=== PATIENT | male | born 1940 | race Caucasian/White ===

== ENCOUNTER → 2017-04-27 08:25 | Outpatient (CLI) | payer MEDICARE, BC, SELFPAY ==
[2017-04-27 10:19] LABS: Absolute Neutrophil Count 3.9 X10^3/uL (2.0-7.7); Basophil# 0.02 X10^3/uL; Basophil% 0.4 % (0-1); Eosinophil# 0.21 X10^3/uL; Eosinophils% 3.9 % (0-5); Hematocrit 40.4 % (40-54); Hemoglobin 13.5 g/dl (13.0-16.5); Lymphocyte % 16.6 % (19-41); Mean Corp Hgb Conc 33.4 g/gl (32-36); Mean Corpuscular Hgb 33.1 pg (27.0-32.0); Mean Platelet Vol. 9.1 fl (6.2-12.0); Monocyte# 0.41 X10^3/uL; Monocyte% 7.6 % (0-10); Neutrophil # 3.88 X10^3/uL (2.7-7.7); Neutrophil % 71.3 % (47-70); Platelet Count 130 K/mm3 (150-450); RBC Distribution Width CV 13.3 % (11.6-14.6); RBC Distribution Width SD 48.6 fl (35.1-43.9); Red Blood Count 4.08 M/mm3 (4.6-6.2); White Blood Count 5.4 K/mm3 (4.4-11.0)
[2017-04-27 10:26] LABS: POSITIVE COUNT NO; POSITIVE DIFFERENTIAL NO; POSITIVE MORPHOLOGY NO
== END ==
PROVIDERS: Family Provider Family Medicine; PCP Family Medicine; Visit Provider Radiology Radiation Oncology
DX: Z01.818 Encounter for other preprocedural examination (principal); C79.51 Secondary malignant neoplasm of bone; Z85.46 Personal history of malignant neoplasm of prostate
CPT/HCPCS: 36415; 85025

== ENCOUNTER → 2017-05-03 11:04 | Outpatient (CLI) | payer MEDICARE, BC, SELFPAY | PROVIDERS: Family Provider Family Medicine; PCP Family Medicine; Visit Provider Radiology Radiation Oncology | DX: C79.51 Secondary malignant neoplasm of bone (principal); C61 Malignant neoplasm of prostate | CPT/HCPCS: 79101; A9606 ==

== ENCOUNTER → 2017-05-27 09:21 | Outpatient (CLI) | payer MEDICARE, BC, SELFPAY ==
[2017-05-27 09:57] LABS: Absolute Lymphocyte Count 0.69 X10^3/ul (0.83-4.51); Absolute Neutrophil Count 2.9 X10^3/uL (2.0-7.7); Basophil# 0.01 X10^3/uL; Basophil% 0.2 % (0-1); Eosinophil# 0.11 X10^3/uL; Eosinophils% 2.7 % (0-5); Hematocrit 39.2 % (40-54); Lymphocyte # 0.69 X10^3/ul (4.0); Lymphocyte % 16.7 % (19-41); Mean Corp Hgb Conc 33.2 g/gl (32-36); Mean Corpuscular Hgb 33.2 pg (27.0-32.0); Mean Platelet Vol. 9.1 fl (6.2-12.0); Monocyte# 0.38 X10^3/uL; Monocyte% 9.2 % (0-10); Neutrophil # 2.92 X10^3/uL (2.7-7.7); Neutrophil % 70.7 % (47-70); Platelet Count 139 K/mm3 (150-450); RBC Distribution Width CV 13.7 % (11.6-14.6); RBC Distribution Width SD 49.6 fl (35.1-43.9); Red Blood Count 3.92 M/mm3 (4.6-6.2); White Blood Count 4.1 K/mm3 (4.4-11.0)
[2017-05-27 09:58] LABS: POSITIVE COUNT NO; POSITIVE DIFFERENTIAL NO; POSITIVE MORPHOLOGY NO
== END ==
PROVIDERS: Family Provider Family Medicine; PCP Family Medicine; Visit Provider Family Medicine
DX: C79.51 Secondary malignant neoplasm of bone (principal); Z85.46 Personal history of malignant neoplasm of prostate; Z01.818 Encounter for other preprocedural examination
CPT/HCPCS: 36415; 85025

== ENCOUNTER → 2017-06-08 10:59 | Outpatient (CLI) | payer MEDICARE, BC, SELFPAY | PROVIDERS: Family Provider Family Medicine; PCP Family Medicine; Visit Provider Radiology Radiation Oncology | DX: C61 Malignant neoplasm of prostate (principal); C79.51 Secondary malignant neoplasm of bone | CPT/HCPCS: 79101; A9606 ==

== ENCOUNTER → 2017-06-28 14:56 | Outpatient (CLI) | payer MEDICARE, BC, SELFPAY ==
[2017-06-28 17:39] LABS: Absolute Lymphocyte Count 0.88 X10^3/ul (0.83-4.51); Absolute Neutrophil Count 2.3 X10^3/uL (2.0-7.7); Basophil# 0.02 X10^3/uL; Basophil% 0.5 % (0-1); Eosinophil# 0.16 X10^3/uL; Eosinophils% 4.1 % (0-5); Hematocrit 34.3 % (40-54); Hemoglobin 11.5 g/dl (13.0-16.5); Lymphocyte # 0.88 X10^3/ul (4.0); Lymphocyte % 22.4 % (19-41); Mean Corp Hgb Conc 33.5 g/gl (32-36); Mean Corpuscular Hgb 33.9 pg (27.0-32.0); Mean Corpuscular Volume 101.2 fL (80-94); Mean Platelet Vol. 9.3 fl (6.2-12.0); Monocyte# 0.53 X10^3/uL; Monocyte% 13.5 % (0-10); Neutrophil # 2.33 X10^3/uL (2.7-7.7); Neutrophil % 59.2 % (47-70); Platelet Count 142 K/mm3 (150-450); RBC Distribution Width CV 13.2 % (11.6-14.6); RBC Distribution Width SD 47.2 fl (35.1-43.9); Red Blood Count 3.39 M/mm3 (4.6-6.2); White Blood Count 3.9 K/mm3 (4.4-11.0)
[2017-06-28 17:55] LABS: POSITIVE COUNT NO; POSITIVE DIFFERENTIAL NO; POSITIVE MORPHOLOGY NO
== END ==
PROVIDERS: Visit Provider Radiology Radiation Oncology
DX: C61 Malignant neoplasm of prostate (principal); C79.51 Secondary malignant neoplasm of bone; Z01.818 Encounter for other preprocedural examination
CPT/HCPCS: 36415; 85025

== ENCOUNTER → 2017-07-06 12:50 | Outpatient (CLI) | payer MEDICARE, BC, SELFPAY | PROVIDERS: Family Provider Family Medicine; PCP Family Medicine; Visit Provider Radiology Radiation Oncology | DX: C61 Malignant neoplasm of prostate (principal); C79.51 Secondary malignant neoplasm of bone | CPT/HCPCS: 79101; A9606 ==

== ENCOUNTER → 2017-07-23 11:19 | Outpatient (CLI) | payer MEDICARE, BC, SELFPAY ==
[2017-07-23 12:53] LABS: Absolute Lymphocyte Count 0.69 X10^3/ul (0.83-4.51); Absolute Neutrophil Count 2.5 X10^3/uL (2.0-7.7); Basophil# 0.03 X10^3/uL; Basophil% 0.8 % (0-1); Eosinophil# 0.35 X10^3/uL; Eosinophils% 8.9 % (0-5); Hematocrit 35.8 % (40-54); Hemoglobin 11.9 g/dl (13.0-16.5); Lymphocyte # 0.69 X10^3/ul (4.0); Lymphocyte % 17.6 % (19-41); Mean Corp Hgb Conc 33.2 g/gl (32-36); Mean Corpuscular Hgb 32.9 pg (27.0-32.0); Mean Corpuscular Volume 98.9 fL (80-94); Mean Platelet Vol. 9.2 fl (6.2-12.0); Monocyte# 0.32 X10^3/uL; Monocyte% 8.2 % (0-10); Neutrophil # 2.53 X10^3/uL (2.7-7.7); Neutrophil % 64.5 % (47-70); Platelet Count 119 K/mm3 (150-450); RBC Distribution Width CV 13.3 % (11.6-14.6); Red Blood Count 3.62 M/mm3 (4.6-6.2); White Blood Count 3.9 K/mm3 (4.4-11.0)
[2017-07-23 13:10] LABS: POSITIVE COUNT NO; POSITIVE DIFFERENTIAL NO; POSITIVE MORPHOLOGY NO
== END ==
PROVIDERS: Family Provider Family Medicine; PCP Family Medicine; Visit Provider Radiology Radiation Oncology
DX: Z01.818 Encounter for other preprocedural examination (principal); C61 Malignant neoplasm of prostate; C79.51 Secondary malignant neoplasm of bone
CPT/HCPCS: 36415; 85025

== ENCOUNTER → 2017-08-05 11:09 | Outpatient (CLI) | payer MEDICARE, BC, SELFPAY | PROVIDERS: Family Provider Family Medicine; PCP Family Medicine; Visit Provider Radiology Radiation Oncology | DX: C61 Malignant neoplasm of prostate (principal); C79.51 Secondary malignant neoplasm of bone | CPT/HCPCS: 79101; A9606 ==

== ENCOUNTER → 2017-08-23 09:24 | Outpatient (CLI) | payer MEDICARE, BC, SELFPAY ==
[2017-08-23 10:42] LABS: Absolute Lymphocyte Count 0.53 X10^3/ul (0.83-4.51); Absolute Neutrophil Count 2.7 X10^3/uL (2.0-7.7); Basophil# 0.02 X10^3/uL; Basophil% 0.5 % (0-1); Differential Indicated SCAN CRITERIA MET; Eosinophil# 0.28 X10^3/uL; Hematocrit 35.6 % (40-54); Hemoglobin 11.8 g/dl (13.0-16.5); Lymphocyte # 0.53 X10^3/ul (4.0); Lymphocyte % 13.2 % (19-41); Mean Corp Hgb Conc 33.1 g/gl (32-36); Mean Corpuscular Hgb 32.9 pg (27.0-32.0); Mean Corpuscular Volume 99.2 fL (80-94); Mean Platelet Vol. 9.1 fl (6.2-12.0); Monocyte# 0.43 X10^3/uL; Monocyte% 10.7 % (0-10); Neutrophil # 2.74 X10^3/uL (2.7-7.7); Neutrophil % 68.4 % (47-70); POSITIVE COUNT NO; POSITIVE DIFFERENTIAL YES; POSITIVE MORPHOLOGY NO; Platelet Count 114 K/mm3 (150-450); RBC Distribution Width CV 13.6 % (11.6-14.6); RBC Distribution Width SD 49.1 fl (35.1-43.9); Red Blood Count 3.59 M/mm3 (4.6-6.2)
[2017-08-24 12:00] LABS: Pathologist Review Reviewed
== END ==
PROVIDERS: Family Provider Family Medicine; PCP Family Medicine; Visit Provider Radiology Radiation Oncology
DX: Z01.818 Encounter for other preprocedural examination (principal); C79.51 Secondary malignant neoplasm of bone; C61 Malignant neoplasm of prostate
CPT/HCPCS: 36415; 85025

== ENCOUNTER → 2017-09-02 11:22 | Outpatient (CLI) | payer MEDICARE, BC, SELFPAY | PROVIDERS: Family Provider Family Medicine; PCP Family Medicine; Visit Provider Radiology Radiation Oncology | DX: C61 Malignant neoplasm of prostate (principal); C79.51 Secondary malignant neoplasm of bone | CPT/HCPCS: 79101; A9606 ==

== ENCOUNTER → 2017-10-12 11:08 | Outpatient (CLI) | payer MEDICARE, BC, SELFPAY | PROVIDERS: Family Provider Family Medicine; PCP Family Medicine; Visit Provider Radiology Radiation Oncology | DX: C61 Malignant neoplasm of prostate (principal); C79.51 Secondary malignant neoplasm of bone | CPT/HCPCS: 79101; A9606 ==

== ENCOUNTER → 2017-11-04 11:55 | Outpatient (CLI) | payer MEDICARE, BC, SELFPAY ==
--- NOTE | 2013-08-29 | IMM_PTH ---
PATIENT: LC JAIMES LOC: [facility] U#:[id number] AGE/SX: 85/M ROOM: RE11/04/[address]: Dr. Ramesh Nassar DO : 1940 BED: DIS: SPEC #: [id number] RECD: 11/04/17 12:12 STATUS: HERMELINDA TEE #: [id number] JUNAID: 08/29/13 00:[address]: Ramesh Nassar DEPT: IMMUNOHISTOCHEMISTRY RECD BY: Mali Alston Tissues: D - PROSTATE LEFT Procedures: MLH-1 (add) MSH6 (add) Anti-PMS2 (add) MSH2 (initial) PHYSICIAN & INSTITUTION [place] [id number] SPECIMEN INFORMATION: Tissue Source: D ? Prostate, left apex, core biopsy Clinical Info: Elevated PSA Specimen Number: [id number] CPT code: 73894, 04950 x3 METHODOLOGY: Deparaffinized sections of prefer/formalin-fixed tissue or PAP/DQ stained slides are incubated with monoclonal/polyclonal antibodies/oligonucleotide probes. Localization is made via biotin free immunoperoxidase method. Appropriate controls are performed and reacted as expected. Results on target cell population are indicated in the following table: RESULTS: ANTIBODY / CLONE RESULT Block D MSH2 (25D12) negative MSH6 (44) negative MLH-1 (M1) positive PMS2 (RVL7102) positive These tests were developed and their performance characteristics determined by [facility]. They may not have been cleared or approved by the U.S. Food and Drug Administration. The FDA has determined that such clearance or approval is not necessary. INTERPRETATION: D. Prostate, left apex, core biopsy: Result of Microsatellite Instability Study: Positive (loss of mismatch protein; microsatellite instability detected). Complete loss of MSH2 and MSH6. AM:juan diego 11/10/17
== END ==
PROVIDERS: Visit Provider Internal Medicine Hematology & Oncology
DX: E78.5 Hyperlipidemia, unspecified (principal); Z79.899 Other long term (current) drug therapy
CPT/HCPCS: 88341; 88342

== ENCOUNTER 2017-12-20 10:59 | Inpatient (IN) | payer MEDICARE, BC, SELFPAY ==
[2017-12-20] VITALS (9 sets, daily range): BP systolic 98–130; BP diastolic 59–72; PULSE 88–137; RESP 18–24; TEMP 36.3–39.4; O2SAT 97–98; BMI 30.4; BMI 30.7; BMI 30.8
--- NOTE | 2017-12-20 11:14 | CT_ITS ---
STUDY: CT ABDOMEN AND PELVIS WITHOUT CONTRAST REASON FOR EXAM: Male, 77 years old. Abdominal pain, weakness since immunotherapy, PROSTATE/BONE CANCER. RADIATION DOSAGE (If Supplied By Facility): CTDIvol = ( 11.78 ) mGy, DLP = ( 582.64 ) mGycm TECHNIQUE: Transaxial images were obtained from the dome of the diaphragm to the symphysis pubis without oral contrast, and without intravenous contrast. Sagittal and coronal images were reconstructed. # of Images: 463 Individualized dose optimization techniques were used for this CT. COMPARISON: May 26, 2016 FINDINGS: The visualized lung bases are unremarkable. The visualized portions of the heart are within normal limits. Normal liver. There are surgical clips in the gallbladder fossa consistent with a prior cholecystectomy. Normal spleen. Normal pancreas. Normal bilateral adrenal glands. Normal right kidney. Normal left kidney. There is a small hiatal hernia. Normal small intestine. There are multiple colonic diverticula consistent with diverticulosis. The appendix is visualized and appears normal. There is diffuse atherosclerotic calcification of the abdominal aorta, without a demonstrated aneurysm. Normal inferior vena cava. Normal retroperitoneum. Normal urinary bladder. Normal abdominal wall. There are diffuse degenerative changes of the visualized lumbar spine. Again noted are the multiple sclerotic lesions of the vertebral bodies and pelvis CT/Abdomen/Pelvis without Cont IMPRESSION: No acute intra-abdominal or intrapelvic abnormality. Osseous lesions, consistent with metastatic disease. Electronically Signed: Felisa Connor MD at 12:46 EDT Tel , Service support ,
[2017-12-20] MEDS: Ondansetron 4 MG/2 ML Vial IV (11:38)
[2017-12-20] MEDS: 0.9% Normal Saline 1,000 ML 1000 ML IV (11:38)
[2017-12-20 11:42] LABS: Absolute Lymphocyte Count 0.25 X10^3/ul (0.83-4.51); Absolute Neutrophil Count 4.7 X10^3/uL (2.0-7.7); Basophil# 0.01 X10^3/uL; Basophil% 0.2 % (0-1); Differential Indicated SCAN CRITERIA MET; Eosinophil# 0.01 X10^3/uL; Eosinophils% 0.2 % (0-5); Hematocrit 33.7 % (40-54); Hemoglobin 12.1 g/dl (13.0-16.5); Lymphocyte # 0.25 X10^3/ul (4.0); Lymphocyte % 4.6 % (19-41); Mean Corp Hgb Conc 35.9 g/gl (32-36); Mean Corpuscular Hgb 35.1 pg (27.0-32.0); Mean Corpuscular Volume 97.7 fL (80-94); Mean Platelet Vol. 8.8 fl (6.2-12.0); Monocyte# 0.47 X10^3/uL; Monocyte% 8.6 % (0-10); Neutrophil # 4.71 X10^3/uL (2.7-7.7); Neutrophil % 86.2 % (47-70); POSITIVE COUNT NO; POSITIVE DIFFERENTIAL YES; POSITIVE MORPHOLOGY NO; Platelet Count 91 K/mm3 (150-450); RBC Distribution Width CV 13.3 % (11.6-14.6); RBC Distribution Width SD 45.6 fl (35.1-43.9); Red Blood Count 3.45 M/mm3 (4.6-6.2); White Blood Count 5.5 K/mm3 (4.4-11.0)
[2017-12-20 11:55] LABS: ALB/GLOB Ratio 0.8 RATIO (0.9-2.4); AST(SGOT) 20 U/L (15-37); Alanine Aminotransfer ALT/SGPT 50 U/L (16-61); Alkaline Phosphatase 68 U/L (45-117); Anion Gap 8 (5-15); BUN 14 mg/dL (7-18); BUN/Creat Ratio 13.7 RATIO (10-20); Calcium,Total 8.2 mg/dL (8.5-10.1); Chloride 94 mmol/L (98-107); Creatinine, Serum 1.02 mg/dL (0.70-1.30); EST Glomerular Filtration Rate 75 mL/min (>60); Est Glom Filt Rate - Afr Amer 90 mL/min (>60); Estimated Creatinine Clearance 56.81 ml/min; Globulin 3.7 g/dL (2.2-4.2); Glucose 120 mg/dL (74-106); Potassium 3.5 mmol/L (3.5-5.1); Protein, Total 6.7 g/dL (6.4-8.2); Sodium Level 128 mmol/L (136-145)
[2017-12-20 12:05] LABS: Lactic Acid 2.1 mmol/L (0.4-2.0)
[2017-12-20 12:47] LABS: Squamous Epithelial Cells - UA 0 SEEN /hpf (0-5)
[2017-12-20 12:48] LABS: Color, Urine Yellow (Yellow); Glucose, Dipstick 250 mg/dl (Normal); Ketone-Dipstick 50 mg/dl (Negative); Leukocyte Esterase-Dipstick 25 /ul (Negative); Nitrite-Dipstick Negative (Negative); Occult Blood-Urine 10 /ul (Negative); Protein-Dipstick 30 mg/dl (Negative); Urine Clarity Sl. Cloudy (Clear); Urine Urobilinogen 4 mg/dl (Normal)
[2017-12-20 12:50] LABS: Urine Bilirubin Dipstick 1 mg/dL (Negative)
[2017-12-20 12:54] LABS: Bacteria 1+ /hpf (None Seen); Mucous, Urine 1+ /hpf (<or=2+); Red Blood Cells-Urine 0-5 SEEN /hpf (0-5); White Blood Cells 0-5 SEEN /hpf (0-5)
--- NOTE | 2017-12-20 13:13 | HP.PCM_ITS ---
Problem List (1) Weakness Status: Acute (2) Vomiting Status: Acute History of Present Illness Date of Admission: 12/20/17 Chief Complaint: weakness and vomiting The patient is a 77 year old M with an extensive past medical history as listed below and including metastatic prostate cancer and CAD s/p CABG. He was admitted to the ED on 12/03/2018 with complaint of generalized weakness and vomiting for the past 3 days. Patient started having Keytruda immunotherapy for metastatic prostate cancer and had a second dose of Wednesday. Subsequently he became very weak and started having nausea and vomiting. Symptoms persisted and weakness actually worsened and also noted that he had become jaundiced. They therefore decided to bring him in today. He had assisted chills but denied any fever, any cough or chest pain, any shortness of breath, any abdominal pain or diarrhea. Vitals were significant for blood pressure of 98/64 and chemistries were significant for sodium of 128 and lactic acid of 2.1. Total bilirubin was 2.2 but AST ALT and ALP were within normal limits. CBC showed a myoglobin of 12.1 and platelets of 91. CT of abdomen and pelvis showed no acute intra-abdominal or intrapelvic abnormality and shows lesions consistent with metastatic disease. He has been admitted to be managed for immunotherapy induced nausea, vomiting and generalized weakness. [] Past Medical History Past Medical History (Chronic Problems): Chronic Problems (Last Updated 03/19/17 @ 14:26 by Tori Walker) Prostate cancer metastatic to bone (Chronic) Stenosis of right carotid artery (Chronic) Choledocholithiasis with acute cholecystitis with obstruction (Chronic) Atherosclerosis of coronary artery bypass graft without angina pectoris (Chronic) CAB12/2002 WHITAKER graft LAD, saphenous vein graft to diagonal branch of anterior descending, lateral CFX and RCA. Dyspnea on exertion (Chronic) Malaise and fatigue (Chronic) Dyspnea and respiratory abnormalities (Chronic) Carotid stenosis (Chronic) History of PTCA (Chronic) PTCA: 03/23/2003 PTCA/Stent to proximal-mid LAD; 10/2004 PTCA of the LAD, with placement of a taxus stent. Hx of CABG (Chronic) CAB12/2002 WHITAKER graft LAD, saphenous vein graft to diagonal branch of anterior descending, lateral CFX and RCA. Nonspecific abnormal unspecified cardiovascular function study (Chronic) Palpitations (Chronic) CAD (coronary artery disease) (Chronic) PTCA: 03/23/2003 PTCA/Stent to proximal-mid LAD; 10/2004 PTCA of the LAD, with placement of a taxus stent. CAB12/2002 WHITAKER graft LAD, saphenous vein graft to diagonal branch of anterior descending, lateral CFX and RCA. [facility]: 12/2002; 12/16/2005 Angina pectoris (Chronic) HLD (hyperlipidemia) (Chronic) Hypertension (Chronic) Hypothyroid (Chronic) Hyperlipidemia (Chronic) Acute cholecystitis (Chronic) Choledocholithiasis with acute cholecystitis with obstruction (Chronic) Choledocholithiasis with obstruction (Chronic) Medical History: Medical History (Last Updated 03/19/17 @ 14:26 by Tori Walker) Stenosis of right carotid artery (Chronic) I65.21 Choledocholithiasis with acute cholecystitis with obstruction (Chronic) K80.41 Atherosclerosis of coronary artery bypass graft without angina pectoris (Chronic) I25.810 CAB12/2002 WHITAKER graft LAD, saphenous vein graft to diagonal branch of anterior descending, lateral CFX and RCA. Dyspnea on exertion (Chronic) R06.09 Malaise and fatigue (Chronic) R53.81, R53.83 Dyspnea and respiratory abnormalities (Chronic) R06.00, R06.89 Carotid stenosis (Chronic) I65.29 Nonspecific abnormal unspecified cardiovascular function study (Chronic) R94.30 Palpitations (Chronic) R00.2 CAD (coronary artery disease) (Chronic) I25.10 PTCA: 03/23/2003 PTCA/Stent to proximal-mid LAD; 10/2004 PTCA of the LAD, with placement of a taxus stent. CAB12/2002 WHITAKER graft LAD, saphenous vein graft to diagonal branch of anterior descending, lateral CFX and RCA. C: 12/2002; 12/16/2005 Angina pectoris (Chronic) I20.9 HLD (hyperlipidemia) (Chronic) E78.5 Hypertension (Chronic) I10 Allergies No Known Allergies Allergy (Verified 12/20/17 11:02) Home Medications: Ambulatory Orders Medication Instructions Recorded Levothyroxine Sodium [Levoxyl] 112 mcg PO DAILY 11/10/13 Metoprolol Tartrate [Lopressor 25 mg PO BID 11/10/13 (beta khang)] Pravastatin [Pravachol] 20 mg PO QHS 11/10/13 Tamsulosin HCl [Flomax] 0.4 mg PO DAILY 11/10/13 Morphine Sulfate [Morphine Sulfate 15 mg PO Q8H 05/09/16 ER] aspirin 81 mg tablet,delayed 81 mg PO QDAY 06/22/17 release nitroglycerin 0.4 mg sublingual 0.4 mg SUBLINGUAL Q5M PRN #25 tab 11/08/17 tablet Abiraterone Acetate [Zytiga] 750 mg PO DAILY 12/20/17 Hydrocodone Bitart/Apap 5-325 1 - 2 tablet PO Q6H PRN 12/20/17 [Lawn 5MG-325MG] Multivitamin [Daily Multiple 1 each PO DAILY 12/20/17 Vitamin] Prednisone 5 mg PO BID 12/20/17 Ramipril 10 mg PO DAILY 12/20/17 morphine SR tablet [MS Contin] 15 mg PO BREAKFAST 12/20/17 morphine SR tablet [MS Contin] 30 mg PO QHS 12/20/17 Surgical History: Surgical History (Last Updated 11/11/17 @ 13:11 by Cinthia Parr) History of PTCA (Chronic) Z98.61 PTCA: 03/23/2003 PTCA/Stent to proximal-mid LAD; 10/2004 PTCA of the LAD, with placement of a taxus stent. Hx of CABG (Chronic) Z95.1 CAB12/2002 WHITAKER graft LAD, saphenous vein graft to diagonal branch of anterior descending, lateral CFX and RCA. History of cholecystectomy Z90.49 History of left heart catheterization (LHC) Z98.890 LHC: 12/2002; 12/16/2005 History of left-sided carotid endarterectomy Onset Date: ~2004 Z98.890 Surgical History: cholecystectomy, coronary bypass surgery - In 2002 and subsequently he had heart stents placed in the same year. Psychiatric History: No pertinent psych hx Smoking Status: Former smoker - *Family History Paternal Family History: Family History (Last Reviewed 06/28/17 @ 13:57 by Ailyn Butler) Father FH: brain aneurysm Mother Myocardial infarction CAD (coronary artery disease) Brother Myocardial infarction Brother CAD (coronary artery disease) Brother Hypertension Sister Diabetes Sister Myocardial infarction Colon cancer Sister Cancer History Items: No pertinent history Review of Systems Constitutional: Reports: Anorexia, Chills, Malaise, Weakness, Fatigue. Denies: Fever Eyes: Denies: Blurred vision HEENT: Denies: Head Aches, Sinus Congestion, Sinus Drainage Cardiovascular: Denies: Chest Pain, Palpitations Respiratory: Denies: Cough, Shortness of Breath, Shortness of breath at rest, Shortness of breath upon exertion, Sputum production Gastrointestinal: Reports: Diarrhea, Nausea, Vomiting. Denies: Abdominal Pain Genitourinary: Denies: Dysuria Musculoskeletal: Denies: Joint Pain, Joint Tenderness Skin: Reports: Jaundice. Denies: Pruritis, Rash, Wounds Neurological: Denies: Numbness, Tingling, Focal weakness Psychiatric: Denies: Anxiety, Depression, Homicidal Ideations, Suicidal Ideations Hematologic/ Lymphatic: Denies: Easy Bruising, Easy Bleeding VTE Information - Inpt Only VTE Present on Admission: No VTE Mechan Device Prophylaxis: SCD's Patient Problems: Active and Suspected Problems (Last Updated 03/19/17 @ 14:26 by Tori Walker) Weakness (Acute) Vomiting (Acute) Malaise and fatigue (Acute) - Physical Exam General: Alert, Oriented x3, Cooperative, No apparent distress, Lethargic, - HEENT: Atraumatic, PERRLA, EOMI, Normocephalic, - - jaundiced sclera Oral: Dry Mucosa Neck: Supple, No JVD, Negative Carotid Bruits Lungs: Clear to auscultation, Normal air movement, No rhonchi, No wheeze, No rales Cardiovascular: Regular rate, Regular Rhythm, Normal S1, Normal S2, No murmurs Abdomen: Bowel Sounds Present, Soft, Non Tender, Non-Distended, No Hepato- splenomegaly Extremities: No clubbing, No cyanosis, No edema, Capillary Refill Less than 3 Seconds Skin: No rashes, No breakdown, - - jaundiced skin Musculoskeletal: No Tenderness to Palpation of Joints or Extremities Lymphatic: No Cervical, Supraclavicular, or Inguinal Adenopathy Neurological: Cranial nerves II-XII grossly intact Psych/Mental Status: Normal Affect, Appropriate, Alert and oriented to time, place, person, mood and affect Vital Signs Temp Pulse Resp BP Pulse Ox 97.4 F L 95 18 111/71 97 12/20/17 11:00 12/20/17 12:58 12/20/17 12:58 12/20/17 12:58 12/20/17 12:58 Oxygen Delivery Method Room Air Weight: 200 lb Body Mass Index (BMI) 30.4 Microbiology Past 72 Hours 12/20/17 11:32 Influenza Types A,B Direct FA (BETITO) - Final Mucosa - Nasopharyngeal Laboratory Tests Past 24 Hrs 12/20/17 12/20/17 12/20/17 11:26 11:26 11:26 WBC 5.5 RBC 3.45 L Hgb 12.1 L Hct 33.7 L MCV 97.7 H MCH 35.1 H MCHC 35.9 RDW 13.3 RDW Differential 45.6 H Plt Count 91 L MPV 8.8 Immature Gran % (Auto) 0.200 Neut % (Auto) 86.2 H Lymph % (Auto) 4.6 L Webb % (Auto) 8.6 Eos % (Auto) 0.2 Baso % (Auto) 0.2 Absolute Neuts (auto) 4.7 Absolute Lymphs (auto) 0.25 L Total Counted Not Reportable Differential Comment COMMENT Sodium 128 L Potassium 3.5 Chloride 94 L Carbon Dioxide 26.0 Anion Gap 8 BUN 14 Creatinine 1.02 Estim Creat Clear Calc 56.81 Est GFR (MDRD) Af Amer 90 Est GFR (MDRD) Non-Af 75 BUN/Creatinine Ratio 13.7 Glucose 120 H Lactic Acid 2.1 H Calcium 8.2 L Total Bilirubin 2.20 H AST 20 ALT 50 Alkaline Phosphatase 68 Total Protein 6.7 Albumin 3.0 L Globulin 3.7 Albumin/Globulin Ratio 0.8 L Urine Color Urine Clarity Urine pH Ur Specific [place] Urine Protein Urine Glucose (UA) Urine Ketones Urine Occult Blood Urine Nitrite Urine Bilirubin Urine Urobilinogen Ur Leukocyte Esterase Urine RBC Urine WBC Ur Squamous Epith Cells Urine Bacteria Urine Mucus 12/20/17 12:40 WBC RBC Hgb Hct MCV MCH MCHC RDW RDW Differential Plt Count MPV Immature Gran % (Auto) Neut % (Auto) Lymph % (Auto) Webb % (Auto) Eos % (Auto) Baso % (Auto) Absolute Neuts (auto) Absolute Lymphs (auto) Total Counted Differential Comment Sodium Potassium Chloride Carbon Dioxide Anion Gap BUN Creatinine Estim Creat Clear Calc Est GFR (MDRD) Af Amer Est GFR (MDRD) Non-Af BUN/Creatinine Ratio Glucose Lactic Acid Calcium Total Bilirubin AST ALT Alkaline Phosphatase Total Protein Albumin Globulin Albumin/Globulin Ratio Urine Color Yellow Urine Clarity Sl. Cloudy Urine pH 6.0 Ur Specific [place] 1.020 Urine Protein 30 H Urine Glucose (UA) 250 H Urine Ketones 50 H Urine Occult Blood 10 H Urine Nitrite Negative Urine Bilirubin 1 H Urine Urobilinogen 4 H Ur Leukocyte Esterase 25 H Urine RBC 0-5 SEEN Urine WBC 0-5 SEEN Ur Squamous Epith Cells 0 SEEN Urine Bacteria 1+ Urine Mucus 1+ Diagnostic Data Abdomen/Pelvis CT 12/20/17 11:14 IMPRESSION: No acute intra-abdominal or intrapelvic abnormality. Osseous lesions, consistent with metastatic disease. Electronically Signed: Felisa Connor MD at 12:46 EDT Tel , Service support , Assessment/Plan All Active Problems (Last Updated 03/19/17 @ 14:26 by Tori Walker) Weakness (Acute) Vomiting (Acute) Malaise and fatigue (Acute) 77-year-old male presenting with a complaint of generalized weakness, nausea and vomiting for 3 days. 1. Debility, likely immunotherapy induced * feels very weak and is unable to even walk without assistance. Symptoms started after having second session of Keytruda infusion on Wednesday * has associated nausea and vomiting. * has been hypotensive with BP in 90s systolic at time of admission * admit to Med Surg with telemetry * IVF NS @ 150cc/hr * PT/OT consult * consult oncology * 2. Immunotherapy induced nausea and vomiting * as under 1. * IVF NS @ 150cc/hr; IV zofran * 3. Lactic acidosis: likely due to dehydration. lactic acid was 2.1. Will repeat after IVF administration 4. Hyponatremia * Na is 128; likely a hypovolemic hypotonic hyponatremia due to dehydration. Expect to resolve with IV fluid administration. * 5. Metastatic prostate cancer * Has generalized spread to his bones. * Started on Keytruda and symptoms started. * Oncology consult. Decision to be made by oncologist with the patient is continuing to do well otherwise as patient was very concerned about the side effects he is experiencing. * 6. Elevated bilirubin * total bilirubin is 2.2. ALT, ALP and AST are WNL * patient visibly jaundiced. may be side effect of Keytruda, as hepatitis is a known side effect of keytruda * will monitor * 7. Hypotension due to dehydration: BP was 90s systolic at time of review. Likely due to decreased intake and vomiting. Hold BP meds and hydrate with IVF. 8. thrombocytopenia: Platelets 91. This is chronic. Likely due to cancer and chemotherapy 9. CAD s/p CABG: on aspirin, statin and metoprolol. 10. Hypertension: BP meds on hold o/a of hypotension. Hasnt taken his meds for the past 3 days due to hypotension. 11. Hypothyroidism: On Synthroid DVT prophylaxis: Heparin. Hold heparin if platelets fall below 50 GI prophylaxis: Famotidine CODE STATUS:DNRCCA * Patient, and son counseled extensively about different types of CODE STATUS including full code, DNR CCA and DNR CCA. Patient elects to be DNRCCA. Total adjd-oo-powt time 16 minutes. Code Visit Inpatient E&M: 75506 Init Hosp L3 Procedures: 72233 Advncd Care Plan 30 Min
--- NOTE | 2017-12-20 13:16 | ED.VISSUMM ---
- ER Visit Summary Date of Service: 12/20/17 Chief Complaint: Neurological weakness History of Present Illness: The patient is a 77 M with a history of metastatic prostate cancer presents with generalized weakness and diarrhea for 3 days since his second dose of the immunotherapy. He has had decreased p.o. intake, nausea, but no localized abdominal pain, just diffuse abdominal cramping and diarrhea. Countless episodes of diarrhea daily but only one this morning. No vomiting. He has not been able to take his meds and states that he is so weak that he cannot even walk across the room. He also reports diffuse body aches. He saw his oncologist this morning and was sent in here for labs, hydration, and CT scan Physical Examination: He appears quite weak. Mucous members are dry. He is pale. Neck is supple. No meningeal signs. Heart tones are regular and without murmur. Lungs are clear bilaterally. Abdomen is soft and nontender. No edema. No tenderness along the lower extremity venous system. Test Results: Counts are essentially remarkable. Bilirubin is elevated but he has been higher before. Flu swab negative. Cultures were sent. Creatinine normal. CT abdomen/pelvis negative. Emergency Department Course and Treatment: Was given IV fluids and hydration. He is still not feeling much better. He appears quite weak and dehydrated. I discussed the case with Dr. Nassar who recommended medical admission for observation, hydration, and he will come see him in consult today after office hours. Treatment Plan: I spoke with the hospitalist and he was admitted to a medical bed in stable condition Disposition: observation Impression: Initial encounter acute dehydration, diarrhea, acute weakness, history of metastatic prostate cancer, immunosuppressed This note was generated with [employer] dictation software. It may contain incorrect words, spelling, and punctuation that were not noted in review of the chart prior to signing ED Disposition - Plan for ED Patient: Chief Complaint: Weakness Referrals: Brodie Weir MD [Primary Care Provider] -
[2017-12-20] MEDS: 0.9% Normal Saline 1,000 ML 150 ML IV ×2 (14:24→20:35)
--- NOTE | 2017-12-20 14:29 | PCM.CONS.B ---
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 - Reason for Consult Diagnosis: 1) Hormone refractory metastatic prostate cancer. ? HPI:?The patient is a 77 yo male who established urologic care with Dr. Ingram for a h/o of urinary outlet obstruction and an increase in PSA. ? Was seen by his PCP for right leg pain that he had for about 2-3 months prior to presentation. Pain is in posteriormedial right thigh. Hurt to flex thigh above 90 degrees. Had an MRI that by patient's report metastatic femur lesions were noted. ? PSA at the time of diagnosis 63 ng/mL. ? Six cores were obtained on biopsy 08/29/2013. One of the cores was positive for poorly differentiated adenocarcinoma Chris score 5+5=10. Tumor involved 100% of the submitted core. This was taken from the left apex. A second core from the left left mid gland and left base also demonstrated 100% involvement with Chris score 5+5 equal 10. Two of the cores in the right gland were nondiagnostic and did not contain prostatic tissue. One core from the right apex contained a minute focus of poorly differentiated prostatic adenocarcinoma. ? Bone scan done on 09/07/2013 demonstrated an increase of radiopharmaceutical concentration multifocally in the axial skeletal structures including the right scapula, left coracoid process, several bilateral ribs, thoracic and lumbar spine as well as left posterior ilium, the lower sacrum, left iliac wing, right superior and inferior pubic ramus as well as the left acetabulum. ? Previous therapy: 1) Firmagon (09/07/2013 first injection) and Casodex. 2) Docetaxel x6 cycles completed 01/12/2014. 3) Palliative RT to L5-S1 04/27/16 to 05/01/16. 4) Xtandi. Began 06/27/2016. 5) Casodex. 6) Xofigo completed 6 months 09/2017. ? Current therapy: 1) Prolia q 6 months. 2) GnRH agonist therapy at urologist's office. 3) Zytiga/prednisone. 4) Pembrolizumab. Patient received second dose of pembrolizumab on Sunday 12/17. Contacted by patient's on Wednesday saying he was very tired and spent most the day in bed. One episode of emesis. He was able to take in adequate hydration. This morning when we checked on the patient, his said that he was still feeling very profoundly fatigued and had 4-5 episodes of diarrhea throughout the day yesterday. Eating very little. Able to take fluids. He presented to the emergency room. Patient seen and examined last night. He admitted to a fever to about 100.4 on Wednesday night. This was associated with shaking chills. No other symptoms of infection. He did develop diarrhea throughout the day on Wednesday but said he had about 3 episodes right in a row and then the diarrhea ceased. He had one more bowel movement earlier on Wednesday morning. He's not having any abdominal pain but feels a lot of generalized abdominal discomfort with diffuse tenderness. A lot of burping as well. No heartburn. No vomiting. He is able to take in fluids. He's had no dysuria, gross hematuria. He denies cough. Allergies No Known Allergies Allergy (Verified 12/20/17 11:02) Current Medications Acetaminophen (Tylenol) 650 mg PO Q6H PRN PRN PRN Reason: FEVER Last Admin: 12/20/17 20:52 Dose: 650 mg Hydrocodone Bitart/Acetaminophen (Mccarr 5mg-325mg) 1 - 2 tablet PO Q6H PRN PRN Reason: PAIN Last Admin: 12/20/17 14:30 Dose: 1 tablet Aspirin (Ecotrin) 81 mg PO DAILY@0800 [facility] Last Admin: 12/20/17 14:52 Dose: 81 mg Ciprofloxacin HCl (Cipro) 500 mg PO BID [facility] Last Admin: 12/20/17 21:00 Dose: 500 mg Sodium Chloride () 1,000 mls @ 150 mls/hr IV .Q6H40M [facility] Last Admin: 12/21/17 03:31 Dose: 150 mls/hr Diltiazem HCl 125 mg/ Dextrose 125 mls @ 5 mls/hr IV .Q25H [facility]; Protocol Last Admin: 12/21/17 03:30 Dose: 5 mls/hr Levothyroxine Sodium (Synthroid) 112 mcg PO DAILY@0600 [facility] Last Admin: 12/21/17 05:52 Dose: 112 mcg Magnesium Hydroxide (Milk Of Magnesia) 30 ml PO DAILY PRN PRN PRN Reason: Constipation Metoprolol Tartrate (Lopressor (Beta Juvenal)) 25 mg PO BID [facility] Last Admin: 12/20/17 23:22 Dose: 25 mg Metronidazole (Flagyl) 500 mg PO TID [facility] Last Admin: 12/21/17 05:53 Dose: 500 mg Morphine Sulfate (Ms Contin) 15 mg PO BREAKFAST [facility] Morphine Sulfate (Ms Contin) 30 mg PO HS [facility] Last Admin: 12/20/17 20:59 Dose: 30 mg Multivitamins (Multivitamin) 1 tablet PO DAILY@0800 [facility] Nitroglycerin (Nitrostat) 0.4 mg SUBLINGUAL Q5M PRN PRN Reason: chest pain Nutritional Formula (Lactose Free) (Ensure Clear) 120 ml PO 4X/DAY [facility] Last Admin: 12/20/17 21:00 Dose: 120 mls Ondansetron HCl (Zofran) 4 mg IV Q8H PRN PRN PRN Reason: NAUSEA/VOMITING Pravastatin Sodium (Pravachol) 20 mg PO QHS [facility] Last Admin: 12/20/17 21:00 Dose: 20 mg Prednisone () 5 mg PO BIDCM [facility] Last Admin: 12/20/17 14:52 Dose: 5 mg Sodium Chloride () 5 - 30 ml IV UD PRN PRN Reason: SALINE FLUSH Last Admin: 12/21/17 03:36 Dose: 5 ml PHYSICAL EXAM: Fatigued-appearing and in no acute distress. EYES: Sclerae are mildly icteric bilaterally. NECK: Supple. LYMPHATIC: There is no palpable cervical, supraclavicular adenopathy. RESPIRATORY: decreased air entry with a few coarse rhonchi at the bases. CARDIOVASCULAR: Rhythm is irregular. ABDOMEN: Abdomen is somewhat distended. There is tympany. Very active bowel sounds including borborygmi and higher pitched bowel sounds. Extremities: No swelling or edema. SKIN: No jaundice. NEUROLOGIC: utilities and maintenance supervisor II-XII are grossly intact. No focal motor weakness, just generalized weakness of the legs. ASSESSMENT/PLAN: 1) Asthenia. Assessment: -In summary the patient is a 77-year-old male who has refractory metastatic prostate cancer who has now received 2 doses of immunotherapy. He had generalized fatigue after the first dose but promptly after the second dose had the onset of rather significant asthenia but this is also associated with low-grade fever that occurred Collin evening. Mild diarrhea that self resolved as well. He has no exam findings now suggestive of an acute infectious process but his lactic acid was elevated and a low-grade temp this evening. Exam concerning for possible evolving colitis or other abdominal process such as diverticulitis. -No clear indication for high dose steroids right now as there does not seem to be an acute autoimmune process presently. Plan: -Begin oral ciprofloxacin and Flagyl. If he cannot tolerate then we'll convert to IV antibiotics. -Continue IV fluids. -Continue to observe.
[2017-12-20] MEDS: HYDROcodone Bitartrate/Apap 5/325 Tablet PO (14:30)
--- NOTE | 2017-12-20 14:38 | CASEMGMT ---
Social Work Note Per security management specialist questions pt hasn't provided [facility] Living Will or HCPOA yet but is able to bring them to [facility]. Sonal Veliz HOME ENERGY RATER, LEGAL RECORDS MANAGER
[2017-12-20] MEDS: predniSONE 5 MG Tablet PO (14:52)
[2017-12-20] MEDS: Heparin Injection (Vial) 5,000 UNIT/ML VIAL 5000 UNIT SC (14:52)
[2017-12-20] MEDS: Aspirin E.C. 81 MG Tablet PO (14:52)
[2017-12-20 15:32] LABS: Reflex Lactate? Y
[2017-12-20 16:17] LABS: Lactic Acid 1.8 mmol/L (0.4-2.0)
[2017-12-20] MEDS: Acetaminophen 325 MG Tablet 650 MG PO (20:52)
[2017-12-20] MEDS: Ciprofloxacin 500 MG Tablet PO (21:00)
[2017-12-20] MEDS: Pravastatin 20 MG Tablet PO (21:00)
[2017-12-20] MEDS: metroNIDAZOLE 500 MG Tablet PO (21:36)
--- NOTE | 2017-12-20 23:14 | EKG12_ITS ---
Test Reason : RHY CHANGE Blood Pressure : / mmHG Vent. Rate : 139 BPM Atrial Rate : 278 BPM P-R Int : 000 ms QRS Dur : 102 ms QT Int : 334 ms P-R-T Axes : 060 042 105 degrees QTc Int : 508 ms Atrial flutter with variable A-V block ST & T wave abnormality, consider anterior ischemia Abnormal ECG Confirmed by ALVIN OSMAN, KEDAR ([id number]), scientific publications editor MICKEY FLYNN ([id number]) on 12/29/2017 2:47:00 PM Referred By: MOIZ Confirmed By:KEDAR ESQUIVEL MD
[2017-12-20] MEDS: Metoprolol Tartrate 25 MG Tablet PO (23:22)
[2017-12-21] VITALS (33 sets, daily range): BP systolic 97–125; BP diastolic 52–82; PULSE 83–142; RESP 16–32; TEMP 36.7–38.8; O2SAT 90–98
[2017-12-21] MEDS: Metoprolol Tartrate 5 MG/5 ML Vial IV (00:43)
--- NOTE | 2017-12-21 02:55 | PCM.PN.BLA ---
Progress Note Patient was transferred from [facility] Surg to PCU because of Afib with RVR. His metoprolol po that had been held was started. Initially he received lopressor IV because cardizem IV could not be given at [facility]. He continueD to be in Afib with RVR so Cardizem bolus and drip was ordered and a transfer order was placed for patient to go to step down at PCU.
--- NOTE | 2017-12-21 02:59 | PN_ITS ---
Progress Note Patient was transferred from [facility] Surg to PCU because of Afib with RVR. His metoprolol po that had been held was started. Initially he received lopressor IV because cardizem IV could not be given at [facility]. He continueD to be in Afib with RVR so Cardizem bolus and drip was ordered and a transfer order was placed for patient to go to step down at PCU.
[2017-12-21] MEDS: dilTIAZem 25 MG/5 ML Vial 5 MG IV BOLUS (03:28)
[2017-12-21] MEDS: 0.9% Normal Saline 1,000 ML 150 ML IV ×2 (03:31→09:59)
[2017-12-21] MEDS: 0.9% NaCl Peripheral Flush Adult/Peds IV ×2 (03:36→22:29)
[2017-12-21] MEDS: Levothyroxine 112 MCG Tablet PO (05:52)
[2017-12-21] MEDS: metroNIDAZOLE 500 MG Tablet PO ×3 (05:53→21:14)
[2017-12-21 06:56] LABS: Absolute Lymphocyte Count 0.38 X10^3/ul (0.83-4.51); Absolute Neutrophil Count 2.9 X10^3/uL (2.0-7.7); Basophil# 0.01 X10^3/uL; Basophil% 0.3 % (0-1); Eosinophil# 0.01 X10^3/uL; Eosinophils% 0.3 % (0-5); Hematocrit 28.5 % (40-54); Hemoglobin 9.8 g/dl (13.0-16.5); Lymphocyte # 0.38 X10^3/ul (4.0); Lymphocyte % 10.3 % (19-41); Mean Corp Hgb Conc 34.4 g/gl (32-36); Mean Corpuscular Hgb 34.3 pg (27.0-32.0); Mean Corpuscular Volume 99.7 fL (80-94); Mean Platelet Vol. 9.3 fl (6.2-12.0); Monocyte# 0.41 X10^3/uL; Monocyte% 11.1 % (0-10); Neutrophil # 2.87 X10^3/uL (2.7-7.7); Neutrophil % 77.5 % (47-70); Platelet Count 85 K/mm3 (150-450); RBC Distribution Width SD 45.5 fl (35.1-43.9); Red Blood Count 2.86 M/mm3 (4.6-6.2); White Blood Count 3.7 K/mm3 (4.4-11.0)
[2017-12-21 06:58] LABS: Differential Indicated SCAN CRITERIA MET; POSITIVE COUNT NO; POSITIVE DIFFERENTIAL YES; POSITIVE MORPHOLOGY NO
[2017-12-21 07:08] LABS: Anion Gap 10 (5-15); BUN 13 mg/dL (7-18); BUN/Creat Ratio 14.9 RATIO (10-20); Calcium,Total 7.7 mg/dL (8.5-10.1); Chloride 99 mmol/L (98-107); Creatinine, Serum 0.87 mg/dL (0.70-1.30); EST Glomerular Filtration Rate 90 mL/min (>60); Est Glom Filt Rate - Afr Amer 109 mL/min (>60); Estimated Creatinine Clearance 66.61 ml/min; Glucose 111 mg/dL (74-106); Potassium 3.6 mmol/L (3.5-5.1); Sodium Level 133 mmol/L (136-145)
[2017-12-21 07:14] LABS: Differential Comment SCANNED
--- NOTE | 2017-12-21 08:00 | RAD_ITS ---
STUDY: X-RAY CHEST REASON FOR EXAM: Male, 77 years old. Fever. TECHNIQUE: AP and lateral views of the chest. COMPARISON: Comparison is made with prior examination dated January 04, 2015. FINDINGS: EKG electrodes are seen. Hyperinflation. I suspect early infiltrate in the posterior medial segment of the left lower lobe superimposed on scarring. There is no demonstrated pleural abnormality. Sternal cerclage wires and vascular clips are present from a prior sternotomy and coronary artery bypass graft procedure (CABG). Normal mediastinum and amie. Normal visualized pulmonary arteries. There is atherosclerotic calcification of the aortic arch with tortuosity. There are diffuse degenerative changes of the visualized thoracic spine. I also suspect sclerotic metastasis in the lower thoracic and upper lumbar vertebrae. Normal visualized ribs, clavicles, and shoulders. There is no demonstrated abnormality of the visualized soft tissue structures of the upper abdomen. RAD/Chest PA and Lateral IMPRESSION: Findings suggestive of early infiltrate in the posterior medial segment of the left lower lobe. Hyperinflation and stable bibasilar scarring. Electronically Signed: Pedro Pablo Zafar MD at 10:33 EDT Tel [phone], Service support ,
[2017-12-21] MEDS: Multivitamins,Therapeutic Tablet 1 TABLET PO (08:26)
[2017-12-21] MEDS: Aspirin E.C. 81 MG Tablet PO (08:26)
--- NOTE | 2017-12-21 08:27 | PCM.PROGNOTE ---
Patient Problems: Active and Suspected Problems (Last Updated 03/19/17 @ 14:26 by Tori Walker) Weakness (Acute) Vomiting (Acute) Malaise and fatigue (Acute) Subjective: Patient had fever to 103 last night. Again no localizing symptoms. No cough. He had some chest pain this was associated with an episode of RVR atrial fibrillation. He was transferred to PACU and placed back on metoprolol. Rate controlled this morning. No further chest pain. He has not had any sputum production. No nausea or vomiting. He was able to eat some mashed potatoes last night and drank about a half a bottle of Ensure. No bowel movement as of yet this morning. He'll having some generalized abdominal discomfort. He says his abdomen just all around feels quite punky. urinated a small volume last night. No dysuria or gross hematuria. - Physical Exam General: Alert, Oriented x3 Oral: Moist Mucosa Lungs: Normal air movement Cardiovascular: Irregular Rate Abdomen: - - abdomen is still mildly distended and tympanic but the bowel sounds are not quite as active as they were last evening. Extremities: - - mild bilateral lower extremity swelling with cherries pitting edema. Neurological: - - is able to move his legs. He has 4/5 strength bilaterally. Vital Signs Temp Pulse Resp BP Pulse Ox 98.2 F 99 23 H 104/64 95 12/21/17 06:00 12/21/17 07:02 12/21/17 07:00 12/21/17 07:00 12/21/17 06:00 Oxygen Delivery Method Room Air Weight: 91.8 kg Body Mass Index (BMI) 30.7 Intake and Output for Last 24 Hours 12/19/17 12/20/17 12/21/17 23:59 23:59 23:59 Intake Total 863 / 863 1844.1 / 1844.1 Output Total 475 / 475 Balance 863 / 863 1369.1 / 1369.1 Microbiology Past 72 Hours 12/20/17 11:32 Influenza Types A,B Direct FA (BETITO) - Final Mucosa - Nasopharyngeal Laboratory Tests Past 24 Hrs 12/20/17 12/20/17 12/20/17 11:26 11:26 11:26 WBC 5.5 RBC 3.45 L Hgb 12.1 L Hct 33.7 L MCV 97.7 H MCH 35.1 H MCHC 35.9 RDW 13.3 RDW Differential 45.6 H Plt Count 91 L MPV 8.8 Immature Gran % (Auto) 0.200 Neut % (Auto) 86.2 H Lymph % (Auto) 4.6 L [place] % (Auto) 8.6 Eos % (Auto) 0.2 Baso % (Auto) 0.2 Absolute Neuts (auto) 4.7 Absolute Lymphs (auto) 0.25 L Total Counted Not Reportable Differential Comment COMMENT Sodium 128 L Potassium 3.5 Chloride 94 L Carbon Dioxide 26.0 Anion Gap 8 BUN 14 Creatinine 1.02 Estim Creat Clear Calc 56.81 Est GFR (MDRD) Af Amer 90 Est GFR (MDRD) Non-Af 75 BUN/Creatinine Ratio 13.7 Glucose 120 H Lactic Acid 2.1 H Calcium 8.2 L Total Bilirubin 2.20 H AST 20 ALT 50 Alkaline Phosphatase 68 Total Protein 6.7 Albumin 3.0 L Globulin 3.7 Albumin/Globulin Ratio 0.8 L Urine Color Urine Clarity Urine pH Ur Specific [place] Urine Protein Urine Glucose (UA) Urine Ketones Urine Occult Blood Urine Nitrite Urine Bilirubin Urine Urobilinogen Ur Leukocyte Esterase Urine RBC Urine WBC Ur Squamous Epith Cells Urine Bacteria Urine Mucus 12/20/17 12/20/17 12/21/17 12:40 15:44 05:40 WBC 3.7 L RBC 2.86 L Hgb 9.8 L Hct 28.5 L MCV 99.7 H MCH 34.3 H MCHC 34.4 RDW 13.0 RDW Differential 45.5 H Plt Count 85 L MPV 9.3 Immature Gran % (Auto) 0.500 Neut % (Auto) 77.5 H Lymph % (Auto) 10.3 L [place] % (Auto) 11.1 H Eos % (Auto) 0.3 Baso % (Auto) 0.3 Absolute Neuts (auto) 2.9 Absolute Lymphs (auto) 0.38 L Total Counted Not Reportable Differential Comment SCANNED Sodium Potassium Chloride Carbon Dioxide Anion Gap BUN Creatinine Estim Creat Clear Calc Est GFR (MDRD) Af Amer Est GFR (MDRD) Non-Af BUN/Creatinine Ratio Glucose Lactic Acid 1.8 Calcium Total Bilirubin AST ALT Alkaline Phosphatase Total Protein Albumin Globulin Albumin/Globulin Ratio Urine Color Yellow Urine Clarity Sl. Cloudy Urine pH 6.0 Ur Specific [place] 1.020 Urine Protein 30 H Urine Glucose (UA) 250 H Urine Ketones 50 H Urine Occult Blood 10 H Urine Nitrite Negative Urine Bilirubin 1 H Urine Urobilinogen 4 H Ur Leukocyte Esterase 25 H Urine RBC 0-5 SEEN Urine WBC 0-5 SEEN Ur Squamous Epith Cells 0 SEEN Urine Bacteria 1+ Urine Mucus 1+ 12/21/17 05:40 WBC RBC Hgb Hct MCV MCH MCHC RDW RDW Differential Plt Count MPV Immature Gran % (Auto) Neut % (Auto) Lymph % (Auto) [place] % (Auto) Eos % (Auto) Baso % (Auto) Absolute Neuts (auto) Absolute Lymphs (auto) Total Counted Differential Comment Sodium 133 L Potassium 3.6 Chloride 99 Carbon Dioxide 24.0 Anion Gap 10 BUN 13 Creatinine 0.87 Estim Creat Clear Calc 66.61 Est GFR (MDRD) Af Amer 109 Est GFR (MDRD) Non-Af 90 BUN/Creatinine Ratio 14.9 Glucose 111 H Lactic Acid Calcium 7.7 L Total Bilirubin AST ALT Alkaline Phosphatase Total Protein Albumin Globulin Albumin/Globulin Ratio Urine Color Urine Clarity Urine pH Ur Specific [place] Urine Protein Urine Glucose (UA) Urine Ketones Urine Occult Blood Urine Nitrite Urine Bilirubin Urine Urobilinogen Ur Leukocyte Esterase Urine RBC Urine WBC Ur Squamous Epith Cells Urine Bacteria Urine Mucus Medical Necessity - Tobacco Use Smoking Status: Former smoker Assessment/Plan All Active Problems (Last Updated 03/19/17 @ 14:26 by Tori Walker) Weakness (Acute) Vomiting (Acute) Malaise and fatigue (Acute) 1) Asthenia/Fever. Assessment: -neutrophil count is normal. -Lactic acid has corrected. -He is tolerating oral ciprofloxacin and Flagyl without any nausea or change in abdominal symptomatology. -I reviewed the CT scan images done in the emergency apartment yesterday. The only other significant finding is marked distention of his bladder indicating urinary retention. Plan: -Continue oral antibiotics. -Continue hydration. -Bladder scan with plan to place Gregorio catheter if has evidence of urinary retention. -PET evaluation once the fevers have subsided.
[2017-12-21] MEDS: predniSONE 5 MG Tablet PO ×2 (08:31→16:13)
[2017-12-21] MEDS: morphine SR 15 MG Tablet PO (08:35)
[2017-12-21] MEDS: Metoprolol Tartrate 25 MG Tablet PO ×2 (10:46→18:17)
[2017-12-21] MEDS: Ciprofloxacin 500 MG Tablet PO (10:46)
--- NOTE | 2017-12-21 11:49 | CASEMGMT ---
PHILL RAUSCH assessment: Face to Face with patient for initial transition planning/care coordination assessment. PHILL RAUSCH introduced self and role at [facility], pt/ voice understanding and pt consents to assessment at this time. Pt is lying in bed in no distress at this time. Pt is A/Ox4 at this time and answers all questions appropriately at this time. Care providers, pharmacy, and demographics verified/updated at this time. PCP: Brodie Weir Specialists: Masci-onc; Moodispaw-cardio; Jose-uro Preferred [facility]acy: [facility] Insurance: [facility] A/B, [place] Prescription Benefit: [place] Living Will/HPOA: Pt states has LW/HPOA with sons as HPOA but the AD are not on file at [facility] at this time. LNOK: Lizett Ibanez, ; Josr and Kenroy Ibanez, sons Living Arrangements: Pt states lives with in 1 story home and states no concerns at home at this time. Pt states there are 3 steps in/out and states no concerns. Transportation: Pt states drives self and states no transportation concerns at this time. DME/HHC: Pt states has a walker and raised toilet seat and states no need for any further DME at this time. Pt states did have HHC set up s/p heart surgery 'years ago' and states no SNF placement in the past. Pt states no concerns with going home at time of discharge. Pt states does not smoke or drink ETOH. Pt voices no further concerns/needs at this time. CM to follow therapy notes and for any further discharge planning/needs. Advised pt/ to ask for CM if any further questions/concerns/needs arise, voices understanding. Therapy has not evaluated pt yet at this time. Plan: Home, pending PT/OT viviane Lau RN, CM
--- NOTE | 2017-12-21 15:03 | PCM.PN.HOSP ---
Patient Problems: Active and Suspected Problems (Last Updated 03/19/17 @ 14:26 by Tori Walker) Weakness (Acute) Vomiting (Acute) Malaise and fatigue (Acute) Subjective: Patient was seen and examined. Overnight on Cardizem drip for A. fib with RVR. In normal sinus rhythm. Kept on IV fluids. Started on IV antibiotics by oncology for possible colitis, no diarrhea seen. Been having low-grade fevers, T-max was 103F Blood and urine cultures are pending Vitals/I&O's: Vital Signs Temp Pulse Resp BP Pulse Ox 99.3 F H 98 24 H 116/64 96 12/21/17 14:37 12/21/17 14:37 12/21/17 14:37 12/21/17 14:37 12/21/17 14:37 Oxygen Delivery Method Room Air Weight: 91.8 kg Body Mass Index (BMI) 30.7 Intake and Output for Last 24 Hours 12/19/17 12/20/17 12/21/17 23:59 23:59 23:59 Intake Total 863 / 863 1964.1 / 1964.1 Output Total 875 / 875 Balance 863 / 863 1089.1 / 1089.1 General: Alert, Oriented x3, Cooperative, - - obese, appears ill-looking HEENT: Atraumatic, PERRLA, EOMI, Normocephalic Oral: Dry Mucosa Neck: Supple, No JVD, Negative Carotid Bruits Lungs: Clear to auscultation, Normal air movement Cardiovascular: Regular rate, Regular Rhythm, Normal S1, Normal S2, No murmurs Abdomen: Bowel Sounds Present, Soft, Non Tender, Non-Distended, No Hepato-splenomegaly Extremities: No edema Skin: No rashes, No breakdown Musculoskeletal: No Tenderness to Palpation of Joints or Extremities Lymphatic: No Cervical, Supraclavicular, or Inguinal Adenopathy Neurological: Cranial nerves II-XII grossly intact, Neuro grossly intact Psych/Mental Status: Normal Affect, Appropriate Microbiology Past 72 Hours 12/20/17 11:32 Mucosa - Nasopharyngeal Influenza Types A,B Direct FA (BETITO) - Final Laboratory Results 12/20/17 15:44: Lactic Acid 1.8 12/21/17 05:40: WBC 3.7 L, RBC 2.86 L, Hgb 9.8 L, Hct 28.5 L, MCV 99.7 H, MCH 34.3 H, MCHC 34.4, RDW 13.0, RDW Differential 45.5 H, Plt Count 85 L, MPV 9.3, Immature Gran % (Auto) 0.500, Neut % (Auto) 77.5 H, Lymph % (Auto) 10.3 L, [place] % (Auto) 11.1 H, Eos % (Auto) 0.3, Baso % (Auto) 0.3, Absolute Neuts (auto) 2.9, Absolute Lymphs (auto) 0.38 L, Total Counted Not Reportable, Differential Comment SCANNED 12/21/17 05:40: Sodium 133 L, Potassium 3.6, Chloride 99, Carbon Dioxide 24.0, Anion Gap 10, BUN 13, Creatinine 0.87, Estim Creat Clear Calc 66.61, Est GFR (MDRD) Af Amer 109, Est GFR (MDRD) Non-Af 90, BUN/Creatinine Ratio 14.9, Glucose 111 H, Calcium 7.7 L Current Medications Acetaminophen (Tylenol) 650 mg PO Q6H PRN PRN PRN Reason: FEVER Last Admin: 12/20/17 20:52 Dose: 650 mg Hydrocodone Bitart/Acetaminophen ([place] 5mg-325mg) 1 - 2 tablet PO Q6H PRN PRN Reason: PAIN Last Admin: 12/20/17 14:30 Dose: 1 tablet Aspirin (Ecotrin) 81 mg PO DAILY@0800 [facility] Last Admin: 12/21/17 08:26 Dose: 81 mg Ciprofloxacin HCl (Cipro) 500 mg PO BID [facility] Last Admin: 12/21/17 10:46 Dose: 500 mg Sodium Chloride () 1,000 mls @ 100 mls/hr IV .Q10H [facility] Levothyroxine Sodium (Synthroid) 112 mcg PO DAILY@0600 [facility] Last Admin: 12/21/17 05:52 Dose: 112 mcg Magnesium Hydroxide (Milk Of Magnesia) 30 ml PO DAILY PRN PRN PRN Reason: Constipation Metoprolol Tartrate (Lopressor (Beta Khang)) 25 mg PO BID [facility] Last Admin: 12/21/17 10:46 Dose: 25 mg Metronidazole (Flagyl) 500 mg PO TID [facility] Last Admin: 12/21/17 13:27 Dose: 500 mg Morphine Sulfate (Ms Contin) 15 mg PO BREAKFAST [facility] Last Admin: 12/21/17 08:35 Dose: 15 mg Morphine Sulfate (Ms Contin) 30 mg PO HS [facility] Last Admin: 12/20/17 20:59 Dose: 30 mg Multivitamins (Multivitamin) 1 tablet PO DAILY@0800 [facility] Last Admin: 12/21/17 08:26 Dose: 1 tablet Nitroglycerin (Nitrostat) 0.4 mg SUBLINGUAL Q5M PRN PRN Reason: chest pain Nutritional Formula (Lactose Free) (Ensure Clear) 120 ml PO 4X/DAY [facility] Last Admin: 12/21/17 13:26 Dose: Not Given Ondansetron HCl (Zofran) 4 mg IV Q8H PRN PRN PRN Reason: NAUSEA/VOMITING Pravastatin Sodium (Pravachol) 20 mg PO QHS [facility] Last Admin: 12/20/17 21:00 Dose: 20 mg Prednisone () 5 mg PO BIDCM [facility] Last Admin: 12/21/17 08:31 Dose: 5 mg Sodium Chloride () 5 - 30 ml IV UD PRN PRN Reason: SALINE FLUSH Last Admin: 12/21/17 03:36 Dose: 5 ml Medical Necessity - Tobacco Use Smoking Status: Former smoker Assessment/Plan All Active Problems (Last Updated 03/19/17 @ 14:26 by Tori Walker) Weakness (Acute) Vomiting (Acute) Malaise and fatigue (Acute) 77-year-old male with past medical history of metastatic prostate cancer, on immunotherapy, following with oncology comes in with complaints of diarrhea and generalized weakness as well as nausea vomiting 1. Acute nausea, vomiting, diarrhea likely related to immunotherapy, no diarrhea since admission, managed on IV fluids, off immunotherapy, continue to monitor Started on IV Cipro and Flagyl by oncology, continue to monitor 2. Fever likely secondary to HCAP as patient is on chemotherapy, started on IV cipro and flagyl, will switch to IV Levaquin and continue with Flagyl, likely discharged on Levaquin and DC Flagyl if no diarrhea is seen tomorrow 3. A. fib with RVR requiring Cardizem bolus and drip, in normal sinus rhythm, Cardizem, continue on home beta-khang, continue to monitor vitals. 4. Lactic acidosis secondary to dehydration, resolved 5. Hyponatremia, acute secondary to dehydration, resolved 6. Anemia, drop in hemoglobin from 12.1-9.8 likely due to hemodilution, labs in a.m. 7. Hyperlipidemia, on statin 8. Metastatic prostate cancer, off immunotherapy, oncology following 9. DVT PPx - SCds on account of thrombocytopenia Code Visit Inpatient E&M: 48907 Subs Hosp L2
--- NOTE | 2017-12-21 15:11 | PN_ITS ---
Patient Problems: Active and Suspected Problems (Last Updated 03/19/17 @ 14:26 by Tori Walker) Weakness (Acute) Vomiting (Acute) Malaise and fatigue (Acute) Subjective: Patient was seen and examined. Overnight on Cardizem drip for A. fib with RVR. In normal sinus rhythm. Kept on IV fluids. Started on IV antibiotics by oncology for possible colitis, no diarrhea seen. Been having low-grade fevers, T-max was 103F Blood and urine cultures are pending Vitals/I&O's: Vital Signs Temp Pulse Resp BP Pulse Ox 99.3 F H 98 24 H 116/64 96 12/21/17 14:37 12/21/17 14:37 12/21/17 14:37 12/21/17 14:37 12/21/17 14:37 Oxygen Delivery Method Room Air Weight: 91.8 kg Body Mass Index (BMI) 30.7 Intake and Output for Last 24 Hours 12/19/17 12/20/17 12/21/17 23:59 23:59 23:59 Intake Total 863 / 863 1964.1 / 1964.1 Output Total 875 / 875 Balance 863 / 863 1089.1 / 1089.1 General: Alert, Oriented x3, Cooperative, - - obese, appears ill-looking HEENT: Atraumatic, PERRLA, EOMI, Normocephalic Oral: Dry Mucosa Neck: Supple, No JVD, Negative Carotid Bruits Lungs: Clear to auscultation, Normal air movement Cardiovascular: Regular rate, Regular Rhythm, Normal S1, Normal S2, No murmurs Abdomen: Bowel Sounds Present, Soft, Non Tender, Non-Distended, No Hepato- splenomegaly Extremities: No edema Skin: No rashes, No breakdown Musculoskeletal: No Tenderness to Palpation of Joints or Extremities Lymphatic: No Cervical, Supraclavicular, or Inguinal Adenopathy Neurological: Cranial nerves II-XII grossly intact, Neuro grossly intact Psych/Mental Status: Normal Affect, Appropriate Microbiology Past 72 Hours 12/20/17 11:32 Mucosa - Nasopharyngeal Influenza Types A,B Direct FA (BETITO) - Final Laboratory Results 12/20/17 15:44: Lactic Acid 1.8 12/21/17 05:40: WBC 3.7 L, RBC 2.86 L, Hgb 9.8 L, Hct 28.5 L, MCV 99.7 H, MCH 34.3 H, MCHC 34.4, RDW 13.0, RDW Differential 45.5 H, Plt Count 85 L, MPV 9.3, Immature Gran % (Auto) 0.500, Neut % (Auto) 77.5 H, Lymph % (Auto) 10.3 L, [place] % (Auto) 11.1 H, Eos % (Auto) 0.3, Baso % (Auto) 0.3, Absolute Neuts (auto) 2.9, Absolute Lymphs (auto) 0.38 L, Total Counted Not Reportable, Differential Comment SCANNED 12/21/17 05:40: Sodium 133 L, Potassium 3.6, Chloride 99, Carbon Dioxide 24.0, Anion Gap 10, BUN 13, Creatinine 0.87, Estim Creat Clear Calc 66.61, Est GFR (MDRD) Af Amer 109, Est GFR (MDRD) Non-Af 90, BUN/Creatinine Ratio 14.9, Glucose 111 H, Calcium 7.7 L Current Medications Acetaminophen (Tylenol) 650 mg PO Q6H PRN PRN PRN Reason: FEVER Last Admin: 12/20/17 20:52 Dose: 650 mg Hydrocodone Bitart/Acetaminophen ([place] 5mg-325mg) 1 - 2 tablet PO Q6H PRN PRN Reason: PAIN Last Admin: 12/20/17 14:30 Dose: 1 tablet Aspirin (Ecotrin) 81 mg PO DAILY@0800 [facility] Last Admin: 12/21/17 08:26 Dose: 81 mg Ciprofloxacin HCl (Cipro) 500 mg PO BID [facility] Last Admin: 12/21/17 10:46 Dose: 500 mg Sodium Chloride () 1,000 mls @ 100 mls/hr IV .Q10H [facility] Levothyroxine Sodium (Synthroid) 112 mcg PO DAILY@0600 [facility] Last Admin: 12/21/17 05:52 Dose: 112 mcg Magnesium Hydroxide (Milk Of Magnesia) 30 ml PO DAILY PRN PRN PRN Reason: Constipation Metoprolol Tartrate (Lopressor (Beta Khang)) 25 mg PO BID [facility] Last Admin: 12/21/17 10:46 Dose: 25 mg Metronidazole (Flagyl) 500 mg PO TID [facility] Last Admin: 12/21/17 13:27 Dose: 500 mg Morphine Sulfate (Ms Contin) 15 mg PO BREAKFAST [facility] Last Admin: 12/21/17 08:35 Dose: 15 mg Morphine Sulfate (Ms Contin) 30 mg PO HS [facility] Last Admin: 12/20/17 20:59 Dose: 30 mg Multivitamins (Multivitamin) 1 tablet PO DAILY@0800 [facility] Last Admin: 12/21/17 08:26 Dose: 1 tablet Nitroglycerin (Nitrostat) 0.4 mg SUBLINGUAL Q5M PRN PRN Reason: chest pain Nutritional Formula (Lactose Free) (Ensure Clear) 120 ml PO 4X/DAY [facility] Last Admin: 12/21/17 13:26 Dose: Not Given Ondansetron HCl (Zofran) 4 mg IV Q8H PRN PRN PRN Reason: NAUSEA/VOMITING Pravastatin Sodium (Pravachol) 20 mg PO QHS [facility] Last Admin: 12/20/17 21:00 Dose: 20 mg Prednisone () 5 mg PO BIDCM [facility] Last Admin: 12/21/17 08:31 Dose: 5 mg Sodium Chloride () 5 - 30 ml IV UD PRN PRN Reason: SALINE FLUSH Last Admin: 12/21/17 03:36 Dose: 5 ml Medical Necessity - Tobacco Use Smoking Status: Former smoker Assessment/Plan All Active Problems (Last Updated 03/19/17 @ 14:26 by Tori Walker) Weakness (Acute) Vomiting (Acute) Malaise and fatigue (Acute) 77-year-old male with past medical history of metastatic prostate cancer, on immunotherapy, following with oncology comes in with complaints of diarrhea and generalized weakness as well as nausea vomiting 1. Acute nausea, vomiting, diarrhea likely related to immunotherapy, no di arrhea since admission, managed on IV fluids, off immunotherapy, continue to monitor Started on IV Cipro and Flagyl by oncology, continue to monitor 2. Fever likely secondary to HCAP as patient is on chemotherapy, started on IV cipro and flagyl, will switch to IV Levaquin and continue with Flagyl, likely discharged on Levaquin and DC Flagyl if no diarrhea is seen tomorrow 3. A. fib with RVR requiring Cardizem bolus and drip, in normal sinus rhythm, Cardizem, continue on home beta-khang, continue to monitor vitals. 4. Lactic acidosis secondary to dehydration, resolved 5. Hyponatremia, acute secondary to dehydration, resolved 6. Anemia, drop in hemoglobin from 12.1-9.8 likely due to hemodilution, labs in a.m. 7. Hyperlipidemia, on statin 8. Metastatic prostate cancer, off immunotherapy, oncology following 9. DVT PPx - SCds on account of thrombocytopenia Code Visit Inpatient E&M: 00778 Subs Hosp L2
[2017-12-21] MEDS: levoFLOXacin IV 750 MG/150 ML BAG 100 MG IV (16:11)
[2017-12-21 18:15] LABS: Magnesium 1.9 mg/dL (1.6-2.6)
[2017-12-21] MEDS: Metoprolol Tartrate 50 MG Tablet PO (21:09)
[2017-12-21] MEDS: 0.9% Normal Saline 1,000 ML 100 ML IV (21:15)
[2017-12-21] MEDS: Pravastatin 20 MG Tablet PO (21:15)
[2017-12-21] MEDS: Ondansetron 4 MG/2 ML Vial IV (22:29)
[2017-12-22] VITALS (35 sets, daily range): BP systolic 89–118; BP diastolic 51–80; PULSE 80–114; RESP 18–34; TEMP 36.4–37.4; O2SAT 90–98
--- NOTE | 2017-12-22 00:30 | EKG12_ITS ---
Test Reason : CP Blood Pressure : / mmHG Vent. Rate : 119 BPM Atrial Rate : 381 BPM P-R Int : 000 ms QRS Dur : 108 ms QT Int : 348 ms P-R-T Axes : 000 039 098 degrees QTc Int : 489 ms Atrial flutter with variable A-V block Low voltage QRS Nonspecific ST and T wave abnormality Abnormal ECG When compared with ECG of 20-DEC-2017 23:04, MANUAL COMPARISON REQUIRED, DATA IS UNCONFIRMED Confirmed by ALVIN OSMAN, KEDAR ([id number]), editor index MICKEY FLYNN ([id number]) on 12/29/2017 2:46:19 PM Referred By: MOIZ Confirmed By:KEDAR ESQUIVEL MD
[2017-12-22 04:04] LABS: Absolute Lymphocyte Count 0.33 X10^3/ul (0.83-4.51); Absolute Neutrophil Count 2.4 X10^3/uL (2.0-7.7); Basophil# 0.01 X10^3/uL; Basophil% 0.3 % (0-1); Hematocrit 25.3 % (40-54); Hemoglobin 8.7 g/dl (13.0-16.5); Lymphocyte # 0.33 X10^3/ul (4.0); Lymphocyte % 10.3 % (19-41); Mean Corp Hgb Conc 34.4 g/gl (32-36); Mean Corpuscular Hgb 33.7 pg (27.0-32.0); Mean Corpuscular Volume 98.1 fL (80-94); Mean Platelet Vol. 9.2 fl (6.2-12.0); Monocyte# 0.41 X10^3/uL; Monocyte% 12.9 % (0-10); Neutrophil # 2.44 X10^3/uL (2.7-7.7); Neutrophil % 76.5 % (47-70); Platelet Count 79 K/mm3 (150-450); RBC Distribution Width CV 13.4 % (11.6-14.6); Red Blood Count 2.58 M/mm3 (4.6-6.2); White Blood Count 3.2 K/mm3 (4.4-11.0)
[2017-12-22 04:06] LABS: Differential Indicated SCAN CRITERIA MET; POSITIVE COUNT NO; POSITIVE DIFFERENTIAL YES; POSITIVE MORPHOLOGY NO
[2017-12-22 04:22] LABS: Anion Gap 7 (5-15); BUN 14 mg/dL (7-18); BUN/Creat Ratio 15.8 RATIO (10-20); Calcium,Total 7.6 mg/dL (8.5-10.1); Chloride 101 mmol/L (98-107); Creatinine, Serum 0.89 mg/dL (0.70-1.30); EST Glomerular Filtration Rate 88 mL/min (>60); Est Glom Filt Rate - Afr Amer 106 mL/min (>60); Estimated Creatinine Clearance 65.11 ml/min; Glucose 113 mg/dL (74-106); Potassium 3.5 mmol/L (3.5-5.1); Sodium Level 132 mmol/L (136-145)
[2017-12-22 04:50] LABS: Differential Comment SCANNED
[2017-12-22] MEDS: dilTIAZem 25 MG/5 ML Vial 10 MG IV BOLUS (05:29)
[2017-12-22] MEDS: 0.9% Normal Saline 1,000 ML 100 ML IV (05:30)
[2017-12-22] MEDS: metroNIDAZOLE 500 MG Tablet PO ×3 (05:35→21:13)
[2017-12-22] MEDS: Levothyroxine 112 MCG Tablet PO (05:35)
--- NOTE | 2017-12-22 08:07 | PCM.PROGNOTE ---
Patient Problems: Active and Suspected Problems (Last Updated 03/19/17 @ 14:26 by Tori Walker) Weakness (Acute) Vomiting (Acute) Malaise and fatigue (Acute) Subjective: Doesn't feel any better with respect to energy. Has episodic dyspnea. No chest pain. Lower O2 sats recently. No BM since Wednesday. Fever curve trending downward. No nausea, but eating very little. Gregorio placed yesterday for 400cc residual. - Physical Exam General: Alert, Oriented x3 Oral: Moist Mucosa Lungs: - - Few coarse rhonchi, but no rales. Cardiovascular: Irregular Rate Abdomen: - - Still some diffuse tenderness. Vital Signs Temp Pulse Resp BP Pulse Ox 98.9 F 107 H 26 H 110/51 L 93 12/22/17 03:15 12/22/17 07:00 12/22/17 07:00 12/22/17 07:00 12/22/17 07:00 Oxygen Delivery Method Room Air Weight: 91.8 kg Body Mass Index (BMI) 30.7 Intake and Output for Last 24 Hours 12/20/17 12/21/17 12/22/17 23:59 23:59 23:59 Intake Total 863 / 863 4430.1 / 4430.1 481 / 481 Output Total 1475 / 1475 200 / 200 Balance 863 / 863 2955.1 / 2955.1 281 / 281 Microbiology Past 72 Hours 12/20/17 11:32 Influenza Types A,B Direct FA (BETITO) - Final Mucosa - Nasopharyngeal Laboratory Tests Past 24 Hrs 12/21/17 12/22/17 12/22/17 05:40 01:05 03:45 WBC 3.2 L RBC 2.58 L Hgb 8.7 L Hct 25.3 L MCV 98.1 H MCH 33.7 H MCHC 34.4 RDW 13.4 RDW Differential 48.0 H Plt Count 79 L MPV 9.2 Immature Gran % (Auto) 0.000 Neut % (Auto) 76.5 H Lymph % (Auto) 10.3 L [place] % (Auto) 12.9 H Eos % (Auto) 0.0 Baso % (Auto) 0.3 Absolute Neuts (auto) 2.4 Absolute Lymphs (auto) 0.33 L Total Counted Not Reportable Differential Comment SCANNED Sodium Potassium Chloride Carbon Dioxide Anion Gap BUN Creatinine Estim Creat Clear Calc Est GFR (MDRD) Af Amer Est GFR (MDRD) Non-Af BUN/Creatinine Ratio Glucose Calcium Magnesium 1.9 Troponin I 0.030 12/22/17 12/22/17 12/22/17 03:45 03:45 07:08 WBC RBC Hgb Hct MCV MCH MCHC RDW RDW Differential Plt Count MPV Immature Gran % (Auto) Neut % (Auto) Lymph % (Auto) [place] % (Auto) Eos % (Auto) Baso % (Auto) Absolute Neuts (auto) Absolute Lymphs (auto) Total Counted Differential Comment Sodium 132 L Potassium 3.5 Chloride 101 Carbon Dioxide 24.0 Anion Gap 7 BUN 14 Creatinine 0.89 Estim Creat Clear Calc 65.11 Est GFR (MDRD) Af Amer 106 Est GFR (MDRD) Non-Af 88 BUN/Creatinine Ratio 15.8 Glucose 113 H Calcium 7.6 L Magnesium Troponin I 0.035 0.034 Medical Necessity - Tobacco Use Smoking Status: Former smoker Assessment/Plan All Active Problems (Last Updated 03/19/17 @ 14:26 by Tori Walker) Weakness (Acute) Vomiting (Acute) Malaise and fatigue (Acute) 1) Asthenia/Fever. Assessment: -Neutrophil count remains normal. -Lactic acid has corrected. -He is tolerating oral ciprofloxacin and Flagyl without any nausea or worsening of abdominal symptomatology. -Fever seems to be subsiding. -All cultures negative thus far. Plan: -Continue oral antibiotics. -Check serum cortisol. 2) Atrial fibrillation. Assessment: -History of coronary artery disease with bypass surgery in 2002--WHITAKER to the LAD, SVG to the diagonal branch of the anterior descending, lateral circumflex and RCA. He also has a history of atrial flutter, ischemic cardiomyopathy, hypertension, hyperlipidemia, carotid artery disease with a left carotid endarterectomy in 2004. -May be getting volume overloaded. Plan: -Please consult Dr. Gamez. 3) Pancytopenia. Assessment: -Progressive. Anemia may be dilutional and plt decrease secondary to acute illness. -Would not expect this is from immunotherapy although autoimmune hemolytic anemia has certainly been reported. Plan: -Rule out hemolysis. -Continue to monitor counts. Consider RBC transfusion if hemoglobin declines under 8 g/dL. 4) Metastatic hormone refractory prostate cancer. Assessment: -patient has had multiple lines of treatment. 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 -PSA had increased after first dose of immunotherapy but median response times with immunotherapy can be 2-3 months. Plan: -Recheck PSA now.
--- NOTE | 2017-12-22 08:15 | PN_ITS ---
Patient Problems: Active and Suspected Problems (Last Updated 03/19/17 @ 14:26 by Tori Walker) Weakness (Acute) Vomiting (Acute) Malaise and fatigue (Acute) Subjective: Doesn't feel any better with respect to energy. Has episodic dyspnea. No chest pain. Lower O2 sats recently. No BM since Wednesday. Fever curve trending downward. No nausea, but eating very little. Gregorio placed yesterday for 400cc residual. - Physical Exam General: Alert, Oriented x3 Oral: Moist Mucosa Lungs: - - Few coarse rhonchi, but no rales. Cardiovascular: Irregular Rate Abdomen: - - Still some diffuse tenderness. Vital Signs Temp Pulse Resp BP Pulse Ox 98.9 F 107 H 26 H 110/51 L 93 12/22/17 03:15 12/22/17 07:00 12/22/17 07:00 12/22/17 07:00 12/22/17 07:00 Oxygen Delivery Method Room Air Weight: 91.8 kg Body Mass Index (BMI) 30.7 Intake and Output for Last 24 Hours 12/20/17 12/21/17 12/22/17 23:59 23:59 23:59 Intake Total 863 / 863 4430.1 / 4430.1 481 / 481 Output Total 1475 / 1475 200 / 200 Balance 863 / 863 2955.1 / 2955.1 281 / 281 Microbiology Past 72 Hours 12/20/17 11:32 Influenza Types A,B Direct FA (BETITO) - Final Mucosa - Nasopharyngeal Laboratory Tests Past 24 Hrs 12/21/17 12/22/17 12/22/17 05:40 01:05 03:45 WBC 3.2 L RBC 2.58 L Hgb 8.7 L Hct 25.3 L MCV 98.1 H MCH 33.7 H MCHC 34.4 RDW 13.4 RDW Differential 48.0 H Plt Count 79 L MPV 9.2 Immature Gran % (Auto) 0.000 Neut % (Auto) 76.5 H Lymph % (Auto) 10.3 L [place] % (Auto) 12.9 H Eos % (Auto) 0.0 Baso % (Auto) 0.3 Absolute Neuts (auto) 2.4 Absolute Lymphs (auto) 0.33 L Total Counted Not Reportable Differential Comment SCANNED Sodium Potassium Chloride Carbon Dioxide Anion Gap BUN Creatinine Estim Creat Clear Calc Est GFR (MDRD) Af Amer Est GFR (MDRD) Non-Af BUN/Creatinine Ratio Glucose Calcium Magnesium 1.9 Troponin I 0.030 12/22/17 12/22/17 12/22/17 03:45 03:45 07:08 WBC RBC Hgb Hct MCV MCH MCHC RDW RDW Differential Plt Count MPV Immature Gran % (Auto) Neut % (Auto) Lymph % (Auto) [place] % (Auto) Eos % (Auto) Baso % (Auto) Absolute Neuts (auto) Absolute Lymphs (auto) Total Counted Differential Comment Sodium 132 L Potassium 3.5 Chloride 101 Carbon Dioxide 24.0 Anion Gap 7 BUN 14 Creatinine 0.89 Estim Creat Clear Calc 65.11 Est GFR (MDRD) Af Amer 106 Est GFR (MDRD) Non-Af 88 BUN/Creatinine Ratio 15.8 Glucose 113 H Calcium 7.6 L Magnesium Troponin I 0.035 0.034 Medical Necessity - Tobacco Use Smoking Status: Former smoker Assessment/Plan All Active Problems (Last Updated 03/19/17 @ 14:26 by Tori Walker) Weakness (Acute) Vomiting (Acute) Malaise and fatigue (Acute) 1) Asthenia/Fever. Assessment: -Neutrophil count remains normal. -Lactic acid has corrected. -He is tolerating oral ciprofloxacin and Flagyl without any nausea or worsening of abdominal symptomatology. -Fever seems to be subsiding. -All cultures negative thus far. Plan: -Continue oral antibiotics. -Check serum cortisol. 2) Atrial fibrillation. Assessment: -History of coronary artery disease with bypass surgery in 2002--WHITAKER to the LAD, SVG to the diagonal branch of the anterior descending, lateral circumflex and RCA. He also has a history of atrial flutter, ischemic cardiomyopathy, hypertension, hyperlipidemia, carotid artery disease with a left carotid enda rterectomy in 2004. -May be getting volume overloaded. Plan: -Please consult Dr. Gamez. 3) Pancytopenia. Assessment: -Progressive. Anemia may be dilutional and plt decrease secondary to acute ill ness. -Would not expect this is from immunotherapy although autoimmune hemolytic anemia has certainly been reported. Plan: -Rule out hemolysis. -Continue to monitor counts. Consider RBC transfusion if hemoglobin declines under 8 g/dL. 4) Metastatic hormone refractory prostate cancer. Assessment: -patient has had multiple lines of treatment. 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 -PSA had increased after first dose of immunotherapy but median response times with immunotherapy can be 2-3 months. Plan: -Recheck PSA now.
--- NOTE | 2017-12-22 08:16 | ECHOD_ITS ---
Reason For Study: ATRIAL FIB-FLUTER Procedure This was a 2D Doppler, Color Flow transthoracic echocardiogram. The study was technically difficult. Exam performed portable in patient room. Left Ventricle Normal size and thickness. The estimated ejection fraction is 45 %. Septal motion consistent with IVCD. Basal anteroseptal: Mildly hypokinetic. Right Ventricle Normal size and thickness. Normal systolic function. Atria Normal left atrium. Normal right atrium. Normal atrial septum. Mitral Valve The mitral valve is structurally normal. No prolapse or stenosis seen. Tricuspid Valve Normal tricuspid valve. Trivial tricuspid valve insufficiency. Right ventricular systolic pressure estimated to be 45 mmHg. Mild pulmonary hypertension. Aortic Valve Trisinus/trileaflet aortic valve. Mild focal aortic valve thickening. Pulmonic Valve Normal pulmonic valve. Trivial pulmonic valve insufficiency. Great Vessels Normal aortic root. Normal arch. Normal inferior vena cava. Inferior vena cava collapse with respiration. Pericardium/Pleural No pericardial effusion. MMode/2D Measurements & Calculations LVIDd: 4.7 cm IVSd: 1.1 cm LA dimension: 4.5 cm LVIDs: 3.8 cm LVPWd: 1.0 cm FS: 20.0 % LAV(MOD-bp): 52.8 ml LA A4 area: 20.3 cm2 LAV(MOD-bp) Indexed: 25.7 ml/m2 LAV(MOD-sp2): 44.4 ml LAV(MOD-sp4): 55.9 ml Doppler Measurements & Calculations MV E max anthony: 78.5 cm/sec PA V2 max: 86.4 cm/sec TR max anthony: 273.8 cm/sec TR max P.0 mmHg Interpretation Summary The estimated ejection fraction is 45 %. Basal anteroseptal: Mildly hypokinetic Trivial tricuspid valve insufficiency. Right ventricular systolic pressure estimated to be 45 mmHg. Mild pulmonary hypertension. Compared to echo report dated 02/13/2014, LV function has remained the same. Pt now appears to be in atrial fibrillation. Ordering Physician: Ramesh Nassar Referring Physician: HUMZA MORTON Performed By: Palak Connor RDCS
[2017-12-22] MEDS: Multivitamins,Therapeutic Tablet 1 TABLET PO (08:37)
[2017-12-22] MEDS: predniSONE 5 MG Tablet PO ×2 (08:37→17:53)
[2017-12-22] MEDS: Aspirin E.C. 81 MG Tablet PO (08:37)
[2017-12-22] MEDS: morphine SR 15 MG Tablet PO (08:37)
[2017-12-22 08:41] LABS: Immature Platelet Fraction 1.7 % (1.0-7.9); Reticulocyte Count 1.99 % (0.5-1.5)
--- NOTE | 2017-12-22 09:00 | RAD_ITS ---
STUDY: X-RAY CHEST REASON FOR EXAM: Male, 77 years old. Short of breath and dyspnea. TECHNIQUE: Frontal and lateral views of the chest. COMPARISON: 12/21/2017. FINDINGS: Probable COPD with mild hyperexpansion. Mild interstitial prominence centrally and in the lung bases some of which was present previously but there has been a slight increase indicating probable mild congestion and interstitial edema. Possible mild subsegmental atelectasis in the lung bases. No gross effusions. Sternal cerclage wires and vascular clips are present from a prior sternotomy and coronary artery bypass graft procedure (CABG). Normal heart size. Normal mediastinum and amie. Normal visualized pulmonary arteries. Normal visualized aortic arch and descending thoracic aorta. Normal visualized thoracic spine. There is degenerative osteoarthritis of the bilateral shoulders. There is no demonstrated abnormality of the visualized soft tissue structures of the upper abdomen. RAD/Chest 1 View (Portable) IMPRESSION: Probable chronic pulmonary disease. Mild increase in slight congestion and interstitial pulmonary edema. Electronically Signed: Fidencio Mcelroy MD at 10:11 EDT , Service support ,
--- NOTE | 2017-12-22 09:03 | PCM.PN.HOSP ---
Patient Problems: Active and Suspected Problems (Last Updated 03/19/17 @ 14:26 by Tori Walker) Weakness (Acute) Vomiting (Acute) Malaise and fatigue (Acute) Atrial flutter (Acute) Subjective: Patient was seen and examined. Complains of severe shortness of breath. He went into A. fib with RVR again around 5am, restarted on cardizem. He denied chest pain, palpitations. Vitals/I&O's: Vital Signs Temp Pulse Resp BP Pulse Ox 98.9 F 100 26 H 110/51 L 93 12/22/17 03:15 12/22/17 08:45 12/22/17 07:00 12/22/17 07:00 12/22/17 07:00 Oxygen Flow Rate (L/min) 2 Oxygen Delivery Method Nasal Cannula Weight: 91.8 kg Body Mass Index (BMI) 30.7 Intake and Output for Last 24 Hours 12/20/17 12/21/17 12/22/17 23:59 23:59 23:59 Intake Total 863 / 863 4430.1 / 4430.1 481 / 481 Output Total 1475 / 1475 200 / 200 Balance 863 / 863 2955.1 / 2955.1 281 / 281 General: Alert, Oriented x3, Cooperative, - - in mild respiratory distress HEENT: Atraumatic, PERRLA, EOMI, Normocephalic Oral: Moist Mucosa Neck: Supple Lungs: Clear to auscultation, Normal air movement Cardiovascular: Regular rate, Regular Rhythm, Normal S1, Normal S2, No murmurs Abdomen: Bowel Sounds Present, Soft, Non Tender, Non-Distended, No Hepato-splenomegaly Extremities: No edema Skin: No rashes, No breakdown Musculoskeletal: No Tenderness to Palpation of Joints or Extremities Lymphatic: No Cervical, Supraclavicular, or Inguinal Adenopathy Neurological: Cranial nerves II-XII grossly intact, Neuro grossly intact Psych/Mental Status: Normal Affect, Appropriate Microbiology Past 72 Hours 12/20/17 12:40 Urine, Clean Catch Urine Culture - Final Culture exhibits no growth. 12/20/17 11:32 Mucosa - Nasopharyngeal Influenza Types A,B Direct FA (BETITO) - Final Laboratory Results 12/21/17 05:40: Magnesium 1.9 12/22/17 01:05: Troponin I 0.030 12/22/17 03:45: WBC 3.2 L, RBC 2.58 L, Hgb 8.7 L, Hct 25.3 L, MCV 98.1 H, MCH 33.7 H, MCHC 34.4, RDW 13.4, RDW Differential 48.0 H, Plt Count 79 L, MPV 9.2, Immature Gran % (Auto) 0.000, Neut % (Auto) 76.5 H, Lymph % (Auto) 10.3 L, Starr % (Auto) 12.9 H, Eos % (Auto) 0.0, Baso % (Auto) 0.3, Absolute Neuts (auto) 2.4, Absolute Lymphs (auto) 0.33 L, Total Counted Not Reportable, Differential Comment SCANNED 12/22/17 03:45: Sodium 132 L, Potassium 3.5, Chloride 101, Carbon Dioxide 24.0, Anion Gap 7, BUN 14, Creatinine 0.89, Estim Creat Clear Calc 65.11, Est GFR (MDRD) Af Amer 106, Est GFR (MDRD) Non-Af 88, BUN/Creatinine Ratio 15.8, Glucose 113 H, Calcium 7.6 L 12/22/17 03:45: Troponin I 0.035 12/22/17 07:08: Troponin I 0.034 12/22/17 08:30: Immature Plt Fraction 1.7, Retic Count 1.99 H, Immature Retic Fraction 11.70, Retic Hgb Equivalent 30.0 12/22/17 08:30: Iron Pending, TIBC Pending, Iron Saturation Pending, Ferritin Pending, Total Bilirubin Pending, Direct Bilirubin Pending, AST Pending, ALT Pending, Alkaline Phosphatase Pending, Lactate Dehydrogenase Pending, Total Protein Pending, Albumin Pending, PSA Screen Pending 12/22/17 08:30: Vitamin B12 Pending, Cortisol Pending 12/22/17 08:30: Haptoglobin Pending 12/22/17 08:30: Direct Antiglob Test Pending Current Medications Acetaminophen (Tylenol) 650 mg PO Q6H PRN PRN PRN Reason: FEVER Last Admin: 12/20/17 20:52 Dose: 650 mg Hydrocodone Bitart/Acetaminophen ([place] 5mg-325mg) 1 - 2 tablet PO Q6H PRN PRN Reason: PAIN Last Admin: 12/20/17 14:30 Dose: 1 tablet Albuterol/Ipratropium (Duoneb) 3 ml INHALATION Q4H.RT [facility] Aspirin (Ecotrin) 81 mg PO DAILY@0800 [facility] Last Admin: 12/22/17 08:37 Dose: 81 mg Furosemide (Lasix) 40 mg IV X1 ONE Stop: 12/22/17 09:03 Levofloxacin (Levaquin Iv) 750 mg in 150 mls @ 100 mls/hr IV Q24 [facility] Last Admin: 12/21/17 16:11 Dose: 100 mls/hr Diltiazem HCl 125 mg/ Dextrose 125 mls @ 5 mls/hr IV .Q25H [facility]; Protocol Last Admin: 12/22/17 05:43 Dose: 5 mls/hr Levothyroxine Sodium (Synthroid) 112 mcg PO DAILY@0600 [facility] Last Admin: 12/22/17 05:35 Dose: 112 mcg Magnesium Hydroxide (Milk Of Magnesia) 30 ml PO DAILY PRN PRN PRN Reason: Constipation Metoprolol Tartrate (Lopressor (Beta Juvenal)) 50 mg PO BID [facility] Last Admin: 12/21/17 21:09 Dose: 50 mg Metronidazole (Flagyl) 500 mg PO TID [facility] Last Admin: 12/22/17 05:35 Dose: 500 mg Morphine Sulfate (Ms Contin) 15 mg PO BREAKFAST [facility] Last Admin: 12/22/17 08:37 Dose: 15 mg Morphine Sulfate (Ms Contin) 30 mg PO HS [facility] Last Admin: 12/21/17 21:18 Dose: 30 mg Multivitamins (Multivitamin) 1 tablet PO DAILY@0800 [facility] Last Admin: 12/22/17 08:37 Dose: 1 tablet Nitroglycerin (Nitrostat) 0.4 mg SUBLINGUAL Q5M PRN PRN Reason: chest pain Last Admin: 12/22/17 00:22 Dose: 0.4 mg Nutritional Formula (Lactose Free) (Ensure Clear) 120 ml PO 4X/DAY [facility] Last Admin: 12/21/17 21:18 Dose: 120 mls Ondansetron HCl (Zofran) 4 mg IV Q8H PRN PRN PRN Reason: NAUSEA/VOMITING Last Admin: 12/21/17 22:29 Dose: 4 mg Pravastatin Sodium (Pravachol) 20 mg PO QHS [facility] Last Admin: 12/21/17 21:15 Dose: 20 mg Prednisone () 5 mg PO BIDCM [facility] Last Admin: 12/22/17 08:37 Dose: 5 mg Sodium Chloride () 5 - 30 ml IV UD PRN PRN Reason: SALINE FLUSH Last Admin: 12/21/17 22:29 Dose: 10 ml Medical Necessity - Tobacco Use Smoking Status: Former smoker Assessment/Plan All Active Problems (Last Updated 03/19/17 @ 14:26 by Tori Walker) Weakness (Acute) Vomiting (Acute) Malaise and fatigue (Acute) Atrial flutter (Acute) 77-year-old male with past medical history of metastatic prostate cancer, on immunotherapy, following with oncology comes in with complaints of diarrhea and generalized weakness as well as nausea vomiting. He developed A. Fib with RVR, converted to normal sinus rhythm Cardizem. Cardizem was switched off. Maintained on IV fluids. 1. Acute shortness of breath likely secondary to acute on chronic systolic CHF, EF 45%, versus fluid overload, chest x-ray shows mild congestion, interstitial pulmonary edema, given IV Lasix with improvement, will switch to Lasix 20mg IV BID 2. A. fib with RVR, comes on and off, restarted on cardizem, cardiology consulted, maintained on cardizem, not on anticoagulation, will follow-up on cardiology recommendations. 3. Acute hypoxic respiratory insufficiency secondary to acute on chronic systolic CHF/fluid overload/A. fib with RVR, on Lasix, continue to encourage incentive spirometer, wean off oxygen 4. Possible left community-acquired pneumonia, fever, seen on x-ray yesterday, no fevers seen, started on IV Levaquin, repeat chest x-ray did not comment on pneumonia -because it was a portable x-ray and not AP and lateral, will monitor. Blood cultures are negative. 5. Acute nausea, vomiting, diarrhea likely related to immunotherapy, no diarrhea since admission, off immunotherapy, continue on Levaquin and Flagyl for now 6. Lactic acidosis secondary to dehydration, resolved 7. Hyponatremia, acute secondary to dehydration, resolved 8. Anemia, with a component of iron deficiency, will hold off starting iron for now, continue to trend CBCD. 9. Hyperlipidemia, on statin 10. Metastatic prostate cancer, off immunotherapy, oncology following 11. DVT PPx - SCds on account of thrombocytopenia Code Visit Inpatient E&M: 46420 Subs Hosp L3
[2017-12-22 09:15] LABS: AST(SGOT) 16 U/L (15-37); Alanine Aminotransfer ALT/SGPT 32 U/L (16-61); Albumin, Serum 2.4 g/dL (3.2-5.0); Alkaline Phosphatase 48 U/L (45-117); Bilirubin, Direct 0.31 mg/dL (0.00-0.30); Ferritin 360 ng/mL (26-388); Globulin 3.1 g/dL (2.2-4.2); Iron 18 ug/dL (65-175); Iron Binding Capacity,Total 177 ug/dL (250-450); LDH 176 U/L (87-241); PERCENT IRON SATURATION 10.2 % (15.0-55.0); Protein, Total 5.5 g/dL (6.4-8.2)
[2017-12-22] MEDS: 0.9% NaCl Peripheral Flush Adult/Peds IV (09:31)
[2017-12-22] MEDS: Furosemide 40 MG/4 ML Vial IV (09:31)
[2017-12-22] MEDS: Metoprolol Tartrate 50 MG Tablet PO ×2 (09:32→21:11)
[2017-12-22] MEDS: levoFLOXacin IV 750 MG/150 ML BAG 100 MG IV (09:45)
--- NOTE | 2017-12-22 10:59 | CASEMGMT ---
This RN CM to room to speak with pt regarding discharge plans and therapy recommendations at this time. Pt is currently getting and ECHO and this RN CM spoke with at this time. voices understanding about therapy recommendations and states that they were discussing HHC but she is unsure if pt able to come home with the continued weakness. Pt's states they will discuss and this RN CM will check back later. Sid RN MIRACLE
[2017-12-22 11:39] LABS: Vitamin B12 387 pg/mL (211-911)
[2017-12-22 11:39] LABS: BNP,B-Type NATRIURETIC PEPTIDE 1146.3 pg/mL (0-100)
[2017-12-22] MEDS: Ipratropium/Albuterol Sulfate 3 ML AMPUL.NEB INHALATION ×2 (14:11→19:10)
--- NOTE | 2017-12-22 14:13 | PCM.CONS.C ---
Problem List (1) Atrial flutter Status: Acute (2) Atherosclerosis of coronary artery bypass graft without angina pectoris Status: Chronic Comment: CAB12/2002 WHITAKER graft LAD, saphenous vein graft to diagonal branch of anterior descending, lateral CFX and RCA. (3) Dyspnea on exertion Status: Chronic (4) Carotid stenosis Status: Chronic Qualifiers: Laterality: right Qualified Code(s): I65.21 - Occlusion and stenosis of right carotid artery (5) History of PTCA Status: Chronic Comment: PTCA: 03/23/2003 PTCA/Stent to proximal-mid LAD; 10/2004 PTCA of the LAD, with placement of a taxus stent. (6) Hx of CABG Status: Chronic Comment: CAB12/2002 WHITAKER graft LAD, saphenous vein graft to diagonal branch of anterior descending, lateral CFX and RCA. (7) Palpitations Status: Chronic (8) CAD (coronary artery disease) Status: Chronic Qualifiers: Coronary Disease-Associated Artery/Lesion type: [place] artery [place] vs. transplanted heart: [place] heart Associated angina: without angina Qualified Code(s): I25.10 - Atherosclerotic heart disease of [place] coronary artery without angina pectoris Comment: PTCA: 03/23/2003 PTCA/Stent to proximal-mid LAD; 10/2004 PTCA of the LAD, with placement of a taxus stent. CAB12/2002 WHITAKER graft LAD, saphenous vein graft to diagonal branch of anterior descending, lateral CFX and RCA. [facility]: 12/2002; 12/16/2005 (9) Hypertension Status: Chronic Qualifiers: Hypertension type: essential hypertension Qualified Code(s): I10 - Essential (primary) hypertension (10) Hyperlipidemia Status: Chronic Qualifiers: Hyperlipidemia type: pure hypercholesterolemia Qualified Code(s): E78.00 - Pure hypercholesterolemia, unspecified; E78.0 - Pure hypercholesterolemia Reason for Consult Date of Consultation: 12/22/17 Reason for Consultation: Atrial flutter, coronary artery disease status post CABG, PCI, carotid disease, prostate cancer, History of Present Illness: The patient is a 77 year old M, patient of Dr. Mandujano, with a history of morbid obesity, coronary disease status post four-vessel CABG in 2002 at [facility], subsequent PCI's of unknown vessels, last catheterization was in 2004. In addition he has a history of peripheral vascular disease and carotid disease as well as metastatic prostate cancer to his bones. Patient is undergone x-ray therapy and chemotherapy for his prostate cancer. Last Wednesday the patient received number 2 out of 6 infusion of chemotherapy with Keytruda, and over the Wednesday and Wednesday he became violently ill with nausea and vomiting. He was admitted Wednesday with dehydration, and had transient atrial fibrillation since admission requiring intermittent IV Cardizem therapy. He reverted back to normal sinus rhythm on his own but then reverted to atrial flutter last evening requiring IV Cardizem drip. Patient denies any chest pain, angina, or shortness of breath. He has not had a stress test in several years. [] Past Medical History Allergies/Adverse Reactions: Allergies No Known Allergies Allergy (Verified 12/20/17 11:02) Home Medications: Ambulatory Orders Medication Instructions Recorded Levothyroxine Sodium [Levoxyl] 112 mcg PO DAILY 11/10/13 Metoprolol Tartrate [Lopressor 25 mg PO BID 11/10/13 (beta khang)] Pravastatin [Pravachol] 20 mg PO QHS 11/10/13 Tamsulosin HCl [Flomax] 0.4 mg PO DAILY 11/10/13 Morphine Sulfate [Morphine Sulfate 15 mg PO Q8H 05/09/16 ER] aspirin 81 mg tablet,delayed 81 mg PO QDAY 06/22/17 release nitroglycerin 0.4 mg sublingual 0.4 mg SUBLINGUAL Q5M PRN #25 tab 11/08/17 tablet Abiraterone Acetate [Zytiga] 750 mg PO DAILY 12/20/17 Hydrocodone Bitart/Apap 5-325 1 - 2 tablet PO Q6H PRN 12/20/17 [Cyclone 5MG-325MG] Multivitamin [Daily Multiple 1 each PO DAILY 12/20/17 Vitamin] Prednisone 5 mg PO BID 12/20/17 Ramipril 10 mg PO DAILY 12/20/17 morphine SR tablet [MS Contin] 15 mg PO BREAKFAST 12/20/17 morphine SR tablet [MS Contin] 30 mg PO QHS 12/20/17 Past Medical History (Chronic Problems): Chronic Problems (Last Updated 03/19/17 @ 14:26 by Tori Walker) Prostate cancer metastatic to bone (Chronic) Stenosis of right carotid artery (Chronic) Choledocholithiasis with acute cholecystitis with obstruction (Chronic) Atherosclerosis of coronary artery bypass graft without angina pectoris (Chronic) CAB12/2002 WHITAKER graft LAD, saphenous vein graft to diagonal branch of anterior descending, lateral CFX and RCA. Dyspnea on exertion (Chronic) Malaise and fatigue (Chronic) Dyspnea and respiratory abnormalities (Chronic) Carotid stenosis (Chronic) History of PTCA (Chronic) PTCA: 03/23/2003 PTCA/Stent to proximal-mid LAD; 10/2004 PTCA of the LAD, with placement of a taxus stent. Hx of CABG (Chronic) CAB12/2002 WHITAKER graft LAD, saphenous vein graft to diagonal branch of anterior descending, lateral CFX and RCA. Nonspecific abnormal unspecified cardiovascular function study (Chronic) Palpitations (Chronic) CAD (coronary artery disease) (Chronic) PTCA: 03/23/2003 PTCA/Stent to proximal-mid LAD; 10/2004 PTCA of the LAD, with placement of a taxus stent. CAB12/2002 WHITAKER graft LAD, saphenous vein graft to diagonal branch of anterior descending, lateral CFX and RCA. [facility]: 12/2002; 12/16/2005 Angina pectoris (Chronic) HLD (hyperlipidemia) (Chronic) Hypertension (Chronic) Hypothyroid (Chronic) Hyperlipidemia (Chronic) Acute cholecystitis (Chronic) Choledocholithiasis with acute cholecystitis with obstruction (Chronic) Choledocholithiasis with obstruction (Chronic) Surgical History: cholecystectomy, coronary bypass surgery - In 2002 and subsequently he had heart stents placed in the same year. Psychiatric History: No pertinent psych hx - *Family History Paternal Family History: Family History (Last Reviewed 06/28/17 @ 13:57 by Ailyn Butler) Father FH: brain aneurysm Mother Myocardial infarction CAD (coronary artery disease) Brother Myocardial infarction Brother CAD (coronary artery disease) Brother Hypertension Sister Diabetes Sister Myocardial infarction Colon cancer Sister Cancer History Items: No pertinent history Smoking Status: Former smoker Review of Systems - Review of Systems General: Denies: Fever, Night Sweats, Fatigue Cardiovascular: Denies: Chest Discomfort, Shortness of Breath, Orthopnea, PND, Peripheral Edema, Palpitations, Lightheadedness, Dizziness, Near Syncope, Syncope Respiratory: Denies: Cough, Sputum Production, Hemoptysis Gastrointestinal: Denies: Hematemesis, Hematochezia, Melena Genitourinary: Denies: Dysuria, Hematuria Skin: Denies: Rash Subjectve: Patient laying down flat in bed. No acute distress. Objective: Vital Signs Temp Pulse Resp BP Pulse Ox 99.3 F H 88 19 H 98/58 L 97 12/22/17 13:00 12/22/17 14:00 12/22/17 14:00 12/22/17 14:00 12/22/17 14:00 Oxygen Flow Rate (L/min) 2 Oxygen Delivery Method Nasal Cannula Weight: 202 lb 6.15 oz Body Mass Index (BMI) 30.7 Intake and Output for Last 24 Hours 12/20/17 12/21/17 12/22/17 23:59 23:59 23:59 Intake Total 863 / 863 4430.1 / 4430.1 721 / 721 Output Total 1475 / 1475 1500 / 1500 Balance 863 / 863 2955.1 / 2955.1 -779 / -779 General: Awake, Alert, Oriented x 3 HEENT: PERRL, EOMI, Sclera Non Icteric Neck: Supple, Good ROM, No Lymph Node Enlargement Lungs: Diminished Frederic Bases, Rales - Frederic Bases Cardiovascular: Irregular Rhythm, Normal S1, Normal S2, No Murmurs, No Rubs, No Gallops Vascular: No Carotid Bruits, Normal Femoral Pulses, Normal Radial Pulses, Normal Dorsalis Pedal Pulse, Normal Posterior Tibial Pulses Abdomen: Bowel Sounds Present, Soft, Non Tender, No HSM, No Organomegaly Extremities: No Cyanosis, No Clubbing, No edema Neurological: No Focal Motor or Sensory Deficit 12/21/17 05:40: Magnesium 1.9 12/22/17 01:05: Troponin I 0.030 12/22/17 03:45: WBC 3.2 L, RBC 2.58 L, Hgb 8.7 L, Hct 25.3 L, MCV 98.1 H, MCH 33.7 H, MCHC 34.4, RDW 13.4, RDW Differential 48.0 H, Plt Count 79 L, MPV 9.2, Immature Gran % (Auto) 0.000, Neut % (Auto) 76.5 H, Lymph % (Auto) 10.3 L, Crisp % (Auto) 12.9 H, Eos % (Auto) 0.0, Baso % (Auto) 0.3, Absolute Neuts (auto) 2.4, Total Counted Not Reportable 12/22/17 03:45: Sodium 132 L, Potassium 3.5, Chloride 101, Carbon Dioxide 24.0, Anion Gap 7, BUN 14, Creatinine 0.89, Est GFR (MDRD) Af Amer 106, Est GFR (MDRD) Non-Af 88, BUN/Creatinine Ratio 15.8, Glucose 113 H, Calcium 7.6 L 12/22/17 03:45: Troponin I 0.035 12/22/17 03:45: B-Natriuretic Peptide 1146.3 H 12/22/17 07:08: Troponin I 0.034 12/22/17 08:30: Iron 18 L, TIBC 177 L, Iron Saturation 10.2 L, Ferritin 360, Total Bilirubin 1.00, Direct Bilirubin 0.31 H Rhythm: EKG: ECHO: Stress Test: Cardiac Cath: PCI: CT Surgery: Holter monitor: EPS: PPM: CXR: Chest CT Scan: Assessment/Plan 1. Atrial fibrillation/atrial flutter: The patient is currently in atrial fibrillation/atrial flutter with controlled ventricular response on a IV Cardizem drip. He also had evidence of moderate mild to moderate LV dysfunction by echocardiogram with an EF around 45-50%. Patient appeared to respond well to IV diuretic therapy after initial resuscitation for what appeared to be dehydration over the weekend as a side effect to the patient's camp assistant of Keytruda with subsequent nausea and vomiting. Patient is able to lay down flat at this time, and recommend continuing p.o. beta-khang in the form of Lopressor 50 mg p.o. twice daily, Cardizem drip for better heart rate control, and IV Lasix until the patient is euvolemic and is able to lay down flat without dyspnea. His chest x-ray shows mild pulmonary vascular redistribution, and he has at least mild pulmonary hypertension by echocardiogram with an RVSP of approximately 45 mmHg. Recommend keeping his potassium above 4.0 and magnesium above 2.0. I have ordered magnesium 2 g x1 now, followed by 40 mEq of p.o. potassium followed by 10 mEq p.o. potassium daily. Recommend transitioning him to p.o. Lasix 40 mg a day tomorrow morning assuming he is euvolemic. Hopefully with inflammation resolution his atrial fibrillation will resume to normal sinus rhythm. If he continues in atrial fibrillation I have a low threshold for initiating amiodarone IV per protocol to assist with resynchronize in his rhythm and diastolic kick. 2. Coronary artery disease: At this point given the patient's metastatic prostate cancer and recent chemotherapy, I would not recommend further testing such as stress testing or catheterization. His most recent stress test in 2013 was negative for inducible ischemia. 3. Thank you very much for the opportunity to participate in the cardiac care of your patient. Consultation time took place between 1130 and 12 PM. Code Visit Inpatient E&M: 47075 Init Hosp L2
--- NOTE | 2017-12-22 14:22 | CON.PCM_ITS ---
Problem List (1) Atrial flutter Status: Acute (2) Atherosclerosis of coronary artery bypass graft without angina pectoris Status: Chronic Comment: CAB12/2002 WHITAKER graft LAD, saphenous vein graft to diagonal branch of anterior descending, lateral CFX and RCA. (3) Dyspnea on exertion Status: Chronic (4) Carotid stenosis Status: Chronic Qualifiers: Laterality: right Qualified Code(s): I65.21 - Occlusion and stenosis of right carotid artery (5) History of PTCA Status: Chronic Comment: PTCA: 03/23/2003 PTCA/Stent to proximal-mid LAD; 10/2004 PTCA of the LAD, with placement of a taxus stent. (6) Hx of CABG Status: Chronic Comment: CAB12/2002 WHITAKER graft LAD, saphenous vein graft to diagonal branch of anterior descending, lateral CFX and RCA. (7) Palpitations Status: Chronic (8) CAD (coronary artery disease) Status: Chronic Qualifiers: Coronary Disease-Associated Artery/Lesion type: [place] artery [place] vs. transplanted heart: [place] heart Associated angina: without angina Qualified Code(s): I25.10 - Atherosclerotic heart disease of [place] coronary artery without angina pectoris Comment: PTCA: 03/23/2003 PTCA/Stent to proximal-mid LAD; 10/2004 PTCA of the LAD, with placement of a taxus stent. CAB12/2002 WHITAKER graft LAD, saphenous vein graft to diagonal branch of anterior descending, lateral CFX and RCA. [facility]: 12/2002; 12/16/2005 (9) Hypertension Status: Chronic Qualifiers: Hypertension type: essential hypertension Qualified Code(s): I10 - Essential (primary) hypertension (10) Hyperlipidemia Status: Chronic Qualifiers: Hyperlipidemia type: pure hypercholesterolemia Qualified Code(s): E78.00 - Pure hypercholesterolemia, unspecified; E78.0 - Pure hypercholesterolemia Reason for Consult Date of Consultation: 12/22/17 Reason for Consultation: Atrial flutter, coronary artery disease status post CABG, PCI, carotid disease, prostate cancer, History of Present Illness: The patient is a 77 year old M, patient of Dr. Mandujano, with a history of morbid obesity, coronary disease status post four-vessel CABG in 2002 at [facility], subsequent PCI's of unknown vessels, last catheterization was in 2004. In addition he has a history of peripheral vascular disease and carotid disease as well as metastatic prostate cancer to his bones. Patient is undergone x-ray therapy and chemotherapy for his prostate cancer. Last Wednesday the patient received number 2 out of 6 infusion of chemotherapy with Keytruda, and over the Wednesday and Wednesday he became violently ill with nausea and vomiting. He was admitted Wednesday with dehydration, and had transient atrial fibrillation since admission requiring intermittent IV Cardizem therapy. He reverted back to normal sinus rhythm on his own but then reverted to atrial flutter last evening requiring IV Cardizem drip. Patient denies any chest pain, angina, or shortness of breath. He has not had a stress test in several years. [] Past Medical History Allergies/Adverse Reactions: Allergies No Known Allergies Allergy (Verified 12/20/17 11:02) Home Medications: Ambulatory Orders Medication Instructions Recorded Levothyroxine Sodium [Levoxyl] 112 mcg PO DAILY 11/10/13 Metoprolol Tartrate [Lopressor 25 mg PO BID 11/10/13 (beta khang)] Pravastatin [Pravachol] 20 mg PO QHS 11/10/13 Tamsulosin HCl [Flomax] 0.4 mg PO DAILY 11/10/13 Morphine Sulfate [Morphine Sulfate 15 mg PO Q8H 05/09/16 ER] aspirin 81 mg tablet,delayed 81 mg PO QDAY 06/22/17 release nitroglycerin 0.4 mg sublingual 0.4 mg SUBLINGUAL Q5M PRN #25 tab 11/08/17 tablet Abiraterone Acetate [Zytiga] 750 mg PO DAILY 12/20/17 Hydrocodone Bitart/Apap 5-325 1 - 2 tablet PO Q6H PRN 12/20/17 [[place] 5MG-325MG] Multivitamin [Daily Multiple 1 each PO DAILY 12/20/17 Vitamin] Prednisone 5 mg PO BID 12/20/17 Ramipril 10 mg PO DAILY 12/20/17 morphine SR tablet [MS Contin] 15 mg PO BREAKFAST 12/20/17 morphine SR tablet [MS Contin] 30 mg PO QHS 12/20/17 Past Medical History (Chronic Problems): Chronic Problems (Last Updated 03/19/17 @ 14:26 by Tori Walker) Prostate cancer metastatic to bone (Chronic) Stenosis of right carotid artery (Chronic) Choledocholithiasis with acute cholecystitis with obstruction (Chronic) Atherosclerosis of coronary artery bypass graft without angina pectoris (Chronic) CAB12/2002 WHITAKER graft LAD, saphenous vein graft to diagonal branch of anterior descending, lateral CFX and RCA. Dyspnea on exertion (Chronic) Malaise and fatigue (Chronic) Dyspnea and respiratory abnormalities (Chronic) Carotid stenosis (Chronic) History of PTCA (Chronic) PTCA: 03/23/2003 PTCA/Stent to proximal-mid LAD; 10/2004 PTCA of the LAD, with placement of a taxus stent. Hx of CABG (Chronic) CAB12/2002 WHITAKER graft LAD, saphenous vein graft to diagonal branch of anterior descending, lateral CFX and RCA. Nonspecific abnormal unspecified cardiovascular function study (Chronic) Palpitations (Chronic) CAD (coronary artery disease) (Chronic) PTCA: 03/23/2003 PTCA/Stent to proximal-mid LAD; 10/2004 PTCA of the LAD, with placement of a taxus stent. CAB12/2002 WHITAKER graft LAD, saphenous vein graft to diagonal branch of anterior descending, lateral CFX and RCA. [facility]: 12/2002; 12/16/2005 Angina pectoris (Chronic) HLD (hyperlipidemia) (Chronic) Hypertension (Chronic) Hypothyroid (Chronic) Hyperlipidemia (Chronic) Acute cholecystitis (Chronic) Choledocholithiasis with acute cholecystitis with obstruction (Chronic) Choledocholithiasis with obstruction (Chronic) Surgical History: cholecystectomy, coronary bypass surgery - In 2002 and subsequently he had heart stents placed in the same year. Psychiatric History: No pertinent psych hx - *Family History Paternal Family History: Family History (Last Reviewed 06/28/17 @ 13:57 by Ailyn Butler) Father FH: brain aneurysm Mother Myocardial infarction CAD (coronary artery disease) Brother Myocardial infarction Brother CAD (coronary artery disease) Brother Hypertension Sister Diabetes Sister Myocardial infarction Colon cancer Sister Cancer History Items: No pertinent history Smoking Status: Former smoker Review of Systems - Review of Systems General: Denies: Fever, Night Sweats, Fatigue Cardiovascular: Denies: Chest Discomfort, Shortness of Breath, Orthopnea, PND, Peripheral Edema, Palpitations, Lightheadedness, Dizziness, Near Syncope, Syncope Respiratory: Denies: Cough, Sputum Production, Hemoptysis Gastrointestinal: Denies: Hematemesis, Hematochezia, Melena Genitourinary: Denies: Dysuria, Hematuria Skin: Denies: Rash Subjectve: Patient laying down flat in bed. No acute distress. Objective: Vital Signs Temp Pulse Resp BP Pulse Ox 99.3 F H 88 19 H 98/58 L 97 12/22/17 13:00 12/22/17 14:00 12/22/17 14:00 12/22/17 14:00 12/22/17 14:00 Oxygen Flow Rate (L/min) 2 Oxygen Delivery Method Nasal Cannula Weight: 202 lb 6.15 oz Body Mass Index (BMI) 30.7 Intake and Output for Last 24 Hours 12/20/17 12/21/17 12/22/17 23:59 23:59 23:59 Intake Total 863 / 863 4430.1 / 4430.1 721 / 721 Output Total 1475 / 1475 1500 / 1500 Balance 863 / 863 2955.1 / 2955.1 -779 / -779 General: Awake, Alert, Oriented x 3 HEENT: PERRL, EOMI, Sclera Non Icteric Neck: Supple, Good ROM, No Lymph Node Enlargement Lungs: Diminished Frederic Bases, Rales - Frederic Bases Cardiovascular: Irregular Rhythm, Normal S1, Normal S2, No Murmurs, No Rubs, No Gallops Vascular: No Carotid Bruits, Normal Femoral Pulses, Normal Radial Pulses, Normal Dorsalis Pedal Pulse, Normal Posterior Tibial Pulses Abdomen: Bowel Sounds Present, Soft, Non Tender, No HSM, No Organomegaly Extremities: No Cyanosis, No Clubbing, No edema Neurological: No Focal Motor or Sensory Deficit 12/21/17 05:40: Magnesium 1.9 12/22/17 01:05: Troponin I 0.030 12/22/17 03:45: WBC 3.2 L, RBC 2.58 L, Hgb 8.7 L, Hct 25.3 L, MCV 98.1 H, MCH 33.7 H, MCHC 34.4, RDW 13.4, RDW Differential 48.0 H, Plt Count 79 L, MPV 9.2, Immature Gran % (Auto) 0.000, Neut % (Auto) 76.5 H, Lymph % (Auto) 10.3 L, [place] % (Auto) 12.9 H, Eos % (Auto) 0.0, Baso % (Auto) 0.3, Absolute Neuts (auto) 2.4, Total Counted Not Reportable 12/22/17 03:45: Sodium 132 L, Potassium 3.5, Chloride 101, Carbon Dioxide 24.0, Anion Gap 7, BUN 14, Creatinine 0.89, Est GFR (MDRD) Af Amer 106, Est GFR (MDRD) Non-Af 88, BUN/Creatinine Ratio 15.8, Glucose 113 H, Calcium 7.6 L 12/22/17 03:45: Troponin I 0.035 12/22/17 03:45: B-Natriuretic Peptide 1146.3 H 12/22/17 07:08: Troponin I 0.034 12/22/17 08:30: Iron 18 L, TIBC 177 L, Iron Saturation 10.2 L, Ferritin 360, Total Bilirubin 1.00, Direct Bilirubin 0.31 H Rhythm: EKG: ECHO: Stress Test: Cardiac Cath: PCI: CT Surgery: Holter monitor: EPS: PPM: CXR: Chest CT Scan: Assessment/Plan 1. Atrial fibrillation/atrial flutter: The patient is currently in atrial fibrillation/atrial flutter with controlled ventricular response on a IV Cardizem drip. He also had evidence of moderate mild to moderate LV dysfunction by echocardiogram with an EF around 45-50%. 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 Patient is able to lay down flat at this time, and recommend continuing p.o. beta-khang in the form of Lopressor 50 mg p.o. twice daily, Cardizem drip for better heart rate control, and IV Lasix until the patient is euvolemic and is able to lay down flat without dyspnea. His chest x-ray shows mild pulmonary vascular redistribution, and he has at least mild pulmonary hypertension by echocardiogram with an RVSP of approximately 45 mmHg. Recommend keeping his potassium above 4.0 and magnesium above 2.0. I have ordered magnesium 2 g x1 now, followed by 40 mEq of p.o. potassium followed by 10 mEq p.o. potassium daily. Recommend transitioning him to p.o. Lasix 40 mg a day tomorrow morning assuming he is euvolemic. Hopefully with inflammation resolution his atrial fibrillation will resume to normal sinus rhythm. If he continues in atrial fibrillation I have a low threshold for initiating amiodarone IV per protocol to assist with resynchronize in his rhythm and diastolic kick. 2. Coronary artery disease: At this point given the patient's metastatic prostate cancer and recent chemotherapy, I would not recommend further testing such as stress testing or catheterization. His most recent stress test in 2013 was negative for inducible ischemia. 3. Thank you very much for the opportunity to participate in the cardiac care of your patient. Consultation time took place between 1130 and 12 PM. Code Visit Inpatient E&M: 58252 Init Hosp L2
[2017-12-22] MEDS: Furosemide 20 MG/2 ML VIAL IV (17:58)
[2017-12-22] MEDS: Pravastatin 20 MG Tablet PO (21:11)
[2017-12-23] VITALS (37 sets, daily range): BP systolic 80–112; BP diastolic 52–90; PULSE 65–129; RESP 16–31; TEMP 36.4–37.1; O2SAT 92–99
--- NOTE | 2017-12-23 03:37 | NURSING ---
contacted pharmacy about cardizem gtt parameters to titrate by
[2017-12-23] MEDS: metroNIDAZOLE 500 MG Tablet PO ×3 (05:37→21:52)
[2017-12-23] MEDS: Levothyroxine 112 MCG Tablet PO (05:37)
[2017-12-23 06:18] LABS: Anion Gap 8 (5-15); BUN 15 mg/dL (7-18); BUN/Creat Ratio 15.4 RATIO (10-20); Calcium,Total 7.9 mg/dL (8.5-10.1); Chloride 98 mmol/L (98-107); Creatinine, Serum 0.98 mg/dL (0.70-1.30); EST Glomerular Filtration Rate 79 mL/min (>60); Est Glom Filt Rate - Afr Amer 95 mL/min (>60); Estimated Creatinine Clearance 59.13 ml/min; Glucose 120 mg/dL (74-106); Potassium 3.5 mmol/L (3.5-5.1); Sodium Level 133 mmol/L (136-145)
[2017-12-23 06:42] LABS: Absolute Lymphocyte Count 0.36 X10^3/ul (0.83-4.51); Absolute Neutrophil Count 3.3 X10^3/uL (2.0-7.7); Basophil# 0.01 X10^3/uL; Basophil% 0.2 % (0-1); Eosinophil# 0.04 X10^3/uL; Hematocrit 26.8 % (40-54); Lymphocyte # 0.36 X10^3/ul (4.0); Mean Corp Hgb Conc 33.6 g/gl (32-36); Mean Corpuscular Hgb 33.2 pg (27.0-32.0); Mean Corpuscular Volume 98.9 fL (80-94); Mean Platelet Vol. 9.7 fl (6.2-12.0); Monocyte# 0.31 X10^3/uL; Monocyte% 7.7 % (0-10); Neutrophil # 3.29 X10^3/uL (2.7-7.7); Neutrophil % 81.9 % (47-70); Platelet Count 92 K/mm3 (150-450); RBC Distribution Width CV 13.6 % (11.6-14.6); RBC Distribution Width SD 48.9 fl (35.1-43.9); Red Blood Count 2.71 M/mm3 (4.6-6.2)
[2017-12-23 06:44] LABS: Differential Indicated SCAN CRITERIA MET; POSITIVE COUNT NO; POSITIVE DIFFERENTIAL YES; POSITIVE MORPHOLOGY NO
[2017-12-23 06:52] LABS: Differential Comment SCANNED
[2017-12-23] MEDS: Ipratropium/Albuterol Sulfate 3 ML AMPUL.NEB INHALATION ×4 (07:04→18:47)
[2017-12-23] MEDS: Multivitamins,Therapeutic Tablet 1 TABLET PO (10:05)
[2017-12-23] MEDS: Aspirin E.C. 81 MG Tablet PO (10:05)
[2017-12-23] MEDS: Metoprolol Tartrate 50 MG Tablet PO ×2 (10:06→21:52)
[2017-12-23] MEDS: predniSONE 5 MG Tablet PO ×2 (10:06→16:41)
[2017-12-23] MEDS: morphine SR 15 MG Tablet PO (10:10)
--- NOTE | 2017-12-23 10:25 | EKG12_ITS ---
Test Reason : RHYTHM CHANGE Blood Pressure : / mmHG Vent. Rate : 112 BPM Atrial Rate : 111 BPM P-R Int : 000 ms QRS Dur : 108 ms QT Int : 358 ms P-R-T Axes : 000 008 084 degrees QTc Int : 488 ms Atrial fibrillation with rapid ventricular response Abnormal ECG When compared with ECG of 22-DEC-2017 00:40, MANUAL COMPARISON REQUIRED, DATA IS UNCONFIRMED Confirmed by ALVIN OSMAN, KEDAR ([id number]), editor city MICKEY FLYNN ([id number]) on 12/29/2017 2:31:46 PM Referred By: MOIZ Confirmed By:KEDAR ESQUIVEL MD
[2017-12-23] MEDS: levoFLOXacin IV 750 MG/150 ML BAG 100 MG IV (11:18)
[2017-12-23] MEDS: Furosemide 20 MG/2 ML VIAL IV ×2 (11:27→17:34)
--- NOTE | 2017-12-23 13:16 | PCM.PN.HOSP ---
Patient Problems: Active and Suspected Problems (Last Updated 03/19/17 @ 14:26 by Tori Walker) Weakness (Acute) Vomiting (Acute) Malaise and fatigue (Acute) Atrial flutter (Acute) Subjective: Patient was seen and examined. Remains in A. fib. Cardizem drip was kept on for the most part yesterday, switched off overnight. Heart rates has been up and down. Resumed Cardizem this morning. Cardiology switched to amiodarone drip. Patient complains of feeling short of breath, denies any chest pain or dizziness Objective: Physical exam: General: Alert, Oriented x3, Cooperative, - - obese, appears ill-looking, tachypneic HEENT: Atraumatic, PERRLA, EOMI, Normocephalic Oral: Dry Mucosa Neck: Supple, No JVD, Negative Carotid Bruits Lungs: Clear to auscultation, Normal air movement Cardiovascular: Regular rate, Regular Rhythm, Normal S1, Normal S2, No murmurs Abdomen: Bowel Sounds Present, Soft, Non Tender, Non-Distended, No Hepato-splenomegaly Extremities: No edema Skin: No rashes, No breakdown Musculoskeletal: No Tenderness to Palpation of Joints or Extremities Lymphatic: No Cervical, Supraclavicular, or Inguinal Adenopathy Neurological: Cranial nerves II-XII grossly intact, Neuro grossly intact Psych/Mental Status: Normal Affect, Appropriate Vitals/I&O's: Vital Signs Temp Pulse Resp BP Pulse Ox 98.4 F 106 H 20 H 98/75 98 12/23/17 11:10 12/23/17 11:34 12/23/17 11:10 12/23/17 11:10 12/23/17 11:10 Oxygen Flow Rate (L/min) 1 Oxygen Delivery Method Nasal Cannula Weight: 91.5 kg Body Mass Index (BMI) 30.7 Intake and Output for Last 24 Hours 12/21/17 12/22/17 12/23/17 23:59 23:59 23:59 Intake Total 4430.1 / 4430.1 841 / 841 1093 / 1093 Output Total 1475 / 1475 2250 / 2250 1500 / 1500 Balance 2955.1 / 2955.1 -1409 / -1409 -407 / -407 Microbiology Past 72 Hours 12/20/17 11:50 Blood Culture (Wb) - Anticubital Left Blood Culture - Preliminary No growth in 48 hours. 12/20/17 11:26 Blood Culture (Wb) - Anticubital Right Blood Culture - Preliminary No growth in 48 hours. 12/20/17 12:40 Urine, Clean Catch Urine Culture - Final Culture exhibits no growth. 12/20/17 11:32 Mucosa - Nasopharyngeal Influenza Types A,B Direct FA (BETITO) - Final Laboratory Results 12/23/17 05:15: WBC 4.0 L, RBC 2.71 L, Hgb 9.0 L, Hct 26.8 L, MCV 98.9 H, MCH 33.2 H, MCHC 33.6, RDW 13.6, RDW Differential 48.9 H, Plt Count 92 L, MPV 9.7, Immature Gran % (Auto) 0.200, Neut % (Auto) 81.9 H, Lymph % (Auto) 9.0 L, [place] % (Auto) 7.7, Eos % (Auto) 1.0, Baso % (Auto) 0.2, Absolute Neuts (auto) 3.3, Absolute Lymphs (auto) 0.36 L, Total Counted Not Reportable, Differential Comment SCANNED 12/23/17 05:15: Sodium 133 L, Potassium 3.5, Chloride 98, Carbon Dioxide 27.0, Anion Gap 8, BUN 15, Creatinine 0.98, Estim Creat Clear Calc 59.13, Est GFR (MDRD) Af Amer 95, Est GFR (MDRD) Non-Af 79, BUN/Creatinine Ratio 15.4, Glucose 120 H, Calcium 7.9 L Current Medications Acetaminophen (Tylenol) 650 mg PO Q6H PRN PRN PRN Reason: FEVER Last Admin: 12/20/17 20:52 Dose: 650 mg Hydrocodone Bitart/Acetaminophen ([place] 5mg-325mg) 1 - 2 tablet PO Q6H PRN PRN Reason: PAIN Last Admin: 12/20/17 14:30 Dose: 1 tablet Albuterol/Ipratropium (Duoneb) 3 ml INHALATION Q4H.RT TELLO Last Admin: 12/23/17 10:56 Dose: 3 ml Aspirin (Ecotrin) 81 mg PO DAILY@0800 [facility] Last Admin: 12/23/17 10:05 Dose: 81 mg Furosemide (Lasix) 20 mg IV BID@1000,1800 [facility] Last Admin: 12/23/17 11:27 Dose: 20 mg Levofloxacin (Levaquin Iv) 750 mg in 150 mls @ 100 mls/hr IV Q24 [facility] Last Admin: 12/23/17 11:18 Dose: 100 mls/hr Amiodarone HCl 360 mg/ (Dextrose) 200 mls @ 33.33 mls/hr CONT INF .Q6H1M [facility] Stop: 12/23/17 15:45 Last Admin: 12/23/17 10:16 Dose: 33.33 mls/hr Amiodarone HCl 360 mg/ (Dextrose) 200 mls @ 16.67 mls/hr CONT INF .Q12H1M [facility] Stop: 12/24/17 09:59 Levothyroxine Sodium (Synthroid) 112 mcg PO DAILY@0600 [facility] Last Admin: 12/23/17 05:37 Dose: 112 mcg Magnesium Hydroxide (Milk Of Magnesia) 30 ml PO DAILY PRN PRN PRN Reason: Constipation Metoprolol Tartrate (Lopressor (Beta Juvenal)) 50 mg PO BID [facility] Last Admin: 12/23/17 10:06 Dose: 50 mg Metronidazole (Flagyl) 500 mg PO TID [facility] Last Admin: 12/23/17 05:37 Dose: 500 mg Morphine Sulfate (Ms Contin) 15 mg PO BREAKFAST [facility] Last Admin: 12/23/17 10:10 Dose: 15 mg Morphine Sulfate (Ms Contin) 30 mg PO HS [facility] Last Admin: 12/22/17 21:10 Dose: 30 mg Multivitamins (Multivitamin) 1 tablet PO DAILY@0800 [facility] Last Admin: 12/23/17 10:05 Dose: 1 tablet Nitroglycerin (Nitrostat) 0.4 mg SUBLINGUAL Q5M PRN PRN Reason: chest pain Last Admin: 12/22/17 00:22 Dose: 0.4 mg Nutritional Formula (Lactose Free) (Ensure Clear) 120 ml PO 4X/DAY [facility] Last Admin: 12/23/17 10:06 Dose: Not Given Ondansetron HCl (Zofran) 4 mg IV Q8H PRN PRN PRN Reason: NAUSEA/VOMITING Last Admin: 12/21/17 22:29 Dose: 4 mg Potassium [facility] Admin: 12/23/17 10:05 Dose: 10 meq Pravastatin Sodium (Pravachol) 20 mg PO QHS [facility] Last Admin: 12/22/17 21:11 Dose: 20 mg Prednisone () 5 mg PO BIDCM [facility] Last Admin: 12/23/17 10:06 Dose: 5 mg Sodium Chloride () 5 - 30 ml IV UD PRN PRN Reason: SALINE FLUSH Last Admin: 12/22/17 09:31 Dose: 10 ml Medical Necessity - Tobacco Use Smoking Status: Former smoker Assessment/Plan All Active Problems (Last Updated 03/19/17 @ 14:26 by Tori Walker) Weakness (Acute) Vomiting (Acute) Malaise and fatigue (Acute) Atrial flutter (Acute) 77-year-old male with past medical history of metastatic prostate cancer, on immunotherapy, following with oncology comes in with complaints of diarrhea and generalized weakness as well as nausea vomiting. He developed A. Fib with RVR, converted to normal sinus rhythm Cardizem. Cardizem was switched off. Maintained on IV fluids. 1. Acute shortness of breath likely secondary to acute on chronic systolic CHF, EF 45%, versus fluid overload, chest x-ray shows mild congestion, interstitial pulmonary edema, given IV Lasix with improvement, continue on Lasix 20 mg IV twice daily 2. A. fib with RVR, comes on and off, restarted on cardizem, cardiology consulted, currently on amiodarone drip 3. Acute hypoxic respiratory insufficiency secondary to acute on chronic systolic CHF/fluid overload/A. fib with RVR, on Lasix, continue to encourage incentive spirometer, wean off oxygen 4. Possible left community-acquired pneumonia, fever, seen on x-ray yesterday, no fevers seen, started on IV Levaquin(day 3, aim for 7 days total of antibiotics) repeat chest x-ray did not comment on pneumonia -because it was a portable x-ray and not AP and lateral, will monitor. Blood cultures are negative. 5. Acute nausea, vomiting, diarrhea likely related to immunotherapy, resolved, off immunotherapy, continue on Levaquin and Flagyl for now 6. Hyponatremia, acute secondary to dehydration, resolved 7. Anemia, with a component of iron deficiency, will hold off starting iron for now, continue to trend CBCD. 8. Hyperlipidemia, on statin 9. Metastatic prostate cancer, off immunotherapy, oncology following 10. DVT PPx - SCds on account of thrombocytopenia Code Visit Inpatient E&M: 57518 Subs Hosp L2
--- NOTE | 2017-12-23 13:23 | PN_ITS ---
Patient Problems: Active and Suspected Problems (Last Updated 03/19/17 @ 14:26 by Tori Walker) Weakness (Acute) Vomiting (Acute) Malaise and fatigue (Acute) Atrial flutter (Acute) Subjective: Patient was seen and examined. Remains in A. fib. Cardizem drip was kept on for the most part yesterday, switched off overnight. Heart rates has been up and down. Resumed Cardizem this morning. Cardiology switched to amiodarone drip. Patient complains of feeling short of breath, denies any chest pain or dizziness Objective: Physical exam: General: Alert, Oriented x3, Cooperative, - - obese, appears ill-looking, tachypneic HEENT: Atraumatic, PERRLA, EOMI, Normocephalic Oral: Dry Mucosa Neck: Supple, No JVD, Negative Carotid Bruits Lungs: Clear to auscultation, Normal air movement Cardiovascular: Regular rate, Regular Rhythm, Normal S1, Normal S2, No murmurs Abdomen: Bowel Sounds Present, Soft, Non Tender, Non-Distended, No Hepato- splenomegaly Extremities: No edema Skin: No rashes, No breakdown Musculoskeletal: No Tenderness to Palpation of Joints or Extremities Lymphatic: No Cervical, Supraclavicular, or Inguinal Adenopathy Neurological: Cranial nerves II-XII grossly intact, Neuro grossly intact Psych/Mental Status: Normal Affect, Appropriate Vitals/I&O's: Vital Signs Temp Pulse Resp BP Pulse Ox 98.4 F 106 H 20 H 98/75 98 12/23/17 11:10 12/23/17 11:34 12/23/17 11:10 12/23/17 11:10 12/23/17 11:10 Oxygen Flow Rate (L/min) 1 Oxygen Delivery Method Nasal Cannula Weight: 91.5 kg Body Mass Index (BMI) 30.7 Intake and Output for Last 24 Hours 12/21/17 12/22/17 12/23/17 23:59 23:59 23:59 Intake Total 4430.1 / 4430.1 841 / 841 1093 / 1093 Output Total 1475 / 1475 2250 / 2250 1500 / 1500 Balance 2955.1 / 2955.1 -1409 / -1409 -407 / -407 Microbiology Past 72 Hours 12/20/17 11:50 Blood Culture (Wb) - Anticubital Left Blood Culture - Preliminary No growth in 48 hours. 12/20/17 11:26 Blood Culture (Wb) - Anticubital Right Blood Culture - Preliminary No growth in 48 hours. 12/20/17 12:40 Urine, Clean Catch Urine Culture - Final Culture exhibits no growth. 12/20/17 11:32 Mucosa - Nasopharyngeal Influenza Types A,B Direct FA (BETITO) - Final Laboratory Results 12/23/17 05:15: WBC 4.0 L, RBC 2.71 L, Hgb 9.0 L, Hct 26.8 L, MCV 98.9 H, MCH 33.2 H, MCHC 33.6, RDW 13.6, RDW Differential 48.9 H, Plt Count 92 L, MPV 9.7, Immature Gran % (Auto) 0.200, Neut % (Auto) 81.9 H, Lymph % (Auto) 9.0 L, [place] % (Auto) 7.7, Eos % (Auto) 1.0, Baso % (Auto) 0.2, Absolute Neuts (auto) 3.3, Absolute Lymphs (auto) 0.36 L, Total Counted Not Reportable, Differential Comment SCANNED 12/23/17 05:15: Sodium 133 L, Potassium 3.5, Chloride 98, Carbon Dioxide 27.0, Anion Gap 8, BUN 15, Creatinine 0.98, Estim Creat Clear Calc 59.13, Est GFR (MDRD) Af Amer 95, Est GFR (MDRD) Non-Af 79, BUN/Creatinine Ratio 15.4, Glucose 120 H, Calcium 7.9 L Current Medications Acetaminophen (Tylenol) 650 mg PO Q6H PRN PRN PRN Reason: FEVER Last Admin: 12/20/17 20:52 Dose: 650 mg Hydrocodone Bitart/Acetaminophen ([place] 5mg-325mg) 1 - 2 tablet PO Q6H PRN PRN Reason: PAIN Last Admin: 12/20/17 14:30 Dose: 1 tablet Albuterol/Ipratropium (Duoneb) 3 ml INHALATION Q4H.RT TELLO Last Admin: 12/23/17 10:56 Dose: 3 ml Aspirin (Ecotrin) 81 mg PO DAILY@0800 [facility] Last Admin: 12/23/17 10:05 Dose: 81 mg Furosemide (Lasix) 20 mg IV BID@1000,1800 [facility] Last Admin: 12/23/17 11:27 Dose: 20 mg Levofloxacin (Levaquin Iv) 750 mg in 150 mls @ 100 mls/hr IV Q24 [facility] Last Admin: 12/23/17 11:18 Dose: 100 mls/hr Amiodarone HCl 360 mg/ (Dextrose) 200 mls @ 33.33 mls/hr CONT INF .Q6H1M [facility] Stop: 12/23/17 15:45 Last Admin: 12/23/17 10:16 Dose: 33.33 mls/hr Amiodarone HCl 360 mg/ (Dextrose) 200 mls @ 16.67 mls/hr CONT INF .Q12H1M [facility] Stop: 12/24/17 09:59 Levothyroxine Sodium (Synthroid) 112 mcg PO DAILY@0600 [facility] Last Admin: 12/23/17 05:37 Dose: 112 mcg Magnesium Hydroxide (Milk Of Magnesia) 30 ml PO DAILY PRN PRN PRN Reason: Constipation Metoprolol Tartrate (Lopressor (Beta Juvenal)) 50 mg PO BID [facility] Last Admin: 12/23/17 10:06 Dose: 50 mg Metronidazole (Flagyl) 500 mg PO TID [facility] Last Admin: 12/23/17 05:37 Dose: 500 mg Morphine Sulfate (Ms Contin) 15 mg PO BREAKFAST [facility] Last Admin: 12/23/17 10:10 Dose: 15 mg Morphine Sulfate (Ms Contin) 30 mg PO HS [facility] Last Admin: 12/22/17 21:10 Dose: 30 mg Multivitamins (Multivitamin) 1 tablet PO DAILY@0800 [facility] Last Admin: 12/23/17 10:05 Dose: 1 tablet Nitroglycerin (Nitrostat) 0.4 mg SUBLINGUAL Q5M PRN PRN Reason: chest pain Last Admin: 12/22/17 00:22 Dose: 0.4 mg Nutritional Formula (Lactose Free) (Ensure Clear) 120 ml PO 4X/DAY [facility] Last Admin: 12/23/17 10:06 Dose: Not Given Ondansetron HCl (Zofran) 4 mg IV Q8H PRN PRN PRN Reason: NAUSEA/VOMITING Last Admin: 12/21/17 22:29 Dose: 4 mg Potassium [facility] Last Admin: 12/23/17 10:05 Dose: 10 meq Pravastatin Sodium (Pravachol) 20 mg PO QHS [facility] Last Admin: 12/22/17 21:11 Dose: 20 mg Prednisone () 5 mg PO BIDCM [facility] Last Admin: 12/23/17 10:06 Dose: 5 mg Sodium Chloride () 5 - 30 ml IV UD PRN PRN Reason: SALINE FLUSH Last Admin: 12/22/17 09:31 Dose: 10 ml Medical Necessity - Tobacco Use Smoking Status: Former smoker Assessment/Plan All Active Problems (Last Updated 03/19/17 @ 14:26 by Tori Walker) Weakness (Acute) Vomiting (Acute) Malaise and fatigue (Acute) Atrial flutter (Acute) 77-year-old male with past medical history of metastatic prostate cancer, on immunotherapy, following with oncology comes in with complaints of diarrhea and generalized weakness as well as nausea vomiting. He developed A. Fib with RVR, converted to normal sinus rhythm Cardizem. Cardizem was switched off. Maintained on IV fluids. 1. Acute shortness of breath likely secondary to acute on chronic systolic CHF, EF 45%, versus fluid overload, chest x-ray shows mild congestion, interstitial pulmonary edema, given IV Lasix with improvement, continue on Lasix 20 mg IV twice daily 2. A. fib with RVR, comes on and off, restarted on cardizem, cardiology consulted, currently on amiodarone drip 3. Acute hypoxic respiratory insufficiency secondary to acute on chronic systolic CHF/fluid overload/A. fib with RVR, on Lasix, continue to encourage incentive spirometer, wean off oxygen 4. Possible left community-acquired pneumonia, fever, seen on x-ray yesterday, no fevers seen, started on IV Levaquin(day 3, aim for 7 days total of antibiotics) repeat chest x-ray did not comment on pneumonia -because it was a portable x-ray and not AP and lateral, will monitor. Blood cultures are negative. 5. Acute nausea, vomiting, diarrhea likely related to immunotherapy, resolved, off immunotherapy, continue on Levaquin and Flagyl for now 6. Hyponatremia, acute secondary to dehydration, resolved 7. Anemia, with a component of iron deficiency, will hold off starting iron for now, continue to trend CBCD. 8. Hyperlipidemia, on statin 9. Metastatic prostate cancer, off immunotherapy, oncology following 10. DVT PPx - SCds on account of thrombocytopenia Code Visit Inpatient E&M: 16270 Subs Hosp L2
--- NOTE | 2017-12-23 14:14 | CASEMGMT ---
Referral faxed to [facility]. SW called and spoke w/Erin, let her know referral is being faxed. She will need to know whether or not pt's chemo medication will be discontinued while pt in rehab. SW will look into this and let her know. SW will continue to follow. ESTEFANIA Ernandez, ART CLASS MODEL
--- NOTE | 2017-12-23 15:04 | CASEMGMT ---
RODOLFO spoke with Dr Nassar's office and patient will not have any treatment while he is in rehab. RODOLFO called [facility] and spoke with Jacqueline letting her know this information. Chantal LAUREANO MSW
--- NOTE | 2017-12-23 15:06 | NURSING ---
This RN taking over care at this time
--- NOTE | 2017-12-23 15:19 | PCM.PROGNOTE ---
Patient Problems: Active and Suspected Problems (Last Updated 03/19/17 @ 14:26 by Tori Walker) Weakness (Acute) Vomiting (Acute) Malaise and fatigue (Acute) Atrial flutter (Acute) Subjective: echocardiogram completed yesterday. EF 45%. He's been started on diuresis. Breathing easier today. Still feels weak and very washed out. Not eating very much but he is getting oral in and he's not had any nausea or vomiting. Bowels haven't moved as of yet. - Physical Exam Lungs: Normal air movement, - - less rhonchi at the bases. Cardiovascular: Irregular Rate Abdomen: Soft, - - still has rather active bowel sounds. Vital Signs Temp Pulse Resp BP Pulse Ox 98.8 F 88 18 107/59 L 96 12/23/17 15:00 12/23/17 15:02 12/23/17 15:00 12/23/17 15:00 12/23/17 15:00 Oxygen Flow Rate (L/min) 1 Oxygen Delivery Method Nasal Cannula Weight: 91.5 kg Body Mass Index (BMI) 30.7 Intake and Output for Last 24 Hours 12/21/17 12/22/17 12/23/17 23:59 23:59 23:59 Intake Total 4430.1 / 4430.1 841 / 841 1093 / 1093 Output Total 1475 / 1475 2250 / 2250 1500 / 1500 Balance 2955.1 / 2955.1 -1409 / -1409 -407 / -407 Microbiology Past 72 Hours 12/20/17 11:50 Blood Culture - Preliminary Blood Culture (Wb) - Anticubital Left No growth in 48 hours. 12/20/17 11:26 Blood Culture - Preliminary Blood Culture (Wb) - Anticubital Right No growth in 48 hours. 12/20/17 12:40 Urine Culture - Final Urine, Clean Catch Culture exhibits no growth. 12/20/17 11:32 Influenza Types A,B Direct FA (BETITO) - Final Mucosa - Nasopharyngeal Laboratory Tests Past 24 Hrs 12/23/17 12/23/17 05:15 05:15 WBC 4.0 L RBC 2.71 L Hgb 9.0 L Hct 26.8 L MCV 98.9 H MCH 33.2 H MCHC 33.6 RDW 13.6 RDW Differential 48.9 H Plt Count 92 L MPV 9.7 Immature Gran % (Auto) 0.200 Neut % (Auto) 81.9 H Lymph % (Auto) 9.0 L [place] % (Auto) 7.7 Eos % (Auto) 1.0 Baso % (Auto) 0.2 Absolute Neuts (auto) 3.3 Absolute Lymphs (auto) 0.36 L Total Counted Not Reportable Differential Comment SCANNED Sodium 133 L Potassium 3.5 Chloride 98 Carbon Dioxide 27.0 Anion Gap 8 BUN 15 Creatinine 0.98 Estim Creat Clear Calc 59.13 Est GFR (MDRD) Af Amer 95 Est GFR (MDRD) Non-Af 79 BUN/Creatinine Ratio 15.4 Glucose 120 H Calcium 7.9 L Medical Necessity - Tobacco Use Smoking Status: Former smoker Assessment/Plan All Active Problems (Last Updated 03/19/17 @ 14:26 by Tori Walker) Weakness (Acute) Vomiting (Acute) Malaise and fatigue (Acute) Atrial flutter (Acute) 1) Asthenia/Fever. Assessment: -Neutrophil count remains normal. -Lactic acid has corrected. -He is tolerating oral ciprofloxacin and Flagyl without any nausea or worsening of abdominal symptomatology. -Fever seems to be subsiding. -All cultures negative thus far. Plan: -Continue oral antibiotics. -Check serum cortisol. 2) Atrial fibrillation. Assessment: -History of coronary artery disease with bypass surgery in 2002--WHITAKER to the LAD, SVG to the diagonal branch of the anterior descending, lateral circumflex and RCA. He also has a history of atrial flutter, ischemic cardiomyopathy, hypertension, hyperlipidemia, carotid artery disease with a left carotid endarterectomy in 2004. -May be getting volume overloaded. Plan: -Please consult Dr. Gamez. 3) Pancytopenia. Assessment: -Progressive. Anemia may be dilutional and plt decrease secondary to acute illness. -Would not expect this is from immunotherapy although autoimmune hemolytic anemia has certainly been reported. Plan: -Rule out hemolysis. -Continue to monitor counts. Consider RBC transfusion if hemoglobin declines under 8 g/dL. 4) Metastatic hormone refractory prostate cancer. Assessment: -patient has had multiple lines of treatment. 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 -PSA had increased after first dose of immunotherapy but median response times with immunotherapy can be 2-3 months. Plan: -Recheck PSA now.
[2017-12-23] MEDS: 0.9% NaCl Peripheral Flush Adult/Peds IV ×2 (17:34→21:52)
--- NOTE | 2017-12-23 18:32 | PN.CARD_ITS ---
Subjectve: The patient is awake and alert. He has denied ongoing chest discomfort. He has been short of breath and dyspneic. He has denied ongoing lower extremity peripheral pitting edema. There has been no syncope. Objective: Vital Signs Temp Pulse Resp BP Pulse Ox 98.8 F 106 H 23 H 96/66 97 12/23/17 15:00 12/23/17 18:00 12/23/17 18:00 12/23/17 18:00 12/23/17 18:00 Oxygen Flow Rate (L/min) 1 Oxygen Delivery Method Room Air Weight: 201 lb 11.567 oz Body Mass Index (BMI) 30.7 Intake and Output for Last 24 Hours 12/21/17 12/22/17 12/23/17 23:59 23:59 23:59 Intake Total 4430.1 / 4430.1 841 / 841 1711 / 1711 Output Total 1475 / 1475 2250 / 2250 2275 / 2275 Balance 2955.1 / 2955.1 -1409 / -1409 -564 / -564 General: Awake, Alert, Oriented x 3, Ill Appearing HEENT: Atraumatic, Normocephalic, PERRL, EOMI, Sclera Non Icteric Oral: Moist Mucosa Neck: Supple, Good ROM, No JVD Lungs: Rales - Frederic Bases Cardiovascular: Irregular Rhythm, Normal S1, Normal S2 Abdomen: Bowel Sounds Present, Soft, Non Tender Extremities: No edema Neurological: No Focal Motor or Sensory Deficit Psych/Mental Status: Appropriate 12/23/17 05:15: WBC 4.0 L, RBC 2.71 L, Hgb 9.0 L, Hct 26.8 L, MCV 98.9 H, MCH 33.2 H, MCHC 33.6, RDW 13.6, RDW Differential 48.9 H, Plt Count 92 L, MPV 9.7, Immature Gran % (Auto) 0.200, Neut % (Auto) 81.9 H, Lymph % (Auto) 9.0 L, [place] % (Auto) 7.7, Eos % (Auto) 1.0, Baso % (Auto) 0.2, Absolute Neuts (auto) 3.3, Total Counted Not Reportable 12/23/17 05:15: Sodium 133 L, Potassium 3.5, Chloride 98, Carbon Dioxide 27.0, Anion Gap 8, BUN 15, Creatinine 0.98, Est GFR (MDRD) Af Amer 95, Est GFR (MDRD) Non-Af 79, BUN/Creatinine Ratio 15.4, Glucose 120 H, Calcium 7.9 L Rhythm: Atrial fibrillation with episodes of rapid ventricular response Medical Necessity - Tobacco Use Smoking Status: Former smoker Assessment/Plan 1. Atrial fibrillation with rapid ventricular response At the present time the patient continues with his atrial dysrhythmia with intermittent rapid ventricular response. He has been on beta-khang therapy. He has been intolerant IV diltiazem secondary to hypotension. Thus he has been placed on IV amiodarone therapy with the hopes that this will help with rate control and potentially help him regain sinus rhythm. He is not on anticoagulant therapy based upon concerns of his underlying anemia and thrombocytopenia. 2. CAD status post PCI and CABG The patient has undergone extensive noninvasive and invasive evaluation of his underlying CAD process in the past. At the moment he appears to be without symptoms of acute coronary syndrome. He will continue medical management and undergo further evaluation as deemed appropriate. 3. Carotid artery disease The patient does have carotid artery disease and has undergone surgical inte rvention in the past. He appears without any acute symptoms at this time. He will continue to be followed as deemed appropriate. 4. Hyperlipidemia The patient will continue risk factor evaluation care. 5. Hypertension The patient's blood pressure will need to be monitored. His medications may need to be adjusted to avoid significant hypotension and/or hypertension. 6. Prostatic carcinoma with metastatic disease The patient will continue evaluation care per hematology/oncology. Comment: The patient's case was discussed and reviewed with the patient, his spouse, and other family members present. This note was generated with [employer] dictation software. It may contain incorrect words, spelling, and punctuation that were not noted in checking the note before signing.
[2017-12-23] MEDS: Pravastatin 20 MG Tablet PO (21:50)
[2017-12-24] VITALS (28 sets, daily range): BP systolic 90–139; BP diastolic 57–99; PULSE 84–125; RESP 16–26; TEMP 36.5–36.8; O2SAT 93–98
[2017-12-24] MEDS: Levothyroxine 112 MCG Tablet PO (05:16)
[2017-12-24] MEDS: metroNIDAZOLE 500 MG Tablet PO ×3 (05:17→22:28)
[2017-12-24] MEDS: Ipratropium/Albuterol Sulfate 3 ML AMPUL.NEB INHALATION ×4 (06:46→19:02)
--- NOTE | 2017-12-24 09:22 | CASEMGMT ---
RODOLFO spoke with Erin at [facility] and she wanted to make sure patient is not going to be on Zytiga. RODOLFO called Dr Nassar's office and left a message on the nursing line requesting a return call. Plan: Likely [facility] Chantal LOPEZ
[2017-12-24] MEDS: 0.9% NaCl Peripheral Flush Adult/Peds IV ×3 (09:25→18:51)
[2017-12-24 09:27] LABS: Hematocrit 30.2 % (40-54); Hemoglobin 10.5 g/dl (13.0-16.5); Mean Corp Hgb Conc 34.8 g/gl (32-36); Mean Corpuscular Hgb 34.8 pg (27.0-32.0); Mean Platelet Vol. 9.9 fl (6.2-12.0); Platelet Count 134 K/mm3 (150-450); RBC Distribution Width CV 13.2 % (11.6-14.6); RBC Distribution Width SD 46.6 fl (35.1-43.9); Red Blood Count 3.02 M/mm3 (4.6-6.2); White Blood Count 6.1 K/mm3 (4.4-11.0)
[2017-12-24 09:28] LABS: Scan Indicated on CBC? Y/N NO
[2017-12-24] MEDS: Multivitamins,Therapeutic Tablet 1 TABLET PO (09:28)
[2017-12-24] MEDS: Aspirin E.C. 81 MG Tablet PO (09:28)
[2017-12-24] MEDS: Metoprolol Tartrate 50 MG Tablet PO ×2 (09:28→22:28)
[2017-12-24] MEDS: Furosemide 20 MG/2 ML VIAL IV ×2 (09:29→18:51)
[2017-12-24 09:45] LABS: Anion Gap 9 (5-15); BUN 18 mg/dL (7-18); BUN/Creat Ratio 18.5 RATIO (10-20); Chloride 97 mmol/L (98-107); Creatinine, Serum 0.97 mg/dL (0.70-1.30); EST Glomerular Filtration Rate 79 mL/min (>60); Est Glom Filt Rate - Afr Amer 95 mL/min (>60); Estimated Creatinine Clearance 59.74 ml/min; Glucose 117 mg/dL (74-106); Magnesium 2.1 mg/dL (1.6-2.6); Potassium 3.3 mmol/L (3.5-5.1); Sodium Level 134 mmol/L (136-145)
--- NOTE | 2017-12-24 09:54 | PCM.PN.CARD ---
Subjectve: The patient appears somewhat more awake and alert today. He believes his breathing has improved overall. However he is still tired and fatigued. Objective: Vital Signs Temp Pulse Resp BP Pulse Ox 98.0 F 115 H 21 H 98/58 L 93 12/24/17 07:00 12/24/17 09:28 12/24/17 07:00 12/24/17 07:00 12/24/17 07:00 Oxygen Flow Rate (L/min) 1 Oxygen Delivery Method Room Air Weight: 203 lb 7.787 oz Body Mass Index (BMI) 30.7 Intake and Output for Last 24 Hours 12/22/17 12/23/17 12/24/17 23:59 23:59 23:59 Intake Total 841 / 841 1711 / 1711 453.5 / 453.5 Output Total 2250 / 2250 2275 / 2275 1750 / 1750 Balance -1409 / -1409 -564 / -564 -1296.5 / -1296.5 General: Awake, Alert, Oriented x 3, Cooperative, No Acute Distress HEENT: Atraumatic, Normocephalic, PERRL, EOMI, Sclera Non Icteric Oral: Moist Mucosa Neck: Supple, Good ROM, No JVD Lungs: Diminished Frederic Bases Cardiovascular: Irregular Rhythm, Normal S1, Normal S2 Abdomen: Bowel Sounds Present, Soft, Non Tender Extremities: No edema Psych/Mental Status: Appropriate 12/24/17 08:45: WBC 6.1, RBC 3.02 L, Hgb 10.5 L, Hct 30.2 L, MCV 100.0 H, MCH 34.8 H, MCHC 34.8, RDW 13.2, RDW Differential 46.6 H, Plt Count 134 L, MPV 9.9 12/24/17 08:45: Sodium 134 L, Potassium 3.3 L, Chloride 97 L, Carbon Dioxide 28.0, Anion Gap 9, BUN 18, Creatinine 0.97, Est GFR (MDRD) Af Amer 95, Est GFR (MDRD) Non-Af 79, BUN/Creatinine Ratio 18.5, Glucose 117 H, Calcium 8.0 L, Magnesium 2.1 Rhythm: Atrial fibrillation with variable ventricular response Medical Necessity - Tobacco Use Smoking Status: Former smoker Assessment/Plan 1. Atrial fibrillation with rapid ventricular response At the present time the patient continues with his atrial dysrhythmia with intermittent rapid ventricular response. He has been on beta-khang therapy. He has been intolerant IV diltiazem secondary to hypotension. Thus he has been placed on IV amiodarone therapy with the hopes that this will help with rate control and potentially help him regain sinus rhythm. He will be transitioned to oral amiodarone therapy. If his ventricular rate remains elevated, and if he cannot increase his beta-khang based on concerns of low blood pressure, then he may need additional agents such as digitalis-once his potassium level is improved. His case was also discussed with Dr. Nassar of hematology/oncology. He stated the patient was a candidate for anticoagulant therapy. Thus the patient will be placed on anticoagulant therapy. He will need to be monitored for any obvious hemorrhagic issues. Over time, hopefully with rate control therapy, antiarrhythmic therapy, the patient will return to sinus rhythm. If not with anticoagulant therapy in his system that he can be further evaluated for the possibility, depending upon the timing, of a synchronized biphasic DC cardioversion, which, depending upon the timing may or may not need to be RORO guided. 2. CAD status post PCI and CABG The patient has undergone extensive noninvasive and invasive evaluation of his underlying CAD process in the past. At the moment he appears to be without symptoms of acute coronary syndrome. He will continue medical management and undergo further evaluation as deemed appropriate. 3. Carotid artery disease The patient does have carotid artery disease and has undergone surgical intervention in the past. He appears without any acute symptoms at this time. He will continue to be followed as deemed appropriate. 4. Hyperlipidemia The patient will continue risk factor evaluation care. 5. Hypertension The patient's blood pressure will need to be monitored. His medications may need to be adjusted to avoid significant hypotension and/or hypertension. 6. Prostatic carcinoma with metastatic disease The patient will continue evaluation care per hematology/oncology. Comment: The patient's case was discussed and reviewed with the patient, his spouse, and Dr. Nassar. This note was generated with [employer] software. It may contain incorrect words, spelling, and punctuation that were not noted in checking the note before signing.
--- NOTE | 2017-12-24 12:18 | NURSING ---
in room to wake pt for po meds he needs, family asking that i let him sleep. adv will come back around 1 to give meds, agreeable.
[2017-12-24 12:40] LABS: Haptoglobin 301 mg/dL (34-200)
[2017-12-24] MEDS: APIXABAN 5 MG TABLET PO ×2 (13:08→22:29)
[2017-12-24] MEDS: levoFLOXacin 750 MG Tablet PO (13:08)
[2017-12-24] MEDS: predniSONE 5 MG Tablet PO ×2 (13:08→18:51)
[2017-12-24] MEDS: Amiodarone 200 MG Tablet PO ×2 (13:08→22:29)
[2017-12-24] MEDS: HYDROcodone Bitartrate/Apap 5/325 Tablet PO (15:20)
--- NOTE | 2017-12-24 16:07 | PCM.PN.HOSP ---
Patient Problems: Active and Suspected Problems (Last Updated 03/19/17 @ 14:26 by Tori Walker) Weakness (Acute) Vomiting (Acute) Malaise and fatigue (Acute) Atrial flutter (Acute) Subjective: Patient was seen and examined. He feels very fatigued, slept very poorly. He was reportedly hallucinating from the dose of morphine given yesterday. Apparently his home medication dose is not right. He is on only MS Contin 50 mg nightly. Denied any chest pain. Continues to be in A. fib with RVR on telemetry, started on Eliquis today Objective: Physical exam: General: Alert, Oriented x3, Cooperative, - - in mild respiratory distress HEENT: Atraumatic, PERRLA, EOMI, Normocephalic Oral: Moist Mucosa Neck: Supple Lungs: Clear to auscultation, Normal air movement Cardiovascular: Regular rate, Regular Rhythm, Normal S1, Normal S2, No murmurs Abdomen: Bowel Sounds Present, Soft, Non Tender, Non-Distended, No Hepato-splenomegaly Extremities: No edema Skin: No rashes, No breakdown Musculoskeletal: No Tenderness to Palpation of Joints or Extremities Lymphatic: No Cervical, Supraclavicular, or Inguinal Adenopathy Neurological: Cranial nerves II-XII grossly intact, Neuro grossly intact Psych/Mental Status: Normal Affect, Appropriate Vitals/I&O's: Vital Signs Temp Pulse Resp BP Pulse Ox 97.7 F L 104 H 18 100/69 93 12/24/17 11:00 12/24/17 15:35 12/24/17 15:35 12/24/17 11:00 12/24/17 15:41 Oxygen Flow Rate (L/min) 1 Oxygen Delivery Method Room Air Weight: 92.3 kg Body Mass Index (BMI) 30.7 Intake and Output for Last 24 Hours 12/22/17 12/23/17 12/24/17 23:59 23:59 23:59 Intake Total 841 / 841 1711 / 1711 653.5 / 653.5 Output Total 2250 / 2250 2275 / 2275 2400 / 2400 Balance -1409 / -1409 -564 / -564 -1746.5 / -1746.5 Microbiology Past 72 Hours 12/20/17 11:50 Blood Culture (Wb) - Anticubital Left Blood Culture - Preliminary No growth in 48 hours. 12/20/17 11:26 Blood Culture (Wb) - Anticubital Right Blood Culture - Preliminary No growth in 48 hours. 12/20/17 12:40 Urine, Clean Catch Urine Culture - Final Culture exhibits no growth. Laboratory Results 12/22/17 08:30: Haptoglobin 301 H 12/24/17 08:45: WBC 6.1, RBC 3.02 L, Hgb 10.5 L, Hct 30.2 L, MCV 100.0 H, MCH 34.8 H, MCHC 34.8, RDW 13.2, RDW Differential 46.6 H, Plt Count 134 L, MPV 9.9 12/24/17 08:45: Sodium 134 L, Potassium 3.3 L, Chloride 97 L, Carbon Dioxide 28.0, Anion Gap 9, BUN 18, Creatinine 0.97, Estim Creat Clear Calc 59.74, Est GFR (MDRD) Af Amer 95, Est GFR (MDRD) Non-Af 79, BUN/Creatinine Ratio 18.5, Glucose 117 H, Calcium 8.0 L, Magnesium 2.1 Current Medications Acetaminophen (Tylenol) 650 mg PO Q6H PRN PRN PRN Reason: FEVER Last Admin: 12/20/17 20:52 Dose: 650 mg Hydrocodone Bitart/Acetaminophen ([place] 5mg-325mg) 1 - 2 tablet PO Q6H PRN PRN Reason: PAIN Last Admin: 12/24/17 15:20 Dose: 1 tablet Albuterol/Ipratropium (Duoneb) 3 ml INHALATION Q4H.RT [facility] Last Admin: 12/24/17 15:34 Dose: 3 ml Amiodarone HCl (Cordarone) 200 mg PO TID [facility] Last Admin: 12/24/17 13:08 Dose: 200 mg Apixaban (Eliquis) 5 mg PO BID [facility] Last Admin: 12/24/17 13:08 Dose: 5 mg Aspirin (Ecotrin) 81 mg PO DAILY@0800 [facility] Last Admin: 12/24/17 09:28 Dose: 81 mg Furosemide (Lasix) 20 mg IV BID@1000,1800 [facility] Last Admin: 12/24/17 09:29 Dose: 20 mg Levofloxacin (Levaquin Tablet) 750 mg PO DAILY@0600 [facility] Stop: 12/27/17 06:01 Last Admin: 12/24/17 13:08 Dose: 750 mg Levothyroxine Sodium (Synthroid) 112 mcg PO DAILY@0600 [facility] Last Admin: 12/24/17 05:16 Dose: 112 mcg Magnesium Hydroxide (Milk Of Magnesia) 30 ml PO DAILY PRN PRN PRN Reason: Constipation Metoprolol Tartrate (Lopressor (Beta Juvenal)) 50 mg PO BID [facility] Last Admin: 12/24/17 09:28 Dose: 50 mg Metronidazole (Flagyl) 500 mg PO TID [facility] Last Admin: 12/24/17 13:11 Dose: 500 mg Morphine Sulfate (Ms Contin) 15 mg PO [facility] Multivitamins (Multivitamin) 1 tablet PO DAILY@0800 [facility] Last Admin: 12/24/17 09:28 Dose: 1 tablet Nitroglycerin (Nitrostat) 0.4 mg SUBLINGUAL Q5M PRN PRN Reason: chest pain Last Admin: 12/22/17 00:22 Dose: 0.4 mg Nutritional Formula (Lactose Free) (Ensure Clear) 120 ml PO 4X/DAY [facility] Last Admin: 12/24/17 15:33 Dose: 120 mls Ondansetron HCl (Zofran) 4 mg IV Q8H PRN PRN PRN Reason: NAUSEA/VOMITING Last Admin: 12/21/17 22:29 Dose: 4 mg Potassium Chloride (K-[facility]) [facility] Pravastatin Sodium (Pravachol) 20 mg PO QHS [facility] Last Admin: 12/23/17 21:50 Dose: 20 mg Pred[facility]one () [facility] Last Admin: 12/24/17 13:08 Dose: 5 mg Sodium Chloride () 5 - 30 ml IV UD PRN PRN Reason: SALINE FLUSH Last Admin: 12/24/17 13:08 Dose: 10 ml Medical Necessity - Tobacco Use Smoking Status: Former smoker Assessment/Plan All Active Problems (Last Updated 03/19/17 @ 14:26 by Tori Walker) Weakness (Acute) Vomiting (Acute) Malaise and fatigue (Acute) Atrial flutter (Acute) 77-year-old male with past medical history of metastatic prostate cancer, on immunotherapy, following with oncology comes in with complaints of diarrhea and generalized weakness as well as nausea vomiting. He developed A. Fib with RVR, converted to normal sinus rhythm Cardizem. Cardizem was switched off. Maintained on IV fluids. 1. Acute hypoxic respiratory insufficiency secondary to acute on chronic systolic CHF, EF 45%, resolved, on room air today 2. A. fib with RVR, comes on and off, was on amiodarone drip, switched to oral amiodarone, continue to monitor 3. Acute on chronic systolic CHF/fluid overload/A. fib with RVR, on Lasix 20 mg IV twice daily, diuresing well, continue on same dose of Lasix 4. Possible left community-acquired pneumonia, POA, started on IV Levaquin, will switch to oral Levaquin, Day 4, aim for 7 days total of antibiotics 5. Acute nausea, vomiting, diarrhea likely related to immunotherapy, resolved, off immunotherapy, continue on Levaquin and Flagyl for now 6. Hyponatremia, acute secondary to dehydration, resolving 7. Anemia, with a component of iron deficiency, will hold off starting iron for now, continue to trend CBCD. 8. Hyperlipidemia, on statin 9. Metastatic prostate cancer, off immunotherapy, oncology following 10. DVT PPx - SCds on account of thrombocytopenia 11. Debility, patient will need residential facility at discharge Code Visit Inpatient E&M: 53213 Subs Hosp L2
--- NOTE | 2017-12-24 16:14 | PN_ITS ---
Patient Problems: Active and Suspected Problems (Last Updated 03/19/17 @ 14:26 by Tori Walker) Weakness (Acute) Vomiting (Acute) Malaise and fatigue (Acute) Atrial flutter (Acute) Subjective: Patient was seen and examined. He feels very fatigued, slept very poorly. He was reportedly hallucinating from the dose of morphine given yesterday. Apparently his home medication dose is not right. He is on only MS Contin 50 mg nightly. Denied any chest pain. Continues to be in A. fib with RVR on telemetry, started on Eliquis today Objective: Physical exam: General: Alert, Oriented x3, Cooperative, - - in mild respiratory distress HEENT: Atraumatic, PERRLA, EOMI, Normocephalic Oral: Moist Mucosa Neck: Supple Lungs: Clear to auscultation, Normal air movement Cardiovascular: Regular rate, Regular Rhythm, Normal S1, Normal S2, No murmurs Abdomen: Bowel Sounds Present, Soft, Non Tender, Non-Distended, No Hepato-splenomegaly Extremities: No edema Skin: No rashes, No breakdown Musculoskeletal: No Tenderness to Palpation of Joints or Extremities Lymphatic: No Cervical, Supraclavicular, or Inguinal Adenopathy Neurological: Cranial nerves II-XII grossly intact, Neuro grossly intact Psych/Mental Status: Normal Affect, Appropriate Vitals/I&O's: Vital Signs Temp Pulse Resp BP Pulse Ox 97.7 F L 104 H 18 100/69 93 12/24/17 11:00 12/24/17 15:35 12/24/17 15:35 12/24/17 11:00 12/24/17 15:41 Oxygen Flow Rate (L/min) 1 Oxygen Delivery Method Room Air Weight: 92.3 kg Body Mass Index (BMI) 30.7 Intake and Output for Last 24 Hours 12/22/17 12/23/17 12/24/17 23:59 23:59 23:59 Intake Total 841 / 841 1711 / 1711 653.5 / 653.5 Output Total 2250 / 2250 2275 / 2275 2400 / 2400 Balance -1409 / -1409 -564 / -564 -1746.5 / -1746.5 Microbiology Past 72 Hours 12/20/17 11:50 Blood Culture (Wb) - Anticubital Left Blood Culture - Preliminary No growth in 48 hours. 12/20/17 11:26 Blood Culture (Wb) - Anticubital Right Blood Culture - Preliminary No growth in 48 hours. 12/20/17 12:40 Urine, Clean Catch Urine Culture - Final Culture exhibits no growth. Laboratory Results 12/22/17 08:30: Haptoglobin 301 H 12/24/17 08:45: WBC 6.1, RBC 3.02 L, Hgb 10.5 L, Hct 30.2 L, MCV 100.0 H, MCH 34.8 H, MCHC 34.8, RDW 13.2, RDW Differential 46.6 H, Plt Count 134 L, MPV 9.9 12/24/17 08:45: Sodium 134 L, Potassium 3.3 L, Chloride 97 L, Carbon Dioxide 28.0, Anion Gap 9, BUN 18, Creatinine 0.97, Estim Creat Clear Calc 59.74, Est GFR (MDRD) Af Amer 95, Est GFR (MDRD) Non-Af 79, BUN/Creatinine Ratio 18.5, Glucose 117 H, Calcium 8.0 L, Magnesium 2.1 Current Medications Acetaminophen (Tylenol) 650 mg PO Q6H PRN PRN PRN Reason: FEVER Last Admin: 12/20/17 20:52 Dose: 650 mg Hydrocodone Bitart/Acetaminophen ([place] 5mg-325mg) 1 - 2 tablet PO Q6H PRN PRN Reason: PAIN Last Admin: 12/24/17 15:20 Dose: 1 tablet Albuterol/Ipratropium (Duoneb) 3 ml INHALATION Q4H.RT [facility] Last Admin: 12/24/17 15:34 Dose: 3 ml Amiodarone HCl (Cordarone) 200 mg PO TID [facility] Last Admin: 12/24/17 13:08 Dose: 200 mg Apixaban (Eliquis) 5 mg PO BID [facility] Last Admin: 12/24/17 13:08 Dose: 5 mg Aspirin (Ecotrin) 81 mg PO DAILY@0800 [facility] Last Admin: 12/24/17 09:28 Dose: 81 mg Furosemide (Lasix) 20 mg IV BID@1000,1800 [facility] Last Admin: 12/24/17 09:29 Dose: 20 mg Levofloxacin (Levaquin Tablet) 750 mg PO DAILY@0600 [facility] Stop: 12/27/17 06:01 Last Admin: 12/24/17 13:08 Dose: 750 mg Levothyroxine Sodium (Synthroid) 112 mcg PO DAILY@0600 [facility] Last Admin: 12/24/17 05:16 Dose: 112 mcg Magnesium Hydroxide (Milk Of Magnesia) 30 ml PO DAILY PRN PRN PRN Reason: Constipation Metoprolol Tartrate (Lopressor (Beta Juvenal)) 50 mg PO BID [facility] Last Admin: 12/24/17 09:28 Dose: 50 mg Metronidazole (Flagyl) 500 mg PO TID [facility] Last Admin: 12/24/17 13:11 Dose: 500 mg Morphine Sulfate (Ms Contin) 15 mg PO [facility] Multivitamins (Multivitamin) 1 tablet PO DAILY@0800 [facility] Last Admin: 12/24/17 09:28 Dose: 1 tablet Nitroglycerin (Nitrostat) 0.4 mg SUBLINGUAL Q5M PRN PRN Reason: chest pain Last Admin: 12/22/17 00:22 Dose: 0.4 mg Nutritional Formula (Lactose Free) (Ensure Clear) 120 ml PO 4X/DAY [facility] Last Admin: 12/24/17 15:33 Dose: 120 mls Ondansetron HCl (Zofran) 4 mg IV Q8H PRN PRN PRN Reason: NAUSEA/VOMITING Last Admin: 12/21/17 22:29 Dose: 4 mg Potassium Chloride (K-Dur) [facility] Pravastatin Sodium (Pravachol) 20 mg PO QHS [facility] Last Admin: 12/23/17 21:50 Dose: 20 mg Prednisone () [facility] Last Admin: 12/24/17 13:08 Dose: 5 mg Sodium Chloride () 5 - 30 ml IV UD PRN PRN Reason: SALINE FLUSH Last Admin: 12/24/17 13:08 Dose: 10 ml Medical Necessity - Tobacco Use Smoking Status: Former smoker Assessment/Plan All Active Problems (Last Updated 03/19/17 @ 14:26 by Tori Walker) Weakness (Acute) Vomiting (Acute) Malaise and fatigue (Acute) Atrial flutter (Acute) 77-year-old male with past medical history of metastatic prostate cancer, on immunotherapy, following with oncology comes in with complaints of diarrhea and generalized weakness as well as nausea vomiting. He developed A. Fib with RVR, converted to normal sinus rhythm Cardizem. Cardizem was switched off. Maintained on IV fluids. 1. Acute hypoxic respiratory insufficiency secondary to acute on chronic systolic CHF, EF 45%, resolved, on room air today 2. A. fib with RVR, comes on and off, was on amiodarone drip, switched to oral amiodarone, continue to monitor 3. Acute on chronic systolic CHF/fluid overload/A. fib with RVR, on Lasix 20 mg IV twice daily, diuresing well, continue on same dose of Lasix 4. Possible left community-acquired pneumonia, POA, started on IV Levaquin, will switch to oral Levaquin, Day 4, aim for 7 days total of antibiotics 5. Acute nausea, vomiting, diarrhea likely related to immunotherapy, resolved, off immunotherapy, continue on Levaquin and Flagyl for now 6. Hyponatremia, acute secondary to dehydration, resolving 7. Anemia, with a component of iron deficiency, will hold off starting iron for now, continue to trend CBCD. 8. Hyperlipidemia, on statin 9. Metastatic prostate cancer, off immunotherapy, oncology following 10. DVT PPx - SCds on account of thrombocytopenia 11. Debility, patient will need longterm facility at discharge Code Visit Inpatient E&M: 81642 Subs Hosp L2
--- NOTE | 2017-12-24 17:00 | CHAPLAIN ---
Type of Pastoral Visit _x__ Initial Visit ___ Follow-up Visit ___ On-call Visit ___ General Patient Visit ___ Spiritual Assessment ___ Family Conference ___ Bereavement ___ Rapid Response ___ Code Blue ___ Other (describe below) Pastoral Care Referral From ___ Patient ___ Family ___ Nurse ___ Physician ___ Gill Tender ___ Assistant Case Manager _x__ Other (describe below) Sacrament/Intervention ___ Active listening ___ Anointing ___ Confucianist ___ Bereavement ___ Communion ___ Cara exploration ___ ___ Life review ___ Prayer ___ Reconciliation ___ Sacrament of Sick _x__ Supportive presence ___ Wedding ___ Other (describe below) Pastoral Comments staff member suggested a visit but patient was sleeping; did interact with family members and offered support as needed
[2017-12-24] MEDS: morphine SR 15 MG Tablet PO (22:24)
[2017-12-24] MEDS: Pravastatin 20 MG Tablet PO (22:29)
[2017-12-25] VITALS (16 sets, daily range): BP systolic 106–142; BP diastolic 54–64; PULSE 84–147; RESP 14–20; TEMP 36.5–36.9; O2SAT 92–96
[2017-12-25] MEDS: Levothyroxine 112 MCG Tablet PO (06:37)
[2017-12-25] MEDS: metroNIDAZOLE 500 MG Tablet PO ×3 (06:37→22:17)
[2017-12-25] MEDS: levoFLOXacin 750 MG Tablet PO (06:37)
[2017-12-25] MEDS: Amiodarone 200 MG Tablet PO ×3 (06:37→22:17)
[2017-12-25 06:41] LABS: Anion Gap 8 (5-15); BUN 18 mg/dL (7-18); BUN/Creat Ratio 21.8 RATIO (10-20); Chloride 94 mmol/L (98-107); Creatinine, Serum 0.83 mg/dL (0.70-1.30); EST Glomerular Filtration Rate 95 mL/min (>60); Est Glom Filt Rate - Afr Amer 115 mL/min (>60); Estimated Creatinine Clearance 69.82 ml/min; Glucose 145 mg/dL (74-106); Potassium 3.5 mmol/L (3.5-5.1); Sodium Level 130 mmol/L (136-145)
[2017-12-25] MEDS: Ipratropium/Albuterol Sulfate 3 ML AMPUL.NEB INHALATION ×5 (06:47→23:00)
--- NOTE | 2017-12-25 08:36 | PCM.PN.HOSP ---
Patient Problems: Active and Suspected Problems (Last Updated 03/19/17 @ 14:26 by Tori Walker) Weakness (Acute) Vomiting (Acute) Malaise and fatigue (Acute) Atrial flutter (Acute) Subjective: Patient was seen and examined. He feels tired, remains off oxygen. Denies chest pain, dizziness, SOB Objective: Physical exam: General: Alert, Oriented x3, Cooperative, - - in mild respiratory distress HEENT: Atraumatic, PERRLA, EOMI, Normocephalic Oral: Moist Mucosa Neck: Supple Lungs: Clear to auscultation, Normal air movement Cardiovascular: Regular rate, Regular Rhythm, Normal S1, Normal S2, 2/6 holosystolic murmur Abdomen: Bowel Sounds Present, Soft, Non Tender, Non-Distended, No Hepato-splenomegaly Extremities: No edema Skin: No rashes, No breakdown Musculoskeletal: No Tenderness to Palpation of Joints or Extremities Lymphatic: No Cervical, Supraclavicular, or Inguinal Adenopathy Neurological: Cranial nerves II-XII grossly intact, Neuro grossly intact Psych/Mental Status: Normal Affect, Appropriate Vitals/I&O's: Vital Signs Temp Pulse Resp BP Pulse Ox 98.4 F 147 H 18 142/55 H 92 12/25/17 04:21 12/25/17 07:06 12/25/17 06:47 12/25/17 04:21 12/25/17 06:47 Oxygen Flow Rate (L/min) 1 Oxygen Delivery Method Room Air Weight: 94.5 kg Body Mass Index (BMI) 30.7 Intake and Output for Last 24 Hours 12/23/17 12/24/17 12/25/17 23:59 23:59 23:59 Intake Total 1711 / 1711 1453.5 / 1453.5 Output Total 2275 / 2275 3450 / 3450 350 / 350 Balance -564 / -564 -1996.5 / -1996.5 -350 / -350 Microbiology Past 72 Hours 12/20/17 11:50 Blood Culture (Wb) - Anticubital Left Blood Culture - Preliminary No growth in 48 hours. 12/20/17 11:26 Blood Culture (Wb) - Anticubital Right Blood Culture - Preliminary No growth in 48 hours. 12/20/17 12:40 Urine, Clean Catch Urine Culture - Final Culture exhibits no growth. Laboratory Results 12/22/17 08:30: Haptoglobin 301 H 12/24/17 08:45: WBC 6.1, RBC 3.02 L, Hgb 10.5 L, Hct 30.2 L, MCV 100.0 H, MCH 34.8 H, MCHC 34.8, RDW 13.2, RDW Differential 46.6 H, Plt Count 134 L, MPV 9.9 12/24/17 08:45: Sodium 134 L, Potassium 3.3 L, Chloride 97 L, Carbon Dioxide 28.0, Anion Gap 9, BUN 18, Creatinine 0.97, Estim Creat Clear Calc 59.74, Est GFR (MDRD) Af Amer 95, Est GFR (MDRD) Non-Af 79, BUN/Creatinine Ratio 18.5, Glucose 117 H, Calcium 8.0 L, Magnesium 2.1 12/25/17 05:45: Sodium 130 L, Potassium 3.5, Chloride 94 L, Carbon Dioxide 28.0, Anion Gap 8, BUN 18, Creatinine 0.83, Estim Creat Clear Calc 69.82, Est GFR (MDRD) Af Amer 115, Est GFR (MDRD) Non-Af 95, BUN/Creatinine Ratio 21.8 H, Glucose 145 H, Calcium 8.0 L Current Medications Acetaminophen (Tylenol) 650 mg PO Q6H PRN PRN PRN Reason: FEVER Last Admin: 12/20/17 20:52 Dose: 650 mg Hydrocodone Bitart/Acetaminophen ([place] 5mg-325mg) 1 - 2 tablet PO Q6H PRN PRN Reason: PAIN Last Admin: 12/24/17 15:20 Dose: 1 tablet Albuterol/Ipratropium (Duoneb) 3 ml INHALATION Q4H.RT [facility] Last Admin: 12/25/17 06:47 Dose: 3 ml Amiodarone HCl (Cordarone) 200 mg PO TID [facility] Last Admin: 12/25/17 06:37 Dose: 200 mg Apixaban (Eliquis) 5 mg PO BID [facility] Last Admin: 12/24/17 22:29 Dose: 5 mg Aspirin (Ecotrin) 81 mg PO DAILY@0800 [facility] Last Admin: 12/24/17 09:28 Dose: 81 mg Furosemide (Lasix) 20 mg IV BID@1000,1800 [facility] Last Admin: 12/24/17 18:51 Dose: 20 mg Levofloxacin (Levaquin Tablet) 750 mg PO DAILY@0600 [facility] Stop: 12/27/17 06:01 Last Admin: 12/25/17 06:37 Dose: 750 mg Levothyroxine Sodium (Synthroid) 112 mcg PO DAILY@0600 [facility] Last Admin: 12/25/17 06:37 Dose: 112 mcg Magnesium Hydroxide (Milk Of Magnesia) 30 ml PO DAILY PRN PRN PRN Reason: Constipation Metoprolol Tartrate (Lopressor (Beta Juvenal)) 50 mg PO BID [facility] Last Admin: 12/24/17 22:28 Dose: 50 mg Metronidazole (Flagyl) 500 mg PO TID [facility] Last Admin: 12/25/17 06:37 Dose: 500 mg Morphine Sulfate (Ms Contin) 15 mg PO [facility] Last Admin: 12/24/17 22:24 Dose: 15 mg Multivitamins (Multivitamin) 1 tablet PO DAILY@0800 [facility] Last Admin: 12/24/17 09:28 Dose: 1 tablet Nitroglycerin (Nitrostat) 0.4 mg SUBLINGUAL Q5M PRN PRN Reason: chest pain Last Admin: 12/22/17 00:22 Dose: 0.4 mg Nutritional Formula (Lactose Free) (Ensure Clear) 120 ml PO 4X/DAY [facility] Last Admin: 12/24/17 22:26 Dose: Not Given Ondansetron HCl (Zofran) 4 mg IV Q8H PRN PRN PRN Reason: NAUSEA/VOMITING Last Admin: 12/21/17 22:29 Dose: 4 mg Potassium Chloride (K[facility]Dur) [facility] Pravastatin Sodium (Pravachol) 20 mg PO QHS [facility] Last Admin: 12/24/17 22:29 Dose: 20 mg [facility]one () [facility] Last Admin: 12/24/17 18:51 Dose: 5 mg Sodium Chloride () 5 - 30 ml IV UD PRN PRN Reason: SALINE FLUSH Last Admin: 12/24/17 18:51 Dose: 10 ml Medical Necessity - Tobacco Use Smoking Status: Former smoker Assessment/Plan All Active Problems (Last Updated 03/19/17 @ 14:26 by Tori Walker) Weakness (Acute) Vomiting (Acute) Malaise and fatigue (Acute) Atrial flutter (Acute) 77-year-old male with past medical history of metastatic prostate cancer, on immunotherapy, following with oncology comes in with complaints of diarrhea and generalized weakness as well as nausea vomiting. He developed A. Fib with RVR, converted to normal sinus rhythm Cardizem. Cardizem was switched off. Maintained on IV fluids. 1. Acute hypoxic respiratory insufficiency secondary to acute on chronic systolic CHF, EF 45%, resolved, on room air today 2. A. fib with RVR, HR not controlled on oral amiodarone 200 mg p.o. 3 times daily, on metoprolol 100 mg p.o. twice daily, continue on apixaban 3. Acute on chronic systolic CHF/fluid overload/A. fib with RVR, on Lasix 20 mg IV twice daily, diuresing well, continue on same dose of Lasix 4. Possible left community-acquired pneumonia, POA, started on IV Levaquin, will switch to oral Levaquin, Day 5, aim for 7 days total of antibiotics 5. Acute nausea, vomiting, diarrhea likely related to immunotherapy, resolved, off immunotherapy, continue on Levaquin and Flagyl for now 6. Hyponatremia, acute secondary to dehydration, resolving 7. Anemia, with a component of iron deficiency, will hold off starting iron for now, continue to trend CBCD. 8. Hyperlipidemia, on statin 9. Metastatic prostate cancer, off immunotherapy, oncology following 10. DVT PPx - on Apixaban 11. Debility, patient will need long-term facility at discharge Code Visit Inpatient E&M: 28895 Subs Hosp L2
--- NOTE | 2017-12-25 08:45 | PCM.PN.CARD ---
Subjectve: Patient seen and evaluated. Appears to be doing better. Still somewhat short of breath. Heart rate still elevated. Objective: Vital Signs Temp Pulse Resp BP Pulse Ox 98.4 F 147 H 18 142/55 H 92 12/25/17 04:21 12/25/17 07:06 12/25/17 06:47 12/25/17 04:21 12/25/17 06:47 Oxygen Flow Rate (L/min) 1 Oxygen Delivery Method Room Air Weight: 208 lb 5.389 oz Body Mass Index (BMI) 30.7 Intake and Output for Last 24 Hours 12/23/17 12/24/17 12/25/17 23:59 23:59 23:59 Intake Total 1711 / 1711 1453.5 / 1453.5 Output Total 2275 / 2275 3450 / 3450 350 / 350 Balance -564 / -564 -1996.5 / -1996.5 -350 / -350 General: Awake, Alert, Oriented x 3 HEENT: PERRL, EOMI, Sclera Non Icteric Neck: Supple, Good ROM, No Lymph Node Enlargement Lungs: Diminished Frederic Bases Cardiovascular: Irregular Rhythm, Normal S1, Normal S2, No Murmurs, No Rubs, No Gallops Vascular: No Carotid Bruits, Normal Femoral Pulses, Normal Radial Pulses, Normal Dorsalis Pedal Pulse, Normal Posterior Tibial Pulses Abdomen: Bowel Sounds Present, Soft, Non Tender, No HSM, No Organomegaly Extremities: No Cyanosis, No Clubbing, Trace RLE Edema, Trace LLE Edema Neurological: No Focal Motor or Sensory Deficit 12/24/17 08:45: WBC 6.1, RBC 3.02 L, Hgb 10.5 L, Hct 30.2 L, MCV 100.0 H, MCH 34.8 H, MCHC 34.8, RDW 13.2, RDW Differential 46.6 H, Plt Count 134 L, MPV 9.9 12/24/17 08:45: Sodium 134 L, Potassium 3.3 L, Chloride 97 L, Carbon Dioxide 28.0, Anion Gap 9, BUN 18, Creatinine 0.97, Est GFR (MDRD) Af Amer 95, Est GFR (MDRD) Non-Af 79, BUN/Creatinine Ratio 18.5, Glucose 117 H, Calcium 8.0 L, Magnesium 2.1 11/03/18 05:45: Sodium 130 L, Potassium 3.5, Chloride 94 L, Carbon Dioxide 28.0, Anion Gap 8, BUN 18, Creatinine 0.83, Est GFR (MDRD) Af Amer 115, Est GFR (MDRD) Non-Af 95, BUN/Creatinine Ratio 21.8 H, Glucose 145 H, Calcium 8.0 L Rhythm: EKG: ECHO: Stress Test: Cardiac Cath: PCI: CT Surgery: Holter monitor: EPS: PPM: CXR: Chest CT Scan: Medical Necessity - Tobacco Use Smoking Status: Former smoker Assessment/Plan 1. Atrial fibrillation with rapid ventricular response At the present time the patient continues with his atrial dysrhythmia with intermittent rapid ventricular response. He has been on beta-khang therapy. He has been intolerant IV diltiazem secondary to hypotension. His ventricular response rate is still uncontrolled and I would recommend that we increase his oral beta-khang he was to continue on his amiodarone and this can be reduced over time. Over time, hopefully with rate control therapy, antiarrhythmic therapy, the patient will return to sinus rhythm. If not with anticoagulant therapy in his system that he can be further evaluated for the possibility, depending upon the timing, of a synchronized biphasic DC cardioversion, which, depending upon the timing may or may not need to be RORO guided. 2. CAD status post PCI and CABG The patient has undergone extensive noninvasive and invasive evaluation of his underlying CAD process in the past. At the moment he appears to be without symptoms of acute coronary syndrome. He will continue medical management and undergo further evaluation as deemed appropriate. 3. Carotid artery disease The patient does have carotid artery disease and has undergone surgical intervention in the past. He appears without any acute symptoms at this time. He will continue to be followed as deemed appropriate. 4. Hyperlipidemia The patient will continue risk factor evaluation care. 5. Hypertension The patient's blood pressure will need to be monitored. His medications may need to be adjusted to avoid significant hypotension and/or hypertension. 6. Prostatic carcinoma with metastatic disease The patient will continue evaluation care per hematology/oncology. Comment: The patient's case was discussed and reviewed with the patient, his spouse This note was generated with [employer] dictation software. It may contain incorrect words, spelling, and punctuation that were not noted in checking the note before signing. Thank you for allowing me to participate in the care of your patient. Please don't hesitate to call if any issues arise
[2017-12-25] MEDS: Multivitamins,Therapeutic Tablet 1 TABLET PO (09:51)
[2017-12-25] MEDS: Aspirin E.C. 81 MG Tablet PO (09:51)
[2017-12-25] MEDS: predniSONE 5 MG Tablet PO ×2 (09:52→17:51)
[2017-12-25] MEDS: Furosemide 20 MG/2 ML VIAL IV ×2 (09:52→17:51)
[2017-12-25] MEDS: APIXABAN 5 MG TABLET PO ×2 (09:52→22:17)
[2017-12-25] MEDS: Metoprolol Tartrate 100 MG Tablet PO ×2 (09:53→22:18)
[2017-12-25] MEDS: HYDROcodone Bitartrate/Apap 5/325 Tablet PO ×2 (09:53→13:44)
[2017-12-25] MEDS: 0.9% NaCl Peripheral Flush Adult/Peds IV (17:52)
[2017-12-25] MEDS: Acetaminophen 325 MG Tablet 650 MG PO (18:10)
[2017-12-25] MEDS: Pravastatin 20 MG Tablet PO (22:17)
[2017-12-25] MEDS: morphine SR 15 MG Tablet PO (22:20)
[2017-12-26] VITALS (16 sets, daily range): BP systolic 99–114; BP diastolic 54–65; PULSE 77–143; RESP 9–20; TEMP 36.4–36.7; O2SAT 94–96
[2017-12-26] MEDS: Ipratropium/Albuterol Sulfate 3 ML AMPUL.NEB INHALATION ×5 (06:48→23:00)
[2017-12-26] MEDS: Amiodarone 200 MG Tablet PO ×3 (06:52→21:10)
[2017-12-26] MEDS: metroNIDAZOLE 500 MG Tablet PO (06:53)
[2017-12-26] MEDS: Levothyroxine 112 MCG Tablet PO (06:53)
[2017-12-26] MEDS: levoFLOXacin 750 MG Tablet PO (06:53)
[2017-12-26 08:16] LABS: Anion Gap 10 (5-15); BUN 21 mg/dL (7-18); BUN/Creat Ratio 21.9 RATIO (10-20); Calcium,Total 8.6 mg/dL (8.5-10.1); Chloride 94 mmol/L (98-107); Creatinine, Serum 0.96 mg/dL (0.70-1.30); EST Glomerular Filtration Rate 80 mL/min (>60); Est Glom Filt Rate - Afr Amer 97 mL/min (>60); Estimated Creatinine Clearance 60.36 ml/min; Glucose 144 mg/dL (74-106); Potassium 3.5 mmol/L (3.5-5.1); Sodium Level 129 mmol/L (136-145)
--- NOTE | 2017-12-26 08:26 | PN.CARD_ITS ---
Subjectve: Patient seen and evaluated. Appears to be doing somewhat better. Sitting in chair today. Still tachycardic. Objective: Vital Signs Temp Pulse Resp BP Pulse Ox 98.1 F 143 H 18 104/62 95 12/26/17 03:32 12/26/17 07:18 12/26/17 06:48 12/26/17 03:32 12/26/17 06:48 Oxygen Flow Rate (L/min) 1 Oxygen Delivery Method Room Air Weight: 208 lb 5.389 oz Body Mass Index (BMI) 30.7 Intake and Output for Last 24 Hours 12/24/17 12/25/17 12/26/17 23:59 23:59 22:59 Intake Total 1453.5 / 1453.5 760 / 760 Output Total 3450 / 3450 1700 / 1700 400 / 400 Balance -1996.5 / -1996.5 -940 / -940 -400 / -400 General: Awake, Alert, Oriented x 3 HEENT: PERRL, EOMI, Sclera Non Icteric Neck: Supple, Good ROM, No Lymph Node Enlargement Lungs: Clear to auscultation Cardiovascular: Irregular Rhythm, Normal S1, Normal S2, No Murmurs, No Rubs, No Gallops Vascular: No Carotid Bruits, Normal Femoral Pulses, Normal Radial Pulses, Normal Dorsalis Pedal Pulse, Normal Posterior Tibial Pulses Abdomen: Bowel Sounds Present, Soft, Non Tender, No HSM, No Organomegaly Extremities: No Cyanosis, No Clubbing, No edema Neurological: No Focal Motor or Sensory Deficit 12/26/17 07:42: Sodium 129 L, Potassium 3.5, Chloride 94 L, Carbon Dioxide 25.0, Anion Gap 10, BUN 21 H, Creatinine 0.96, Est GFR (MDRD) Af Amer 97, Est GFR (MDRD) Non-Af 80, BUN/Creatinine Ratio 21.9 H, Glucose 144 H, Calcium 8.6 Rhythm: Atrial fibrillation with a rapid ventricular response rate. Medical Necessity - Tobacco Use Smoking Status: Former smoker Assessment/Plan 1. Atrial fibrillation with rapid ventricular response At the present time the patient continues with his atrial dysrhythmia with intermittent rapid ventricular response. He has been on beta-khang therapy. He has been intolerant IV diltiazem secondary to hypotension. His ventricular response rate is still uncontrolled and I would recommend that we continue his oral beta-khang he was to continue on his amiodarone and this can be reduced over time. I would also recommend the addition of low-dose digitalis due to his mildly reduced left ventricular ejection fraction. This can be discontinued after his ventricular response rate improves. Over time, hopefully with rate control therapy, antiarrhythmic therapy, the patient will return to sinus rhythm. If not with anticoagulant therapy in his system that he can be further evaluated for the possibility, depending upon the timing, of a synchronized biphasic DC cardioversion, which, depending upon the timing may or may not need to be RORO guided. 2. CAD status post PCI and CABG The patient has undergone extensive noninvasive and invasive evaluation of his underlying CAD process in the past. At the moment he appears to be without symptoms of acute coronary syndrome. He will continue medical management and undergo further evaluation as deemed appropriate. 3. Carotid artery disease The patient does have carotid artery disease and has undergone surgical intervention in the past. He appears without any acute symptoms at this time. He will continue to be followed as deemed appropriate. 4. Hyperlipidemia The patient will continue risk factor evaluation care. 5. Hypertension The patient's blood pressure will need to be monitored. His medications may need to be adjusted to avoid significant hypotension and/or hypertension. 6. Prostatic carcinoma with metastatic disease The patient will continue evaluation care per hematology/oncology. Comment: The patient's case was discussed and reviewed with the patient, his spouse and son This note was generated with [employer] dictation software. It may contain incorrect words, spelling, and punctuation that were not noted in checking the note before signing. Thank you for allowing me to participate in the care of your patient. Please don't hesitate to call if any issues arise
[2017-12-26] MEDS: HYDROcodone Bitartrate/Apap 5/325 Tablet PO ×2 (08:47→14:39)
[2017-12-26] MEDS: Multivitamins,Therapeutic Tablet 1 TABLET PO (08:48)
[2017-12-26] MEDS: APIXABAN 5 MG TABLET PO ×2 (08:48→21:10)
[2017-12-26] MEDS: Aspirin E.C. 81 MG Tablet PO (08:49)
[2017-12-26] MEDS: Metoprolol Tartrate 100 MG Tablet PO ×2 (08:49→21:10)
[2017-12-26] MEDS: predniSONE 5 MG Tablet PO ×2 (08:49→17:51)
[2017-12-26] MEDS: Furosemide 40 MG/4 ML Vial IV ×2 (08:58→17:52)
[2017-12-26] MEDS: 0.9% NaCl Peripheral Flush Adult/Peds IV ×2 (08:59→17:52)
[2017-12-26] MEDS: Digoxin 125 MCG Tablet PO (08:59)
--- NOTE | 2017-12-26 10:52 | PCM.PN.HOSP ---
Patient Problems: Active and Suspected Problems (Last Updated 03/19/17 @ 14:26 by Tori Walker) Weakness (Acute) Vomiting (Acute) Malaise and fatigue (Acute) Atrial flutter (Acute) Subjective: Patient was seen and examined. Appears tired. Up in a chair. Telemetry still shows RVR. Medication changes were made by cardiology. Complains of left ear pain. No fever or chills. Remains on room air. Objective: Physical exam: General: Alert, Oriented x3, Cooperative, appears uncomfortable HEENT: Atraumatic, PERRLA, EOMI, Normocephalic, examination of left ear showed right pretrageal tenderness, no pinna tenderness, no signs of erythema of auditory canal, wax ++, tympanic membrane is pink, no erythema of fluid seen. Oral: Moist Mucosa Neck: Supple Lungs: Clear to auscultation, Normal air movement Cardiovascular: Regular rate, Regular Rhythm, Normal S1, Normal S2, 2/6 holosystolic murmur Abdomen: Bowel Sounds Present, Soft, Non Tender, Non-Distended, No Hepato-splenomegaly Extremities: No edema Skin: No rashes, No breakdown Musculoskeletal: No Tenderness to Palpation of Joints or Extremities Lymphatic: No Cervical, Supraclavicular, or Inguinal Adenopathy Neurological: Cranial nerves II-XII grossly intact, Neuro grossly intact Psych/Mental Status: Normal Affect, Appropriate Vitals/I&O's: Vital Signs Temp Pulse Resp BP Pulse Ox 97.8 F 109 H 17 99/54 L 95 12/26/17 09:00 12/26/17 09:00 12/26/17 09:00 12/26/17 09:00 12/26/17 09:00 Oxygen Flow Rate (L/min) 1 Oxygen Delivery Method Room Air Weight: 94.5 kg Body Mass Index (BMI) 30.7 Intake and Output for Last 24 Hours 12/24/17 12/25/17 12/26/17 23:59 23:59 22:59 Intake Total 1453.5 / 1453.5 760 / 760 Output Total 3450 / 3450 1700 / 1700 400 / 400 Balance -1996.5 / -1996.5 -940 / -940 -400 / -400 Microbiology Past 72 Hours 12/20/17 11:50 Blood Culture (Wb) - Anticubital Left Blood Culture - Final No growth in 5 days. 12/20/17 11:26 Blood Culture (Wb) - Anticubital Right Blood Culture - Final No growth in 5 days. Laboratory Results 12/26/17 07:42: Sodium 129 L, Potassium 3.5, Chloride 94 L, Carbon Dioxide 25.0, Anion Gap 10, BUN 21 H, Creatinine 0.96, Estim Creat Clear Calc 60.36, Est GFR (MDRD) Af Amer 97, Est GFR (MDRD) Non-Af 80, BUN/Creatinine Ratio 21.9 H, Glucose 144 H, Calcium 8.6 Current Medications Acetaminophen (Tylenol) 650 mg PO Q6H PRN PRN PRN Reason: FEVER Last Admin: 12/25/17 18:10 Dose: 650 mg Hydrocodone Bitart/Acetaminophen ([place] 5mg-325mg) 1 - 2 tablet PO Q6H PRN PRN Reason: PAIN Last Admin: 12/26/17 08:47 Dose: 1 tablet Albuterol/Ipratropium (Duoneb) 3 ml INHALATION Q4H.RT [facility] Last Admin: 12/26/17 10:39 Dose: 3 ml Amiodarone HCl (Cordarone) 200 mg PO TID [facility] Last Admin: 12/26/17 06:52 Dose: 200 mg Apixaban (Eliquis) 5 mg PO BID [facility] Last Admin: 12/26/17 08:48 Dose: 5 mg Aspirin (Ecotrin) 81 mg PO DAILY@0800 [facility] Last Admin: 12/26/17 08:49 Dose: 81 mg Digoxin (Lanoxin) 125 mcg PO DAILY [facility] Last Admin: 12/26/17 08:59 Dose: 125 mcg Furosemide (Lasix) 40 mg IV BID@1000,1800 [facility] Last Admin: 12/26/17 08:58 Dose: 40 mg Levofloxacin (Levaquin Tablet) 750 mg PO DAILY@0600 [facility] Stop: 12/27/17 06:01 Last Admin: 12/26/17 06:53 Dose: 750 mg Levothyroxine Sodium (Synthroid) 112 mcg PO DAILY@0600 [facility] Last Admin: 12/26/17 06:53 Dose: 112 mcg Magnesium Hydroxide (Milk Of Magnesia) 30 ml PO DAILY PRN PRN PRN Reason: Constipation Metoprolol Tartrate (Lopressor (Beta Juvenal)) 100 mg PO BID [facility] Last Admin: 12/26/17 08:49 Dose: 100 mg Metronidazole (Flagyl) 500 mg PO TID [facility] Last Admin: 12/26/17 06:53 Dose: 500 mg Morphine Sulfate (Ms Contin) 15 mg PO HS [facility] Last Admin: 12/25/17 22:20 Dose: 15 mg Multivitamins (Multivitamin) 1 tablet PO DAILY@0800 [facility] Last Admin: 12/26/17 08:48 Dose: 1 tablet Nitroglycerin (Nitrostat) 0.4 mg SUBLINGUAL Q5M PRN PRN Reason: chest pain Last Admin: 12/22/17 00:22 Dose: 0.4 mg Nutritional Formula (Lactose Free) (Ensure Clear) 120 ml PO 4X/DAY [facility] Last Admin: 12/26/17 08:54 Dose: 120 mls Ondansetron HCl (Zofran) 4 mg IV Q8H PRN PRN PRN Reason: NAUSEA/VOMITING Last Admin: 12/21/17 22:29 Dose: 4 mg Potassium [facility] Last Admin: 12/26/17 08:48 Dose: 20 meq Pravastatin Sodium (Pravachol) 20 mg PO QHS [facility] Last Admin: 12/25/17 22:17 Dose: 20 [facility] () [facility] Last Admin: 12/26/17 08:49 Dose: 5 mg Sodium Chloride () 5 - 30 ml IV UD PRN PRN Reason: SALINE FLUSH Last Admin: 12/26/17 08:59 Dose: 20 ml Medical Necessity - Tobacco Use Smoking Status: Former smoker Assessment/Plan All Active Problems (Last Updated 03/19/17 @ 14:26 by Tori Walker) Weakness (Acute) Vomiting (Acute) Malaise and fatigue (Acute) Atrial flutter (Acute) 77-year-old male with past medical history of metastatic prostate cancer, on immunotherapy, following with oncology comes in with complaints of diarrhea and generalized weakness as well as nausea vomiting. He developed A. Fib with RVR, converted to normal sinus rhythm Cardizem. Cardizem was switched off. Maintained on IV fluids. 1. Acute hypoxic respiratory insufficiency secondary to acute on chronic systolic CHF, resolved, will need ambulatory oxygen prior to discharge. 2. A. fib with RVR, HR not controlled, on oral amiodarone 200 mg p.o. 3 times daily, on metoprolol 100 mg p.o. twice daily, apixaban, cardiology following, digoxin added, will continue to monitor. 3. Acute on chronic systolic CHF/fluid overload/A. fib with RVR, resumed on Lasix 40mg IV BID, will continue to monitor 4. Possible left community-acquired pneumonia, POA, started on IV Levaquin, will switch to oral Levaquin, Day 6, aim for 7 days total of antibiotics 5. Acute nausea, vomiting, diarrhea likely related to immunotherapy, resolved, off immunotherapy 6. Hyponatremia,secondary to dehydration and possibly fluid overload from CHF, will monitor 7. Anemia, with a component of iron deficiency, will hold off starting iron for now, continue to trend CBCD. 8. Hyperlipidemia, on statin 9. Metastatic prostate cancer, off immunotherapy, oncology following 10. DVT PPx - on Apixaban 11. Debility- [facility]. I anticipate a very slow recovery in light of co-morbidities. I have explained that to the patient, , and son at bedside, who appear anxious- reassurances given. Code Visit Inpatient E&M: 09638 Subs Hosp L2
--- NOTE | 2017-12-26 10:56 | PN_ITS ---
Patient Problems: Active and Suspected Problems (Last Updated 03/19/17 @ 14:26 by Tori Walker) Weakness (Acute) Vomiting (Acute) Malaise and fatigue (Acute) Atrial flutter (Acute) Subjective: Patient was seen and examined. Appears tired. Up in a chair. Telemetry still shows RVR. Medication changes were made by cardiology. Complains of left ear pain. No fever or chills. Remains on room air. Objective: Physical exam: General: Alert, Oriented x3, Cooperative, appears uncomfortable HEENT: Atraumatic, PERRLA, EOMI, Normocephalic, examination of left ear showed right pretrageal tenderness, no pinna tenderness, no signs of erythema of a uditory canal, wax ++, tympanic membrane is pink, no erythema of fluid seen. Oral: Moist Mucosa Neck: Supple Lungs: Clear to auscultation, Normal air movement Cardiovascular: Regular rate, Regular Rhythm, Normal S1, Normal S2, 2/6 holosystolic murmur Abdomen: Bowel Sounds Present, Soft, Non Tender, Non-Distended, No Hepato- splenomegaly Extremities: No edema Skin: No rashes, No breakdown Musculoskeletal: No Tenderness to Palpation of Joints or Extremities Lymphatic: No Cervical, Supraclavicular, or Inguinal Adenopathy Neurological: Cranial nerves II-XII grossly intact, Neuro grossly intact Psych/Mental Status: Normal Affect, Appropriate Vitals/I&O's: Vital Signs Temp Pulse Resp BP Pulse Ox 97.8 F 109 H 17 99/54 L 95 12/26/17 09:00 12/26/17 09:00 12/26/17 09:00 12/26/17 09:00 12/26/17 09:00 Oxygen Flow Rate (L/min) 1 Oxygen Delivery Method Room Air Weight: 94.5 kg Body Mass Index (BMI) 30.7 Intake and Output for Last 24 Hours 12/24/17 12/25/17 12/26/17 23:59 23:59 22:59 Intake Total 1453.5 / 1453.5 760 / 760 Output Total 3450 / 3450 1700 / 1700 400 / 400 Balance -1996.5 / -1996.5 -940 / -940 -400 / -400 Microbiology Past 72 Hours 12/20/17 11:50 Blood Culture (Wb) - Anticubital Left Blood Culture - Final No growth in 5 days. 12/20/17 11:26 Blood Culture (Wb) - Anticubital Right Blood Culture - Final No growth in 5 days. Laboratory Results 12/26/17 07:42: Sodium 129 L, Potassium 3.5, Chloride 94 L, Carbon Dioxide 25.0, Anion Gap 10, BUN 21 H, Creatinine 0.96, Estim Creat Clear Calc 60.36, Est GFR (MDRD) Af Amer 97, Est GFR (MDRD) Non-Af 80, BUN/Creatinine Ratio 21.9 H, Glucose 144 H, Calcium 8.6 Current Medications Acetaminophen (Tylenol) 650 mg PO Q6H PRN PRN PRN Reason: FEVER Last Admin: 12/25/17 18:10 Dose: 650 mg Hydrocodone Bitart/Acetaminophen ([place] 5mg-325mg) 1 - 2 tablet PO Q6H PRN PRN Reason: PAIN Last Admin: 12/26/17 08:47 Dose: 1 tablet Albuterol/Ipratropium (Duoneb) 3 ml INHALATION Q4H.RT [facility] Last Admin: 12/26/17 10:39 Dose: 3 ml Amiodarone HCl (Cordarone) 200 mg PO TID [facility] Last Admin: 12/26/17 06:52 Dose: 200 mg Apixaban (Eliquis) 5 mg PO BID [facility] Last Admin: 12/26/17 08:48 Dose: 5 mg Aspirin (Ecotrin) 81 mg PO DAILY@0800 [facility] Last Admin: 12/26/17 08:49 Dose: 81 mg Digoxin (Lanoxin) 125 mcg PO DAILY [facility] Last Admin: 12/26/17 08:59 Dose: 125 mcg Furosemide (Lasix) 40 mg IV BID@1000,1800 [facility] Last Admin: 12/26/17 08:58 Dose: 40 mg Levofloxacin (Levaquin Tablet) 750 mg PO DAILY@0600 [facility] Stop: 12/27/17 06:01 Last Admin: 12/26/17 06:53 Dose: 750 mg Levothyroxine Sodium (Synthroid) 112 mcg PO DAILY@0600 [facility] Last Admin: 12/26/17 06:53 Dose: 112 mcg Magnesium Hydroxide (Milk Of Magnesia) 30 ml PO DAILY PRN PRN PRN Reason: Constipation Metoprolol Tartrate (Lopressor (Beta Juvenal)) 100 mg PO BID [facility] Last Admin: 12/26/17 08:49 Dose: 100 mg Metronidazole (Flagyl) 500 mg PO TID [facility] Last Admin: 12/26/17 06:53 Dose: 500 mg Morphine Sulfate (Ms Contin) 15 mg PO HS [facility] Last Admin: 12/25/17 22:20 Dose: 15 mg Multivitamins (Multivitamin) 1 tablet PO DAILY@0800 [facility] Last Admin: 12/26/17 08:48 Dose: 1 tablet Nitroglycerin (Nitrostat) 0.4 mg SUBLINGUAL Q5M PRN PRN Reason: chest pain Last Admin: 12/22/17 00:22 Dose: 0.4 mg Nutritional Formula (Lactose Free) (Ensure Clear) 120 ml PO 4X/DAY [facility] Last Admin: 12/26/17 08:54 Dose: 120 mls Ondansetron HCl (Zofran) 4 mg IV Q8H PRN PRN PRN Reason: NAUSEA/VOMITING Last Admin: 12/21/17 22:29 Dose: 4 mg Potassium Chlor[facility] ([facility]Dur) [facility] Last Admin: 12/26/17 08:48 Dose: 20 meq Pravastatin Sodium (Pravachol) 20 mg PO QHS [facility] Last Admin: 12/25/17 22:17 Dose: 20 mg Prednisone () [facility] Last Admin: 12/26/17 08:49 Dose: 5 mg Sodium Chloride () 5 - 30 ml IV UD PRN PRN Reason: SALINE FLUSH Last Admin: 12/26/17 08:59 Dose: 20 ml Medical Necessity - Tobacco Use Smoking Status: Former smoker Assessment/Plan All Active Problems (Last Updated 03/19/17 @ 14:26 by Tori Walker) Weakness (Acute) Vomiting (Acute) Malaise and fatigue (Acute) Atrial flutter (Acute) 77-year-old male with past medical history of metastatic prostate cancer, on immunotherapy, following with oncology comes in with complaints of diarrhea and generalized weakness as well as nausea vomiting. He developed A. Fib with RVR, converted to normal sinus rhythm Cardizem. Cardizem was switched off. Maintained on IV fluids. 1. Acute hypoxic respiratory insufficiency secondary to acute on chronic systolic CHF, resolved, will need ambulatory oxygen prior to discharge. 2. A. fib with RVR, HR not controlled, on oral amiodarone 200 mg p.o. 3 times daily, on metoprolol 100 mg p.o. twice daily, apixaban, cardiology following, digoxin added, will continue to monitor. 3. Acute on chronic systolic CHF/fluid overload/A. fib with RVR, resumed on Lasix 40mg IV BID, will continue to monitor 4. Possible left community-acquired pneumonia, POA, started on IV Levaquin, will switch to oral Levaquin, Day 6, aim for 7 days total of antibiotics 5. Acute nausea, vomiting, diarrhea likely related to immunotherapy, resolved, off immunotherapy 6. Hyponatremia,secondary to dehydration and possibly fluid overload from CHF, will monitor 7. Anemia, with a component of iron deficiency, will hold off starting iron for now, continue to trend CBCD. 8. Hyperlipidemia, on statin 9. Metastatic prostate cancer, off immunotherapy, oncology following 10. DVT PPx - on Apixaban 11. Debility- patient will be discharged to a [facility] facility. I anticipate a very slow recovery in light of co-morbidities. I have explained that to the patient, , and son at bedside, who appear anxious- reassurances given. Code Visit Inpatient E&M: 12030 Subs Hosp L2
[2017-12-26] MEDS: Carbamide Peroxide 15 ML Bottle OTIC (12:13)
[2017-12-26] MEDS: Pravastatin 20 MG Tablet PO (21:10)
[2017-12-26] MEDS: morphine SR 15 MG Tablet PO (21:15)
[2017-12-27] VITALS (16 sets, daily range): BP systolic 90–147; BP diastolic 50–95; PULSE 78–108; RESP 16–18; TEMP 36.6–36.8; O2SAT 94–100
[2017-12-27] MEDS: Levothyroxine 112 MCG Tablet PO (06:16)
[2017-12-27] MEDS: levoFLOXacin 750 MG Tablet PO (06:16)
[2017-12-27] MEDS: Amiodarone 200 MG Tablet PO ×3 (06:16→20:59)
[2017-12-27] MEDS: Ipratropium/Albuterol Sulfate 3 ML AMPUL.NEB INHALATION ×2 (06:51→19:41)
[2017-12-27 07:49] LABS: Absolute Neutrophil Count 4.2 X10^3/uL (2.0-7.7); Eosinophil# 0.09 X10^3/uL; Eosinophils% 1.8 % (0-5); Hematocrit 29.4 % (40-54); Hemoglobin 9.9 g/dl (13.0-16.5); Lymphocyte % 8.2 % (19-41); Mean Corp Hgb Conc 33.7 g/gl (32-36); Mean Corpuscular Hgb 34.3 pg (27.0-32.0); Mean Corpuscular Volume 101.7 fL (80-94); Mean Platelet Vol. 9.5 fl (6.2-12.0); Monocyte# 0.15 X10^3/uL; Monocyte% 3.1 % (0-10); Neutrophil # 4.21 X10^3/uL (2.7-7.7); Neutrophil % 86.3 % (47-70); Platelet Count 158 K/mm3 (150-450); RBC Distribution Width CV 13.5 % (11.6-14.6); RBC Distribution Width SD 48.2 fl (35.1-43.9); Red Blood Count 2.89 M/mm3 (4.6-6.2); White Blood Count 4.9 K/mm3 (4.4-11.0)
[2017-12-27 07:54] LABS: Differential Indicated SCAN CRITERIA MET; POSITIVE COUNT NO; POSITIVE DIFFERENTIAL YES; POSITIVE MORPHOLOGY NO
[2017-12-27 08:21] LABS: Anion Gap 9 (5-15); BUN 26 mg/dL (7-18); BUN/Creat Ratio 28.8 RATIO (10-20); Calcium,Total 8.6 mg/dL (8.5-10.1); Chloride 93 mmol/L (98-107); EST Glomerular Filtration Rate 86 mL/min (>60); Est Glom Filt Rate - Afr Amer 104 mL/min (>60); Estimated Creatinine Clearance 64.39 ml/min; Glucose 113 mg/dL (74-106); Potassium 3.1 mmol/L (3.5-5.1); Sodium Level 132 mmol/L (136-145)
--- NOTE | 2017-12-27 08:32 | PN_ITS ---
Progress Note Oncology progress note: Patient still feel weak and tired but he is able to walk with dental assistant medical assistant. Denies chest pain or shortness of breath. No nausea, vomiting or constipation. Heart rate slower; atrial fibrillation on amiodarone and elquist. Awaiting cardiology recommendations and follow-up as outpatient. Laboratory Results - last 24 hr 12/27/17 12/27/17 07:34 07:34 WBC 4.9 RBC 2.89 L Hgb 9.9 L Hct 29.4 L MCV 101.7 H MCH 34.3 H MCHC 33.7 RDW 13.5 RDW Differential 48.2 H Plt Count 158 MPV 9.5 Immature Gran % (Auto) 0.600 Neut % (Auto) 86.3 H Lymph % (Auto) 8.2 L Kendall % (Auto) 3.1 Eos % (Auto) 1.8 Baso % (Auto) 0.0 Absolute Neuts (auto) 4.2 Absolute Lymphs (auto) 0.40 L Sodium 132 L Potassium 3.1 L Chloride 93 L Carbon Dioxide 30.0 Anion Gap 9 BUN 26 H Creatinine 0.90 Estim Creat Clear Calc 64.39 Est GFR (MDRD) Af Amer 104 Est GFR (MDRD) Non-Af 86 BUN/Creatinine Ratio 28.8 H Glucose 113 H Calcium 8.6 Vital Signs - 24 hr Temp Pulse Resp BP Pulse Ox 12/27/17 07:30 108 H 12/27/17 06:51 87 18 97 12/27/17 03:00 98.1 F 87 18 97/52 L 97 12/26/17 23:00 86 9 L 12/26/17 21:10 99 12/26/17 21:00 97.6 F L 99 16 114/59 L 96 12/26/17 19:00 93 20 H 12/26/17 15:39 97 12/26/17 15:28 87 20 H 12/26/17 14:45 98 F 93 16 106/65 96 12/26/17 11:39 90 12/26/17 10:39 78 20 H 12/26/17 09:00 97.8 F 109 H 17 99/54 L 95 12/26/17 08:59 109 H 99/54 L 12/26/17 08:49 109 H 99/54 L Assessment/Plan: 1) Asthenia/Fever. Assessment: -All cultures negative thus far. Cortisol levels normal -Possibly secondary to immunotherapy KEYTRUDA Plan: -Check TSH and testosterone level 2) Atrial fibrillation. Assessment: -History of coronary artery disease with bypass surgery in 2002--WHITAKER to the LAD, SVG to the diagonal branch of the anterior descending, lateral circumflex and RCA. He also has a history of atrial flutter, ischemic cardiomyopathy, hypertension, hyperlipidemia, carotid artery disease with a left carotid endarterectomy in 2004. Plan: -Continue amiodarone and Eliquis -Follow-up with Dr. Gamez. 3) anemia of chronic disease with iron deficiency. Assessment: -Iron studies indicate iron deficiency; no evidence of hemolysis. Plan: -Iron sucrose 100mg IV today -We will for Hemoccult and start iron supplement as outpatient. 4) Metastatic hormone refractory prostate cancer. Assessment: -patient has had multiple lines of endocrine therapy. 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 Plan: -Recheck PSA & testosterone level. Will be discharged to short-term rehabilitation and hold further treatment until patient recovers. Follow-up with Dr. Nassar in 2 -3 weeks. cc: Dr. Ramesh Nassar; Dr. Ramesh Gamez; Dr. Kacey Shoemaker; Dr Brodie Weir
[2017-12-27] MEDS: Aspirin E.C. 81 MG Tablet PO (08:45)
[2017-12-27] MEDS: Multivitamins,Therapeutic Tablet 1 TABLET PO (08:45)
[2017-12-27] MEDS: APIXABAN 5 MG TABLET PO ×2 (08:46→21:09)
[2017-12-27] MEDS: predniSONE 5 MG Tablet PO ×2 (08:46→16:12)
[2017-12-27] MEDS: Furosemide 40 MG/4 ML Vial IV (08:47)
[2017-12-27] MEDS: Furosemide 20 MG Tablet PO ×2 (11:15→17:50)
[2017-12-27] MEDS: Metoprolol Tartrate 100 MG Tablet PO ×2 (11:18→20:59)
[2017-12-27] MEDS: Digoxin 250 MCG Tablet PO (11:23)
--- NOTE | 2017-12-27 12:28 | PCM.TXEXTCAR ---
- Diet 12/20/17 14:07 Diet: Cardiac/Low Cholesterol Food consistency:: Regular Liquid Consistency:: Regular/Thin - Routine Orders/Code Status Enema Type: Fleetz Enema Frequency: Daily PRN Suppository Type: Dulcolax 10mg Suppository Frequency: Daily PRN O2 Frequency: PRN Keep PO Greater than or Equal to (%): 92 Routine Lab Work: BMP, - - Magnesium. Please check potassium and magnesium and digoxin levels weekly to make sure they are within normal limits. 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 straddle bug driver and PCP with the results - Therapies Weight Bearing: Weight bearing as tolerated Physical Therapy: Eval and Treat Occupational Therapy: Eval and Treat - Problem/Diagnosis (1) Weakness Status: Acute Current Visit: Yes (2) Vomiting Status: Acute Current Visit: Yes - Allergies/Procedures Done in Hospital Allergies/Adverse Reactions: Allergies No Known Allergies Allergy (Verified 12/20/17 11:02) Procedures: 2-D Echocardiogram - Type of Care/Length of Stay Estimated LOS: Convalescent Care Less Than 30 days Type of Care Needed: Skilled Rehab Potential: Fair Prognosis: Fair - Additional Orders/Day of Discharge H&P will serve as current which was dated: 12/20/17 Day of Discharge: 12/27/17 - Follow Up Care Primary Care Physician: Brodie Weir MD [Primary Care Provider] - Please follow up with your Primary Care Physician in: one week Please Follow Up With: Ramesh Gamez MD When: 1-2 weeks Please Follow Up With: Ramesh Nassar DO When: 2-3 weeks
--- NOTE | 2017-12-27 12:32 | TREXTCAR_ITS ---
- Diet 12/20/17 14:07 Diet: Cardiac/Low Cholesterol Food consistency:: Regular Liquid Consistency:: Regular/Thin - Routine Orders/Code Status Enema Type: Fleetz Enema Frequency: Daily PRN Suppository Type: Dulcolax 10mg Suppository Frequency: Daily PRN O2 Frequency: PRN Keep PO Greater than or Equal to (%): 92 Routine Lab Work: BMP, - - Magnesium. Please check potassium and magnesium and digoxin levels weekly to make sure they are within normal limits. 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 tower hoist operator and PCP with the results - Therapies Weight Bearing: Weight bearing as tolerated Physical Therapy: Eval and Treat Occupational Therapy: Eval and Treat - Problem/Diagnosis (1) Weakness Status: Acute Current Visit: Yes (2) Vomiting Status: Acute Current Visit: Yes - Allergies/Procedures Done in Hospital Allergies/Adverse Reactions: Allergies No Known Allergies Allergy (Verified 12/20/17 11:02) Procedures: 2-D Echocardiogram - Type of Care/Length of Stay Estimated LOS: Convalescent Care Less Than 30 days Type of Care Needed: Skilled Rehab Potential: Fair Prognosis: Fair - Additional Orders/Day of Discharge H&P will serve as current which was dated: 12/20/17 Day of Discharge: 12/27/17 - Follow Up Care Primary Care Physician: Brodie Weir MD [Primary Care Provider] - Please follow up with your Primary Care Physician in: one week Please Follow Up With: Ramesh Gamez MD When: 1-2 weeks Please Follow Up With: Ramesh Nassra DO When: 2-3 weeks
--- NOTE | 2017-12-27 12:38 | PCM.DC.SUM ---
Discharge Date and Diagnosis - Problem List Patient Problems: Active and Suspected Problems (Last Updated 03/19/17 @ 14:26 by Tori Walker) Weakness (Acute) Vomiting (Acute) Malaise and fatigue (Acute) Atrial flutter (Acute) Date of Admission: 12/20/17 Date of Discharge: 12/27/17 - Primary Discharge Diagnosis Active and Suspected Problems (Last Updated 03/19/17 @ 14:26 by Tori Walker) Weakness (Acute) Vomiting (Acute) Malaise and fatigue (Acute) Atrial flutter (Acute) - Secondary Discharge Diagnosis Chronic Problems (Last Updated 03/19/17 @ 14:26 by Tori Walker) Prostate cancer metastatic to bone (Chronic) Stenosis of right carotid artery (Chronic) Choledocholithiasis with acute cholecystitis with obstruction (Chronic) Atherosclerosis of coronary artery bypass graft without angina pectoris (Chronic) CAB12/2002 WHITAKER graft LAD, saphenous vein graft to diagonal branch of anterior descending, lateral CFX and RCA. Dyspnea on exertion (Chronic) Malaise and fatigue (Chronic) Dyspnea and respiratory abnormalities (Chronic) Carotid stenosis (Chronic) History of PTCA (Chronic) PTCA: 03/23/2003 PTCA/Stent to proximal-mid LAD; 10/2004 PTCA of the LAD, with placement of a taxus stent. Hx of CABG (Chronic) CAB12/2002 WHITAKER graft LAD, saphenous vein graft to diagonal branch of anterior descending, lateral CFX and RCA. Nonspecific abnormal unspecified cardiovascular function study (Chronic) Palpitations (Chronic) CAD (coronary artery disease) (Chronic) PTCA: 03/23/2003 PTCA/Stent to proximal-mid LAD; 10/2004 PTCA of the LAD, with placement of a taxus stent. CAB12/2002 WHITAKER graft LAD, saphenous vein graft to diagonal branch of anterior descending, lateral CFX and RCA. [facility]: 12/2002; 12/16/2005 Angina pectoris (Chronic) HLD (hyperlipidemia) (Chronic) Hypertension (Chronic) Hypothyroid (Chronic) Hyperlipidemia (Chronic) Acute cholecystitis (Chronic) Choledocholithiasis with acute cholecystitis with obstruction (Chronic) Choledocholithiasis with obstruction (Chronic) Hospital Course and Treatment Imaging Results: Diagnostic Data Abdomen/Pelvis CT 12/20/17 11:14 IMPRESSION: No acute intra-abdominal or intrapelvic abnormality. Osseous lesions, consistent with metastatic disease. Electronically Signed: Felisa Connor MD at 12:46 EDT Tel , Service support , Chest X-Ray 12/22/17 09:00 IMPRESSION: Probable chronic pulmonary disease. Mild increase in slight congestion and interstitial pulmonary edema. Electronically Signed: Fidencio Mcelroy MD at 10:11 EDT , Service support , Laboratory Tests 12/27/17 12/27/17 12/27/17 Range/Units 07:34 07:34 07:34 WBC 4.9 (4.4-11.0) K/mm3 RBC 2.89 L (4.6-6.2) M/mm3 Hgb 9.9 L (13.0-16.5) g/dl Hct 29.4 L (40-54) % MCV 101.7 H (80-94) fL MCH 34.3 H (27.0-32.0) pg MCHC 33.7 (32-36) g/gl RDW 13.5 (11.6-14.6) % RDW Differential 48.2 H (35.1-43.9) fl Plt Count 158 (150-450) K/mm3 MPV 9.5 (6.2-12.0) fl Immature Gran % (Auto) 0.600 (0.0-0.9) % Neut % (Auto) 86.3 H (47-70) % Lymph % (Auto) 8.2 L (19-41) % [place] % (Auto) 3.1 (0-10) % Eos % (Auto) 1.8 (0-5) % Baso % (Auto) 0.0 (0-1) % Absolute Neuts (auto) 4.2 (2.0-7.7) X10^3/uL Absolute Lymphs (auto) 0.40 L (0.83-4.51) X10^3/ul Total Counted Not Reportable Differential Comment COMMENT Immature Plt Fraction (1.0-7.9) % Retic Count (0.5-1.5) % Immature Retic Fraction (3.00-15.90) % Retic Hgb Equivalent (30-35) pg Haptoglobin (34-200) mg/dL Sodium 132 L (136-145) mmol/L Potassium 3.1 L (3.5-5.1) mmol/L Chloride 93 L (98-107) mmol/L Carbon Dioxide 30.0 (21.0-32.0) mmol/L Anion Gap 9 (5-15) BUN 26 H (7-18) mg/dL Creatinine 0.90 (0.70-1.30) mg/dL Estim Creat Clear Calc 64.39 ml/min Est GFR (MDRD) Af Amer 104 (>60) mL/min Est GFR (MDRD) Non-Af 86 (>60) mL/min BUN/Creatinine Ratio 28.8 H (10-20) RATIO Glucose 113 H (74-106) mg/dL Lactic Acid (0.4-2.0) mmol/L Calcium 8.6 (8.5-10.1) mg/dL Magnesium (1.6-2.6) mg/dL Iron (65-175) ug/dL TIBC (250-450) ug/dL Iron Saturation (15.0-55.0) % Ferritin (26-388) ng/mL Total Bilirubin (0.20-1.00) mg/dL Direct Bilirubin (0.00-0.30) mg/dL AST (15-37) U/L ALT (16-61) U/L Alkaline Phosphatase (45-117) U/L Lactate Dehydrogenase (87-241) U/L Troponin I (<0.045) ng/mL B-Natriuretic Peptide (0-100) pg/mL Total Protein (6.4-8.2) g/dL Albumin (3.2-5.0) g/dL Globulin (2.2-4.2) g/dL Albumin/Globulin Ratio (0.9-2.4) RATIO PSA Screen (0.00-4.00) ng/mL Total PSA 71.50 H (0.0-4.0) ng/mL Vitamin B12 (211-911) pg/mL TSH 2.10 (0.358-3.74) uIU/mL Cortisol (3.09-22.40) ug/dL Urine Color (Yellow) Urine Clarity (Clear) Urine pH (5.0 - 8.0) Ur Specific [place] (1.002-1.030) Urine Protein (Negative) mg/dl Urine Glucose (UA) (Normal) mg/dl Urine Ketones (Negative) mg/dl Urine Occult Blood (Negative) /ul Urine Nitrite (Negative) Urine Bilirubin (Negative) mg/dL Urine Urobilinogen (Normal) mg/dl Ur Leukocyte Esterase (Negative) /ul Urine RBC (0-5) /hpf Urine WBC (0-5) /hpf Ur Squamous Epith Cells (0-5) /hpf Urine Bacteria (None Seen) /hpf Urine Mucus (<or=2+) /hpf Direct Antiglob Test (NEGATIVE) 12/26/17 12/25/17 12/24/17 Range/Units 07:42 05:45 08:45 WBC (4.4-11.0) K/mm3 RBC (4.6-6.2) M/mm3 Hgb (13.0-16.5) g/dl Hct (40-54) % MCV (80-94) fL MCH (27.0-32.0) pg MCHC (32-36) g/gl RDW (11.6-14.6) % RDW Differential (35.1-43.9) fl Plt Count (150-450) K/mm3 MPV (6.2-12.0) fl Immature Gran % (Auto) (0.0-0.9) % Neut % (Auto) (47-70) % Lymph % (Auto) (19-41) % [place] % (Auto) (0-10) % Eos % (Auto) (0-5) % Baso % (Auto) (0-1) % Absolute Neuts (auto) (2.0-7.7) X10^3/uL Absolute Lymphs (auto) (0.83-4.51) X10^3/ul Total Counted Differential Comment Immature Plt Fraction (1.0-7.9) % Retic Count (0.5-1.5) % Immature Retic Fraction (3.00-15.90) % Retic Hgb Equivalent (30-35) pg Haptoglobin (34-200) mg/dL Sodium 129 L 130 L 134 L (136-145) mmol/L Potassium 3.5 3.5 3.3 L (3.5-5.1) mmol/L Chloride 94 L 94 L 97 L (98-107) mmol/L Carbon Dioxide 25.0 28.0 28.0 (21.0-32.0) mmol/L Anion Gap 10 8 9 (5-15) BUN 21 H 18 18 (7-18) mg/dL Creatinine 0.96 0.83 0.97 (0.70-1.30) mg/dL Estim Creat Clear Calc 60.36 69.82 59.74 ml/min Est GFR (MDRD) Af Amer 97 115 95 (>60) mL/min Est GFR (MDRD) Non-Af 80 95 79 (>60) mL/min BUN/Creatinine Ratio 21.9 H 21.8 H 18.5 (10-20) RATIO Glucose 144 H 145 H 117 H (74-106) mg/dL Lactic Acid (0.4-2.0) mmol/L Calcium 8.6 8.0 L 8.0 L (8.5-10.1) mg/dL Magnesium 2.1 (1.6-2.6) mg/dL Iron (65-175) ug/dL TIBC (250-450) ug/dL Iron Saturation (15.0-55.0) % Ferritin (26-388) ng/mL Total Bilirubin (0.20-1.00) mg/dL Direct Bilirubin (0.00-0.30) mg/dL AST (15-37) U/L ALT (16-61) U/L Alkaline Phosphatase (45-117) U/L Lactate Dehydrogenase (87-241) U/L Troponin I (<0.045) ng/mL B-Natriuretic Peptide (0-100) pg/mL Total Protein (6.4-8.2) g/dL Albumin (3.2-5.0) g/dL Globulin (2.2-4.2) g/dL Albumin/Globulin Ratio (0.9-2.4) RATIO PSA Screen (0.00-4.00) ng/mL Total PSA (0.0-4.0) ng/mL Vitamin B12 (211-911) pg/mL TSH (0.358-3.74) uIU/mL Cortisol (3.09-22.40) ug/dL Urine Color (Yellow) Urine Clarity (Clear) Urine pH (5.0 - 8.0) Ur Specific [place] (1.002-1.030) Urine Protein (Negative) mg/dl Urine Glucose (UA) (Normal) mg/dl Urine Ketones (Negative) mg/dl Urine Occult Blood (Negative) /ul Urine Nitrite (Negative) Urine Bilirubin (Negative) mg/dL Urine Urobilinogen (Normal) mg/dl Ur Leukocyte Esterase (Negative) /ul Urine RBC (0-5) /hpf Urine WBC (0-5) /hpf Ur Squamous Epith Cells (0-5) /hpf Urine Bacteria (None Seen) /hpf Urine Mucus (<or=2+) /hpf Direct Antiglob Test (NEGATIVE) 12/24/17 12/23/17 12/23/17 Range/Units 08:45 05:15 05:15 WBC 6.1 4.0 L (4.4-11.0) K/mm3 RBC 3.02 L 2.71 L (4.6-6.2) M/mm3 Hgb 10.5 L 9.0 L (13.0-16.5) g/dl Hct 30.2 L 26.8 L (40-54) % MCV 100.0 H 98.9 H (80-94) fL MCH 34.8 H 33.2 H (27.0-32.0) pg MCHC 34.8 33.6 (32-36) g/gl RDW 13.2 13.6 (11.6-14.6) % RDW Differential 46.6 H 48.9 H (35.1-43.9) fl Plt Count 134 L 92 L (150-450) K/mm3 MPV 9.9 9.7 (6.2-12.0) fl Immature Gran % (Auto) 0.200 (0.0-0.9) % Neut % (Auto) 81.9 H (47-70) % Lymph % (Auto) 9.0 L (19-41) % [place] % (Auto) 7.7 (0-10) % Eos % (Auto) 1.0 (0-5) % Baso % (Auto) 0.2 (0-1) % Absolute Neuts (auto) 3.3 (2.0-7.7) X10^3/uL Absolute Lymphs (auto) 0.36 L (0.83-4.51) X10^3/ul Total Counted Not Reportable Differential Comment SCANNED Immature Plt Fraction (1.0-7.9) % Retic Count (0.5-1.5) % Immature Retic Fraction (3.00-15.90) % Retic Hgb Equivalent (30-35) pg Haptoglobin (34-200) mg/dL Sodium 133 L (136-145) mmol/L Potassium 3.5 (3.5-5.1) mmol/L Chloride 98 (98-107) mmol/L Carbon Dioxide 27.0 (21.0-32.0) mmol/L Anion Gap 8 (5-15) BUN 15 (7-18) mg/dL Creatinine 0.98 (0.70-1.30) mg/dL Estim Creat Clear Calc 59.13 ml/min Est GFR (MDRD) Af Amer 95 (>60) mL/min Est GFR (MDRD) Non-Af 79 (>60) mL/min BUN/Creatinine Ratio 15.4 (10-20) RATIO Glucose 120 H (74-106) mg/dL Lactic Acid (0.4-2.0) mmol/L Calcium 7.9 L (8.5-10.1) mg/dL Magnesium (1.6-2.6) mg/dL Iron (65-175) ug/dL TIBC (250-450) ug/dL Iron Saturation (15.0-55.0) % Ferritin (26-388) ng/mL Total Bilirubin (0.20-1.00) mg/dL Direct Bilirubin (0.00-0.30) mg/dL AST (15-37) U/L ALT (16-61) U/L Alkaline Phosphatase (45-117) U/L Lactate Dehydrogenase (87-241) U/L Troponin I (<0.045) ng/mL B-Natriuretic Peptide (0-100) pg/mL Total Protein (6.4-8.2) g/dL Albumin (3.2-5.0) g/dL Globulin (2.2-4.2) g/dL Albumin/Globulin Ratio (0.9-2.4) RATIO PSA Screen (0.00-4.00) ng/mL Total PSA (0.0-4.0) ng/mL Vitamin B12 (211-911) pg/mL TSH (0.358-3.74) uIU/mL Cortisol (3.09-22.40) ug/dL Urine Color (Yellow) Urine Clarity (Clear) Urine pH (5.0 - 8.0) Ur Specific [place] (1.002-1.030) Urine Protein (Negative) mg/dl Urine Glucose (UA) (Normal) mg/dl Urine Ketones (Negative) mg/dl Urine Occult Blood (Negative) /ul Urine Nitrite (Negative) Urine Bilirubin (Negative) mg/dL Urine Urobilinogen (Normal) mg/dl Ur Leukocyte Esterase (Negative) /ul Urine RBC (0-5) /hpf Urine WBC (0-5) /hpf Ur Squamous Epith Cells (0-5) /hpf Urine Bacteria (None Seen) /hpf Urine Mucus (<or=2+) /hpf Direct Antiglob Test (NEGATIVE) 12/22/17 12/22/17 12/22/17 Range/Units 08:30 08:30 08:30 WBC (4.4-11.0) K/mm3 RBC (4.6-6.2) M/mm3 Hgb (13.0-16.5) g/dl Hct (40-54) % MCV (80-94) fL MCH (27.0-32.0) pg MCHC (32-36) g/gl RDW (11.6-14.6) % RDW Differential (35.1-43.9) fl Plt Count (150-450) K/mm3 MPV (6.2-12.0) fl Immature Gran % (Auto) (0.0-0.9) % Neut % (Auto) (47-70) % Lymph % (Auto) (19-41) % [place] % (Auto) (0-10) % Eos % (Auto) (0-5) % Baso % (Auto) (0-1) % Absolute Neuts (auto) (2.0-7.7) X10^3/uL Absolute Lymphs (auto) (0.83-4.51) X10^3/ul Total Counted Differential Comment Immature Plt Fraction (1.0-7.9) % Retic Count (0.5-1.5) % Immature Retic Fraction (3.00-15.90) % Retic Hgb Equivalent (30-35) pg Haptoglobin 301 H (34-200) mg/dL Sodium (136-145) mmol/L Potassium (3.5-5.1) mmol/L Chloride (98-107) mmol/L Carbon Dioxide (21.0-32.0) mmol/L Anion Gap (5-15) BUN (7-18) mg/dL Creatinine (0.70-1.30) mg/dL Estim Creat Clear Calc ml/min Est GFR (MDRD) Af Amer (>60) mL/min Est GFR (MDRD) Non-Af (>60) mL/min BUN/Creatinine Ratio (10-20) RATIO Glucose (74-106) mg/dL Lactic Acid (0.4-2.0) mmol/L Calcium (8.5-10.1) mg/dL Magnesium (1.6-2.6) mg/dL Iron (65-175) ug/dL TIBC (250-450) ug/dL Iron Saturation (15.0-55.0) % Ferritin (26-388) ng/mL Total Bilirubin (0.20-1.00) mg/dL Direct Bilirubin (0.00-0.30) mg/dL AST (15-37) U/L ALT (16-61) U/L Alkaline Phosphatase (45-117) U/L Lactate Dehydrogenase (87-241) U/L Troponin I (<0.045) ng/mL B-Natriuretic Peptide (0-100) pg/mL Total Protein (6.4-8.2) g/dL Albumin (3.2-5.0) g/dL Globulin (2.2-4.2) g/dL Albumin/Globulin Ratio (0.9-2.4) RATIO PSA Screen (0.00-4.00) ng/mL Total PSA (0.0-4.0) ng/mL Vitamin B12 387 (211-911) pg/mL TSH (0.358-3.74) uIU/mL Cortisol 20.40 (3.09-22.40) ug/dL Urine Color (Yellow) Urine Clarity (Clear) Urine pH (5.0 - 8.0) Ur Specific [place] (1.002-1.030) Urine Protein (Negative) mg/dl Urine Glucose (UA) (Normal) mg/dl Urine Ketones (Negative) mg/dl Urine Occult Blood (Negative) /ul Urine Nitrite (Negative) Urine Bilirubin (Negative) mg/dL Urine Urobilinogen (Normal) mg/dl Ur Leukocyte Esterase (Negative) /ul Urine RBC (0-5) /hpf Urine WBC (0-5) /hpf Ur Squamous Epith Cells (0-5) /hpf Urine Bacteria (None Seen) /hpf Urine Mucus (<or=2+) /hpf Direct Antiglob Test NEG w/POLYSPECIFIC (NEGATIVE) 12/22/17 12/22/17 12/22/17 Range/Units 08:30 08:30 07:08 WBC (4.4-11.0) K/mm3 RBC (4.6-6.2) M/mm3 Hgb (13.0-16.5) g/dl Hct (40-54) % MCV (80-94) fL MCH (27.0-32.0) pg MCHC (32-36) g/gl RDW (11.6-14.6) % RDW Differential (35.1-43.9) fl Plt Count (150-450) K/mm3 MPV (6.2-12.0) fl Immature Gran % (Auto) (0.0-0.9) % Neut % (Auto) (47-70) % Lymph % (Auto) (19-41) % [place] % (Auto) (0-10) % Eos % (Auto) (0-5) % Baso % (Auto) (0-1) % Absolute Neuts (auto) (2.0-7.7) X10^3/uL Absolute Lymphs (auto) (0.83-4.51) X10^3/ul Total Counted Differential Comment Immature Plt Fraction 1.7 (1.0-7.9) % Retic Count 1.99 H (0.5-1.5) % Immature Retic Fraction 11.70 (3.00-15.90) % Retic Hgb Equivalent 30.0 (30-35) pg Haptoglobin (34-200) mg/dL Sodium (136-145) mmol/L Potassium (3.5-5.1) mmol/L Chloride (98-107) mmol/L Carbon Dioxide (21.0-32.0) mmol/L Anion Gap (5-15) BUN (7-18) mg/dL Creatinine (0.70-1.30) mg/dL Estim Creat Clear Calc ml/min Est GFR (MDRD) Af Amer (>60) mL/min Est GFR (MDRD) Non-Af (>60) mL/min BUN/Creatinine Ratio (10-20) RATIO Glucose (74-106) mg/dL Lactic Acid (0.4-2.0) mmol/L Calcium (8.5-10.1) mg/dL Magnesium (1.6-2.6) mg/dL Iron 18 L (65-175) ug/dL TIBC 177 L (250-450) ug/dL Iron Saturation 10.2 L (15.0-55.0) % Ferritin 360 (26-388) ng/mL Total Bilirubin 1.00 (0.20-1.00) mg/dL Direct Bilirubin 0.31 H (0.00-0.30) mg/dL AST 16 (15-37) U/L ALT 32 (16-61) U/L Alkaline Phosphatase 48 (45-117) U/L Lactate Dehydrogenase 176 (87-241) U/L Troponin I 0.034 (<0.045) ng/mL B-Natriuretic Peptide (0-100) pg/mL Total Protein 5.5 L (6.4-8.2) g/dL Albumin 2.4 L (3.2-5.0) g/dL Globulin 3.1 (2.2-4.2) g/dL Albumin/Globulin Ratio (0.9-2.4) RATIO PSA Screen 41.00 H (0.00-4.00) ng/mL Total PSA (0.0-4.0) ng/mL Vitamin B12 (211-911) pg/mL TSH (0.358-3.74) uIU/mL Cortisol (3.09-22.40) ug/dL Urine Color (Yellow) Urine Clarity (Clear) Urine pH (5.0 - 8.0) Ur Specific [place] (1.002-1.030) Urine Protein (Negative) mg/dl Urine Glucose (UA) (Normal) mg/dl Urine Ketones (Negative) mg/dl Urine Occult Blood (Negative) /ul Urine Nitrite (Negative) Urine Bilirubin (Negative) mg/dL Urine Urobilinogen (Normal) mg/dl Ur Leukocyte Esterase (Negative) /ul Urine RBC (0-5) /hpf Urine WBC (0-5) /hpf Ur Squamous Epith Cells (0-5) /hpf Urine Bacteria (None Seen) /hpf Urine Mucus (<or=2+) /hpf Direct Antiglob Test (NEGATIVE) 12/22/17 12/22/17 12/22/17 Range/Units 03:45 03:45 03:45 WBC (4.4-11.0) K/mm3 RBC (4.6-6.2) M/mm3 Hgb (13.0-16.5) g/dl Hct (40-54) % MCV (80-94) fL MCH (27.0-32.0) pg MCHC (32-36) g/gl RDW (11.6-14.6) % RDW Differential (35.1-43.9) fl Plt Count (150-450) K/mm3 MPV (6.2-12.0) fl Immature Gran % (Auto) (0.0-0.9) % Neut % (Auto) (47-70) % Lymph % (Auto) (19-41) % [place] % (Auto) (0-10) % Eos % (Auto) (0-5) % Baso % (Auto) (0-1) % Absolute Neuts (auto) (2.0-7.7) X10^3/uL Absolute Lymphs (auto) (0.83-4.51) X10^3/ul Total Counted Differential Comment Immature Plt Fraction (1.0-7.9) % Retic Count (0.5-1.5) % Immature Retic Fraction (3.00-15.90) % Retic Hgb Equivalent (30-35) pg Haptoglobin (34-200) mg/dL Sodium 132 L (136-145) mmol/L Potassium 3.5 (3.5-5.1) mmol/L Chloride 101 (98-107) mmol/L Carbon Dioxide 24.0 (21.0-32.0) mmol/L Anion Gap 7 (5-15) BUN 14 (7-18) mg/dL Creatinine 0.89 (0.70-1.30) mg/dL Estim Creat Clear Calc 65.11 ml/min Est GFR (MDRD) Af Amer 106 (>60) mL/min Est GFR (MDRD) Non-Af 88 (>60) mL/min BUN/Creatinine Ratio 15.8 (10-20) RATIO Glucose 113 H (74-106) mg/dL Lactic Acid (0.4-2.0) mmol/L Calcium 7.6 L (8.5-10.1) mg/dL Magnesium (1.6-2.6) mg/dL Iron (65-175) ug/dL TIBC (250-450) ug/dL Iron Saturation (15.0-55.0) % Ferritin (26-388) ng/mL Total Bilirubin (0.20-1.00) mg/dL Direct Bilirubin (0.00-0.30) mg/dL AST (15-37) U/L ALT (16-61) U/L Alkaline Phosphatase (45-117) U/L Lactate Dehydrogenase (87-241) U/L Troponin I 0.035 (<0.045) ng/mL B-Natriuretic Peptide 1146.3 H (0-100) pg/mL Total Protein (6.4-8.2) g/dL Albumin (3.2-5.0) g/dL Globulin (2.2-4.2) g/dL Albumin/Globulin Ratio (0.9-2.4) RATIO PSA Screen (0.00-4.00) ng/mL Total PSA (0.0-4.0) ng/mL Vitamin B12 (211-911) pg/mL TSH (0.358-3.74) uIU/mL Cortisol (3.09-22.40) ug/dL Urine Color (Yellow) Urine Clarity (Clear) Urine pH (5.0 - 8.0) Ur Specific [place] (1.002-1.030) Urine Protein (Negative) mg/dl Urine Glucose (UA) (Normal) mg/dl Urine Ketones (Negative) mg/dl Urine Occult Blood (Negative) /ul Urine Nitrite (Negative) Urine Bilirubin (Negative) mg/dL Urine Urobilinogen (Normal) mg/dl Ur Leukocyte Esterase (Negative) /ul Urine RBC (0-5) /hpf Urine WBC (0-5) /hpf Ur Squamous Epith Cells (0-5) /hpf Urine Bacteria (None Seen) /hpf Urine Mucus (<or=2+) /hpf Direct Antiglob Test (NEGATIVE) 10/31/18 10/31/18 10/30/18 Range/Units 03:45 01:05 05:40 WBC 3.2 L (4.4-11.0) K/mm3 RBC 2.58 L (4.6-6.2) M/mm3 Hgb 8.7 L (13.0-16.5) g/dl Hct 25.3 L (40-54) % MCV 98.1 H (80-94) fL MCH 33.7 H (27.0-32.0) pg MCHC 34.4 (32-36) g/gl RDW 13.4 (11.6-14.6) % RDW Differential 48.0 H (35.1-43.9) fl Plt Count 79 L (150-450) K/mm3 MPV 9.2 (6.2-12.0) fl Immature Gran % (Auto) 0.000 (0.0-0.9) % Neut % (Auto) 76.5 H (47-70) % Lymph % (Auto) 10.3 L (19-41) % [place] % (Auto) 12.9 H (0-10) % Eos % (Auto) 0.0 (0-5) % Baso % (Auto) 0.3 (0-1) % Absolute Neuts (auto) 2.4 (2.0-7.7) X10^3/uL Absolute Lymphs (auto) 0.33 L (0.83-4.51) X10^3/ul Total Counted Not Reportable Differential Comment SCANNED Immature Plt Fraction (1.0-7.9) % Retic Count (0.5-1.5) % Immature Retic Fraction (3.00-15.90) % Retic Hgb Equivalent (30-35) pg Haptoglobin (34-200) mg/dL Sodium (136-145) mmol/L Potassium (3.5-5.1) mmol/L Chloride (98-107) mmol/L Carbon Dioxide (21.0-32.0) mmol/L Anion Gap (5-15) BUN (7-18) mg/dL Creatinine (0.70-1.30) mg/dL Estim Creat Clear Calc ml/min Est GFR (MDRD) Af Amer (>60) mL/min Est GFR (MDRD) Non-Af (>60) mL/min BUN/Creatinine Ratio (10-20) RATIO Glucose (74-106) mg/dL Lactic Acid (0.4-2.0) mmol/L Calcium (8.5-10.1) mg/dL Magnesium 1.9 (1.6-2.6) mg/dL Iron (65-175) ug/dL TIBC (250-450) ug/dL Iron Saturation (15.0-55.0) % Ferritin (26-388) ng/mL Total Bilirubin (0.20-1.00) mg/dL Direct Bilirubin (0.00-0.30) mg/dL AST (15-37) U/L ALT (16-61) U/L Alkaline Phosphatase (45-117) U/L Lactate Dehydrogenase (87-241) U/L Troponin I 0.030 (<0.045) ng/mL B-Natriuretic Peptide (0-100) pg/mL Total Protein (6.4-8.2) g/dL Albumin (3.2-5.0) g/dL Globulin (2.2-4.2) g/dL Albumin/Globulin Ratio (0.9-2.4) RATIO PSA Screen (0.00-4.00) ng/mL Total PSA (0.0-4.0) ng/mL Vitamin B12 (211-911) pg/mL TSH (0.358-3.74) uIU/mL Cortisol (3.09-22.40) ug/dL Urine Color (Yellow) Urine Clarity (Clear) Urine pH (5.0 - 8.0) Ur Specific [place] (1.002-1.030) Urine Protein (Negative) mg/dl Urine Glucose (UA) (Normal) mg/dl Urine Ketones (Negative) mg/dl Urine Occult Blood (Negative) /ul Urine Nitrite (Negative) Urine Bilirubin (Negative) mg/dL Urine Urobilinogen (Normal) mg/dl Ur Leukocyte Esterase (Negative) /ul Urine RBC (0-5) /hpf Urine WBC (0-5) /hpf Ur Squamous Epith Cells (0-5) /hpf Urine Bacteria (None Seen) /hpf Urine Mucus (<or=2+) /hpf Direct Antiglob Test (NEGATIVE) 12/21/17 12/21/17 12/20/17 Range/Units 05:40 05:40 15:44 WBC 3.7 L (4.4-11.0) K/mm3 RBC 2.86 L (4.6-6.2) M/mm3 Hgb 9.8 L (13.0-16.5) g/dl Hct 28.5 L (40-54) % MCV 99.7 H (80-94) fL MCH 34.3 H (27.0-32.0) pg MCHC 34.4 (32-36) g/gl RDW 13.0 (11.6-14.6) % RDW Differential 45.5 H (35.1-43.9) fl Plt Count 85 L (150-450) K/mm3 MPV 9.3 (6.2-12.0) fl Immature Gran % (Auto) 0.500 (0.0-0.9) % Neut % (Auto) 77.5 H (47-70) % Lymph % (Auto) 10.3 L (19-41) % [place] % (Auto) 11.1 H (0-10) % Eos % (Auto) 0.3 (0-5) % Baso % (Auto) 0.3 (0-1) % Absolute Neuts (auto) 2.9 (2.0-7.7) X10^3/uL Absolute Lymphs (auto) 0.38 L (0.83-4.51) X10^3/ul Total Counted Not Reportable Differential Comment SCANNED Immature Plt Fraction (1.0-7.9) % Retic Count (0.5-1.5) % Immature Retic Fraction (3.00-15.90) % Retic Hgb Equivalent (30-35) pg Haptoglobin (34-200) mg/dL Sodium 133 L (136-145) mmol/L Potassium 3.6 (3.5-5.1) mmol/L Chloride 99 (98-107) mmol/L Carbon Dioxide 24.0 (21.0-32.0) mmol/L Anion Gap 10 (5-15) BUN 13 (7-18) mg/dL Creatinine 0.87 (0.70-1.30) mg/dL Estim Creat Clear Calc 66.61 ml/min Est GFR (MDRD) Af Amer 109 (>60) mL/min Est GFR (MDRD) Non-Af 90 (>60) mL/min BUN/Creatinine Ratio 14.9 (10-20) RATIO Glucose 111 H (74-106) mg/dL Lactic Acid 1.8 (0.4-2.0) mmol/L Calcium 7.7 L (8.5-10.1) mg/dL Magnesium (1.6-2.6) mg/dL Iron (65-175) ug/dL TIBC (250-450) ug/dL Iron Saturation (15.0-55.0) % Ferritin (26-388) ng/mL Total Bilirubin (0.20-1.00) mg/dL Direct Bilirubin (0.00-0.30) mg/dL AST (15-37) U/L ALT (16-61) U/L Alkaline Phosphatase (45-117) U/L Lactate Dehydrogenase (87-241) U/L Troponin I (<0.045) ng/mL B-Natriuretic Peptide (0-100) pg/mL Total Protein (6.4-8.2) g/dL Albumin (3.2-5.0) g/dL Globulin (2.2-4.2) g/dL Albumin/Globulin Ratio (0.9-2.4) RATIO PSA Screen (0.00-4.00) ng/mL Total PSA (0.0-4.0) ng/mL Vitamin B12 (211-911) pg/mL TSH (0.358-3.74) uIU/mL Cortisol (3.09-22.40) ug/dL Urine Color (Yellow) Urine Clarity (Clear) Urine pH (5.0 - 8.0) Ur Specific [place] (1.002-1.030) Urine Protein (Negative) mg/dl Urine Glucose (UA) (Normal) mg/dl Urine Ketones (Negative) mg/dl Urine Occult Blood (Negative) /ul Urine Nitrite (Negative) Urine Bilirubin (Negative) mg/dL Urine Urobilinogen (Normal) mg/dl Ur Leukocyte Esterase (Negative) /ul Urine RBC (0-5) /hpf Urine WBC (0-5) /hpf Ur Squamous Epith Cells (0-5) /hpf Urine Bacteria (None Seen) /hpf Urine Mucus (<or=2+) /hpf Direct Antiglob Test (NEGATIVE) 12/20/17 12/20/1718 Range/Units 12:40 11:26 11:26 WBC (4.4-11.0) K/mm3 RBC (4.6-6.2) M/mm3 Hgb (13.0-16.5) g/dl Hct (40-54) % MCV (80-94) fL MCH (27.0-32.0) pg MCHC (32-36) g/gl RDW (11.6-14.6) % RDW Differential (35.1-43.9) fl Plt Count (150-450) K/mm3 MPV (6.2-12.0) fl Immature Gran % (Auto) (0.0-0.9) % Neut % (Auto) (47-70) % Lymph % (Auto) (19-41) % [place] % (Auto) (0-10) % Eos % (Auto) (0-5) % Baso % (Auto) (0-1) % Absolute Neuts (auto) (2.0-7.7) X10^3/uL Absolute Lymphs (auto) (0.83-4.51) X10^3/ul Total Counted Differential Comment Immature Plt Fraction (1.0-7.9) % Retic Count (0.5-1.5) % Immature Retic Fraction (3.00-15.90) % Retic Hgb Equivalent (30-35) pg Haptoglobin (34-200) mg/dL Sodium 128 L (136-145) mmol/L Potassium 3.5 (3.5-5.1) mmol/L Chloride 94 L (98-107) mmol/L Carbon Dioxide 26.0 (21.0-32.0) mmol/L Anion Gap 8 (5-15) BUN 14 (7-18) mg/dL Creatinine 1.02 (0.70-1.30) mg/dL Estim Creat Clear Calc 56.81 ml/min Est GFR (MDRD) Af Amer 90 (>60) mL/min Est GFR (MDRD) Non-Af 75 (>60) mL/min BUN/Creatinine Ratio 13.7 (10-20) RATIO Glucose 120 H (74-106) mg/dL Lactic Acid 2.1 H (0.4-2.0) mmol/L Calcium 8.2 L (8.5-10.1) mg/dL Magnesium (1.6-2.6) mg/dL Iron (65-175) ug/dL TIBC (250-450) ug/dL Iron Saturation (15.0-55.0) % Ferritin (26-388) ng/mL Total Bilirubin 2.20 H (0.20-1.00) mg/dL Direct Bilirubin (0.00-0.30) mg/dL AST 20 (15-37) U/L ALT 50 (16-61) U/L Alkaline Phosphatase 68 (45-117) U/L Lactate Dehydrogenase (87-241) U/L Troponin I (<0.045) ng/mL B-Natriuretic Peptide (0-100) pg/mL Total Protein 6.7 (6.4-8.2) g/dL Albumin 3.0 L (3.2-5.0) g/dL Globulin 3.7 (2.2-4.2) g/dL Albumin/Globulin Ratio 0.8 L (0.9-2.4) RATIO PSA Screen (0.00-4.00) ng/mL Total PSA (0.0-4.0) ng/mL Vitamin B12 (211-911) pg/mL TSH (0.358-3.74) uIU/mL Cortisol (3.09-22.40) ug/dL Urine Color Yellow (Yellow) Urine Clarity Sl. Cloudy (Clear) Urine pH 6.0 (5.0 - 8.0) Ur Specific [place] 1.020 (1.002-1.030) Urine Protein 30 H (Negative) mg/dl Urine Glucose (UA) 250 H (Normal) mg/dl Urine Ketones 50 H (Negative) mg/dl Urine Occult Blood 10 H (Negative) /ul Urine Nitrite Negative (Negative) Urine Bilirubin 1 H (Negative) mg/dL Urine Urobilinogen 4 H (Normal) mg/dl Ur Leukocyte Esterase 25 H (Negative) /ul Urine RBC 0-5 SEEN (0-5) /hpf Urine WBC 0-5 SEEN (0-5) /hpf Ur Squamous Epith Cells 0 SEEN (0-5) /hpf Urine Bacteria 1+ (None Seen) /hpf Urine Mucus 1+ (<or=2+) /hpf Direct Antiglob Test (NEGATIVE) 12/20/17 Range/Units 11:26 WBC 5.5 (4.4-11.0) K/mm3 RBC 3.45 L (4.6-6.2) M/mm3 Hgb 12.1 L (13.0-16.5) g/dl Hct 33.7 L (40-54) % MCV 97.7 H (80-94) fL MCH 35.1 H (27.0-32.0) pg MCHC 35.9 (32-36) g/gl RDW 13.3 (11.6-14.6) % RDW Differential 45.6 H (35.1-43.9) fl Plt Count 91 L (150-450) K/mm3 MPV 8.8 (6.2-12.0) fl Immature Gran % (Auto) 0.200 (0.0-0.9) % Neut % (Auto) 86.2 H (47-70) % Lymph % (Auto) 4.6 L (19-41) % [place] % (Auto) 8.6 (0-10) % Eos % (Auto) 0.2 (0-5) % Baso % (Auto) 0.2 (0-1) % Absolute Neuts (auto) 4.7 (2.0-7.7) X10^3/uL Absolute Lymphs (auto) 0.25 L (0.83-4.51) X10^3/ul Total Counted Not Reportable Differential Comment COMMENT Immature Plt Fraction (1.0-7.9) % Retic Count (0.5-1.5) % Immature Retic Fraction (3.00-15.90) % Retic Hgb Equivalent (30-35) pg Haptoglobin (34-200) mg/dL Sodium (136-145) mmol/L Potassium (3.5-5.1) mmol/L Chloride (98-107) mmol/L Carbon Dioxide (21.0-32.0) mmol/L Anion Gap (5-15) BUN (7-18) mg/dL Creatinine (0.70-1.30) mg/dL Estim Creat Clear Calc ml/min Est GFR (MDRD) Af Amer (>60) mL/min Est GFR (MDRD) Non-Af (>60) mL/min BUN/Creatinine Ratio (10-20) RATIO Glucose (74-106) mg/dL Lactic Acid (0.4-2.0) mmol/L Calcium (8.5-10.1) mg/dL Magnesium (1.6-2.6) mg/dL Iron (65-175) ug/dL TIBC (250-450) ug/dL Iron Saturation (15.0-55.0) % Ferritin (26-388) ng/mL Total Bilirubin (0.20-1.00) mg/dL Direct Bilirubin (0.00-0.30) mg/dL AST (15-37) U/L ALT (16-61) U/L Alkaline Phosphatase (45-117) U/L Lactate Dehydrogenase (87-241) U/L Troponin I (<0.045) ng/mL B-Natriuretic Peptide (0-100) pg/mL Total Protein (6.4-8.2) g/dL Albumin (3.2-5.0) g/dL Globulin (2.2-4.2) g/dL Albumin/Globulin Ratio (0.9-2.4) RATIO PSA Screen (0.00-4.00) ng/mL Total PSA (0.0-4.0) ng/mL Vitamin B12 (211-911) pg/mL TSH (0.358-3.74) uIU/mL Cortisol (3.09-22.40) ug/dL Urine Color (Yellow) Urine Clarity (Clear) Urine pH (5.0 - 8.0) Ur Specific [place] (1.002-1.030) Urine Protein (Negative) mg/dl Urine Glucose (UA) (Normal) mg/dl Urine Ketones (Negative) mg/dl Urine Occult Blood (Negative) /ul Urine Nitrite (Negative) Urine Bilirubin (Negative) mg/dL Urine Urobilinogen (Normal) mg/dl Ur Leukocyte Esterase (Negative) /ul Urine RBC (0-5) /hpf Urine WBC (0-5) /hpf Ur Squamous Epith Cells (0-5) /hpf Urine Bacteria (None Seen) /hpf Urine Mucus (<or=2+) /hpf Direct Antiglob Test (NEGATIVE) cardiology- Dr Gamez Operations: ERCP Procedures: 2-D Echocardiogram Summary of Care Provided: The patient is a 77 year old M with an extensive past medical history as listed below. He was admitted through the ED with a complaint of generalized weakness and vomiting for 3 days prior to admission. He had been on Keytruda for metastatic prostate cancer and was told that that had induced the weakness and nausea and vomiting. He was hypotensive on admission and was also hyponatremic and had elevated lactic acid of 2.1. CT of the abdomen and pelvis were unremarkable and showed lesions consistent with metastatic disease. He was admitted and managed for Keytruda immunotherapy induced nausea, vomiting and generalized weakness. The symptoms resolved the patient subsequently developed A. fib with RVR which was of new onset. He was started on Cardizem drip and transition to oral amiodarone and metoprolol and subsequently digoxin was added. Cardiology was consulted. Hyponatremia resolved lactic acidosis also resolved. Nausea and vomiting also resolved the patient remained weak and lethargic. Patient's heart rate control improved on the amiodarone, metoprolol and digoxin. Patient remained stable though still weak and lethargic. Decision was made to discharge patient to a retirement of his choice in [place]. Follow-up with his primary care doctor, his oncologist and drier attendant. Patient was seen and examined prior to discharge. Patient and were counseled at length today about him being discharged to his retirement. However subsequently his son came and said he wanted to speak to the physician as he was concerned about his father being discharged. Son and patient counseled extensively about patient's condition. Son expressed concern that his father was not up and walking. I counseled son that patient's debility was likely due to his metastatic prostate cancer was therefore unlikely to improve. This is also compounded by the fact that he had developed A. fib with RVR which have made him even weaker. I counseled patient and son that at the moment, patient was started on oral medication which could also be given in the retirement. Thank therefore not realistically expect that his father would be up and walking around in the hospital. Even in the retirement, son was counseled that this may not fully be possible though patient may be able to get around with intensive physical therapy. There were counseled that patient did not want any electrical cardioversion and so opted for medical management for now and will follow up with cardiology for further decision to be made about management of his A. fib. Patient and son were on board with patient being discharged to the retirement but were concerned that his was at home sleeping and so she may get in late and did not want him to be discharged late. Family counseled that when not washing the patient out of here and it was okay if his after getting her wrist came in late as he could be discharged tomorrow if there were not able to go today. Son and patient were on board with this plan. [] Patient Problems: Active and Suspected Problems (Last Updated 03/19/17 @ 14:26 by Tori Walker) Weakness (Acute) Vomiting (Acute) Malaise and fatigue (Acute) Atrial flutter (Acute) - Physical Exam General: Alert, Oriented x3, Cooperative, No apparent distress, Lethargic HEENT: Atraumatic, PERRLA, EOMI, Normocephalic Oral: Moist Mucosa Neck: Supple, No JVD, Negative Carotid Bruits Lungs: Clear to auscultation, Normal air movement, No rhonchi, No wheeze, No rales Cardiovascular: Regular rate, Regular Rhythm, Normal S1, Normal S2, No murmurs Abdomen: Bowel Sounds Present, Soft, Non Tender, Non-Distended, No Hepato-splenomegaly Extremities: No clubbing, No cyanosis, No edema, Capillary Refill Less than 3 Seconds Skin: No rashes, No breakdown Musculoskeletal: No Tenderness to Palpation of Joints or Extremities Lymphatic: No Cervical, Supraclavicular, or Inguinal Adenopathy Neurological: Cranial nerves II-XII grossly intact, Neuro grossly intact, Motor Exam 5/5 strength throughout Psych/Mental Status: Normal Affect, Appropriate, - - weak Vital Signs Temp Pulse Resp BP Pulse Ox 98.1 F 97 18 132/95 H 100 12/27/17 10:30 12/27/17 11:18 12/27/17 10:30 12/27/17 11:18 12/27/17 10:30 Oxygen Flow Rate (L/min) 2 Oxygen Delivery Method Room Air Weight: 208 lb 5.389 oz Body Mass Index (BMI) 30.7 Intake and Output for Last 24 Hours 12/26/17 12/26/17 12/27/17 00:59 23:59 23:59 Intake Total 200 / 200 Output Total 1150 / 1150 Balance -950 / -950 Microbiology Past 72 Hours 12/20/17 11:50 Blood Culture - Final Blood Culture (Wb) - Anticubital Left No growth in 5 days. 12/20/17 11:26 Blood Culture - Final Blood Culture (Wb) - Anticubital Right No growth in 5 days. Laboratory Tests Past 24 Hrs 12/27/17 12/27/17 12/27/17 07:34 07:34 07:34 WBC 4.9 RBC 2.89 L Hgb 9.9 L Hct 29.4 L MCV 101.7 H MCH 34.3 H MCHC 33.7 RDW 13.5 RDW Differential 48.2 H Plt Count 158 MPV 9.5 Immature Gran % (Auto) 0.600 Neut % (Auto) 86.3 H Lymph % (Auto) 8.2 L [place] % (Auto) 3.1 Eos % (Auto) 1.8 Baso % (Auto) 0.0 Absolute Neuts (auto) 4.2 Absolute Lymphs (auto) 0.40 L Total Counted Not Reportable Differential Comment COMMENT Sodium 132 L Potassium 3.1 L Chloride 93 L Carbon Dioxide 30.0 Anion Gap 9 BUN 26 H Creatinine 0.90 Estim Creat Clear Calc 64.39 Est GFR (MDRD) Af Amer 104 Est GFR (MDRD) Non-Af 86 BUN/Creatinine Ratio 28.8 H Glucose 113 H Calcium 8.6 Total PSA 71.50 H TSH 2.10 Total Testosterone Free Testosterone % Free Testosterone 12/27/17 11:12 WBC RBC Hgb Hct MCV MCH MCHC RDW RDW Differential Plt Count MPV Immature Gran % (Auto) Neut % (Auto) Lymph % (Auto) [place] % (Auto) Eos % (Auto) Baso % (Auto) Absolute Neuts (auto) Absolute Lymphs (auto) Total Counted Differential Comment Sodium Potassium Chloride Carbon Dioxide Anion Gap BUN Creatinine Estim Creat Clear Calc Est GFR (MDRD) Af Amer Est GFR (MDRD) Non-Af BUN/Creatinine Ratio Glucose Calcium Total PSA TSH Total Testosterone Pending Free Testosterone Pending % Free Testosterone Pending Diagnostic Data Abdomen/Pelvis CT 12/20/17 11:14 IMPRESSION: No acute intra-abdominal or intrapelvic abnormality. Osseous lesions, consistent with metastatic disease. Electronically Signed: Felisa Connor MD at 12:46 EDT Tel , Service support , Chest X-Ray 12/22/17 09:00 IMPRESSION: Probable chronic pulmonary disease. Mild increase in slight congestion and interstitial pulmonary edema. Electronically Signed: Fidencio Mcelroy MD at 10:11 EDT , Service support , Plan as stated above. Patient has been discharged to his retirement in [place]. Patient's amiodarone is to be tapered as per follows: - n take p.o. amiodarone 200 mg 3 times daily until 12/03/2017 - p.o. amiodarone 200 mg twice daily from 12/04/17 to 12/10/17 -p.o amiodarone 200mg daily from 12/11/17 onwards. He is also been discharged home on p.o. digoxin to 50 mg daily and p.o. metoprolol. He is to follow-up with his primary care doctor, his oncologist and his PCP. He is to check his digoxin level, magnesium and BMP to assess for potassium weekly and results to be communicated to his primary care doctor into his drier attendant. Home medications reviewed and reconciled. Patient and son counseled about his medications and the changes made to them. Discharge Diet: Low fat/ Low Cholesterol Weight Bearing Status: Weight bearing as tolerated Call your doctor if you observe: Swelling in the ankles, Chest pain, Increased palpitations (irregular heartbeat) Home Medications: Medications to take at Discharge Levothyroxine Sodium [Levoxyl] 112 mcg PO DAILY 11/10/13 Pravastatin [Pravachol] 20 mg PO QHS 11/10/13 Tamsulosin HCl [Flomax] 0.4 mg PO DAILY 11/10/13 Morphine Sulfate [Morphine Sulfate ER] 15 mg PO Q8H 05/09/16 aspirin 81 mg tablet,delayed release 81 mg PO QDAY 06/22/17 nitroglycerin 0.4 mg sublingual tablet 0.4 mg SUBLINGUAL Q5M PRN #25 tab 11/08/17 Hydrocodone Bitart/Apap 5-325 [[place] 5/325] 1 - 2 tablet PO Q6H PRN 12/20/17 Multivitamin [Daily Multiple Vitamin] 1 each PO DAILY 12/20/17 Prednisone 5 mg PO BID 12/20/17 Ramipril 10 mg PO DAILY 12/20/17 morphine SR tablet [Ms Contin] 15 mg PO BREAKFAST 12/20/17 morphine SR tablet [Ms Contin] 15 mg PO QHS 12/20/17 Amiodarone HCl 200 mg PO BID 7 Days #14 tablet 12/27/17 Amiodarone HCl 200 mg PO DAILY #30 tablet 12/27/17 Amiodarone HCl 200 mg PO TID #21 tablet 12/27/17 Apixaban [Eliquis] 5 mg PO BID #60 tablet 12/27/17 Digoxin [Lanoxin] 250 mcg PO DAILY #30 tablet 12/27/17 Furosemide [Lasix] 20 mg PO BID@1000,1800 #60 tablet 12/27/17 Metoprolol Tartrate [Lopressor (beta khang)] 100 mg PO BID #60 tablet 12/27/17 Potassium Chloride [K-Dur] 20 meq PO DAILYCM #30 tablet 12/27/17 Following Prescrptions Were Given to Patient: Amiodarone HCl 200 mg PO DAILY #30 tablet Digoxin [Lanoxin] 250 mcg PO DAILY #30 tablet Furosemide [Lasix] 20 mg PO BID@1000,1800 #60 tablet Potassium Chloride [K-Dur] 20 meq PO DAILYCM #30 tablet Amiodarone HCl 200 mg PO BID 7 Days #14 tablet Apixaban [Eliquis] 5 mg PO BID #60 tablet Metoprolol Tartrate [Lopressor (beta khang)] 100 mg PO BID #60 tablet Amiodarone HCl 200 mg PO TID #21 tablet Primary Care Physician: Brodie Weir MD [Primary Care Provider] - Please follow up with your Primary Care Physician in: one week Please Follow Up With: Ramesh Gamez MD When: 1-2 weeks Please Follow Up With: Ramesh Nassar DO When: 2-3 weeks Disposition: [facility] facility Minutes spent on discharge:: 45 Patient Condition:: Fair Medical Necessity - Tobacco Use Smoking Status: Former smoker Meaningful Use Info Meaningful Use Diagnoses (Choose all that apply): None applicable Code Visit Inpatient E&M: 53408 Disch Hosp
--- NOTE | 2017-12-27 12:50 | CASEMGMT ---
Late Entry: Note from Wednesday12-24-[address] Nassar's office and patient will not be on [facility]. RODOLFO let Erin at [facility] know this information. They will take patient. RODOLFO spoke with patient's and she was in agreement with d/c plan. RODOLFO told her, her wanted SW to check with her on the plan. She thanked RODOLFO for checking in with her. Plan: [facility] Chantal LAUREANO MSW
--- NOTE | 2017-12-27 13:17 | PCM.PN.CARD ---
Subjectve: The patient is awake and alert. He believes his breathing has improved overall. He has no new concerns of chest discomfort. He has fatigue. Objective: Vital Signs Temp Pulse Resp BP Pulse Ox 98.1 F 97 18 132/95 H 100 12/27/17 10:30 12/27/17 11:18 12/27/17 10:30 12/27/17 11:18 12/27/17 10:30 Oxygen Flow Rate (L/min) 2 Oxygen Delivery Method Room Air Weight: 208 lb 5.389 oz Body Mass Index (BMI) 30.7 Intake and Output for Last 24 Hours 12/26/17 12/26/17 12/27/17 00:59 23:59 23:59 Intake Total 200 / 200 Output Total 1150 / 1150 Balance -950 / -950 General: Awake, Alert, Oriented x 3, Cooperative, No Acute Distress HEENT: Atraumatic, Normocephalic, PERRL, EOMI, Sclera Non Icteric Oral: Moist Mucosa Neck: Supple, Good ROM, No JVD Lungs: Clear to auscultation Cardiovascular: Irregular Rhythm, Normal S1, Normal S2 Abdomen: Bowel Sounds Present, Soft, Non Tender Psych/Mental Status: Appropriate 12/27/17 07:34: WBC 4.9, RBC 2.89 L, Hgb 9.9 L, Hct 29.4 L, MCV 101.7 H, MCH 34.3 H, MCHC 33.7, RDW 13.5, RDW Differential 48.2 H, Plt Count 158, MPV 9.5, Immature Gran % (Auto) 0.600, Neut % (Auto) 86.3 H, Lymph % (Auto) 8.2 L, [place] % (Auto) 3.1, Eos % (Auto) 1.8, Baso % (Auto) 0.0, Absolute Neuts (auto) 4.2, Total Counted Not Reportable 12/27/17 07:34: Sodium 132 L, Potassium 3.1 L, Chloride 93 L, Carbon Dioxide 30.0, Anion Gap 9, BUN 26 H, Creatinine 0.90, Est GFR (MDRD) Af Amer 104, Est GFR (MDRD) Non-Af 86, BUN/Creatinine Ratio 28.8 H, Glucose 113 H, Calcium 8.6 Rhythm: Atrial fibrillation with intermittent elevated ventricular response Medical Necessity - Tobacco Use Smoking Status: Former smoker Assessment/Plan 1. Atrial fibrillation with rapid ventricular response At the present time the patient continues with his atrial dysrhythmia with intermittent rapid ventricular response. He has been on beta-khang therapy. He is now also on digitalis therapy. He continues on amiodarone therapy. He is on anti-coagulant therapy without any obvious hemorrhagic issues. Over time, hopefully with rate control therapy, antiarrhythmic therapy, the patient will return to sinus rhythm. If not with anticoagulant therapy in his system that he can be further evaluated for the possibility, depending upon the timing, of a synchronized biphasic DC cardioversion, which, depending upon the timing may or may not need to be RORO guided. This was discussed with him. He states that the moment he does not want to proceed with RORO the way he feels. He wants to continue medical therapy with the hopes that his rate and rhythm will come under better control. Going forward, if he feels better in general as he recuperates from his acute noncardiovascular issue then he may consider RORO. 2. CAD status post PCI and CABG The patient has undergone extensive noninvasive and invasive evaluation of his underlying CAD process in the past. At the moment he appears to be without symptoms of acute coronary syndrome. He will continue medical management and undergo further evaluation as deemed appropriate. 3. Carotid artery disease The patient does have carotid artery disease and has undergone surgical intervention in the past. He appears without any acute symptoms at this time. He will continue to be followed as deemed appropriate. 4. Hyperlipidemia The patient will continue risk factor evaluation care. 5. Hypertension The patient's blood pressure will need to be monitored. His medications may need to be adjusted to avoid significant hypotension and/or hypertension. 6. Prostatic carcinoma with metastatic disease The patient will continue evaluation care per hematology/oncology. Overall, he will continue medical management. He will need continued follow-up of his laboratory studies as deemed appropriate including his electrolytes, renal function, and digitalis level. Comment: The patient's case was discussed and reviewed with the patient, his spouse, and Dr. Kingsley. This note was generated with [employer] software. It may contain incorrect words, spelling, and punctuation that were not noted in checking the note before signing.
--- NOTE | 2017-12-27 13:43 | CASEMGMT ---
Faxed orders to [facility]. RODOLFO went to room to check with patient and family about transport. Patient's son was present and he was surprised patient is being discharged. He thought they said a couple of days. Patient then woke up and his son told him he is being discharged. The patient then said he isn't ready. They asked to talk with the doctor. RODOLFO told them RODOLFO will page her and let her know. PHILL RAUSCH paged Dr Kingsley and she said if they can wait about a half hour she will be up to talk with them. RODOLFO let patient and his son know this information. SW also let them know the physician said she spoke with patient and his this am letting them know he will be going to [place] today. Patient denies this information. RODOLFO faxed orders to [facility]. RODOLFO called Erin at [facility] and let her know that patient is supposed to be d/c today, but family does not feel he is ready and we are waiting on physician to talk with them. Chantal LAUERANO [employer] BLENDER
--- NOTE | 2017-12-27 15:28 | CASEMGMT ---
Physician spoke with patient's son and patient. It was decided we will wait until patient's comes in and if transport can be set up he could go and if not he will stay until tomorrow. RODOLFO notified RN, methods analyst data processing and electrical discharge machine operator. RODOLFO also called [facility] and left a message for Erin letting her know patient may or may not be coming tonight. Orders were already faxed and convalescent was done on [facility]. Plan: [facility] under skilled level of care on a convalescent stay Chantal LAUREANO MSW
[2017-12-27] MEDS: HYDROcodone Bitartrate/Apap 5/325 Tablet PO (16:11)
--- NOTE | 2017-12-27 20:38 | NURSING ---
This RN attempted to call [facility] at this time to inform them that Cody Ibanez will be arriving to their facility tomorrow, 12/28/17. Did not get an answer at this time.
[2017-12-27] MEDS: morphine SR 15 MG Tablet PO (21:00)
[2017-12-27] MEDS: Pravastatin 20 MG Tablet PO (21:00)
[2017-12-28] VITALS (9 sets, daily range): BP systolic 101–108; BP diastolic 56–62; PULSE 66–85; RESP 16–18; TEMP 36.4–36.5; O2SAT 93–98
[2017-12-28] MEDS: Levothyroxine 112 MCG Tablet PO (06:00)
[2017-12-28] MEDS: Amiodarone 200 MG Tablet PO (06:00)
[2017-12-28] MEDS: Ipratropium/Albuterol Sulfate 3 ML AMPUL.NEB INHALATION (07:43)
[2017-12-28 08:10] LABS: Anion Gap 7 (5-15); BUN 23 mg/dL (7-18); BUN/Creat Ratio 26.1 RATIO (10-20); Chloride 96 mmol/L (98-107); Creatinine, Serum 0.88 mg/dL (0.70-1.30); EST Glomerular Filtration Rate 88 mL/min (>60); Est Glom Filt Rate - Afr Amer 107 mL/min (>60); Estimated Creatinine Clearance 65.85 ml/min; Glucose 87 mg/dL (74-106); Potassium 3.4 mmol/L (3.5-5.1); Sodium Level 132 mmol/L (136-145)
[2017-12-28] MEDS: Multivitamins,Therapeutic Tablet 1 TABLET PO (09:03)
[2017-12-28] MEDS: Aspirin E.C. 81 MG Tablet PO (09:03)
[2017-12-28] MEDS: APIXABAN 5 MG TABLET PO (09:04)
[2017-12-28] MEDS: predniSONE 5 MG Tablet PO (09:04)
[2017-12-28] MEDS: Furosemide 20 MG Tablet PO (09:04)
[2017-12-28] MEDS: HYDROcodone Bitartrate/Apap 5/325 Tablet PO (09:05)
[2017-12-28] MEDS: Metoprolol Tartrate 100 MG Tablet PO (09:05)
[2017-12-28] MEDS: Digoxin 250 MCG Tablet PO (09:10)
--- NOTE | 2017-12-28 11:30 | NURSING ---
Called [facility] facility to give report. Nurse unavailable at this time. RN gave phone number for nurse to return call for report.
--- NOTE | 2017-12-28 11:52 | PHA.DC.MR ---
Pharmacy Service has performed discharge medication reconciliation for this patient upon discharge to [facility]. The patient's discharge medication list was reviewed for discrepancies and discrepancies were resolved. Home Medications Levothyroxine Sodium [Levoxyl] 112 mcg PO DAILY 11/10/13 Pravastatin [Pravachol] 20 mg PO QHS 11/10/13 Tamsulosin HCl [Flomax] 0.4 mg PO DAILY 11/10/13 Morphine Sulfate [Morphine Sulfate ER] 15 mg PO Q8H 05/09/16 aspirin 81 mg tablet,delayed release 81 mg PO QDAY 06/22/17 nitroglycerin 0.4 mg sublingual tablet 0.4 mg SUBLINGUAL Q5M PRN #25 tab 11/08/17 Hydrocodone Bitart/Apap 5-325 [[place] 5/325] 1 - 2 tablet PO Q6H PRN 12/20/17 Multivitamin [Daily Multiple Vitamin] 1 each PO DAILY 12/20/17 Prednisone 5 mg PO BID 12/20/17 Ramipril 10 mg PO DAILY 12/20/17 morphine SR tablet [Ms Contin] 15 mg PO BREAKFAST 12/20/17 morphine SR tablet [Ms Contin] 15 mg PO QHS 12/20/17 Amiodarone HCl 200 mg PO BID 7 Days #14 tablet 12/27/17 Amiodarone HCl 200 mg PO DAILY #30 tablet 12/27/17 Amiodarone HCl 200 mg PO TID #21 tablet 12/27/17 Apixaban [Eliquis] 5 mg PO BID #60 tablet 12/27/17 Digoxin [Lanoxin] 250 mcg PO DAILY #30 tablet 12/27/17 Furosemide [Lasix] 20 mg PO BID@1000,1800 #60 tablet 12/27/17 Metoprolol Tartrate [Lopressor (beta khang)] 100 mg PO BID #60 tablet 12/27/17 Potassium Chloride [K-Dur] 20 meq PO DAILYCM #30 tablet 12/27/17
--- NOTE | 2017-12-28 12:15 | NURSING ---
Called report to Rolanda nurse at [facility] [place].
--- NOTE | 2017-12-28 15:59 | PN_ITS ---
Subjective: late entry note for 12/27/17 Patient was scheduled to be discharged on 12/27/2017. However he was unable to go assist transfers was set up too late in the night for him. Patient was seen and examined. He was seen with his son by his bedside. He denied any fever or chills, any cough or chest pain, he denied any palpitations. He did say he felt weak. He denied any abdominal pain, diarrhea vomiting. Review of systems is otherwise negative. Vitals/I&O's: Vital Signs Temp Pulse Resp BP Pulse Ox 97.7 F L 82 17 108/62 93 12/28/17 11:18 12/28/17 11:18 12/28/17 11:18 12/28/17 11:18 12/28/17 11:18 Oxygen Flow Rate (L/min) 2 Oxygen Delivery Method Room Air Weight: 208 lb 5.389 oz Body Mass Index (BMI) 30.7 Intake and Output for Last 24 Hours 12/26/17 12/27/17 12/28/17 23:59 23:59 23:59 Intake Total 1615 / 1615 620 / 620 Output Total 1500 / 1500 875 / 875 Balance 115 / 115 -255 / -255 General: Alert, Oriented x3, Cooperative, Lethargic HEENT: Atraumatic, PERRLA, EOMI, Normocephalic Oral: Moist Mucosa Neck: Supple, No JVD, Negative Carotid Bruits Lungs: Clear to auscultation, Normal air movement Cardiovascular: Normal S1, Normal S2, No murmurs, Irregular Rate - and rhythm Abdomen: Bowel Sounds Present, Soft, Non Tender, Non-Distended, No Hepato- splenomegaly Extremities: No clubbing, No cyanosis, No edema, Capillary Refill Less than 3 Seconds Skin: No rashes, No breakdown Musculoskeletal: No Tenderness to Palpation of Joints or Extremities Lymphatic: No Cervical, Supraclavicular, or Inguinal Adenopathy Neurological: Cranial nerves II-XII grossly intact Psych/Mental Status: Normal Affect, Appropriate, Alert and oriented to time, place, person, mood and affect Microbiology Past 72 Hours 12/27/17 20:25 Stool Stool Occult Blood (BETITO) - Final Laboratory Results 12/28/17 07:45: Sodium 132 L, Potassium 3.4 L, Chloride 96 L, Carbon Dioxide 29.0, Anion Gap 7, BUN 23 H, Creatinine 0.88, Estim Creat Clear Calc 65.85, Est GFR (MDRD) Af Amer 107, Est GFR (MDRD) Non-Af 88, BUN/Creatinine Ratio 26.1 H, Glucose 87, Calcium 9.0 Medical Necessity - Tobacco Use Smoking Status: Former smoker Assessment/Plan All Active Problems (Last Updated 03/19/17 @ 14:26 by Tori Walker) Weakness (Acute) Vomiting (Acute) Malaise and fatigue (Acute) Atrial flutter (Acute) 1. Severe debility likely chemotherapy and malignancy induced * Still remains weak. Prognosis is guarded. Awaiting discharge to group home facility. * The patient was scheduled to be discharged but discharge was held on account of it being too late for him to go home. * For discharge tomorrow to residential in [place]. * 2. Afib: * went into RVR; control has now improved. ON amiodarone p.o 3x daily. Discussed with cardiology. To be discharged on a tapering dose of amiodarone; to take amiodarone p.o. 200 mg 3 times daily for 1 week, then to take amiodarone p.o. 200 mg twice daily for another week and then to continue with amiodarone 200 mg daily. Also on metoprolol 100 mg twice daily and apixaban as well as digoxin which was added on. 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 * 3. Hyponatremia: chronic. WIll monitor 3. Acute hypoxic respiratory insufficiency due to acute on chronic systolic CHF exacerbation: Resolved. patient off oxygen 5. Acute on chronic systolic CHF exacerbation: being diuresed with lasix. Patient has remained stable. 6. Anemia: Likely due to anemia of chronic disease from malignancy. Stable. Continue to monitor. 7. Hyperlipidemia: On statin 8 metastatic prostate cancer: * Was admitted with nausea and vomiting which is likely due to Keytruda. Oncology on board. To follow-up with oncology to decide about continuing Keytruda otherwise. * DVT prophylaxis: on apixaban CODE STATUS: DNR CCA Disposition: For discharge to residential in [place] tomorrow. Code Visit Inpatient E&M: 20137 Subs Hosp L2
[2017-12-30 09:38] LABS: Testosterone, Free < 0.08 ng/dL (5.00-21.00)
[2017-12-30 12:06] LABS: Testosterone, % Free 2.54 % (1.50-4.20); Testosterone, Total < 3 ng/dL (264-916)
== END 2017-12-28 12:15 | disposition skilled nursing facility (03) | DRG 947 ==
LOC: ED 11:49 → MS2 13:30 → PCU 12-21 06:40 → MS2 12-21 08:34 → PCU 12-21 08:38
PROVIDERS: Hospitalist; Internal Medicine; Internal Medicine Cardiovascular Disease; Internal Medicine Hematology & Oncology; Admitting Provider Student in an Organized Health Care Education/Training Program; Emergency Provider Emergency Medicine; Family Provider Family Medicine; PCP Family Medicine; Visit Provider Student in an Organized Health Care Education/Training Program
DX: R53.1 Weakness (principal); I50.23 Acute on chronic systolic (congestive) heart failure; E87.1 Hypo-osmolality and hyponatremia; C79.51 Secondary malignant neoplasm of bone; E87.2 Acidosis; R11.2 Nausea with vomiting, unspecified; T45.1X5A Adverse effect of antineoplastic and immunosuppressive drugs, initial encounter; E86.0 Dehydration; C61 Malignant neoplasm of prostate; Z95.1 Presence of aortocoronary bypass graft; I25.10 Atherosclerotic heart disease of native coronary artery without angina pectoris; E03.9 Hypothyroidism, unspecified; Z66 Do not resuscitate; Z95.5 Presence of coronary angioplasty implant and graft; I48.91 Unspecified atrial fibrillation; Z87.891 Personal history of nicotine dependence; E78.5 Hyperlipidemia, unspecified; D69.6 Thrombocytopenia, unspecified; I11.0 Hypertensive heart disease with heart failure
CPT/HCPCS: 36415; 71045; 71046; 74176; 80048; 80053; 80076; 81001; 82274; 82533; 82607; 82728; 83010; 83540; 83550; 83605; 83615; 83735; 83880; 84153; 84402; 84403; 84443; 84484; 85025; 85027; 85045; 86880; 87040; 87086; 87804; 93005; 93306; 94640; 97110; 97162; 97165; 97530; 97535; 97802; 99282; J1756; J7030; A4216; G0103; J1940; J2405

== ENCOUNTER 2018-01-28 13:23 | Inpatient (IN) | payer MEDICARE, BC, SELFPAY ==
[2018-01-07 11:40] VITALS: BMI 29.6
[2018-01-28] VITALS (32 sets, daily range): BP systolic 65–148; BP diastolic 40–97; PULSE 57–82; RESP 14–24; TEMP 36.8–37.3; O2SAT 94–100; BMI 30.4; BMI 31.0
[2018-01-28] MEDS: 0.9% Normal Saline 1,000 ML 1000 ML IV (13:44)
[2018-01-28 13:49] LABS: Absolute Lymphocyte Count 0.12 X10^3/ul (0.83-4.51); Absolute Neutrophil Count 4.3 X10^3/uL (2.0-7.7); Eosinophil# 0.01 X10^3/uL; Eosinophils% 0.2 % (0-5); Hematocrit 32.3 % (40-54); Hemoglobin 10.6 g/dl (13.0-16.5); Lymphocyte # 0.12 X10^3/ul (4.0); Lymphocyte % 2.7 % (19-41); Mean Corp Hgb Conc 32.8 g/gl (32-36); Mean Corpuscular Hgb 33.3 pg (27.0-32.0); Mean Corpuscular Volume 101.6 fL (80-94); Mean Platelet Vol. 8.3 fl (6.2-12.0); Monocyte# 0.01 X10^3/uL; Monocyte% 0.2 % (0-10); Neutrophil # 4.28 X10^3/uL (2.7-7.7); Neutrophil % 95.6 % (47-70); Platelet Count 93 K/mm3 (150-450); RBC Distribution Width CV 15.5 % (11.6-14.6); RBC Distribution Width SD 58.1 fl (35.1-43.9); Red Blood Count 3.18 M/mm3 (4.6-6.2); White Blood Count 4.5 K/mm3 (4.4-11.0)
[2018-01-28 13:53] LABS: Differential Indicated SCAN CRITERIA MET; POSITIVE COUNT NO; POSITIVE DIFFERENTIAL YES; POSITIVE MORPHOLOGY NO
[2018-01-28 13:59] LABS: Anion Gap 8 (5-15); BUN 19 mg/dL (7-18); BUN/Creat Ratio 16.8 RATIO (10-20); Calcium,Total 8.7 mg/dL (8.5-10.1); Chloride 108 mmol/L (98-107); Creatinine, Serum 1.13 mg/dL (0.70-1.30); EST Glomerular Filtration Rate 66 mL/min (>60); Est Glom Filt Rate - Afr Amer 80 mL/min (>60); Estimated Creatinine Clearance 50.44 ml/min; Glucose 109 mg/dL (74-106); Potassium 3.8 mmol/L (3.5-5.1); Sodium Level 141 mmol/L (136-145)
--- NOTE | 2018-01-28 14:01 | ED.VISSUMM ---
- ER Visit Summary Date of Service: 01/28/18 Chief Complaint: Nausea and vomiting after an infusion of chemotherapy for prostate cancer treatment. History of Present Illness: The patient is a 78 M past medical history of anemia, A. fib, cardiac stent. Patient has history of prostate CA with metastases to the bone. Prior quadruple bypass. He states that he was infused today with his chemotherapeutic agents. Later he developed nausea and vomiting. No chest pain. No abdominal pain. No diarrhea. No melena. No hematemesis. No fever. He had an episode like this before. Physical Examination: Elderly male upright in bed. Vital signs initial blood pressure 67/45. Temperature 98.4. He does not look septic or toxic. He does look dehydrated. HEENT exam dry mixed memories. Neck nontender no JVD. No lymphadenopathy. Lungs there to auscultation bilaterally. Heart regular rhythm no murmur rate about 65. Abdomen is soft. Nondistended. Normal bowel sounds. No peritoneal signs. No hernias or masses. No signs of obstruction. Soft. Patient is moving all 4 extremities. They are neurovascularly intact. Calves are nontender without edema or cords. Test Results: Patient's CBC shows white count of 4. Hemoglobin 10.6 which is baseline chronic anemia. His electrolytes are unremarkable. His BUNs 19 creatinine 1. Gap of 8. Emergency Department Course and Treatment: Patient clinically has a pretty unremarkable exam other than his significant low blood pressure. Will be given 2 L normal saline. Currently states his nausea is resolved and does not want any nausea medication. Patient doing much better after his second liter of fluid. Manual blood pressure is 118/79. However when the nurses went to standing and ambulating with a walker he was dizzy and had trouble with his balance. Treatment Plan: I will speak to the hospitalist about admission. Disposition: Admission Impression: Acute nausea and vomiting status post chemotherapy History of prostate CA with metastases Acute hypotension and generalized weakness This note was generated with [employer] dictation software. It may contain incorrect words, spelling, and punctuation that were not noted in review of the chart prior to signing ED Disposition - Plan for ED Patient: Chief Complaint: Nausea/Vomiting Referrals: Brodie Weir MD [Primary Care Provider] -
[2018-01-28] MEDS: 0.9% Normal Saline 1,000 ML 999 ML IV ×3 (14:23→18:23)
[2018-01-28] MEDS: Ondansetron 4 MG/2 ML Vial IV ×2 (14:23→20:51)
[2018-01-28 14:32] LABS: Platelet Estimate SLT DEC (ADEQ)
[2018-01-28] MEDS: Acetaminophen 500 MG Tablet 1000 MG PO (14:38)
--- NOTE | 2018-01-28 15:53 | HP.PCM_ITS ---
History of Present Illness Date of Admission: 01/28/18 Chief Complaint: nausea and vomiting The patient is a 78 year old M with an extensive past medical history as listed below including metastatic prostate cancer. He saw his oncologist today for his dose of Keytruda. After that he went to [facility] to visit a friend and subsequently started experiencing severe nausea and had several bouts of emesis. Started feeling lightheaded and dizzy and so he was brought to the ED. On arrival his blood pressure was found to be 67/45 and he was started on IV fluids. He denied any fever or chills, any assisted cough or chest pain or shortness of breath or diarrhea. Review of systems otherwise negative. He is been admitted to be managed for chemotherapy-induced nausea and vomiting with assisted hypotension and hypovolemic shock. [] Past Medical History Past Medical History (Chronic Problems): Chronic Problems (Last Reviewed 01/07/18 @ 11:37 by Shala Beaver) Prostate cancer metastatic to bone (Chronic) Stenosis of right carotid artery (Chronic) Choledocholithiasis with acute cholecystitis with obstruction (Chronic) Atherosclerosis of coronary artery bypass graft without angina pectoris (Chronic) CAB12/2002 WHITAKER graft LAD, saphenous vein graft to diagonal branch of anterior descending, lateral CFX and RCA. Dyspnea on exertion (Chronic) Malaise and fatigue (Chronic) Dyspnea and respiratory abnormalities (Chronic) Carotid stenosis (Chronic) History of PTCA (Chronic) PTCA: 03/23/2003 PTCA/Stent to proximal-mid LAD; 10/2004 PTCA of the LAD, with placement of a taxus stent. Hx of CABG (Chronic) CAB12/2002 WHITAKER graft LAD, saphenous vein graft to diagonal branch of anterior descending, lateral CFX and RCA. Nonspecific abnormal unspecified cardiovascular function study (Chronic) Palpitations (Chronic) CAD (coronary artery disease) (Chronic) PTCA: 03/23/2003 PTCA/Stent to proximal-mid LAD; 10/2004 PTCA of the LAD, with placement of a taxus stent. CAB12/2002 WHITAKER graft LAD, saphenous vein graft to diagonal branch of anterior descending, lateral CFX and RCA. LHC: 12/2002; 12/16/2005 Angina pectoris (Chronic) HLD (hyperlipidemia) (Chronic) Hypertension (Chronic) Hypothyroid (Chronic) Hyperlipidemia (Chronic) Acute cholecystitis (Chronic) Choledocholithiasis with acute cholecystitis with obstruction (Chronic) Choledocholithiasis with obstruction (Chronic) Medical History: Medical History (Last Reviewed 01/07/18 @ 11:37 by Shala Beaver) Stenosis of right carotid artery (Chronic) I65.21 Choledocholithiasis with acute cholecystitis with obstruction (Chronic) K80.41 Atherosclerosis of coronary artery bypass graft without angina pectoris (Chronic) I25.810 CAB12/2002 WHITAKER graft LAD, saphenous vein graft to diagonal branch of anterior descending, lateral CFX and RCA. Dyspnea on exertion (Chronic) R06.09 Malaise and fatigue (Chronic) R53.81, R53.83 Dyspnea and respiratory abnormalities (Chronic) R06.00, R06.89 Carotid stenosis (Chronic) I65.29 Nonspecific abnormal unspecified cardiovascular function study (Chronic) R94.30 Palpitations (Chronic) R00.2 CAD (coronary artery disease) (Chronic) I25.10 PTCA: 03/23/2003 PTCA/Stent to proximal-mid LAD; 10/2004 PTCA of the LAD, with placement of a taxus stent. CAB12/2002 WHITAKER graft LAD, saphenous vein graft to diagonal branch of anterior descending, lateral CFX and RCA. LHC: 12/2002; 12/16/2005 Angina pectoris (Chronic) I20.9 HLD (hyperlipidemia) (Chronic) E78.5 Hypertension (Chronic) I10 Allergies No Known Allergies Allergy (Verified 01/28/18 13:24) Home Medications: Ambulatory Orders Medication Instructions Recorded Apixaban [Eliquis] 5 mg PO BID 01/28/18 Digoxin [Lanoxin] 250 mcg PO BREAKFAST 01/28/18 Hydrocodone/Acetaminophen 1 - 2 each PO Q6H 01/28/18 [Hydrocodon-Acetaminophen 5-325] Levothyroxine [Synthroid] 112 mcg PO DAILY 01/28/18 Metoprolol Tartrate [Lopressor 100 mg PO BID 01/28/18 (Beta Juvenal)] Multivitamins,Therapeutic 1 tablet PO DAILY 01/28/18 [Multivitamin] Potassium Chloride [K-Dur] 20 meq PO BIDCM 01/28/18 Tamsulosin HCl [Flomax] 0.4 mg PO DAILY 01/28/18 amiodarone 200 mg tablet 200 mg PO DAILY #90 tab 01/28/18 morphine SR tablet [MS Contin] 15 mg PO BID 01/28/18 pravastatin 20 mg tablet 20 mg PO QHS #90 tab 01/28/18 predniSONE tablet 5 mg PO BID 01/28/18 Surgical History: Surgical History (Last Reviewed 01/07/18 @ 11:37 by Shala Beaver) History of PTCA (Chronic) Z98.61 PTCA: 03/23/2003 PTCA/Stent to proximal-mid LAD; 10/2004 PTCA of the LAD, with placement of a taxus stent. Hx of CABG (Chronic) Z95.1 CAB12/2002 WHITAKER graft LAD, saphenous vein graft to diagonal branch of anterior descending, lateral CFX and RCA. History of cholecystectomy Z90.49 History of left heart catheterization (LHC) Z98.890 LHC: 12/2002; 12/16/2005 History of left-sided carotid endarterectomy Onset Date: ~2004 Z98.890 Surgical History: cholecystectomy, coronary bypass surgery - In 2002 and subsequently he had heart stents placed in the same year. Psychiatric History: No pertinent psych hx Lives: With Family Smoking Status: Former smoker - *Family History Paternal Family History: Family History (Last Reviewed 01/07/18 @ 11:37 by Shala Beaver) Father FH: brain aneurysm Mother Myocardial infarction CAD (coronary artery disease) Brother Myocardial infarction Brother CAD (coronary artery disease) Brother Hypertension Sister Diabetes Sister Myocardial infarction Colon cancer Sister Cancer History Items: No pertinent history Review of Systems Constitutional: Denies: Chills, Fever, Weight Change Eyes: Denies: Blurred vision HEENT: Denies: Head Aches, Sinus Congestion, Sinus Drainage Cardiovascular: Denies: Chest Pain, Chest Pressure, Chest Tightness, Palpitations Respiratory: Denies: Cough, Shortness of Breath, Shortness of breath at rest, Sputum production Gastrointestinal: Reports: Nausea, Vomiting. Denies: Abdominal Pain Genitourinary: Denies: Dysuria Musculoskeletal: Denies: Joint Pain, Joint Tenderness Skin: Denies: Rash, Wounds Neurological: Denies: Numbness, Tingling, Focal weakness Psychiatric: Denies: Anxiety, Depression, Homicidal Ideations, Suicidal Ideations Hematologic/ Lymphatic: Denies: Easy Bruising, Easy Bleeding VTE Information - Inpt Only VTE Present on Admission: No - Physical Exam General: Alert, Oriented x3, Cooperative, No apparent distress HEENT: Atraumatic, PERRLA, EOMI, Normocephalic Oral: Dry Mucosa Neck: Supple, No JVD, Negative Carotid Bruits Lungs: Clear to auscultation, Normal air movement, No rhonchi, No wheeze, No rales Cardiovascular: Regular rate, Regular Rhythm, Normal S1, Normal S2, No murmurs Abdomen: Bowel Sounds Present, Soft, Non Tender, Non-Distended Extremities: No clubbing, No cyanosis, No edema, Capillary Refill Less than 3 Seconds Skin: No rashes, No breakdown Musculoskeletal: No Tenderness to Palpation of Joints or Extremities Lymphatic: No Cervical, Supraclavicular, or Inguinal Adenopathy Neurological: Cranial nerves II-XII grossly intact, Neuro grossly intact, Motor Exam 5/5 strength throughout Psych/Mental Status: Normal Affect, Appropriate, Alert and oriented to time, place, person, mood and affect Vital Signs Temp Pulse Resp BP Pulse Ox 98.4 F 57 L 14 118/79 99 01/28/18 13:25 01/28/18 15:33 01/28/18 15:33 01/28/18 15:33 01/28/18 15:33 Oxygen Delivery Method Room Air Weight: 200 lb 6.403 oz Body Mass Index (BMI) 30.4 Laboratory Tests Past 24 Hrs 01/28/18 01/28/18 13:35 13:35 WBC 4.5 RBC 3.18 L Hgb 10.6 L Hct 32.3 L MCV 101.6 H MCH 33.3 H MCHC 32.8 RDW 15.5 H RDW Differential 58.1 H Plt Count 93 L MPV 8.3 Immature Gran % (Auto) 1.300 H Neut % (Auto) 95.6 H Lymph % (Auto) 2.7 L Camp % (Auto) 0.2 Eos % (Auto) 0.2 Baso % (Auto) 0.0 Absolute Neuts (auto) 4.3 Absolute Lymphs (auto) 0.12 L Total Counted Not Reportable Platelet Estimate SLT DEC Sodium 141 Potassium 3.8 Chloride 108 H Carbon Dioxide 25.0 Anion Gap 8 BUN 19 H Creatinine 1.13 Estim Creat Clear Calc 50.44 Est GFR (MDRD) Af Amer 80 Est GFR (MDRD) Non-Af 66 BUN/Creatinine Ratio 16.8 Glucose 109 H Calcium 8.7 Assessment/Plan All Active Problems (Last Reviewed 01/07/18 @ 11:37 by Shala Beaver) Weakness (Acute) Vomiting (Acute) Malaise and fatigue (Acute) Atrial flutter (Acute) 78 y/o male admitted with a complaint of severe nausea and vomiting after he received Keytruda today for treatment of metastatic prostate cancer 1. Hypovolemic shock due to chemotherapy induced nausea and vomiting * Blood pressure was 67/46 on admission. Received Keytruda today and started having severe nausea and vomiting afterwards. * Patient alert and able to communicate. BP up to 120/97 at time of review * Admit to [facility] with telemetry. * Received 2 L of IV fluid normal saline in the ED * Will give another bolus of IV fluid normal saline and continue with normal saline at 200 cc/h. * IV Zofran for nausea. * on prednisone 5mg bid; duration of taking medication is unknown. Will give IV hydrocortisone 50mg once as stress dose * 2. Chemotherapy-induced nausea and vomiting * Treatment as under 1. * 3. Prostate cancer with bony metastases * follows with Dr Nassar * on keytruda. 4. Hypertension:will hold BP meds o/a of hypotension 5. Atrial fibrillation: currently rate controlled. on amiodarone and eliquis as well as digoxin. 6. DVT prophylaxis: on eliquis; will hold evening dose of eliquis, just in case he needs central line placement . On arrival at [facility], patient's BP was in 70s systolic, despite receiving 3L of NS. Decision made to immediately transfer him to ICU. Patient is fully anticoagulated on eliquis, which he takes for Afib. Discussed central line placement with patient and his as well as sons. Patient and his prefer that we hold off on central line placement for now, and do it only when absolutely necessary. consult cellar hand. Discussed with Dr Cheney (cellar hand). Per discussion, decision made to start low dose levophed 5mcg/min via peripheral line. Not to exceed 10mcg of levophed via peripheral line. Total of 55 mins was spent on critical care for patient. Code status discussed with patient and his . Patient counseled extensively about different types of CODE STATUS including full code, DNR CCA and DNR CCA. Patient elects to be full code. Total [id number] time 16 minutes. * Code Visit Inpatient E&M: 51668 Init Hosp L3 Procedures: 90063 Critial Care 1st Hr - advanced care planning first 30 mins- [id number]
--- NOTE | 2018-01-28 15:59 | EKG12_ITS ---
Test Reason : HYPOTENSION Blood Pressure : / mmHG Vent. Rate : 064 BPM Atrial Rate : 064 BPM P-R Int : 190 ms QRS Dur : 102 ms QT Int : 418 ms P-R-T Axes : 003 022 038 degrees QTc Int : 431 ms Normal sinus rhythm with sinus arrhythmia Normal ECG Confirmed by ALVIN OSMAN, KEDAR ([id number]), video editor MICKEY FLYNN ([id number] on 01/31/2018 1:56:27 PM Referred By: Ramesh Gamez Confirmed By:KEDAR ESQUIVEL MD
--- NOTE | 2018-01-28 15:59 | RAD_ITS ---
STUDY: X-RAY CHEST REASON FOR EXAM: Male, 78 years old. Nausea, vomiting and headache. TECHNIQUE: Single frontal view of the chest. COMPARISON: December 22, 2017 FINDINGS: The lungs are hyperexpanded and unchanged. There is no demonstrated pleural abnormality. There is stable moderate cardiomegaly with sternotomy wires and changes of coronary artery bypass grafting. Normal mediastinum and amie. Normal visualized pulmonary arteries. There is atherosclerotic calcification of the aortic arch with tortuosity. Normal visualized thoracic spine. Normal visualized ribs, clavicles, and shoulders. There is no demonstrated abnormality of the visualized soft tissue structures of the upper abdomen. RAD/Chest 1 View (Portable) IMPRESSION: Stable cardiomegaly with hyperexpansion. No new or acute finding. Electronically Signed: Werner Hull MD at 16:27 EST , Service support ,
--- NOTE | 2018-01-28 16:46 | NURSING ---
Spoke with Dr. Kingsley re: [facility] blood pressure after IVF in ER. States she will order a dose of IV steroids and more IVF and to place a second large bore IV upon arrival to [facility]. Continue to admit to med-surg
--- NOTE | 2018-01-28 17:26 | NURSING ---
Dr. Kingsley aware of most recent blood pressure/pulse. Orders for NS bolus x2 liters and to place a second IV line. Transfer orders obtained for ICU.
[2018-01-28] MEDS: Acetaminophen 325 MG Tablet 650 MG PO (20:08)
[2018-01-28] MEDS: Hydrocortisone Sod Succinate 100 MG/2 ML Vial 50 MG IV (20:08)
[2018-01-28 20:11] LABS: Reflex Lactate? Y
[2018-01-28] MEDS: 0.9% NaCl Peripheral Flush Adult/Peds IV ×2 (20:50→20:51)
[2018-01-28] MEDS: morphine SR 15 MG Tablet PO (21:30)
[2018-01-28 23:04] LABS: Lactic Acid 1.2 mmol/L (0.4-2.0)
[2018-01-29] VITALS (65 sets, daily range): BP systolic 75–139; BP diastolic 47–84; PULSE 63–134; RESP 12–28; TEMP 36.1–38.9; O2SAT 90–100
[2018-01-29] MEDS: HYDROcodone Bitartrate/Apap 5/325 Tablet PO ×3 (00:58→12:13)
--- NOTE | 2018-01-29 02:23 | EKG12_ITS ---
Test Reason : CP/JAW PAIN Blood Pressure : / mmHG Vent. Rate : 080 BPM Atrial Rate : 080 BPM P-R Int : 180 ms QRS Dur : 104 ms QT Int : 392 ms P-R-T Axes : 099 020 057 degrees QTc Int : 452 ms Normal sinus rhythm Nonspecific ST abnormality Abnormal ECG When compared with ECG of 28-JAN-2018 16:11, MANUAL COMPARISON REQUIRED, DATA IS UNCONFIRMED Confirmed by ALVIN OSMAN, KEDAR ([id number]), editor in chief newspaper MICKEY FLYNN ([id number]) on 02/01/2018 9:07:45 AM Referred By: Ramesh Gamez Confirmed By:KEDAR ESQUIVEL MD
[2018-01-29] MEDS: 0.9% NaCl Peripheral Flush Adult/Peds IV (04:22)
[2018-01-29] MEDS: Ondansetron 4 MG/2 ML Vial IV ×3 (04:22→18:22)
[2018-01-29 04:26] LABS: Absolute Lymphocyte Count 0.21 X10^3/ul (0.83-4.51); Absolute Neutrophil Count 7.2 X10^3/uL (2.0-7.7); Basophil# 0.01 X10^3/uL; Basophil% 0.1 % (0-1); Eosinophil# 0.01 X10^3/uL; Eosinophils% 0.1 % (0-5); Hematocrit 30.7 % (40-54); Hemoglobin 9.9 g/dl (13.0-16.5); Lymphocyte # 0.21 X10^3/ul (4.0); Lymphocyte % 2.6 % (19-41); Mean Corp Hgb Conc 32.2 g/gl (32-36); Mean Corpuscular Hgb 33.7 pg (27.0-32.0); Mean Corpuscular Volume 104.4 fL (80-94); Mean Platelet Vol. 8.6 fl (6.2-12.0); Monocyte# 0.53 X10^3/uL; Monocyte% 6.6 % (0-10); Neutrophil # 7.24 X10^3/uL (2.7-7.7); Neutrophil % 90.2 % (47-70); Platelet Count 97 K/mm3 (150-450); RBC Distribution Width CV 15.5 % (11.6-14.6); RBC Distribution Width SD 57.8 fl (35.1-43.9); Red Blood Count 2.94 M/mm3 (4.6-6.2)
[2018-01-29 04:27] LABS: Differential Indicated SCAN CRITERIA MET; POSITIVE COUNT NO; POSITIVE DIFFERENTIAL YES; POSITIVE MORPHOLOGY NO
[2018-01-29 04:52] LABS: Anion Gap 8 (5-15); BUN 16 mg/dL (7-18); BUN/Creat Ratio 16.4 RATIO (10-20); Calcium,Total 7.8 mg/dL (8.5-10.1); Chloride 111 mmol/L (98-107); Creatinine, Serum 0.98 mg/dL (0.70-1.30); EST Glomerular Filtration Rate 78 mL/min (>60); Est Glom Filt Rate - Afr Amer 95 mL/min (>60); Estimated Creatinine Clearance 58.16 ml/min; Glucose 112 mg/dL (74-106); Potassium 4.3 mmol/L (3.5-5.1); Sodium Level 141 mmol/L (136-145)
[2018-01-29] MEDS: Amiodarone 200 MG Tablet PO (04:53)
--- NOTE | 2018-01-29 05:55 | EKG12_ITS ---
Test Reason : AM EKG Blood Pressure : / mmHG Vent. Rate : 114 BPM Atrial Rate : 122 BPM P-R Int : 000 ms QRS Dur : 100 ms QT Int : 312 ms P-R-T Axes : 000 026 032 degrees QTc Int : 430 ms Atrial fibrillation Nonspecific ST abnormality Abnormal ECG When compared with ECG of 28-JAN-2018 16:11, MANUAL COMPARISON REQUIRED, DATA IS UNCONFIRMED Confirmed by ALVIN OSMAN, KEDAR ([id number]), editor in chief MICKEY FLYNN ([id number]) on 02/01/2018 9:06:52 AM Referred By: Ramesh Gamez Confirmed By:KEDAR ESQUIVEL MD
--- NOTE | 2018-01-29 06:44 | PCM.CON.CC ---
Reason for Consult Date of Consultation: 01/29/18 Reason for Consultation: Hypovolemic shock History of Present Illness: The patient is an 78-year-old male, with a history as outlined below, who presented to the emergency department on January 28 with complaints of nausea and vomiting. The patient has a history of metastatic prostate cancer, for which he is currently being treated with Keytruda. The patient was recently admitted to the hospital under similar circumstances December 20 - December 27. The patient does have a history of coronary artery disease for which she is status post PCI and CABG. In addition, during the patient's prior hospitalization he was noted to be in atrial fibrillation with a rapid ventricular response. The patient did follow-up with cardiology in mid December. The patient reports that this is now his third dose of Keytruda. He did not develop any reactions to the medication during his first administration. However, each of the last 2 times the medication has been administered, he has developed significant generalized weakness, fatigue, nausea and vomiting. Dr. Nassar is his current oncologist. On presentation to the emergency department, the patient was noted to be afebrile and hypotensive with a blood pressure of 77/45 mmHg. Laboratory evaluation revealed no evidence of a leukocytosis. Chemistry profile revealed a mildly elevated creatinine of 1.13. Lactate was within normal limits. Initial troponins were negative but have increased over the course of the night. Plain film chest x-ray revealed no acute cardiopulmonary process. The patient received supplemental IV fluid hydration and did have to be started on levophed transiently to maintain hemodynamic stability. Overnight, the patient did report chest discomfort and jaw pain, which appears to have coincided with the time that levophed was being utilized. The patient now reports that the aforementioned symptoms have improved since the patient's vasopressor support has been discontinued. Past Medical History Past Medical History (Chronic Problems): Chronic Problems (Last Reviewed 01/07/18 @ 11:37 by Shala Beaver) Prostate cancer metastatic to bone (Chronic) Stenosis of right carotid artery (Chronic) Choledocholithiasis with acute cholecystitis with obstruction (Chronic) Atherosclerosis of coronary artery bypass graft without angina pectoris (Chronic) CAB12/2002 WHITAKER graft LAD, saphenous vein graft to diagonal branch of anterior descending, lateral CFX and RCA. Dyspnea on exertion (Chronic) Malaise and fatigue (Chronic) Dyspnea and respiratory abnormalities (Chronic) Carotid stenosis (Chronic) History of PTCA (Chronic) PTCA: 03/23/2003 PTCA/Stent to proximal-mid LAD; 10/2004 PTCA of the LAD, with placement of a taxus stent. Hx of CABG (Chronic) CAB12/2002 WHITAKER graft LAD, saphenous vein graft to diagonal branch of anterior descending, lateral CFX and RCA. Nonspecific abnormal unspecified cardiovascular function study (Chronic) Palpitations (Chronic) CAD (coronary artery disease) (Chronic) PTCA: 03/23/2003 PTCA/Stent to proximal-mid LAD; 10/2004 PTCA of the LAD, with placement of a taxus stent. CAB12/2002 WHITAKER graft LAD, saphenous vein graft to diagonal branch of anterior descending, lateral CFX and RCA. [facility]: 12/2002; 12/16/2005 Angina pectoris (Chronic) HLD (hyperlipidemia) (Chronic) Hypertension (Chronic) Hypothyroid (Chronic) Hyperlipidemia (Chronic) Acute cholecystitis (Chronic) Choledocholithiasis with acute cholecystitis with obstruction (Chronic) Choledocholithiasis with obstruction (Chronic) Medical History: Medical History (Last Reviewed 01/07/18 @ 11:37 by Shala Beaver) Stenosis of right carotid artery (Chronic) I65.21 Choledocholithiasis with acute cholecystitis with obstruction (Chronic) K80.41 Atherosclerosis of coronary artery bypass graft without angina pectoris (Chronic) I25.810 CAB12/2002 WHITAKER graft LAD, saphenous vein graft to diagonal branch of anterior descending, lateral CFX and RCA. Dyspnea on exertion (Chronic) R06.09 Malaise and fatigue (Chronic) R53.81, R53.83 Dyspnea and respiratory abnormalities (Chronic) R06.00, R06.89 Carotid stenosis (Chronic) I65.29 Nonspecific abnormal unspecified cardiovascular function study (Chronic) R94.30 Palpitations (Chronic) R00.2 CAD (coronary artery disease) (Chronic) I25.10 PTCA: 03/23/2003 PTCA/Stent to proximal-mid LAD; 10/2004 PTCA of the LAD, with placement of a taxus stent. CAB12/2002 WHITAKER graft LAD, saphenous vein graft to diagonal branch of anterior descending, lateral CFX and RCA. [facility]: 12/2002; 12/16/2005 Angina pectoris (Chronic) I20.9 HLD (hyperlipidemia) (Chronic) E78.5 Hypertension (Chronic) I10 Allergies No Known Allergies Allergy (Verified 01/28/18 13:24) Home Medications: Ambulatory Orders Medication Instructions Recorded Apixaban [Eliquis] 5 mg PO BID 01/28/18 Digoxin [Lanoxin] 250 mcg PO BREAKFAST 01/28/18 Hydrocodone/Acetaminophen 1 - 2 each PO Q6H 01/28/18 [Hydrocodon-Acetaminophen 5-325] Levothyroxine [Synthroid] 112 mcg PO DAILY 01/28/18 Metoprolol Tartrate [Lopressor 100 mg PO BID 01/28/18 (Beta Juvenal)] Multivitamins,Therapeutic 1 tablet PO DAILY 01/28/18 [Multivitamin] Potassium Chloride [K-Dur] 20 meq PO BIDCM 01/28/18 Tamsulosin HCl [Flomax] 0.4 mg PO DAILY 01/28/18 amiodarone 200 mg tablet 200 mg PO DAILY #90 tab 01/28/18 morphine SR tablet [MS Contin] 15 mg PO BID 01/28/18 pravastatin 20 mg tablet 20 mg PO QHS #90 tab 01/28/18 predniSONE tablet 5 mg PO BID 01/28/18 Surgical History: Surgical History (Last Reviewed 01/07/18 @ 11:37 by Shala Beaver) History of PTCA (Chronic) Z98.61 PTCA: 03/23/2003 PTCA/Stent to proximal-mid LAD; 10/2004 PTCA of the LAD, with placement of a taxus stent. Hx of CABG (Chronic) Z95.1 CAB12/2002 WHITAKER graft LAD, saphenous vein graft to diagonal branch of anterior descending, lateral CFX and RCA. History of cholecystectomy Z90.49 History of left heart catheterization (LHC) Z98.890 [facility]: 12/2002; 12/16/2005 History of left-sided carotid endarterectomy Onset Date: ~2004 Z98.890 Surgical History: cholecystectomy, coronary bypass surgery - In 2002 and subsequently he had heart stents placed in the same year. Psychiatric History: No pertinent psych hx Lives: With Family Smoking Status: Former smoker Tobacco Use: Cigarettes - *Family History Paternal Family History: Family History (Last Reviewed 01/07/18 @ 11:37 by Shala Beaver) Father FH: brain aneurysm Mother Myocardial infarction CAD (coronary artery disease) Brother Myocardial infarction Brother CAD (coronary artery disease) Brother Hypertension Sister Diabetes Sister Myocardial infarction Colon cancer Sister Cancer History Items: No pertinent history Review of Systems Constitutional: Reports: Malaise, Weakness, Fatigue Eyes: Denies: Blurred vision, Double vision HEENT: Denies: Head Aches, Sinus Congestion, Sinus Drainage Cardiovascular: Reports: Chest Pain Respiratory: Denies: Cough, Shortness of breath at rest, Sputum production Gastrointestinal: Reports: Nausea, Vomiting. Denies: Abdominal Pain, Diarrhea Genitourinary: Denies: Dysuria Musculoskeletal: Denies: Joint Pain, Joint Tenderness Skin: Denies: Rash, Wounds Neurological: Denies: Numbness, Tingling, Focal weakness Psychiatric: Denies: Anxiety, Depression, Homicidal Ideations, Suicidal Ideations Hematologic/ Lymphatic: Denies: Easy Bruising, Easy Bleeding Objective: The patient's most recent lab work, culture data and imaging studies have all been personally reviewed. Surface echocardiogram dated November 2017 revealed normal LV size and thickness with an ejection fraction of 45%. Right ventricular systolic pressure was also noted to be 45 mmHg. - Physical Exam General: Alert, Oriented x3, Cooperative, No apparent distress, - - is present at the bedside. HEENT: Atraumatic, PERRLA, Normocephalic Oral: Dry Mucosa Neck: Supple, No Nodes, Trachea Midline Lungs: Normal air movement, No rhonchi, No wheeze, No rales Cardiovascular: Normal S1, Normal S2, No murmurs, Irregular Rate Abdomen: Bowel Sounds Present, Soft, Non Tender, Non-Distended, Obese Extremities: No clubbing, No cyanosis, No edema Skin: No breakdown Musculoskeletal: No Tenderness to Palpation of Joints or Extremities, No Muscle Wasting Lymphatic: No Cervical, Supraclavicular, or Inguinal Adenopathy Neurological: Cranial nerves II-XII grossly intact, Neuro grossly intact Psych/Mental Status: Alert and oriented to time, place, person, mood and affect Vital Signs Temp Pulse Resp BP Pulse Ox 37.1 C 103 H 16 115/59 L 96 01/29/18 05:00 01/29/18 06:30 01/29/18 06:30 01/29/18 06:30 01/29/18 06:30 Oxygen Flow Rate (L/min) 2 Oxygen Delivery Method Room Air Weight: 205 lb 7.533 oz Body Mass Index (BMI) 31.0 Intake and Output for Last 24 Hours 01/27/18 01/28/18 01/29/18 23:59 23:59 23:59 Intake Total 1525.4 / 1525.4 912.5 / 912.5 Output Total 500 / 500 600 / 600 Balance 1025.4 / 1025.4 312.5 / 312.5 Laboratory Tests Past 24 Hrs 01/28/18 01/28/18 01/28/18 13:35 13:35 16:07 WBC 4.5 RBC 3.18 L Hgb 10.6 L Hct 32.3 L MCV 101.6 H MCH 33.3 H MCHC 32.8 RDW 15.5 H RDW Differential 58.1 H Plt Count 93 L MPV 8.3 Immature Gran % (Auto) 1.300 H Neut % (Auto) 95.6 H Lymph % (Auto) 2.7 L [place] % (Auto) 0.2 Eos % (Auto) 0.2 Baso % (Auto) 0.0 Absolute Neuts (auto) 4.3 Absolute Lymphs (auto) 0.12 L Total Counted Not Reportable Platelet Estimate SLT DEC Sodium 141 Potassium 3.8 Chloride 108 H Carbon Dioxide 25.0 Anion Gap 8 BUN 19 H Creatinine 1.13 Estim Creat Clear Calc 50.44 Est GFR (MDRD) Af Amer 80 Est GFR (MDRD) Non-Af 66 BUN/Creatinine Ratio 16.8 Glucose 109 H Lactic Acid 2.0 Calcium 8.7 Troponin I 01/28/18 01/28/18 01/28/18 19:45 22:20 22:20 WBC RBC Hgb Hct MCV MCH MCHC RDW RDW Differential Plt Count MPV Immature Gran % (Auto) Neut % (Auto) Lymph % (Auto) [place] % (Auto) Eos % (Auto) Baso % (Auto) Absolute Neuts (auto) Absolute Lymphs (auto) Total Counted Platelet Estimate Sodium Potassium Chloride Carbon Dioxide Anion Gap BUN Creatinine Estim Creat Clear Calc Est GFR (MDRD) Af Amer Est GFR (MDRD) Non-Af BUN/Creatinine Ratio Glucose Lactic Acid 1.2 Calcium Troponin I < 0.015 0.034 01/29/18 01/29/18 01/29/18 01:05 04:10 04:10 WBC 8.0 RBC 2.94 L Hgb 9.9 L Hct 30.7 L MCV 104.4 H MCH 33.7 H MCHC 32.2 RDW 15.5 H RDW Differential 57.8 H Plt Count 97 L MPV 8.6 Immature Gran % (Auto) 0.400 Neut % (Auto) 90.2 H Lymph % (Auto) 2.6 L [place] % (Auto) 6.6 Eos % (Auto) 0.1 Baso % (Auto) 0.1 Absolute Neuts (auto) 7.2 Absolute Lymphs (auto) 0.21 L Total Counted Not Reportable Platelet Estimate Sodium 141 Potassium 4.3 Chloride 111 H Carbon Dioxide 22.0 Anion Gap 8 BUN 16 Creatinine 0.98 Estim Creat Clear Calc 58.16 Est GFR (MDRD) Af Amer 95 Est GFR (MDRD) Non-Af 78 BUN/Creatinine Ratio 16.4 Glucose 112 H Lactic Acid Calcium 7.8 L Troponin I 0.052 H 01/29/18 04:10 WBC RBC Hgb Hct MCV MCH MCHC RDW RDW Differential Plt Count MPV Immature Gran % (Auto) Neut % (Auto) Lymph % (Auto) [place] % (Auto) Eos % (Auto) Baso % (Auto) Absolute Neuts (auto) Absolute Lymphs (auto) Total Counted Platelet Estimate Sodium Potassium Chloride Carbon Dioxide Anion Gap BUN Creatinine Estim Creat Clear Calc Est GFR (MDRD) Af Amer Est GFR (MDRD) Non-Af BUN/Creatinine Ratio Glucose Lactic Acid Calcium Troponin I 0.052 H Clinical Impression(s) from Imaging Studies Chest X-Ray 01/28/18 15:59 IMPRESSION: Stable cardiomegaly with hyperexpansion. No new or acute finding. Electronically Signed: Werner Hull MD at 16:27 EST , Service support , Assessment/Plan RECOMMENDATIONS: 1. Continue gentle supplemental IV fluid hydration. 2. Continue antiemetics as ordered. 3. Amiodarone bolus pending. 4. Continue Eliquis as ordered. 5. Pain control regimen per hospitalist. IMPRESSIONS: 1. Hypovolemic shock The patient has responded favorably from a hemodynamic perspective to IV fluid resuscitation in the transient use of vasopressor support. He is no longer requiring Levophed. Would plan to continue gentle IV fluid hydration for now. Continue antiemetics and encourage p.o. intake. 2. Immunotherapy-induced nausea and vomiting Continue supportive measures as noted above with antiemetics and supplemental IV fluids. Oncology to evaluate whether the patient would be a candidate for any additional immunotherapy treatments, given his recurrent reaction to the medication. 3. Paroxysmal atrial fibrillation/troponin elevation Cardiology consultation has been placed. Patient to receive amiodarone bolus this morning. Troponins can be discontinued from my perspective, unless cardiology wishes them to be continued. 4. Metastatic prostate cancer Defer ongoing management to oncology accordingly. 5. Hypertension/hyperlipidemia/chronic cancer related pain Complicates care, management, recovery and prognosis. Hold home beta-juvenal dose due to hypotension. This note was generated with [email or web address] dictation software. It may contain incorrect words, spelling, and punctuation that were not noted in checking the note before signing. Code Visit Inpatient E&M: 29143 Init Hosp L3
[2018-01-29] MEDS: morphine SR 15 MG Tablet PO ×2 (07:59→22:00)
[2018-01-29] MEDS: Digoxin 250 MCG Tablet PO (08:02)
[2018-01-29] MEDS: CHLORHEXIDINE GLUC 2% CLOTH 1 EACH TOWELETTE TOPICAL (09:31)
[2018-01-29] MEDS: Multivitamins,Therapeutic Tablet 1 TABLET PO (09:33)
--- NOTE | 2018-01-29 09:43 | PCM.CONS.C ---
Reason for Consult Date of Consultation: 01/29/18 History of Present Illness: LC JAIMES, is a 78 M who presented to the emergency room because he was not feeling well. He had just received another dose of his chemotherapy agent Keytruda and then started feeling really bad. In the emergency room he was noted to be hypotensive and tachycardic he was initially admitted to the medical floor after given an intravenous bolus of fluids and then subsequently transferred to the intensive care unit. He was put on low-dose pressor agents and developed atrial fibrillation through the night. Cardiology was called to evaluate him. He has a history of coronary artery disease with bypass surgery in 2002. He had an WHITAKER to the LAD, SVG to the diagonal branch of the anterior descending, lateral circumflex and RCA. He also has a history of atrial flutter, ischemic cardiomyopathy, hypertension, hyperlipidemia, carotid artery disease with a left carotid endarterectomy in 2004, and prostate carcinoma with mets to bones with chemotherapy and radiation therapy. He recently was admitted to [facility] for generalized weakness and fatigue. During his evaluation he was noted to be in atrial fibrillation with RVR. He required antiarrhythmic and rate limiting medications. He was discharged to nursing facility for rehab. Pt. denies arm, jaw, or neck discomfort. Pt. denies symptoms of CHF, palpitations, near syncope, or syncopal episodes. Pt. denies edema or claudication issues. Pt. denies orthopnea, or PND. This morning he looks much better overall. Past Medical History Allergies/Adverse Reactions: Allergies No Known Allergies Allergy (Verified 01/28/18 13:24) Home Medications: Ambulatory Orders Medication Instructions Recorded Apixaban [Eliquis] 5 mg PO BID 01/28/18 Digoxin [Lanoxin] 250 mcg PO BREAKFAST 01/28/18 Hydrocodone/Acetaminophen 1 - 2 each PO Q6H 01/28/18 [Hydrocodon-Acetaminophen 5-325] Levothyroxine [Synthroid] 112 mcg PO DAILY 01/28/18 Metoprolol Tartrate [Lopressor 100 mg PO BID 01/28/18 (Beta Khang)] Multivitamins,Therapeutic 1 tablet PO DAILY 01/28/18 [Multivitamin] Potassium Chloride [K-Dur] 20 meq PO BIDCM 01/28/18 Tamsulosin HCl [Flomax] 0.4 mg PO DAILY 01/28/18 amiodarone 200 mg tablet 200 mg PO DAILY #90 tab 01/28/18 morphine SR tablet [MS Contin] 15 mg PO BID 01/28/18 pravastatin 20 mg tablet 20 mg PO QHS #90 tab 01/28/18 predniSONE tablet 5 mg PO BID 01/28/18 Past Medical History (Chronic Problems): Chronic Problems (Last Reviewed 01/07/18 @ 11:37 by Shala Beaver) Prostate cancer metastatic to bone (Chronic) Stenosis of right carotid artery (Chronic) Choledocholithiasis with acute cholecystitis with obstruction (Chronic) Atherosclerosis of coronary artery bypass graft without angina pectoris (Chronic) CAB12/2002 WHITAKER graft LAD, saphenous vein graft to diagonal branch of anterior descending, lateral CFX and RCA. Dyspnea on exertion (Chronic) Malaise and fatigue (Chronic) Dyspnea and respiratory abnormalities (Chronic) Carotid stenosis (Chronic) History of PTCA (Chronic) PTCA: 03/23/2003 PTCA/Stent to proximal-mid LAD; 10/2004 PTCA of the LAD, with placement of a taxus stent. Hx of CABG (Chronic) CAB12/2002 WHITAKER graft LAD, saphenous vein graft to diagonal branch of anterior descending, lateral CFX and RCA. Nonspecific abnormal unspecified cardiovascular function study (Chronic) Palpitations (Chronic) CAD (coronary artery disease) (Chronic) PTCA: 03/23/2003 PTCA/Stent to proximal-mid LAD; 10/2004 PTCA of the LAD, with placement of a taxus stent. CAB12/2002 WHITAKER graft LAD, saphenous vein graft to diagonal branch of anterior descending, lateral CFX and RCA. [facility]: 12/2002; 12/16/2005 Angina pectoris (Chronic) HLD (hyperlipidemia) (Chronic) Hypertension (Chronic) Hypothyroid (Chronic) Hyperlipidemia (Chronic) Acute cholecystitis (Chronic) Choledocholithiasis with acute cholecystitis with obstruction (Chronic) Choledocholithiasis with obstruction (Chronic) Surgical History: cholecystectomy, coronary bypass surgery - In 2002 and subsequently he had heart stents placed in the same year. Psychiatric History: No pertinent psych hx - *Family History Paternal Family History: Family History (Last Reviewed 01/07/18 @ 11:37 by Shala Beaver) Father FH: brain aneurysm Mother Myocardial infarction CAD (coronary artery disease) Brother Myocardial infarction Brother CAD (coronary artery disease) Brother Hypertension Sister Diabetes Sister Myocardial infarction Colon cancer Sister Cancer History Items: No pertinent history Lives: With Family Smoking Status: Former smoker Tobacco Use: Cigarettes Alcohol: None Drugs: None Review of Systems - Review of Systems General: Reports: Fatigue, Malaise. Denies: Fever, Night Sweats HEENT: Denies: Vision Change Cardiovascular: Reports: Palpitations. Denies: Chest Discomfort, Shortness of Breath, Orthopnea, PND, Peripheral Edema, Lightheadedness, Dizziness, Near Syncope, Syncope Respiratory: Denies: Cough, Sputum Production, Hemoptysis Gastrointestinal: Denies: Indigestion, Hematemesis, Hematochezia, Melena Genitourinary: Denies: Dysuria, Hematuria Muscoloskeletal: Denies: Myalgias Skin: Denies: Rash Neurological: Reports: Dizziness Psychiatric: Denies: Anxiety Endocrine: Denies: Unexplained Weight Loss Hematologic/ Lymphatic: Reports: Anemia Subjectve: Pleasant gentleman in no apparent distress Objective: Vital Signs Temp Pulse Resp BP Pulse Ox 99.1 F 86 25 H 106/58 L 98 01/29/18 08:00 01/29/18 09:00 01/29/18 09:00 01/29/18 09:00 01/29/18 09:00 Oxygen Flow Rate (L/min) 2 Oxygen Delivery Method Room Air Weight: 205 lb 7.533 oz Body Mass Index (BMI) 31.0 Intake and Output for Last 24 Hours 01/27/18 01/28/18 01/29/18 23:59 23:59 23:59 Intake Total 1525.4 / 1525.4 912.5 / 912.5 Output Total 500 / 500 600 / 600 Balance 1025.4 / 1025.4 312.5 / 312.5 General: Awake, Alert, Oriented x 3 HEENT: PERRL, EOMI, Sclera Non Icteric Neck: Supple, Good ROM, No Lymph Node Enlargement Lungs: Clear to auscultation Cardiovascular: Irregular Rhythm, Normal S1, Normal S2, No Murmurs, No Rubs, No Gallops Vascular: No Carotid Bruits, Normal Femoral Pulses, Normal Radial Pulses, Normal Dorsalis Pedal Pulse, Normal Posterior Tibial Pulses Abdomen: Bowel Sounds Present, Soft, Non Tender, No HSM, No Organomegaly Extremities: No Cyanosis, No Clubbing, No edema Musculoskeletal: No Erythema Skin: No Rashes Lymphatic: No Lymph Node Enlargement Neurological: No Focal Motor or Sensory Deficit Psych/Mental Status: Appropriate 01/28/18 13:35: WBC 4.5, RBC 3.18 L, Hgb 10.6 L, Hct 32.3 L, MCV 101.6 H, MCH 33.3 H, MCHC 32.8, RDW 15.5 H, RDW Differential 58.1 H, Plt Count 93 L, MPV 8.3, Immature Gran % (Auto) 1.300 H, Neut % (Auto) 95.6 H, Lymph % (Auto) 2.7 L, [place] % (Auto) 0.2, Eos % (Auto) 0.2, Baso % (Auto) 0.0, Absolute Neuts (auto) 4.3, Total Counted Not Reportable 01/28/18 13:35: Sodium 141, Potassium 3.8, Chloride 108 H, Carbon Dioxide 25.0, Anion Gap 8, BUN 19 H, Creatinine 1.13, Est GFR (MDRD) Af Amer 80, Est GFR (MDRD) Non-Af 66, BUN/Creatinine Ratio 16.8, Glucose 109 H, Calcium 8.7 01/28/18 16:07: Lactic Acid 2.0 01/28/18 19:45: Troponin I < 0.015 01/28/18 22:20: Troponin I 0.034 01/28/18 22:20: Lactic Acid 1.2 01/29/18 01:05: Troponin I 0.052 H 01/29/18 04:10: Sodium 141, Potassium 4.3, Chloride 111 H, Carbon Dioxide 22.0, Anion Gap 8, BUN 16, Creatinine 0.98, Est GFR (MDRD) Af Amer 95, Est GFR (MDRD) Non-Af 78, BUN/Creatinine Ratio 16.4, Glucose 112 H, Calcium 7.8 L 01/29/18 04:10: WBC 8.0, RBC 2.94 L, Hgb 9.9 L, Hct 30.7 L, MCV 104.4 H, MCH 33.7 H, MCHC 32.2, RDW 15.5 H, RDW Differential 57.8 H, Plt Count 97 L, MPV 8.6, Immature Gran % (Auto) 0.400, Neut % (Auto) 90.2 H, Lymph % (Auto) 2.6 L, [place] % (Auto) 6.6, Eos % (Auto) 0.1, Baso % (Auto) 0.1, Absolute Neuts (auto) 7.2, Total Counted Not Reportable 01/29/18 04:10: Troponin I 0.052 H 01/29/18 06:53: Troponin I 0.058 H Rhythm: EKG: Atrial fibrillation with rapid ventricular response rate Assessment/Plan 1. Atrial fibrillation with rapid ventricular response The above appears to be likely secondary to his chemotherapy agents, hypotension, and Levophed infusion. Rate appears to be improving with oral and intravenous amiodarone which will be continued Will continue with his anticoagulation His last echocardiogram done 2 months ago demonstrated an ejection fraction of 45% and at this time I would not repeated. His beta-khang will be reintroduced as his blood pressure recovers 2. CAD status post PCI and CABG The patient has undergone extensive noninvasive and invasive evaluation of his underlying CAD process in the past. At the moment he appears to be without symptoms of acute coronary syndrome. He will continue medical management and undergo further evaluation as deemed appropriate. 3. Carotid artery disease The patient does have carotid artery disease and has undergone surgical intervention in the past. He appears without any acute symptoms at this time. He will continue to be followed as deemed appropriate. 4. Hyperlipidemia The patient will continue risk factor evaluation care. 5. Hypertension The patient's blood pressure will need to be monitored. His medications may need to be adjusted to avoid significant hypotension and/or hypertension. 6. Prostatic carcinoma with metastatic disease The patient will continue evaluation care per hematology/oncology. Thank you for allowing me to participate in the care of your patient. Please don't hesitate to call if any issues arise
--- NOTE | 2018-01-29 09:48 | CON.PCM_ITS ---
Reason for Consult Date of Consultation: 01/29/18 History of Present Illness: LC JAIMES, is a 78 M who presented to the emergency room because he was not feeling well. He had just received another dose of his chemotherapy agent Keytruda and then started feeling really bad. In the emergency room he was noted to be hypotensive and tachycardic he was initially admitted to the medical floor after given an intravenous bolus of fluids and then subsequently transferred to the intensive care unit. He was put on low-dose pressor agents and developed atrial fibrillation through the night. Cardiology was called to evaluate him. He has a history of coronary artery disease with bypass surgery in 2002. He had an HWITAKER to the LAD, SVG to the diagonal branch of the anterior descending, lateral circumflex and RCA. He also has a history of atrial flutter, ischemic cardiomyopathy, hypertension, hyperlipidemia, carotid artery disease with a left carotid endarterectomy in 2004, and prostate carcinoma with mets to bones with chemotherapy and radiation therapy. He recently was admitted to [facility] for generalized weakness and fatigue. During his evaluation he was noted to be in atrial fibrillation with RVR. He required antiarrhythmic and rate limiting medications. He was discharged to nursing facility for rehab. Pt. denies arm, jaw, or neck discomfort. Pt. denies symptoms of CHF, palpitations, near syncope, or syncopal episodes. Pt. denies edema or claudication issues. Pt. denies orthopnea, or PND. This morning he looks much better overall. Past Medical History Allergies/Adverse Reactions: Allergies No Known Allergies Allergy (Verified 01/28/18 13:24) Home Medications: Ambulatory Orders Medication Instructions Recorded Apixaban [Eliquis] 5 mg PO BID 01/28/18 Digoxin [Lanoxin] 250 mcg PO BREAKFAST 01/28/18 Hydrocodone/Acetaminophen 1 - 2 each PO Q6H 01/28/18 [Hydrocodon-Acetaminophen 5-325] Levothyroxine [Synthroid] 112 mcg PO DAILY 01/28/18 Metoprolol Tartrate [Lopressor 100 mg PO BID 01/28/18 (Beta Khang)] Multivitamins,Therapeutic 1 tablet PO DAILY 01/28/18 [Multivitamin] Potassium Chloride [K-Dur] 20 meq PO BIDCM 01/28/18 Tamsulosin HCl [Flomax] 0.4 mg PO DAILY 01/28/18 amiodarone 200 mg tablet 200 mg PO DAILY #90 tab 01/28/18 morphine SR tablet [MS Contin] 15 mg PO BID 01/28/18 pravastatin 20 mg tablet 20 mg PO QHS #90 tab 01/28/18 predniSONE tablet 5 mg PO BID 01/28/18 Past Medical History (Chronic Problems): Chronic Problems (Last Reviewed 01/07/18 @ 11:37 by Shala Beaver) Prostate cancer metastatic to bone (Chronic) Stenosis of right carotid artery (Chronic) Choledocholithiasis with acute cholecystitis with obstruction (Chronic) Atherosclerosis of coronary artery bypass graft without angina pectoris (Chronic) CAB12/2002 WHITAKER graft LAD, saphenous vein graft to diagonal branch of anterior descending, lateral CFX and RCA. Dyspnea on exertion (Chronic) Malaise and fatigue (Chronic) Dyspnea and respiratory abnormalities (Chronic) Carotid stenosis (Chronic) History of PTCA (Chronic) PTCA: 03/23/2003 PTCA/Stent to proximal-mid LAD; 10/2004 PTCA of the LAD, with placement of a taxus stent. Hx of CABG (Chronic) CAB12/2002 WHITAKER graft LAD, saphenous vein graft to diagonal branch of anterior descending, lateral CFX and RCA. Nonspecific abnormal unspecified cardiovascular function study (Chronic) Palpitations (Chronic) CAD (coronary artery disease) (Chronic) PTCA: 03/23/2003 PTCA/Stent to proximal-mid LAD; 10/2004 PTCA of the LAD, with placement of a taxus stent. CAB12/2002 WHITAKER graft LAD, saphenous vein graft to diagonal branch of anterior descending, lateral CFX and RCA. [facility]: 12/2002; 12/16/2005 Angina pectoris (Chronic) HLD (hyperlipidemia) (Chronic) Hypertension (Chronic) Hypothyroid (Chronic) Hyperlipidemia (Chronic) Acute cholecystitis (Chronic) Choledocholithiasis with acute cholecystitis with obstruction (Chronic) Choledocholithiasis with obstruction (Chronic) Surgical History: cholecystectomy, coronary bypass surgery - In 2002 and subsequently he had heart stents placed in the same year. Psychiatric History: No pertinent psych hx - *Family History Paternal Family History: Family History (Last Reviewed 01/07/18 @ 11:37 by Shala Beaver) Father FH: brain aneurysm Mother Myocardial infarction CAD (coronary artery disease) Brother Myocardial infarction Brother CAD (coronary artery disease) Brother Hypertension Sister Diabetes Sister Myocardial infarction Colon cancer Sister Cancer History Items: No pertinent history Lives: With Family Smoking Status: Former smoker Tobacco Use: Cigarettes Alcohol: None Drugs: None Review of Systems - Review of Systems General: Reports: Fatigue, Malaise. Denies: Fever, Night Sweats HEENT: Denies: Vision Change Cardiovascular: Reports: Palpitations. Denies: Chest Discomfort, Shortness of Breath, Orthopnea, PND, Peripheral Edema, Lightheadedness, Dizziness, Near Syncope, Syncope Respiratory: Denies: Cough, Sputum Production, Hemoptysis Gastrointestinal: Denies: Indigestion, Hematemesis, Hematochezia, Melena Genitourinary: Denies: Dysuria, Hematuria Muscoloskeletal: Denies: Myalgias Skin: Denies: Rash Neurological: Reports: Dizziness Psychiatric: Denies: Anxiety Endocrine: Denies: Unexplained Weight Loss Hematologic/ Lymphatic: Reports: Anemia Subjectve: Pleasant gentleman in no apparent distress Objective: Vital Signs Temp Pulse Resp BP Pulse Ox 99.1 F 86 25 H 106/58 L 98 01/29/18 08:00 01/29/18 09:00 01/29/18 09:00 01/29/18 09:00 01/29/18 09:00 Oxygen Flow Rate (L/min) 2 Oxygen Delivery Method Room Air Weight: 205 lb 7.533 oz Body Mass Index (BMI) 31.0 Intake and Output for Last 24 Hours 01/27/18 01/28/18 01/29/18 23:59 23:59 23:59 Intake Total 1525.4 / 1525.4 912.5 / 912.5 Output Total 500 / 500 600 / 600 Balance 1025.4 / 1025.4 312.5 / 312.5 General: Awake, Alert, Oriented x 3 HEENT: PERRL, EOMI, Sclera Non Icteric Neck: Supple, Good ROM, No Lymph Node Enlargement Lungs: Clear to auscultation Cardiovascular: Irregular Rhythm, Normal S1, Normal S2, No Murmurs, No Rubs, No Gallops Vascular: No Carotid Bruits, Normal Femoral Pulses, Normal Radial Pulses, Normal Dorsalis Pedal Pulse, Normal Posterior Tibial Pulses Abdomen: Bowel Sounds Present, Soft, Non Tender, No HSM, No Organomegaly Extremities: No Cyanosis, No Clubbing, No edema Musculoskeletal: No Erythema Skin: No Rashes Lymphatic: No Lymph Node Enlargement Neurological: No Focal Motor or Sensory Deficit Psych/Mental Status: Appropriate 01/28/18 13:35: WBC 4.5, RBC 3.18 L, Hgb 10.6 L, Hct 32.3 L, MCV 101.6 H, MCH 33.3 H, MCHC 32.8, RDW 15.5 H, RDW Differential 58.1 H, Plt Count 93 L, MPV 8.3, Immature Gran % (Auto) 1.300 H, Neut % (Auto) 95.6 H, Lymph % (Auto) 2.7 L, [place] % (Auto) 0.2, Eos % (Auto) 0.2, Baso % (Auto) 0.0, Absolute Neuts (auto) 4.3, Total Counted Not Reportable 01/28/18 13:35: Sodium 141, Potassium 3.8, Chloride 108 H, Carbon Dioxide 25.0, Anion Gap 8, BUN 19 H, Creatinine 1.13, Est GFR (MDRD) Af Amer 80, Est GFR (MDRD) Non-Af 66, BUN/Creatinine Ratio 16.8, Glucose 109 H, Calcium 8.7 01/28/18 16:07: Lactic Acid 2.0 01/28/18 19:45: Troponin I < 0.015 01/28/18 22:20: Troponin I 0.034 01/28/18 22:20: Lactic Acid 1.2 01/29/18 01:05: Troponin I 0.052 H 01/29/18 04:10: Sodium 141, Potassium 4.3, Chloride 111 H, Carbon Dioxide 22.0, Anion Gap 8, BUN 16, Creatinine 0.98, Est GFR (MDRD) Af Amer 95, Est GFR (MDRD) Non-Af 78, BUN/Creatinine Ratio 16.4, Glucose 112 H, Calcium 7.8 L 01/29/18 04:10: WBC 8.0, RBC 2.94 L, Hgb 9.9 L, Hct 30.7 L, MCV 104.4 H, MCH 33.7 H, MCHC 32.2, RDW 15.5 H, RDW Differential 57.8 H, Plt Count 97 L, MPV 8.6, Immature Gran % (Auto) 0.400, Neut % (Auto) 90.2 H, Lymph % (Auto) 2.6 L, [place] % (Auto) 6.6, Eos % (Auto) 0.1, Baso % (Auto) 0.1, Absolute Neuts (auto) 7.2, Total Counted Not Reportable 01/29/18 04:10: Troponin I 0.052 H 01/29/18 06:53: Troponin I 0.058 H Rhythm: EKG: Atrial fibrillation with rapid ventricular response rate Assessment/Plan 1. Atrial fibrillation with rapid ventricular response * The above appears to be likely secondary to his chemotherapy agents, hypotension, and Levophed infusion. * Rate appears to be improving with oral and intravenous amiodarone which will be continued * Will continue with his anticoagulation * His last echocardiogram done 2 months ago demonstrated an ejection fraction of 45% and at this time I would not repeated. * His beta-khang will be reintroduced as his blood pressure recovers 2. CAD status post PCI and CABG The patient has undergone extensive noninvasive and invasive evaluation of his underlying CAD process in the past. At the moment he appears to be without symptoms of acute coronary syndrome. He will continue medical management and undergo further evaluation as deemed appropriate. 3. Carotid artery disease The patient does have carotid artery disease and has undergone surgical intervention in the past. He appears without any acute symptoms at this time. He will continue to be followed as deemed appropriate. 4. Hyperlipidemia The patient will continue risk factor evaluation care. 5. Hypertension The patient's blood pressure will need to be monitored. His medications may need to be adjusted to avoid significant hypotension and/or hypertension. 6. Prostatic carcinoma with metastatic disease The patient will continue evaluation care per hematology/oncology. Thank you for allowing me to participate in the care of your patient. Please don't hesitate to call if any issues arise
--- NOTE | 2018-01-29 09:50 | CM.UR ---
See regional office coordinator. Met face to face with patient and spouse, introduced myself and my role. He is currently active with [place] [facility] with SN and PT. Plan is to return home with [facility]. He will work with PT and as no complications would anticipate this to be possible. They deny any needs at this time. Explained we will notify [facility] that he is here and will let them know his disposition at discharge. Case Management will continue to follow should any needs arise. Parul Sibley RN, [facility].
--- NOTE | 2018-01-29 09:56 | PCM.CONS.GEN ---
Reason for Consult Date of Consultation: 01/29/18 Reason for Consultation: Metastatic prostate cancer History of Present Illness: The patient is a 78 year old M []admitted with naudea and vomiting and hypotension. got thrid dose Keytruda at [facility]. has been tolerating well. reviewed [facility] and [facility] charts. Past Medical History Past Medical History (Chronic Problems): Chronic Problems (Last Reviewed 01/07/18 @ 11:37 by Shala Beaver) Prostate cancer metastatic to bone (Chronic) Stenosis of right carotid artery (Chronic) Choledocholithiasis with acute cholecystitis with obstruction (Chronic) Atherosclerosis of coronary artery bypass graft without angina pectoris (Chronic) CAB12/2002 WHITAKER graft LAD, saphenous vein graft to diagonal branch of anterior descending, lateral CFX and RCA. Dyspnea on exertion (Chronic) Malaise and fatigue (Chronic) Dyspnea and respiratory abnormalities (Chronic) Carotid stenosis (Chronic) History of PTCA (Chronic) PTCA: 03/23/2003 PTCA/Stent to proximal-mid LAD; 10/2004 PTCA of the LAD, with placement of a taxus stent. Hx of CABG (Chronic) CAB12/2002 WHITAKER graft LAD, saphenous vein graft to diagonal branch of anterior descending, lateral CFX and RCA. Nonspecific abnormal unspecified cardiovascular function study (Chronic) Palpitations (Chronic) CAD (coronary artery disease) (Chronic) PTCA: 03/23/2003 PTCA/Stent to proximal-mid LAD; 10/2004 PTCA of the LAD, with placement of a taxus stent. CAB12/2002 WHITAKER graft LAD, saphenous vein graft to diagonal branch of anterior descending, lateral CFX and RCA. [facility]: 12/2002; 12/16/2005 Angina pectoris (Chronic) HLD (hyperlipidemia) (Chronic) Hypertension (Chronic) Hypothyroid (Chronic) Hyperlipidemia (Chronic) Acute cholecystitis (Chronic) Choledocholithiasis with acute cholecystitis with obstruction (Chronic) Choledocholithiasis with obstruction (Chronic) Medical History: Medical History (Last Reviewed 01/07/18 @ 11:37 by Shala Beaver) Stenosis of right carotid artery (Chronic) I65.21 Choledocholithiasis with acute cholecystitis with obstruction (Chronic) K80.41 Atherosclerosis of coronary artery bypass graft without angina pectoris (Chronic) I25.810 CAB12/2002 WHITAKER graft LAD, saphenous vein graft to diagonal branch of anterior descending, lateral CFX and RCA. Dyspnea on exertion (Chronic) R06.09 Malaise and fatigue (Chronic) R53.81, R53.83 Dyspnea and respiratory abnormalities (Chronic) R06.00, R06.89 Carotid stenosis (Chronic) I65.29 Nonspecific abnormal unspecified cardiovascular function study (Chronic) R94.30 Palpitations (Chronic) R00.2 CAD (coronary artery disease) (Chronic) I25.10 PTCA: 03/23/2003 PTCA/Stent to proximal-mid LAD; 10/2004 PTCA of the LAD, with placement of a taxus stent. CAB12/2002 WHITAKER graft LAD, saphenous vein graft to diagonal branch of anterior descending, lateral CFX and RCA. [facility]: 12/2002; 12/16/2005 Angina pectoris (Chronic) I20.9 HLD (hyperlipidemia) (Chronic) E78.5 Hypertension (Chronic) I10 Allergies No Known Allergies Allergy (Verified 01/28/18 13:24) Home Medications: Ambulatory Orders Medication Instructions Recorded Apixaban [Eliquis] 5 mg PO BID 01/28/18 Digoxin [Lanoxin] 250 mcg PO BREAKFAST 01/28/18 Hydrocodone/Acetaminophen 1 - 2 each PO Q6H 01/28/18 [Hydrocodon-Acetaminophen 5-325] Levothyroxine [Synthroid] 112 mcg PO DAILY 01/28/18 Metoprolol Tartrate [Lopressor 100 mg PO BID 01/28/18 (Beta Juvenal)] Multivitamins,Therapeutic 1 tablet PO DAILY 01/28/18 [Multivitamin] Potassium Chloride [K-Dur] 20 meq PO BIDCM 01/28/18 Tamsulosin HCl [Flomax] 0.4 mg PO DAILY 01/28/18 amiodarone 200 mg tablet 200 mg PO DAILY #90 tab 01/28/18 morphine SR tablet [MS Contin] 15 mg PO BID 01/28/18 pravastatin 20 mg tablet 20 mg PO QHS #90 tab 01/28/18 predniSONE tablet 5 mg PO BID 01/28/18 Surgical History: Surgical History (Last Reviewed 01/07/18 @ 11:37 by Shala Beaver) History of PTCA (Chronic) Z98.61 PTCA: 03/23/2003 PTCA/Stent to proximal-mid LAD; 10/2004 PTCA of the LAD, with placement of a taxus stent. Hx of CABG (Chronic) Z95.1 CAB12/2002 WHITAKER graft LAD, saphenous vein graft to diagonal branch of anterior descending, lateral CFX and RCA. History of cholecystectomy Z90.49 History of left heart catheterization (LHC) Z98.890 LHC: 12/2002; 12/16/2005 History of left-sided carotid endarterectomy Onset Date: ~2004 Z98.890 Surgical History: cholecystectomy, coronary bypass surgery - In 2002 and subsequently he had heart stents placed in the same year. Psychiatric History: No pertinent psych hx Lives: With Family Smoking Status: Former smoker Tobacco Use: Cigarettes Alcohol: None Drugs: None - *Family History Paternal Family History: Family History (Last Reviewed 01/07/18 @ 11:37 by Shala Beaver) Father FH: brain aneurysm Mother Myocardial infarction CAD (coronary artery disease) Brother Myocardial infarction Brother CAD (coronary artery disease) Brother Hypertension Sister Diabetes Sister Myocardial infarction Colon cancer Sister Cancer History Items: No pertinent history - Physical Exam Vital Signs Temp Pulse Resp BP Pulse Ox 99.1 F 86 25 H 106/58 L 98 01/29/18 08:00 01/29/18 09:00 01/29/18 09:00 01/29/18 09:00 01/29/18 09:00 Oxygen Flow Rate (L/min) 2 Oxygen Delivery Method Room Air Weight: 93.2 kg Body Mass Index (BMI) 31.0 Intake and Output for Last 24 Hours 01/27/18 01/28/18 01/29/18 23:59 23:59 23:59 Intake Total 1525.4 / 1525.4 912.5 / 912.5 Output Total 500 / 500 600 / 600 Balance 1025.4 / 1025.4 312.5 / 312.5 Laboratory Tests Past 24 Hrs 01/28/18 01/28/18 01/28/18 13:35 13:35 16:07 WBC 4.5 RBC 3.18 L Hgb 10.6 L Hct 32.3 L MCV 101.6 H MCH 33.3 H MCHC 32.8 RDW 15.5 H RDW Differential 58.1 H Plt Count 93 L MPV 8.3 Immature Gran % (Auto) 1.300 H Neut % (Auto) 95.6 H Lymph % (Auto) 2.7 L [place] % (Auto) 0.2 Eos % (Auto) 0.2 Baso % (Auto) 0.0 Absolute Neuts (auto) 4.3 Absolute Lymphs (auto) 0.12 L Total Counted Not Reportable Platelet Estimate SLT DEC Sodium 141 Potassium 3.8 Chloride 108 H Carbon Dioxide 25.0 Anion Gap 8 BUN 19 H Creatinine 1.13 Estim Creat Clear Calc 50.44 Est GFR (MDRD) Af Amer 80 Est GFR (MDRD) Non-Af 66 BUN/Creatinine Ratio 16.8 Glucose 109 H Lactic Acid 2.0 Calcium 8.7 Troponin I 01/28/18 01/28/18 01/28/18 19:45 22:20 22:20 WBC RBC Hgb Hct MCV MCH MCHC RDW RDW Differential Plt Count MPV Immature Gran % (Auto) Neut % (Auto) Lymph % (Auto) [place] % (Auto) Eos % (Auto) Baso % (Auto) Absolute Neuts (auto) Absolute Lymphs (auto) Total Counted Platelet Estimate Sodium Potassium Chloride Carbon Dioxide Anion Gap BUN Creatinine Estim Creat Clear Calc Est GFR (MDRD) Af Amer Est GFR (MDRD) Non-Af BUN/Creatinine Ratio Glucose Lactic Acid 1.2 Calcium Troponin I < 0.015 0.034 01/29/18 01/29/18 01/29/18 01:05 04:10 04:10 WBC 8.0 RBC 2.94 L Hgb 9.9 L Hct 30.7 L MCV 104.4 H MCH 33.7 H MCHC 32.2 RDW 15.5 H RDW Differential 57.8 H Plt Count 97 L MPV 8.6 Immature Gran % (Auto) 0.400 Neut % (Auto) 90.2 H Lymph % (Auto) 2.6 L [place] % (Auto) 6.6 Eos % (Auto) 0.1 Baso % (Auto) 0.1 Absolute Neuts (auto) 7.2 Absolute Lymphs (auto) 0.21 L Total Counted Not Reportable Platelet Estimate Sodium 141 Potassium 4.3 Chloride 111 H Carbon Dioxide 22.0 Anion Gap 8 BUN 16 Creatinine 0.98 Estim Creat Clear Calc 58.16 Est GFR (MDRD) Af Amer 95 Est GFR (MDRD) Non-Af 78 BUN/Creatinine Ratio 16.4 Glucose 112 H Lactic Acid Calcium 7.8 L Troponin I 0.052 H 01/29/18 01/29/18 04:10 06:53 WBC RBC Hgb Hct MCV MCH MCHC RDW RDW Differential Plt Count MPV Immature Gran % (Auto) Neut % (Auto) Lymph % (Auto) [place] % (Auto) Eos % (Auto) Baso % (Auto) Absolute Neuts (auto) Absolute Lymphs (auto) Total Counted Platelet Estimate Sodium Potassium Chloride Carbon Dioxide Anion Gap BUN Creatinine Estim Creat Clear Calc Est GFR (MDRD) Af Amer Est GFR (MDRD) Non-Af BUN/Creatinine Ratio Glucose Lactic Acid Calcium Troponin I 0.052 H 0.058 H Assessment/Plan All Active Problems (Last Reviewed 01/07/18 @ 11:37 by Shala Beaver) Weakness (Acute) Vomiting (Acute) Malaise and fatigue (Acute) Atrial flutter (Acute) Will check amylase and lipase, as Keytruda can cause immune mediated pancreatitis. might need additional doses steroids depending on how he does, he has been on fdc prednisone, also keytruda can cause adrenal insufficiency.
--- NOTE | 2018-01-29 10:00 | CON.PCM_ITS ---
Reason for Consult Date of Consultation: 01/29/18 Reason for Consultation: Metastatic prostate cancer History of Present Illness: The patient is a 78 year old M []admitted with naudea and vomiting and hypotension. got thrid dose Keytruda at [facility]. has been tolerating well. reviewed [facility] and [facility] charts. Past Medical History Past Medical History (Chronic Problems): Chronic Problems (Last Reviewed 01/07/18 @ 11:37 by Shala Beaver) Prostate cancer metastatic to bone (Chronic) Stenosis of right carotid artery (Chronic) Choledocholithiasis with acute cholecystitis with obstruction (Chronic) Atherosclerosis of coronary artery bypass graft without angina pectoris (Chronic) CAB12/2002 WHITAKER graft LAD, saphenous vein graft to diagonal branch of anterior descending, lateral CFX and RCA. Dyspnea on exertion (Chronic) Malaise and fatigue (Chronic) Dyspnea and respiratory abnormalities (Chronic) Carotid stenosis (Chronic) History of PTCA (Chronic) PTCA: 03/23/2003 PTCA/Stent to proximal-mid LAD; 10/2004 PTCA of the LAD, with placement of a taxus stent. Hx of CABG (Chronic) CAB12/2002 WHITAKER graft LAD, saphenous vein graft to diagonal branch of anterior descending, lateral CFX and RCA. Nonspecific abnormal unspecified cardiovascular function study (Chronic) Palpitations (Chronic) CAD (coronary artery disease) (Chronic) PTCA: 03/23/2003 PTCA/Stent to proximal-mid LAD; 10/2004 PTCA of the LAD, with placement of a taxus stent. CAB12/2002 WHITAKER graft LAD, saphenous vein graft to diagonal branch of anterior descending, lateral CFX and RCA. 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 Dyspnea on exertion (Chronic) R06.09 Malaise and fatigue (Chronic) R53.81, R53.83 Dyspnea and respiratory abnormalities (Chronic) R06.00, R06.89 Carotid stenosis (Chronic) I65.29 Nonspecific abnormal unspecified cardiovascular function study (Chronic) R94.30 Palpitations (Chronic) R00.2 CAD (coronary artery disease) (Chronic) I25.10 PTCA: 03/23/2003 PTCA/Stent to proximal-mid LAD; 10/2004 PTCA of the LAD, with placement of a taxus stent. CAB12/2002 WHITAKER graft LAD, saphenous vein graft to diagonal branch of anterior descending, lateral CFX and RCA. [facility]: 12/2002; 12/16/2005 Angina pectoris (Chronic) I20.9 HLD (hyperlipidemia) (Chronic) E78.5 Hypertension (Chronic) I10 Allergies No Known Allergies Allergy (Verified 01/28/18 13:24) Home Medications: Ambulatory Orders Medication Instructions Recorded Apixaban [Eliquis] 5 mg PO BID 01/28/18 Digoxin [Lanoxin] 250 mcg PO BREAKFAST 01/28/18 Hydrocodone/Acetaminophen 1 - 2 each PO Q6H 01/28/18 [Hydrocodon-Acetaminophen 5-325] Levothyroxine [Synthroid] 112 mcg PO DAILY 01/28/18 Metoprolol Tartrate [Lopressor 100 mg PO BID 01/28/18 (Beta Juvenal)] Multivitamins,Therapeutic 1 tablet PO DAILY 01/28/18 [Multivitamin] Potassium Chloride [K-Dur] 20 meq PO BIDCM 01/28/18 Tamsulosin HCl [Flomax] 0.4 mg PO DAILY 01/28/18 amiodarone 200 mg tablet 200 mg PO DAILY #90 tab 01/28/18 morphine SR tablet [MS Contin] 15 mg PO BID 01/28/18 pravastatin 20 mg tablet 20 mg PO QHS #90 tab 01/28/18 predniSONE tablet 5 mg PO BID 01/28/18 Surgical History: Surgical History (Last Reviewed 01/07/18 @ 11:37 by Shala Beaver) History of PTCA (Chronic) Z98.61 PTCA: 03/23/2003 PTCA/Stent to proximal-mid LAD; 10/2004 PTCA of the LAD, with placement of a taxus stent. Hx of CABG (Chronic) Z95.1 CAB12/2002 WHITAKER graft LAD, saphenous vein graft to diagonal branch of anterior descending, lateral CFX and RCA. History of cholecystectomy Z90.49 History of left heart catheterization (LHC) Z98.890 [facility]: 12/2002; 12/16/2005 History of left-sided carotid endarterectomy Onset Date: ~2004 Z98.890 Surgical History: cholecystectomy, coronary bypass surgery - In 2002 and subsequently he had heart stents placed in the same year. Psychiatric History: No pertinent psych hx Lives: With Family Smoking Status: Former smoker Tobacco Use: Cigarettes Alcohol: None Drugs: None - *Family History Paternal Family History: Family History (Last Reviewed 01/07/18 @ 11:37 by Shala Beaver) Father FH: brain aneurysm Mother Myocardial infarction CAD (coronary artery disease) Brother Myocardial infarction Brother CAD (coronary artery disease) Brother Hypertension Sister Diabetes Sister Myocardial infarction Colon cancer Sister Cancer History Items: No pertinent history - Physical Exam Vital Signs Temp Pulse Resp BP Pulse Ox 99.1 F 86 25 H 106/58 L 98 01/29/18 08:00 01/29/18 09:00 01/29/18 09:00 01/29/18 09:00 01/29/18 09:00 Oxygen Flow Rate (L/min) 2 Oxygen Delivery Method Room Air Weight: 93.2 kg Body Mass Index (BMI) 31.0 Intake and Output for Last 24 Hours 01/27/18 01/28/18 01/29/18 23:59 23:59 23:59 Intake Total 1525.4 / 1525.4 912.5 / 912.5 Output Total 500 / 500 600 / 600 Balance 1025.4 / 1025.4 312.5 / 312.5 Laboratory Tests Past 24 Hrs 01/28/18 01/28/18 01/28/18 13:35 13:35 16:07 WBC 4.5 RBC 3.18 L Hgb 10.6 L Hct 32.3 L MCV 101.6 H MCH 33.3 H MCHC 32.8 RDW 15.5 H RDW Differential 58.1 H Plt Count 93 L MPV 8.3 Immature Gran % (Auto) 1.300 H Neut % (Auto) 95.6 H Lymph % (Auto) 2.7 L [place] % (Auto) 0.2 Eos % (Auto) 0.2 Baso % (Auto) 0.0 Absolute Neuts (auto) 4.3 Absolute Lymphs (auto) 0.12 L Total Counted Not Reportable Platelet Estimate SLT DEC Sodium 141 Potassium 3.8 Chloride 108 H Carbon Dioxide 25.0 Anion Gap 8 BUN 19 H Creatinine 1.13 Estim Creat Clear Calc 50.44 Est GFR (MDRD) Af Amer 80 Est GFR (MDRD) Non-Af 66 BUN/Creatinine Ratio 16.8 Glucose 109 H Lactic Acid 2.0 Calcium 8.7 Troponin I 01/28/18 01/28/18 01/28/18 19:45 22:20 22:20 WBC RBC Hgb Hct MCV MCH MCHC RDW RDW Differential Plt Count MPV Immature Gran % (Auto) Neut % (Auto) Lymph % (Auto) [place] % (Auto) Eos % (Auto) Baso % (Auto) Absolute Neuts (auto) Absolute Lymphs (auto) Total Counted Platelet Estimate Sodium Potassium Chloride Carbon Dioxide Anion Gap BUN Creatinine Estim Creat Clear Calc Est GFR (MDRD) Af Amer Est GFR (MDRD) Non-Af BUN/Creatinine Ratio Glucose Lactic Acid 1.2 Calcium Troponin I < 0.015 0.034 01/29/18 01/29/18 01/29/18 01:05 04:10 04:10 WBC 8.0 RBC 2.94 L Hgb 9.9 L Hct 30.7 L MCV 104.4 H MCH 33.7 H MCHC 32.2 RDW 15.5 H RDW Differential 57.8 H Plt Count 97 L MPV 8.6 Immature Gran % (Auto) 0.400 Neut % (Auto) 90.2 H Lymph % (Auto) 2.6 L [place] % (Auto) 6.6 Eos % (Auto) 0.1 Baso % (Auto) 0.1 Absolute Neuts (auto) 7.2 Absolute Lymphs (auto) 0.21 L Total Counted Not Reportable Platelet Estimate Sodium 141 Potassium 4.3 Chloride 111 H Carbon Dioxide 22.0 Anion Gap 8 BUN 16 Creatinine 0.98 Estim Creat Clear Calc 58.16 Est GFR (MDRD) Af Amer 95 Est GFR (MDRD) Non-Af 78 BUN/Creatinine Ratio 16.4 Glucose 112 H Lactic Acid Calcium 7.8 L Troponin I 0.052 H 01/29/18 01/29/18 04:10 06:53 WBC RBC Hgb Hct MCV MCH MCHC RDW RDW Differential Plt Count MPV Immature Gran % (Auto) Neut % (Auto) Lymph % (Auto) [place] % (Auto) Eos % (Auto) Baso % (Auto) Absolute Neuts (auto) Absolute Lymphs (auto) Total Counted Platelet Estimate Sodium Potassium Chloride Carbon Dioxide Anion Gap BUN Creatinine Estim Creat Clear Calc Est GFR (MDRD) Af Amer Est GFR (MDRD) Non-Af BUN/Creatinine Ratio Glucose Lactic Acid Calcium Troponin I 0.052 H 0.058 H Assessment/Plan All Active Problems (Last Reviewed 01/07/18 @ 11:37 by Shala Beaver) Weakness (Acute) Vomiting (Acute) Malaise and fatigue (Acute) Atrial flutter (Acute) Will check amylase and lipase, as Keytruda can cause immune mediated pancreatitis. might need additional doses steroids depending on how he does, he has been on skilled nursing prednisone, also keytruda can cause adrenal insufficiency.
[2018-01-29 10:15] LABS: Amylase 34 U/L (25-115); Lipase 39 U/L (73-393)
[2018-01-29] MEDS: APIXABAN 5 MG TABLET PO ×2 (10:17→22:08)
--- NOTE | 2018-01-29 10:50 | PCM.PN.HOSP ---
Subjective: Patient seen and examined. Overall the general condition, vitals have improved from yesterday. Patient was started on IV Levophed through peripheral line yesterday for hypotension, not responding to IV fluid bolus. This might have precipitated A. fib yesterday with RVR. Patient has history of paroxysmal A. fib but was in sinus rhythm yesterday. Discussed with the patient's near the bedside. Patient was also seen by can reforming machine operator and sports medicine masseur and oncologist. In the morning, heart rate fluctuates 100s to 130/min, A. fib. Vitals/I&O's: Vital Signs Temp Pulse Resp BP Pulse Ox 99.1 F 83 23 H 110/71 100 01/29/18 08:00 01/29/18 10:00 01/29/18 10:00 01/29/18 10:00 01/29/18 10:00 Oxygen Flow Rate (L/min) 2 Oxygen Delivery Method Room Air Weight: 205 lb 7.533 oz Body Mass Index (BMI) 31.0 Intake and Output for Last 24 Hours 01/27/18 01/28/18 01/29/18 23:59 23:59 23:59 Intake Total 1525.4 / 1525.4 912.5 / 912.5 Output Total 500 / 500 600 / 600 Balance 1025.4 / 1025.4 312.5 / 312.5 General: Alert, Oriented x3, Cooperative HEENT: Atraumatic, PERRLA, EOMI, Normocephalic Neck: Supple, No JVD, Negative Carotid Bruits Lungs: Clear to auscultation, No rhonchi, No wheeze, No rales, Diminished Cardiovascular: Normal S1, Normal S2, No murmurs, Irregular Rate, Tachycardic Abdomen: Bowel Sounds Present, Soft, Non Tender, Non-Distended Extremities: No edema, Capillary Refill Less than 3 Seconds Skin: No rashes, No breakdown Musculoskeletal: No Tenderness to Palpation of Joints or Extremities, Arthritic Changes, Muscle Wasting Neurological: Cranial nerves II-XII grossly intact, Deep Tendon Reflexes 2+/4 and Symmetrical, Neuro grossly intact Psych/Mental Status: Normal Affect, Appropriate Laboratory Results 01/28/18 13:35: WBC 4.5, RBC 3.18 L, Hgb 10.6 L, Hct 32.3 L, MCV 101.6 H, MCH 33.3 H, MCHC 32.8, RDW 15.5 H, RDW Differential 58.1 H, Plt Count 93 L, MPV 8.3, Immature Gran % (Auto) 1.300 H, Neut % (Auto) 95.6 H, Lymph % (Auto) 2.7 L, [place] % (Auto) 0.2, Eos % (Auto) 0.2, Baso % (Auto) 0.0, Absolute Neuts (auto) 4.3, Absolute Lymphs (auto) 0.12 L, Total Counted Not Reportable, Platelet Estimate SLT 01/28/18 13:35: Sodium 141, Potassium 3.8, Chloride 108 H, Carbon Dioxide 25.0, Anion Gap 8, BUN 19 H, Creatinine 1.13, Estim Creat Clear Calc 50.44, Est GFR (MDRD) Af Amer 80, Est GFR (MDRD) Non-Af 66, BUN/Creatinine Ratio 16.8, Glucose 109 H, Calcium 8.7 01/28/18 16:07: Lactic Acid 2.0 01/28/18 19:45: Troponin I < 0.015 01/28/18 22:20: Troponin I 0.034 01/28/18 22:20: Lactic Acid 1.2 01/29/18 01:05: Troponin I 0.052 H 01/29/18 04:10: Sodium 141, Potassium 4.3, Chloride 111 H, Carbon Dioxide 22.0, Anion Gap 8, BUN 16, Creatinine 0.98, Estim Creat Clear Calc 58.16, Est GFR (MDRD) Af Amer 95, Est GFR (MDRD) Non-Af 78, BUN/Creatinine Ratio 16.4, Glucose 112 H, Calcium 7.8 L 01/29/18 04:10: WBC 8.0, RBC 2.94 L, Hgb 9.9 L, Hct 30.7 L, MCV 104.4 H, MCH 33.7 H, MCHC 32.2, RDW 15.5 H, RDW Differential 57.8 H, Plt Count 97 L, MPV 8.6, Immature Gran % (Auto) 0.400, Neut % (Auto) 90.2 H, Lymph % (Auto) 2.6 L, [place] % (Auto) 6.6, Eos % (Auto) 0.1, Baso % (Auto) 0.1, Absolute Neuts (auto) 7.2, Absolute Lymphs (auto) 0.21 L, Total Counted Not Reportable 01/29/18 04:10: Troponin I 0.052 H 01/29/18 06:53: Troponin I 0.058 H 01/29/18 06:53: Amylase 34, Lipase 39 L Current Medications Acetaminophen (Tylenol) 650 mg PO Q6H PRN PRN PRN Reason: pain Last Admin: 01/28/18 20:08 Dose: 650 mg Hydrocodone Bitart/Acetaminophen ([place] 5mg-325mg) 1 - 2 tablet PO Q6H PRN PRN Reason: BREAKTHROUGH PAIN (>4/10) Amiodarone HCl (Cordarone) 200 mg PO DAILY [facility] Last Admin: 01/29/18 04:53 Dose: 200 mg Apixaban (Eliquis) 5 mg PO BID [facility] Last Admin: 01/29/18 10:17 Dose: 5 mg Chlorhexidine Gluconate () 1 each TOPICAL DAILY [facility] Last Admin: 01/29/18 09:31 Dose: 1 each Digoxin (Lanoxin) 250 mcg PO BREAKFAST [facility] Last Admin: 01/29/18 08:02 Dose: 250 mcg Sodium Chloride () 2,000 mls @ 150 mls/hr IV .[id number] [facility] Last Admin: 01/29/18 09:31 Dose: 150 mls/hr Sodium Chloride () 250 mls @ 15 mls/hr IV .[id number] PRN PRN Reason: SALINE FLUSH Norepinephrine Bitartrate 8 mg (/ Dextrose) 258 mls @ 9.68 mls/hr IV .[id number] [facility]; Protocol Last Admin: 01/28/18 22:10 Dose: Not Given Magnesium Hydroxide (Milk Of Magnesia) 30 ml PO DAILY PRN PRN PRN Reason: Constipation Morphine Sulfate (Ms Contin) 15 mg PO BREAKFAST [facility] Last Admin: 01/29/18 07:59 Dose: 15 mg Morphine Sulfate (Ms Contin) 15 - 30 mg PO DINNER [facility] Last Admin: 01/28/18 21:30 Dose: 15 mg Multivitamins (Multivitamin) 1 tablet PO DAILY@1200 [facility] Last Admin: 01/29/18 09:33 Dose: 1 tablet Nutritional Formula (Lactose Free) (Ensure Enlive) 120 ml PO 4X/DAY [facility] Last Admin: 01/29/18 10:17 Dose: 120 ml Ondansetron HCl (Zofran) 4 mg IV Q6H PRN PRN PRN Reason: NAUSEA/VOMITING Last Admin: 01/29/18 04:22 Dose: 4 mg Sodium Chloride () 5 - 15 ml IV UD PRN PRN Reason: SALINE FLUSH Last Admin: 01/29/18 04:22 Dose: 10 ml Medical Necessity - Tobacco Use Smoking Status: Former smoker Tobacco Use: Cigarettes Assessment/Plan All Active Problems (Last Reviewed 01/07/18 @ 11:37 by Shala Beaver) Weakness (Acute) Vomiting (Acute) Malaise and fatigue (Acute) Atrial flutter (Acute) 78 y/o male admitted with a complaint of severe nausea and vomiting after he received Keytruda, on the day of admission for treatment of metastatic prostate cancer. The patient had third treatment of IV Keytruda. He also got sick after second treatment complicated with pneumonia. His oncologist is Dr. Nassar. Initially, patient was admitted on [facility] but transferred to ICU for management of hypotension 1. Hypovolemic shock due to chemotherapy induced nausea and vomiting Blood pressure was 67/46 on admission. Patient was managed on IV Levophed transiently to raise blood pressure to peripheral line as it deemed high risk to put a central line on apixaban. Patient was seen by can reforming machine operator. Patient and his does not want Keytruda anymore. Patient was on prednisone and was given a stress dose of hydrocortisone yesterday. 2. Chemotherapy-induced nausea and vomiting On Zofran and Phenergan. Seen by Dr. Galdamez. He suggested amylase and lipase as Keytruda can cause immune mediated pancreatitis and adrenal insufficiency. Amylase level is normal but lipase on lower side at 39. Continue hydrocortisone. 3. 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 Hypertension: On hold because of hypotension 5. Atrial fibrillation: currently rate controlled. on amiodarone and eliquis as well as digoxin. Seen by sports medicine masseur. 6. DVT prophylaxis: Eliquis is continued Active Medications Acetaminophen (Tylenol) 650 mg PO Q6H PRN PRN PRN Reason: pain Last Admin: 01/28/18 20:08 Dose: 650 mg Hydrocodone Bitart/Acetaminophen ([place] 5mg-325mg) 1 - 2 tablet PO Q6H PRN PRN Reason: BREAKTHROUGH PAIN (>4/10) Amiodarone HCl (Cordarone) 200 mg PO DAILY [facility] Last Admin: 01/29/18 04:53 Dose: 200 mg Apixaban (Eliquis) 5 mg PO BID [facility] Last Admin: 01/29/18 10:17 Dose: 5 mg Chlorhexidine Gluconate () 1 each TOPICAL DAILY [facility] Last Admin: 01/29/18 09:31 Dose: 1 each Digoxin (Lanoxin) 250 mcg PO BREAKFAST [facility] Last Admin: 01/29/18 08:02 Dose: 250 mcg Sodium Chloride () 2,000 mls @ 150 mls/hr IV .[id number] [facility] Last Admin: 01/29/18 09:31 Dose: 150 mls/hr Sodium Chloride () 250 mls @ 15 mls/hr IV .[id number] PRN PRN Reason: SALINE FLUSH Norepinephrine Bitartrate 8 mg (/ Dextrose) 258 mls @ 9.68 mls/hr IV .[id number] [facility]; Protocol Last Admin: 01/28/18 22:10 Dose: Not Given Magnesium Hydroxide (Milk Of Magnesia) 30 ml PO DAILY PRN PRN PRN Reason: Constipation Morphine Sulfate (Ms Contin) 15 mg PO BREAKFAST [facility] Last Admin: 01/29/18 07:59 Dose: 15 mg Morphine Sulfate (Ms Contin) 15 - 30 mg PO DINNER [facility] Last Admin: 01/28/18 21:30 Dose: 15 mg Multivitamins (Multivitamin) 1 tablet PO DAILY@1200 [facility] Last Admin: 01/29/18 09:33 Dose: 1 tablet Nutritional Formula (Lactose Free) (Ensure Enlive) 120 ml PO 4X/DAY [facility] Last Admin: 01/29/18 10:17 Dose: 120 ml Ondansetron HCl (Zofran) 4 mg IV Q6H PRN PRN PRN Reason: NAUSEA/VOMITING Last Admin: 01/29/18 04:22 Dose: 4 mg Sodium Chloride () 5 - 15 ml IV UD PRN PRN Reason: SALINE FLUSH Last Admin: 01/29/18 04:22 Dose: 10 ml Code Visit Inpatient E&M: [id number] [facility] Hosp
[2018-01-29] MEDS: Acetaminophen 325 MG Tablet 650 MG PO (12:10)
[2018-01-29] MEDS: Hydrocortisone Sod Succinate 100 MG/2 ML Vial 50 MG IV ×2 (12:55→22:05)
--- NOTE | 2018-01-29 13:35 | NURSING ---
pt sitting upright in the chair, c/o lightheadedness and is sltly diaphoretic. placed in supine positions w/head of chair all the way reclined. 1340 HR 98 R 22 BP 81/47 SpO2 95% 1345 Bp 87/55, pt states he is feeling some better, not diaphoretic at this time. 1350 Bp 75/50, remains reclined in chair, this RN spoke w/pt's RN 1355 see med titration, levo started
--- NOTE | 2018-01-29 14:09 | CASEMGMT ---
LW/POA in echart. SW printed and they will be placed in paper chart. SETEFANIA Ernandez, FLUXER
[2018-01-30] VITALS (19 sets, daily range): BP systolic 103–127; BP diastolic 54–79; PULSE 64–111; RESP 12–24; TEMP 36.3–36.9; O2SAT 93–98
[2018-01-30 05:46] LABS: Absolute Lymphocyte Count 0.28 X10^3/ul (0.83-4.51); Absolute Neutrophil Count 4.8 X10^3/uL (2.0-7.7); Hematocrit 25.9 % (40-54); Hemoglobin 8.3 g/dl (13.0-16.5); Lymphocyte # 0.28 X10^3/ul (4.0); Lymphocyte % 5.1 % (19-41); Mean Corpuscular Hgb 32.4 pg (27.0-32.0); Mean Corpuscular Volume 101.2 fL (80-94); Mean Platelet Vol. 8.5 fl (6.2-12.0); Monocyte# 0.37 X10^3/uL; Monocyte% 6.8 % (0-10); Neutrophil % 87.9 % (47-70); Platelet Count 74 K/mm3 (150-450); RBC Distribution Width CV 15.5 % (11.6-14.6); Red Blood Count 2.56 M/mm3 (4.6-6.2); White Blood Count 5.5 K/mm3 (4.4-11.0)
[2018-01-30 05:47] LABS: Differential Indicated SCAN CRITERIA MET; POSITIVE COUNT NO; POSITIVE DIFFERENTIAL YES; POSITIVE MORPHOLOGY NO
[2018-01-30 06:27] LABS: ALB/GLOB Ratio 0.7 RATIO (0.9-2.4); AST(SGOT) 28 U/L (15-37); Alanine Aminotransfer ALT/SGPT 85 U/L (16-61); Albumin, Serum 1.9 g/dL (3.2-5.0); Alkaline Phosphatase 61 U/L (45-117); Anion Gap 7 (5-15); BUN 15 mg/dL (7-18); BUN/Creat Ratio 19.6 RATIO (10-20); Calcium,Total 7.2 mg/dL (8.5-10.1); Chloride 113 mmol/L (98-107); Creatinine, Serum 0.76 mg/dL (0.70-1.30); EST Glomerular Filtration Rate 104 mL/min (>60); Est Glom Filt Rate - Afr Amer 126 mL/min (>60); Globulin 2.7 g/dL (2.2-4.2); Glucose 127 mg/dL (74-106); Magnesium 1.8 mg/dL (1.6-2.6); Potassium 3.7 mmol/L (3.5-5.1); Protein, Total 4.6 g/dL (6.4-8.2); Sodium Level 142 mmol/L (136-145)
--- NOTE | 2018-01-30 06:39 | PCM.PN.INT ---
Subjective: The patient was seen and examined at the bedside this morning. Events from the last 24 hours have been reviewed. The patient is currently afebrile, hemodynamically stable and maintaining appropriate oxygen saturations on room air. No overnight events were noted by the nursing staff. The patient does report that his nausea has improved, but his p.o. intake has been relatively limited. He denies the presence of chest pain or shortness of breath. His remains at the bedside. Objective: The patient's most recent lab work, culture data and imaging studies have all been personally reviewed. General: Alert, Oriented x3, Cooperative, No apparent distress HEENT: Atraumatic, PERRLA, Normocephalic Oral: No Gingival or Mucosal Lesions/ Ulcerations Neck: Supple, No Nodes, Trachea Midline Lungs: Normal air movement, No rhonchi, No wheeze, No rales Cardiovascular: Normal S1, Normal S2, No murmurs, Irregular Rate Abdomen: Bowel Sounds Present, Soft, Non Tender Extremities: No clubbing, No cyanosis, No edema Skin: No breakdown Musculoskeletal: No Tenderness to Palpation of Joints or Extremities, No Muscle Wasting Lymphatic: No Cervical, Supraclavicular, or Inguinal Adenopathy Neurological: Cranial nerves II-XII grossly intact, Neuro grossly intact Psych/Mental Status: Alert and oriented to time, place, person, mood and affect Vital Signs Temp Pulse Resp BP Pulse Ox 36.7 C 94 22 H 103/66 94 01/30/18 04:00 01/30/18 05:00 01/30/18 05:00 01/30/18 05:00 01/30/18 05:00 Oxygen Flow Rate (L/min) 2 Oxygen Delivery Method Room Air Weight: 205 lb 7.533 oz Body Mass Index (BMI) 31.0 Intake and Output for Last 24 Hours 01/28/18 01/29/18 01/30/18 23:59 23:59 23:59 Intake Total 1525.4 / 1525.4 3352.5 / 3352.5 1830 / 1830 Output Total 500 / 500 975 / 975 950 / 950 Balance 1025.4 / 1025.4 2377.5 / 2377.5 880 / 880 Labs (Last 48 Hours) 01/28/18 01/28/18 01/28/18 13:35 13:35 16:07 WBC 4.5 RBC 3.18 L Hgb 10.6 L Hct 32.3 L MCV 101.6 H MCH 33.3 H MCHC 32.8 RDW 15.5 H RDW Differential 58.1 H Plt Count 93 L MPV 8.3 Immature Gran % (Auto) 1.300 H Neut % (Auto) 95.6 H Lymph % (Auto) 2.7 L [place] % (Auto) 0.2 Eos % (Auto) 0.2 Baso % (Auto) 0.0 Absolute Neuts (auto) 4.3 Absolute Lymphs (auto) 0.12 L Total Counted Not Reportable Platelet Estimate SLT DEC Sodium 141 Potassium 3.8 Chloride 108 H Carbon Dioxide 25.0 Anion Gap 8 BUN 19 H Creatinine 1.13 Estim Creat Clear Calc 50.44 Est GFR (MDRD) Af Amer 80 Est GFR (MDRD) Non-Af 66 BUN/Creatinine Ratio 16.8 Glucose 109 H Lactic Acid 2.0 Calcium 8.7 Magnesium Total Bilirubin AST ALT Alkaline Phosphatase Troponin I Total Protein Albumin Globulin Albumin/Globulin Ratio Amylase Lipase 01/28/18 01/28/18 01/28/18 19:45 22:20 22:20 WBC RBC Hgb Hct MCV MCH MCHC RDW RDW Differential Plt Count MPV Immature Gran % (Auto) Neut % (Auto) Lymph % (Auto) [place] % (Auto) Eos % (Auto) Baso % (Auto) Absolute Neuts (auto) Absolute Lymphs (auto) Total Counted Platelet Estimate Sodium Potassium Chloride Carbon Dioxide Anion Gap BUN Creatinine Estim Creat Clear Calc Est GFR (MDRD) Af Amer Est GFR (MDRD) Non-Af BUN/Creatinine Ratio Glucose Lactic Acid 1.2 Calcium Magnesium Total Bilirubin AST ALT Alkaline Phosphatase Troponin I < 0.015 0.034 Total Protein Albumin Globulin Albumin/Globulin Ratio Amylase Lipase 01/29/18 01/29/18 01/29/18 01:05 04:10 04:10 WBC 8.0 RBC 2.94 L Hgb 9.9 L Hct 30.7 L MCV 104.4 H MCH 33.7 H MCHC 32.2 RDW 15.5 H RDW Differential 57.8 H Plt Count 97 L MPV 8.6 Immature Gran % (Auto) 0.400 Neut % (Auto) 90.2 H Lymph % (Auto) 2.6 L [place] % (Auto) 6.6 Eos % (Auto) 0.1 Baso % (Auto) 0.1 Absolute Neuts (auto) 7.2 Absolute Lymphs (auto) 0.21 L Total Counted Not Reportable Platelet Estimate Sodium 141 Potassium 4.3 Chloride 111 H Carbon Dioxide 22.0 Anion Gap 8 BUN 16 Creatinine 0.98 Estim Creat Clear Calc 58.16 Est GFR (MDRD) Af Amer 95 Est GFR (MDRD) Non-Af 78 BUN/Creatinine Ratio 16.4 Glucose 112 H Lactic Acid Calcium 7.8 L Magnesium Total Bilirubin AST ALT Alkaline Phosphatase Troponin I 0.052 H Total Protein Albumin Globulin Albumin/Globulin Ratio Amylase Lipase 01/29/18 01/29/18 01/29/18 04:10 06:53 06:53 WBC RBC Hgb Hct MCV MCH MCHC RDW RDW Differential Plt Count MPV Immature Gran % (Auto) Neut % (Auto) Lymph % (Auto) [place] % (Auto) Eos % (Auto) Baso % (Auto) Absolute Neuts (auto) Absolute Lymphs (auto) Total Counted Platelet Estimate Sodium Potassium Chloride Carbon Dioxide Anion Gap BUN Creatinine Estim Creat Clear Calc Est GFR (MDRD) Af Amer Est GFR (MDRD) Non-Af BUN/Creatinine Ratio Glucose Lactic Acid Calcium Magnesium Total Bilirubin AST ALT Alkaline Phosphatase Troponin I 0.052 H 0.058 H Total Protein Albumin Globulin Albumin/Globulin Ratio Amylase 34 Lipase 39 L 01/30/18 01/30/18 05:35 05:35 WBC 5.5 RBC 2.56 L Hgb 8.3 L Hct 25.9 L MCV 101.2 H MCH 32.4 H MCHC 32.0 RDW 15.5 H RDW Differential 57.0 H Plt Count 74 L MPV 8.5 Immature Gran % (Auto) 0.200 Neut % (Auto) 87.9 H Lymph % (Auto) 5.1 L [place] % (Auto) 6.8 Eos % (Auto) 0.0 Baso % (Auto) 0.0 Absolute Neuts (auto) 4.8 Absolute Lymphs (auto) 0.28 L Total Counted Not Reportable Platelet Estimate Sodium 142 Potassium 3.7 Chloride 113 H Carbon Dioxide 22.0 Anion Gap 7 BUN 15 Creatinine 0.76 Estim Creat Clear Calc 57.00 Est GFR (MDRD) Af Amer 126 Est GFR (MDRD) Non-Af 104 BUN/Creatinine Ratio 19.6 Glucose 127 H Lactic Acid Calcium 7.2 L Magnesium 1.8 Total Bilirubin 0.70 AST 28 ALT 85 H Alkaline Phosphatase 61 Troponin I Total Protein 4.6 L Albumin 1.9 L Globulin 2.7 Albumin/Globulin Ratio 0.7 L Amylase Lipase Clinical Impression(s) from Imaging Studies Chest X-Ray 01/28/18 15:59 IMPRESSION: Stable cardiomegaly with hyperexpansion. No new or acute finding. Electronically Signed: Werner Hull MD at 16:27 EST , Service support , Medical Necessity - Tobacco Use Smoking Status: Former smoker Tobacco Use: Cigarettes Assessment/Plan All Active Problems (Last Reviewed 01/07/18 @ 11:37 by Shala Beaver) Weakness (Acute) Vomiting (Acute) Malaise and fatigue (Acute) Atrial flutter (Acute) RECOMMENDATIONS: 1. Continue gentle supplemental IV fluid hydration until p.o. intake increases. 2. Continue antiemetics as ordered. 3. Continue Eliquis as ordered. 4. Pain control regimen per hospitalist. 5. Stress dose steroids. Wean as tolerated, with eventual plans to resume prednisone per outpatient regimen. IMPRESSIONS: 1. Hypovolemic shock The patient has responded favorably from a hemodynamic perspective to IV fluid resuscitation in the transient use of vasopressor support. He is no longer requiring Levophed. Would plan to continue gentle IV fluid hydration for now. Continue antiemetics and encourage p.o. intake. Stress dose steroids were initiated, as the patient is on chronic prednisone. Stress dose steroids will be weaned as tolerated, with eventual plans to resume his baseline prednisone dose. 2. Immunotherapy-induced nausea and vomiting Continue supportive measures as noted above with antiemetics and supplemental IV fluids. Oncology to evaluate whether the patient would be a candidate for any additional immunotherapy treatments, given his recurrent reaction to the medication. 3. Paroxysmal atrial fibrillation/troponin elevation Continue medical management per cardiology recommendations. 4. Metastatic prostate cancer Defer ongoing management to oncology accordingly. 5. Hypertension/hyperlipidemia/chronic cancer related pain Complicates care, management, recovery and prognosis. Likely okay to resume home beta-khang regimen at this time. This note was generated with [employer] software. It may contain incorrect words, spelling, and punctuation that were not noted in checking the note before signing. DISPOSITION: The patient is medically stable for transfer out of the intensive care unit. Code Visit Inpatient E&M: 65174 Subs Hosp L3
--- NOTE | 2018-01-30 08:39 | PCM.PROGNOTE ---
Subjective: Chief complaint: Follow-up after admission for hypovolemic shock secondary to intractable chemotherapy-induced nausea and vomiting. Patient seen and examined. No acute events overnight. This morning, he is still complaining of nausea but slightly improved. Denied abdominal pain, constipation or diarrhea. Denies chest pain or shortness of breath. He has been off Levophed drip this morning, blood pressure stabilized, heart rate stable as well and pulse ox is 94% on room air. - Physical Exam General: Alert, Oriented x3, Cooperative, No apparent distress HEENT: Atraumatic, PERRLA, EOMI, Normocephalic Oral: Moist Mucosa, No Gingival or Mucosal Lesions/ Ulcerations Neck: Supple, No JVD, Negative Carotid Bruits, Trachea Midline, Thyroid Normal Size and Texture Lungs: Clear to auscultation, No rhonchi, No wheeze, No rales, Diminished Cardiovascular: Normal S1, Normal S2, No murmurs, PMI Normal, Irregular Rate Abdomen: Bowel Sounds Present, Soft, Non Tender, Non-Distended, No Hepato-splenomegaly Extremities: No clubbing, No cyanosis, No edema Skin: No rashes, No breakdown Lymphatic: No Cervical, Supraclavicular, or Inguinal Adenopathy Neurological: Cranial nerves II-XII grossly intact, Motor Exam 5/5 strength throughout Psych/Mental Status: Normal Affect, Appropriate, Alert and oriented to time, place, person, mood and affect Vital Signs Temp Pulse Resp BP Pulse Ox 98.0 F 98 14 116/75 93 01/30/18 04:00 01/30/18 06:00 01/30/18 06:00 01/30/18 06:00 01/30/18 06:00 Oxygen Flow Rate (L/min) 2 Oxygen Delivery Method Room Air Weight: 206 lb 2.115 oz Body Mass Index (BMI) 31.0 Intake and Output for Last 24 Hours 01/28/18 01/29/18 01/30/18 23:59 23:59 23:59 Intake Total 1525.4 / 1525.4 3352.5 / 3352.5 1830 / 1830 Output Total 500 / 500 975 / 975 950 / 950 Balance 1025.4 / 1025.4 2377.5 / 2377.5 880 / 880 Laboratory Tests Past 24 Hrs 01/29/18 01/30/1818 06:53 05:35 05:35 WBC 5.5 RBC 2.56 L Hgb 8.3 L Hct 25.9 L MCV 101.2 H MCH 32.4 H MCHC 32.0 RDW 15.5 H RDW Differential 57.0 H Plt Count 74 L MPV 8.5 Immature Gran % (Auto) 0.200 Neut % (Auto) 87.9 H Lymph % (Auto) 5.1 L [place] % (Auto) 6.8 Eos % (Auto) 0.0 Baso % (Auto) 0.0 Absolute Neuts (auto) 4.8 Absolute Lymphs (auto) 0.28 L Total Counted Not Reportable Sodium 142 Potassium 3.7 Chloride 113 H Carbon Dioxide 22.0 Anion Gap 7 BUN 15 Creatinine 0.76 Estim Creat Clear Calc 57.00 Est GFR (MDRD) Af Amer 126 Est GFR (MDRD) Non-Af 104 BUN/Creatinine Ratio 19.6 Glucose 127 H Calcium 7.2 L Magnesium 1.8 Total Bilirubin 0.70 AST 28 ALT 85 H Alkaline Phosphatase 61 Total Protein 4.6 L Albumin 1.9 L Globulin 2.7 Albumin/Globulin Ratio 0.7 L Amylase 34 Lipase 39 L Medical Necessity - Tobacco Use Smoking Status: Former smoker Tobacco Use: Cigarettes Assessment/Plan This is an 78 years old male patient admitted because of intractable nausea and vomiting after he received dose of Keytruda for metastatic prostate cancer, found to have hypovolemic shock secondary to intractable nausea and vomiting and severe dehydration, was admitted to intensive care unit for treatment. #1 hypovolemic shock: Secondary to infected nausea and vomiting due to chemotherapy. Patient is no longer requiring IV Levophed drip, blood pressure maintained on IV fluids. He is on IV stress dose of steroids. It is not clear why patient has been on long-term prednisone. He is still some persistent nausea. This morning, his vital signs are stable, blood pressure is maintained. Routine blood work reviewed. Plan: Decrease IV fluids, transfer to PCU if blood pressure maintained. #2 intractable chemotherapy-induced nausea and vomiting: Still symptomatic, he is on IV Zofran. He denied abdominal pain. LFT and lipase were normal. Plan: At IV Phenergan as needed, decrease IV fluids as above, advance diet as tolerated. #3 chronic anemia/thrombocytopenia: Probably secondary to chemotherapy as well as hemodilution. Today's hemoglobin is 8.3 g/dL. Platelet count is 74,000. No evidence of active bleeding. Plan to decrease IV fluids as above, repeat CBC tomorrow morning. #4 metastatic prostate cancer: On chemotherapy with Keytruda, received 2 dose in the past and this time, it was detailed dose. He follows up with Dr. Nielsen as outpatient. #5 chronic atrial fibrillation: This morning, her rate is stable, blood pressure is maintained. His troponin was minimally elevated.. Patient denies any chest pain. Continue amiodarone and digoxin for rate control, continue Eliquis for anticoagulation, plan to resume beta-blockers when blood pressure allows. #6 CAD status post CABG and stents: Stable, no acute issues. Troponin is minimally elevated likely because of the A. fib with RVR. Continue Eliquis, digoxin, resume beta-blockers when appropriate as above. #7 hypertension: Metoprolol is on hold because of hypotension. Blood pressure improved, plan as above. #8 hyperlipidemia: Continue statins. #9 hypothyroidism: Resume levothyroxine. #10 DVT prophylaxis: Continue Eliquis. This note was generated with [employer] dictation software. It may contain incorrect words, spelling, and punctuation that were not noted in checking the note before signing. Code Visit Inpatient E&M: 49364 [facility] Hosp L2
--- NOTE | 2018-01-30 08:51 | PN_ITS ---
Subjective: Chief complaint: Follow-up after admission for hypovolemic shock secondary to intractable chemotherapy-induced nausea and vomiting. Patient seen and examined. No acute events overnight. This morning, he is still complaining of nausea but slightly improved. Denied abdominal pain, constipation or diarrhea. Denies chest pain or shortness of breath. He has been off Levophed drip this morning, blood pressure stabilized, heart rate stable as well and pulse ox is 94% on room air. - Physical Exam General: Alert, Oriented x3, Cooperative, No apparent distress HEENT: Atraumatic, PERRLA, EOMI, Normocephalic Oral: Moist Mucosa, No Gingival or Mucosal Lesions/ Ulcerations Neck: Supple, No JVD, Negative Carotid Bruits, Trachea Midline, Thyroid Normal Size and Texture Lungs: Clear to auscultation, No rhonchi, No wheeze, No rales, Diminished Cardiovascular: Normal S1, Normal S2, No murmurs, PMI Normal, Irregular Rate Abdomen: Bowel Sounds Present, Soft, Non Tender, Non-Distended, No Hepato- splenomegaly Extremities: No clubbing, No cyanosis, No edema Skin: No rashes, No breakdown Lymphatic: No Cervical, Supraclavicular, or Inguinal Adenopathy Neurological: Cranial nerves II-XII grossly intact, Motor Exam 5/5 strength throughout Psych/Mental Status: Normal Affect, Appropriate, Alert and oriented to time, place, person, mood and affect Vital Signs Temp Pulse Resp BP Pulse Ox 98.0 F 98 14 116/75 93 01/30/18 04:00 01/30/18 06:00 01/30/18 06:00 01/30/18 06:00 01/30/18 06:00 Oxygen Flow Rate (L/min) 2 Oxygen Delivery Method Room Air Weight: 206 lb 2.115 oz Body Mass Index (BMI) 31.0 Intake and Output for Last 24 Hours 01/28/18 01/29/18 01/30/18 23:59 23:59 23:59 Intake Total 1525.4 / 1525.4 3352.5 / 3352.5 1830 / 1830 Output Total 500 / 500 975 / 975 950 / 950 Balance 1025.4 / 1025.4 2377.5 / 2377.5 880 / 880 Laboratory Tests Past 24 Hrs 01/29/18 01/30/1818 06:53 05:35 05:35 WBC 5.5 RBC 2.56 L Hgb 8.3 L Hct 25.9 L MCV 101.2 H MCH 32.4 H MCHC 32.0 RDW 15.5 H RDW Differential 57.0 H Plt Count 74 L MPV 8.5 Immature Gran % (Auto) 0.200 Neut % (Auto) 87.9 H Lymph % (Auto) 5.1 L [place] % (Auto) 6.8 Eos % (Auto) 0.0 Baso % (Auto) 0.0 Absolute Neuts (auto) 4.8 Absolute Lymphs (auto) 0.28 L Total Counted Not Reportable Sodium 142 Potassium 3.7 Chloride 113 H Carbon Dioxide 22.0 Anion Gap 7 BUN 15 Creatinine 0.76 Estim Creat Clear Calc 57.00 Est GFR (MDRD) Af Amer 126 Est GFR (MDRD) Non-Af 104 BUN/Creatinine Ratio 19.6 Glucose 127 H Calcium 7.2 L Magnesium 1.8 Total Bilirubin 0.70 AST 28 ALT 85 H Alkaline Phosphatase 61 Total Protein 4.6 L Albumin 1.9 L Globulin 2.7 Albumin/Globulin Ratio 0.7 L Amylase 34 Lipase 39 L Medical Necessity - Tobacco Use Smoking Status: Former smoker Tobacco Use: Cigarettes Assessment/Plan This is an 78 years old male patient admitted because of intractable nausea and vomiting after he received dose of Keytruda for metastatic prostate cancer, found to have hypovolemic shock secondary to intractable nausea and vomiting and severe dehydration, was admitted to intensive care unit for treatment. #1 hypovolemic shock: Secondary to infected nausea and vomiting due to chemotherapy. Patient is no longer requiring IV Levophed drip, blood pressure maintained on IV fluids. He is on IV stress dose of steroids. It is not clear why patient has been on long-term prednisone. He is still some persistent nausea. This morning, his vital signs are stable, blood pressure is maintained. Routine blood work reviewed. Plan: Decrease IV fluids, transfer to PCU if blood pressure maintained. #2 intractable chemotherapy-induced nausea and vomiting: Still symptomatic, he is on IV Zofran. He denied abdominal pain. LFT and lipase were normal. Plan: At IV Phenergan as needed, decrease IV fluids as above, advance diet as t olerated. #3 chronic anemia/thrombocytopenia: Probably secondary to chemotherapy as well as hemodilution. Today's hemoglobin is 8.3 g/dL. Platelet count is 74,000. No evidence of active bleeding. Plan to decrease IV fluids as above, repeat CBC tomorrow morning. #4 metastatic prostate cancer: On chemotherapy with Keytruda, received 2 dose in the past and this time, it was detailed dose. He follows up with Dr. Nielsen as outpatient. #5 chronic atrial fibrillation: This morning, her rate is stable, blood pressure is maintained. His troponin was minimally elevated.. Patient denies any chest pain. Continue amiodarone and digoxin for rate control, continue Eliquis for anticoagulation, plan to resume beta-blockers when blood pressure allows. #6 CAD status post CABG and stents: Stable, no acute issues. Troponin is minimally elevated likely because of the A. fib with RVR. Continue Eliquis, digoxin, resume beta-blockers when appropriate as above. #7 hypertension: Metoprolol is on hold because of hypotension. Blood pressure improved, plan as above. #8 hyperlipidemia: Continue statins. #9 hypothyroidism: Resume levothyroxine. #10 DVT prophylaxis: Continue Eliquis. This note was generated with [employer] dictation software. It may contain incorrect words, spelling, and punctuation that were not noted in checking the note before signing. Code Visit Inpatient E&M: 42883 Subs Hosp L2
[2018-01-30] MEDS: proMETHazine 25 MG/ML Syringe 6.25 MG IV (09:30)
[2018-01-30] MEDS: morphine SR 15 MG Tablet PO ×2 (09:45→21:37)
[2018-01-30] MEDS: Digoxin 250 MCG Tablet PO (09:46)
[2018-01-30] MEDS: Hydrocortisone Sod Succinate 100 MG/2 ML Vial 50 MG IV ×2 (09:48→21:38)
--- NOTE | 2018-01-30 10:09 | PN.CARD_ITS ---
Subjectve: Patient seen and evaluated. Appears to be doing better. Somewhat nauseated. Objective: Vital Signs Temp Pulse Resp BP Pulse Ox 98.0 F 101 H 14 113/60 98 01/30/18 04:00 01/30/18 09:00 01/30/18 09:00 01/30/18 09:00 01/30/18 09:00 Oxygen Flow Rate (L/min) 2 Oxygen Delivery Method Room Air Weight: 206 lb 2.115 oz Body Mass Index (BMI) 31.0 Intake and Output for Last 24 Hours 01/28/18 01/29/18 01/30/18 23:59 23:59 23:59 Intake Total 1525.4 / 1525.4 3352.5 / 3352.5 1830 / 1830 Output Total 500 / 500 975 / 975 950 / 950 Balance 1025.4 / 1025.4 2377.5 / 2377.5 880 / 880 General: Awake, Alert, Oriented x 3 HEENT: PERRL, EOMI, Sclera Non Icteric Neck: Supple, Good ROM, No Lymph Node Enlargement Lungs: Clear to auscultation Cardiovascular: Irregular Rhythm, Normal S1, Normal S2, No Murmurs, No Rubs, No Gallops Vascular: No Carotid Bruits, Normal Femoral Pulses, Normal Radial Pulses, Normal Dorsalis Pedal Pulse, Normal Posterior Tibial Pulses Abdomen: Bowel Sounds Present, Soft, Non Tender, No HSM, No Organomegaly Extremities: No Cyanosis, No Clubbing, No edema Neurological: No Focal Motor or Sensory Deficit 01/30/18 05:35: WBC 5.5, RBC 2.56 L, Hgb 8.3 L, Hct 25.9 L, MCV 101.2 H, MCH 32.4 H, MCHC 32.0, RDW 15.5 H, RDW Differential 57.0 H, Plt Count 74 L, MPV 8.5, Immature Gran % (Auto) 0.200, Neut % (Auto) 87.9 H, Lymph % (Auto) 5.1 L, [place] % (Auto) 6.8, Eos % (Auto) 0.0, Baso % (Auto) 0.0, Absolute Neuts (auto) 4.8, Total Counted Not Reportable 01/30/18 05:35: Sodium 142, Potassium 3.7, Chloride 113 H, Carbon Dioxide 22.0, Anion Gap 7, BUN 15, Creatinine 0.76, Est GFR (MDRD) Af Amer 126, Est GFR (MDRD) Non-Af 104, BUN/Creatinine Ratio 19.6, Glucose 127 H, Calcium 7.2 L, Magnesium 1.8, Total Bilirubin 0.70 Rhythm: EKG: ECHO: Stress Test: Cardiac Cath: PCI: CT Surgery: Holter monitor: EPS: PPM: CXR: Chest CT Scan: Medical Necessity - Tobacco Use Smoking Status: Former smoker Tobacco Use: Cigarettes Assessment/Plan 1. Atrial fibrillation with rapid ventricular response * The above appears to be likely secondary to his chemotherapy agents, hypotension, and Levophed infusion. * Rate appears to be improving with oral amiodarone which will be continued * Will continue with his anticoagulation * His last echocardiogram done 2 months ago demonstrated an ejection fraction of 45% and at this time I would not repeated. * His beta-khang will be reintroduced as his blood pressure recovers * Will recommend discontinue digoxin due to nausea 2. CAD status post PCI and CABG The patient has undergone extensive noninvasive and invasive evaluation of his underlying CAD process in the past. At the moment he appears to be without symptoms of acute coronary syndrome. He will continue medical management and undergo further evaluation as deemed appropriate. 3. Carotid artery disease The patient does have carotid artery disease and has undergone surgical intervention in the past. He appears without any acute symptoms at this time. He will continue to be followed as deemed appropriate. 4. Hyperlipidemia The patient will continue risk factor evaluation care. 5. Hypertension The patient's blood pressure will need to be monitored. His medications may need to be adjusted to avoid significant hypotension and/or hypertension. 6. Prostatic carcinoma with metastatic disease The patient will continue evaluation care per hematology/oncology. Thank you for allowing me to participate in the care of your patient. Please don't hesitate to call if any issues arise
--- NOTE | 2018-01-30 11:55 | PN_ITS ---
Subjective: doing better, on hydrocortisone 50 mg q 12. - Physical Exam Vital Signs Temp Pulse Resp BP Pulse Ox 97.3 F L 71 21 H 104/54 L 96 01/30/18 10:00 01/30/18 11:39 01/30/18 10:00 01/30/18 10:00 01/30/18 10:00 Oxygen Flow Rate (L/min) 2 Oxygen Delivery Method Room Air Weight: 93.5 kg Body Mass Index (BMI) 31.0 Intake and Output for Last 24 Hours 01/28/18 01/29/18 01/30/18 23:59 23:59 23:59 Intake Total 1525.4 / 1525.4 3352.5 / 3352.5 1830 / 1830 Output Total 500 / 500 975 / 975 950 / 950 Balance 1025.4 / 1025.4 2377.5 / 2377.5 880 / 880 Laboratory Tests Past 24 Hrs 01/30/18 01/30/18 05:35 05:35 WBC 5.5 RBC 2.56 L Hgb 8.3 L Hct 25.9 L MCV 101.2 H MCH 32.4 H MCHC 32.0 RDW 15.5 H RDW Differential 57.0 H Plt Count 74 L MPV 8.5 Immature Gran % (Auto) 0.200 Neut % (Auto) 87.9 H Lymph % (Auto) 5.1 L [place] % (Auto) 6.8 Eos % (Auto) 0.0 Baso % (Auto) 0.0 Absolute Neuts (auto) 4.8 Absolute Lymphs (auto) 0.28 L Total Counted Not Reportable Sodium 142 Potassium 3.7 Chloride 113 H Carbon Dioxide 22.0 Anion Gap 7 BUN 15 Creatinine 0.76 Estim Creat Clear Calc 57.00 Est GFR (MDRD) Af Amer 126 Est GFR (MDRD) Non-Af 104 BUN/Creatinine Ratio 19.6 Glucose 127 H Calcium 7.2 L Magnesium 1.8 Total Bilirubin 0.70 AST 28 ALT 85 H Alkaline Phosphatase 61 Total Protein 4.6 L Albumin 1.9 L Globulin 2.7 Albumin/Globulin Ratio 0.7 L Medical Necessity - Tobacco Use Smoking Status: Former smoker Tobacco Use: Cigarettes Assessment/Plan continue stress dose steroids. Dr Nassar to discuss subsequent treatment plans tomorrow.
[2018-01-30] MEDS: Amiodarone 200 MG Tablet PO (12:00)
[2018-01-30] MEDS: Multivitamins,Therapeutic Tablet 1 TABLET PO (12:00)
[2018-01-30] MEDS: APIXABAN 5 MG TABLET PO ×2 (12:01→21:38)
[2018-01-30] MEDS: Levothyroxine 112 MCG Tablet PO (12:01)
[2018-01-30] MEDS: Tamsulosin HCl 0.4 MG Capsule PO (18:12)
[2018-01-30] MEDS: Pravastatin 20 MG Tablet PO (21:37)
[2018-01-30] MEDS: Metoprolol Tartrate 25 MG Tablet 12.5 MG PO (21:45)
[2018-01-31] VITALS (13 sets, daily range): BP systolic 107–130; BP diastolic 63–70; PULSE 67–90; RESP 16–18; TEMP 36.4–37.2; O2SAT 91–97
[2018-01-31 06:17] LABS: Absolute Lymphocyte Count 0.35 X10^3/ul (0.83-4.51); Eosinophil# 0.03 X10^3/uL; Eosinophils% 0.7 % (0-5); Hematocrit 28.1 % (40-54); Hemoglobin 9.2 g/dl (13.0-16.5); Lymphocyte # 0.35 X10^3/ul (4.0); Lymphocyte % 7.6 % (19-41); Mean Corp Hgb Conc 32.7 g/gl (32-36); Mean Corpuscular Hgb 33.9 pg (27.0-32.0); Mean Corpuscular Volume 103.7 fL (80-94); Monocyte# 0.21 X10^3/uL; Monocyte% 4.6 % (0-10); Neutrophil # 3.99 X10^3/uL (2.7-7.7); Neutrophil % 86.9 % (47-70); Platelet Count 87 K/mm3 (150-450); RBC Distribution Width CV 14.9 % (11.6-14.6); RBC Distribution Width SD 54.8 fl (35.1-43.9); Red Blood Count 2.71 M/mm3 (4.6-6.2); White Blood Count 4.6 K/mm3 (4.4-11.0)
[2018-01-31 06:24] LABS: Differential Indicated SCAN CRITERIA MET; POSITIVE COUNT NO; POSITIVE DIFFERENTIAL YES; POSITIVE MORPHOLOGY NO
[2018-01-31] MEDS: Levothyroxine 112 MCG Tablet PO (06:30)
--- NOTE | 2018-01-31 07:58 | PCM.PN.BLA ---
Progress Note Oncology progress note: He is feeling better today & less short of breath. Still weak overall. No chest pain or nausea. Impression: 1) metastatic prostate cancer (MSI - high) on Keytruda -Poor tolerance to immunotherapy with nausea & heart failure 2) adrenal insufficiency -on long-term prednisone 5 mg twice daily 3) Atrial fibrillation with rapid ventricular response / CHF -rate controlled & symptoms improved Plan: 1) Taper prednisone 10 BID ton 5mg BID over 1 week; will be going home today. 2) cancel further treatment this year with Keytruda; follow-up with Dr. Nassar in February 2018 to discuss future treatment options for metastatic prostate cancer. 3) follow-up with cardiology cc: Dr.Paul Nassar, Dr. Garfield Fitzgerald, Dr. Ernst Ribera; Dr. Reg Weir
[2018-01-31] MEDS: morphine SR 15 MG Tablet PO ×2 (08:15→21:27)
--- NOTE | 2018-01-31 09:27 | PCM.PN.CARD ---
Subjectve: The patient states that overall he is feeling better. However he knows he is retaining fluid. He states he feels swollen in both his upper extremities and lower extremities. Objective: Vital Signs Temp Pulse Resp BP Pulse Ox 97.8 F 90 18 115/70 91 01/31/18 06:30 01/31/18 06:59 01/31/18 06:30 01/31/18 06:30 01/31/18 07:10 Oxygen Flow Rate (L/min) 2 Oxygen Delivery Method Room Air Weight: 206 lb 5.643 oz Body Mass Index (BMI) 31.0 Intake and Output for Last 24 Hours 01/29/18 01/30/18 01/31/18 23:59 23:59 23:59 Intake Total 3352.5 / 3352.5 3148 / 3148 1315 / 1315 Output Total 975 / 975 950 / 950 550 / 550 Balance 2377.5 / 2377.5 2198 / 2198 765 / 765 General: Awake, Alert, Oriented x 3, Cooperative, No Acute Distress HEENT: Atraumatic, Normocephalic, PERRL, EOMI, Sclera Non Icteric Oral: Moist Mucosa Neck: Supple, Good ROM, No JVD Lungs: Clear to auscultation Cardiovascular: Irregular Rhythm, Normal S1, Normal S2 Abdomen: Bowel Sounds Present, Soft, Non Tender Extremities: - - Positive bilateral upper and lower extremity edema Neurological: No Focal Motor or Sensory Deficit Psych/Mental Status: Appropriate 01/31/18 05:50: WBC 4.6, RBC 2.71 L, Hgb 9.2 L, Hct 28.1 L, MCV 103.7 H, MCH 33.9 H, MCHC 32.7, RDW 14.9 H, RDW Differential 54.8 H, Plt Count 87 L, MPV 9.0, Immature Gran % (Auto) 0.200, Neut % (Auto) 86.9 H, Lymph % (Auto) 7.6 L, [place] % (Auto) 4.6, Eos % (Auto) 0.7, Baso % (Auto) 0.0, Absolute Neuts (auto) 4.0, Total Counted Not Reportable Rhythm: Atrial fibrillation Medical Necessity - Tobacco Use Smoking Status: Former smoker Tobacco Use: Cigarettes Assessment/Plan 1. Atrial fibrillation The patient remains in atrial fibrillation. His rate appears to be better controlled. He continues on rate limiting therapy, antiarrhythmic therapy, and anticoagulant therapy. Hopefully over time, as his general condition improves, he will have a better opportunity to spontaneously convert to sinus rhythm. If not then he can be considered in the future for attempt at synchronized biphasic DC cardioversion as long as he has been anticoagulated for an appropriate period of time. 2. CAD status post PCI/CABG-remote The patient does have indeterminant cardiac enzymes. This may be compatible with a type II event versus his underlying noncardiovascular event, atrial dysrhythmia, superimposed upon his cardiovascular condition. The present time he is without any acute symptoms with respect to his underlying coronary artery disease process. He will continue risk factor modification medical therapy as best as possible. 3. Carotid artery disease The patient does have peripheral arterial occlusive disease with respect to carotid artery disease. He appears to be without any acute symptoms and/or objective changes at this time. 4. Prostate carcinoma with metastatic disease He continues under the care of internal medicine and hematology/oncology for this process. 5. Hyperlipidemia The patient will continue risk factor evaluation care as he is able during this time. 6. Hypertension The patient's blood pressure will need to be followed. His medications need to be adjusted. As the patient does appear to be retaining volume, possibly secondary to his recent IV fluids, etc., he may require some gentle diuresis to bring his volume status back under better control. His blood pressure will need to be monitored during this time and his medications can be adjusted as needed. Comment: The above was discussed and reviewed with the patient and his spouse. This note was generated using a voice recognition system and there may be incorrect words, spelling or punctuation that were not noted when reviewing the office note prior to saving.
--- NOTE | 2018-01-31 10:23 | PN_ITS ---
Subjective: Chief complaint: Follow-up after admission for hypovolemic shock secondary to intractable chemotherapy-induced nausea and vomiting. Patient seen and examined. No acute events overnight. Today, he mentioned that he feels very weak and slightly more short of breath. He has no more nausea and lower, he is feeling better. His vital signs are stable. - Physical Exam General: Alert, Oriented x3, Cooperative, - - Minimally short of breath. HEENT: Atraumatic, PERRLA, EOMI, Normocephalic Oral: Moist Mucosa, No Gingival or Mucosal Lesions/ Ulcerations Neck: Supple, No JVD, Negative Carotid Bruits, Trachea Midline, Thyroid Normal Size and Texture Lungs: No rhonchi, No wheeze, No rales, Diminished, - - Decreased breath sounds at the bases, otherwise clear. Cardiovascular: Normal S1, Normal S2, No murmurs, PMI Normal, Irregular Rate Abdomen: Bowel Sounds Present, Soft, Non Tender, Non-Distended, No Hepato- splenomegaly Extremities: No clubbing, No cyanosis, No edema Skin: No rashes, No breakdown Lymphatic: No Cervical, Supraclavicular, or Inguinal Adenopathy Neurological: Cranial nerves II-XII grossly intact, Neuro grossly intact Psych/Mental Status: Normal Affect, Appropriate, Alert and oriented to time, place, person, mood and affect Vital Signs Temp Pulse Resp BP Pulse Ox 97.8 F 90 18 115/70 91 01/31/18 06:30 01/31/18 06:59 01/31/18 06:30 01/31/18 06:30 01/31/18 07:10 Oxygen Flow Rate (L/min) 2 Oxygen Delivery Method Room Air Weight: 206 lb 5.643 oz Body Mass Index (BMI) 31.0 Intake and Output for Last 24 Hours 01/29/18 01/30/18 01/31/18 23:59 23:59 23:59 Intake Total 3352.5 / 3352.5 3148 / 3148 1315 / 1315 Output Total 975 / 975 950 / 950 550 / 550 Balance 2377.5 / 2377.5 2198 / 2198 765 / 765 Laboratory Tests Past 24 Hrs 01/31/18 01/31/18 05:50 05:50 WBC 4.6 RBC 2.71 L Hgb 9.2 L Hct 28.1 L MCV 103.7 H MCH 33.9 H MCHC 32.7 RDW 14.9 H RDW Differential 54.8 H Plt Count 87 L MPV 9.0 Immature Gran % (Auto) 0.200 Neut % (Auto) 86.9 H Lymph % (Auto) 7.6 L [place] % (Auto) 4.6 Eos % (Auto) 0.7 Baso % (Auto) 0.0 Absolute Neuts (auto) 4.0 Absolute Lymphs (auto) 0.35 L Total Counted Not Reportable Troponin I 0.021 Medical Necessity - Tobacco Use Smoking Status: Former smoker Tobacco Use: Cigarettes Assessment/Plan This is an 78 years old male patient admitted because of intractable nausea and vomiting after he received dose of Keytruda for metastatic prostate cancer, found to have hypovolemic shock secondary to intractable nausea and vomiting and severe dehydration, was admitted to intensive care unit for treatment. #1 hypovolemic shock: Blood pressure maintained on minimal IV fluids. It is secondary to infected nausea and vomiting due to chemotherapy. He is on IV stress dose of steroids. He denied any more nausea vomiting, tolerating diet. Pulse ox was 91% on room air. Plan: DC IV fluids, encourage oral intake, ambulate, DC IV steroids, start oral prednisone twice daily, repeat CBC and BMP tomorrow morning, anticipate discharge home tomorrow. #2 intractable chemotherapy-induced nausea and vomiting: He is on Zofran and Phenergan PRN. Symptoms improved, denied any more nausea vomiting. He is tolerating diet. LFT and lipase were normal. Plan as above. #3 chronic anemia/thrombocytopenia: Probably secondary to chemotherapy as well as hemodilution. Today's hemoglobin is 9.2 g/dL, improved. Platelet count is 87,000, improved. No evidence of active bleeding. #4 metastatic prostate cancer: On chemotherapy with Keytruda, received 2 dose in the past and this time was the third dose. Oncology consulted, recommended no Keytruda in the near future. Plan to follow-up with oncologist as outpatient. #5 chronic atrial fibrillation: Rate is controlled. Digoxin discontinued. He is on amiodarone and metoprolol for rate control, on Eliquis for anticoagulation. Plan to continue same treatment. #6 CAD status post CABG and stents: Stable, no acute issues. Troponin is minimally elevated likely because of the A. fib with RVR. Continue Eliquis and metoprolol. #7 hypertension: Blood pressure stabilized, he is back on metoprolol. Plan as above. #8 hyperlipidemia: Continue statins. #9 hypothyroidism: Continue levothyroxine. #10 DVT prophylaxis: Continue Eliquis. This note was generated with [employer] dictation software. It may contain incorrect words, spelling, and punctuation that were not noted in checking the note before signing. Code Visit Inpatient E&M: 19404 Subs Hosp L2
[2018-01-31] MEDS: Metoprolol Tartrate 25 MG Tablet 12.5 MG PO ×2 (11:05→21:28)
[2018-01-31] MEDS: Multivitamins,Therapeutic Tablet 1 TABLET PO (11:05)
[2018-01-31] MEDS: Furosemide 20 MG Tablet PO (11:07)
[2018-01-31] MEDS: Amiodarone 200 MG Tablet PO (11:07)
[2018-01-31] MEDS: 0.9% NaCl Peripheral Flush Adult/Peds IV ×2 (11:08→17:56)
[2018-01-31] MEDS: Ondansetron 4 MG/2 ML Vial IV ×2 (11:08→17:56)
[2018-01-31] MEDS: APIXABAN 5 MG TABLET PO ×2 (11:23→21:27)
--- NOTE | 2018-01-31 11:48 | PCM.PROGNOTE ---
Subjective: Patient transferred out of the intensive care unit yesterday. No acute issues were reported overnight. Patient reports subjective improvement in overall condition, but states I feel dry as of bone. Patient denies any nausea or vomiting. No chest pain or shortness of breath is reported. - Physical Exam General: Alert, Oriented x3, Cooperative, No apparent distress, Well developed, Well nourished, - - at the bedside. Speaking in full sentences. HEENT: Atraumatic, PERRLA, EOMI, Normocephalic, - - No scleral icterus or injection noted. Oral: Moist Mucosa, No Gingival or Mucosal Lesions/ Ulcerations Neck: Supple, No JVD, No Nodes, Trachea Midline Lungs: No rhonchi, No wheeze, No rales, Diminished, - - Symmetric expansion. No dullness to percussion. Cardiovascular: Normal S1, Normal S2, No murmurs, Irregular Rate, No rub noted, No Gallop, - - A flutter noted on telemetry Abdomen: Bowel Sounds Present, Soft, Non Tender, Non-Distended Extremities: No cyanosis, Capillary Refill Less than 3 Seconds, Edema Skin: No rashes, No breakdown Musculoskeletal: No Tenderness to Palpation of Joints or Extremities Lymphatic: No Cervical, Supraclavicular, or Inguinal Adenopathy Neurological: Cranial nerves II-XII grossly intact, Neuro grossly intact Psych/Mental Status: Alert and oriented to time, place, person, mood and affect Vital Signs Temp Pulse Resp BP Pulse Ox 37.2 C 75 18 130/68 H 94 01/31/18 10:50 01/31/18 11:05 01/31/18 10:50 01/31/18 11:05 01/31/18 10:50 Oxygen Flow Rate (L/min) 2 Oxygen Delivery Method Room Air Weight: 93.6 kg Body Mass Index (BMI) 31.0 Intake and Output for Last 24 Hours 01/29/18 01/30/18 01/31/18 23:59 23:59 23:59 Intake Total 3352.5 / 3352.5 3148 / 3148 1315 / 1315 Output Total 975 / 975 950 / 950 550 / 550 Balance 2377.5 / 2377.5 2198 / 2198 765 / 765 Laboratory Tests Past 24 Hrs 01/31/18 01/31/18 05:50 05:50 WBC 4.6 RBC 2.71 L Hgb 9.2 L Hct 28.1 L MCV 103.7 H MCH 33.9 H MCHC 32.7 RDW 14.9 H RDW Differential 54.8 H Plt Count 87 L MPV 9.0 Immature Gran % (Auto) 0.200 Neut % (Auto) 86.9 H Lymph % (Auto) 7.6 L [place] % (Auto) 4.6 Eos % (Auto) 0.7 Baso % (Auto) 0.0 Absolute Neuts (auto) 4.0 Absolute Lymphs (auto) 0.35 L Total Counted Not Reportable Troponin I 0.021 Medical Necessity - Tobacco Use Smoking Status: Former smoker Tobacco Use: Cigarettes Assessment/Plan RECOMMENDATIONS: 1. Consider holding IV fluids. 2. Continue antiemetics as ordered. 3. Continue Eliquis as ordered. 4. Pain control regimen per hospitalist. 5. Wean stress dose steroids to baseline over the next 5-7 days. 6. Hemodynamically stable on room air. Will sign off from a critical care perspective IMPRESSIONS: 1. Hypovolemic shock The patient has responded favorably from a hemodynamic perspective to IV fluid resuscitation in the transient use of vasopressor support. Patient's blood pressure has remained stable since discharge from the intensive care unit. Patient should continue with antiemetics and encourage p.o. intake. Stress dose steroids were initiated, but these can likely be weaned to baseline steroids over the next 5-7 days. 2. Immunotherapy-induced nausea and vomiting Continue supportive measures as noted above with antiemetics and supplemental IV fluids. Oncology following and will evaluate whether the patient would be a candidate for any additional immunotherapy treatments, given his recurrent reaction to the medication. 3. Paroxysmal atrial fibrillation/troponin elevation Continue medical management per cardiology recommendations. Patient tolerating anticoagulation well 4. Metastatic prostate cancer Defer ongoing management to oncology accordingly. 5. Hypertension/hyperlipidemia/chronic cancer related pain Complicates care, management, recovery and prognosis. Likely okay to resume home beta-khang regimen at this time. Code Visit Inpatient E&M: 56053 Subs Hosp L2
[2018-01-31] MEDS: predniSONE 20 MG Tablet PO (17:55)
[2018-01-31] MEDS: Tamsulosin HCl 0.4 MG Capsule PO (17:55)
--- NOTE | 2018-01-31 19:13 | NURSING ---
Reviewed and agreed on all charting with Carina Decker RN
[2018-01-31] MEDS: Pravastatin 20 MG Tablet PO (21:27)
[2018-02-01] VITALS (7 sets, daily range): BP systolic 110–118; BP diastolic 68; PULSE 70–92; RESP 18; TEMP 36.1–36.8; O2SAT 91–98
[2018-02-01] MEDS: Levothyroxine 112 MCG Tablet PO (05:54)
[2018-02-01 06:05] LABS: Absolute Lymphocyte Count 0.51 X10^3/ul (0.83-4.51); Absolute Neutrophil Count 3.2 X10^3/uL (2.0-7.7); Basophil# 0.01 X10^3/uL; Basophil% 0.3 % (0-1); Eosinophil# 0.04 X10^3/uL; Hematocrit 31.1 % (40-54); Hemoglobin 9.6 g/dl (13.0-16.5); Lymphocyte # 0.51 X10^3/ul (4.0); Lymphocyte % 12.8 % (19-41); Mean Corp Hgb Conc 30.9 g/gl (32-36); Mean Corpuscular Hgb 32.3 pg (27.0-32.0); Mean Corpuscular Volume 104.7 fL (80-94); Mean Platelet Vol. 9.4 fl (6.2-12.0); Monocyte# 0.24 X10^3/uL; Neutrophil # 3.17 X10^3/uL (2.7-7.7); Neutrophil % 79.6 % (47-70); Platelet Count 84 K/mm3 (150-450); RBC Distribution Width CV 15.5 % (11.6-14.6); RBC Distribution Width SD 58.6 fl (35.1-43.9); Red Blood Count 2.97 M/mm3 (4.6-6.2)
[2018-02-01 06:08] LABS: Anion Gap 7 (5-15); BUN 8 mg/dL (7-18); BUN/Creat Ratio 10.4 RATIO (10-20); Calcium,Total 7.6 mg/dL (8.5-10.1); Chloride 111 mmol/L (98-107); Creatinine, Serum 0.77 mg/dL (0.70-1.30); Differential Indicated SCAN CRITERIA MET; EST Glomerular Filtration Rate 104 mL/min (>60); Est Glom Filt Rate - Afr Amer 125 mL/min (>60); Glucose 112 mg/dL (74-106); POSITIVE COUNT NO; POSITIVE DIFFERENTIAL YES; POSITIVE MORPHOLOGY NO; Sodium Level 137 mmol/L (136-145)
[2018-02-01] MEDS: Ondansetron 4 MG/2 ML Vial IV (07:57)
--- NOTE | 2018-02-01 08:07 | DCINST_ITS ---
You will use the following diet at home:: Cardiac Your food should be the consistency of: Regular Discharge Activity: Return to Normal Activity Weight Bearing Status: Weight bearing as tolerated Call your doctor if you observe: Fever of 101 or Higher, Shortness of breath, Dizziness, Fainting spells, Chest pain, Increased palpitations (irregular heartbeat), Uncontrolled pain Allergies/Adverse Reactions: Allergies No Known Allergies Allergy (Verified 01/28/18 13:24) Medications to take at Discharge Apixaban [Eliquis] 5 mg PO BID 01/28/18 Hydrocodone/Acetaminophen [Hydrocodone-Acetamin 5-325 mg] 1 - 2 each PO Q6H 01/28/18 Levothyroxine [Synthroid] 112 mcg PO DAILY 01/28/18 Multivitamins,Therapeutic [Multivitamin] 1 tablet PO DAILY 01/28/18 Potassium Chloride [K-Dur] 20 meq PO BIDCM 01/28/18 Tamsulosin HCl [Flomax] 0.4 mg PO DAILY 01/28/18 amiodarone 200 mg tablet 200 mg PO DAILY #90 tab 01/28/18 morphine SR tablet [Ms Contin] 15 mg PO BID 01/28/18 pravastatin 20 mg tablet 20 mg PO QHS #90 tab 01/28/18 Metoprolol Tartrate [Lopressor (beta khang)] 12.5 mg PO BID #90 tablet 02/01/18 Ondansetron [Zofran] 8 mg PO Q8H PRN PRN #30 tablet 02/01/18 Prednisone 20 mg PO BID.TCU #90 tab 02/01/18 The following prescriptions were given: Ondansetron [Zofran] 8 mg PO Q8H PRN PRN #30 tablet PRN Reason: Nausea/Vomiting Metoprolol Tartrate [Lopressor (beta khang)] 12.5 mg PO BID #90 tablet Prednisone 20 mg PO BID.TCU #90 tab Primary Care Physician: Brodie Weir MD [Primary Care Provider] - Please follow up with your Primary Care Physician in: 1 week. Test Results: Test results from this visit will be discussed in further detail at your follow- up appointment, if applicable. Please Follow Up With: Ramesh Nassar DO When: please call his office.
[2018-02-01] MEDS: morphine SR 15 MG Tablet PO (09:54)
[2018-02-01] MEDS: Amiodarone 200 MG Tablet PO (09:55)
[2018-02-01] MEDS: predniSONE 20 MG Tablet PO (09:55)
[2018-02-01] MEDS: Metoprolol Tartrate 25 MG Tablet 12.5 MG PO (09:55)
[2018-02-01] MEDS: APIXABAN 5 MG TABLET PO (09:56)
--- NOTE | 2018-02-01 11:44 | PCM.DC.SUM ---
Discharge Date and Diagnosis Date of Admission: 01/28/18 Date of Discharge: 02/01/18 - Primary Discharge Diagnosis #1 acute hypovolemic shock. #2 chemotherapy-induced intractable nausea and vomiting. #3 metastatic prostate cancer. #4 chronic anemia/chronic thrombocytopenia. - Secondary Discharge Diagnosis Chronic Problems (Last Updated 01/30/18 @ 08:07 by Ernst Ribera MD) Prostate cancer metastatic to bone (Chronic) Atrial flutter (Chronic) Stenosis of right carotid artery (Chronic) Carotid stenosis (Chronic) History of PTCA (Chronic) PTCA: 03/23/2003 PTCA/Stent to proximal-mid LAD; 10/2004 PTCA of the LAD, with placement of a taxus stent. Hx of CABG (Chronic) CAB12/2002 WHITAKER graft LAD, saphenous vein graft to diagonal branch of anterior descending, lateral CFX and RCA. CAD (coronary artery disease) (Chronic) PTCA: 03/23/2003 PTCA/Stent to proximal-mid LAD; 10/2004 PTCA of the LAD, with placement of a taxus stent. CAB12/2002 WHITAKER graft LAD, saphenous vein graft to diagonal branch of anterior descending, lateral CFX and RCA. LHC: 12/2002; 12/16/2005 Hypertension (Chronic) Hypothyroid (Chronic) Hyperlipidemia (Chronic) Choledocholithiasis with obstruction (Chronic) Hospital Course and Treatment Imaging Results: Clinical Impression(s) from Imaging Studies Chest X-Ray 01/28/18 15:59 IMPRESSION: Stable cardiomegaly with hyperexpansion. No new or acute finding. Electronically Signed: Werner Hull MD at 16:27 EST , Service support , Dr. Cheney/Dr. Valencia, critical care. Dr. Fitzgerald, cardiology. Dr. King, oncology. Operations: ERCP Procedures: EKG Summary of Care Provided: Patient seen and examined on the day of discharge and appeared to be stable to be discharged home although I recommended that he should go to a chcf facility but he refused. He reported intermittent mild shortness of breath but his pulse ox was maintained on room air. His vital signs were stable and his pulse ox was 98% on room air. The patient is a 78 year old M admitted because of intractable nausea and vomiting after he received a third dose of Keytruda for metastatic prostate cancer and he was diagnosed with acute hypovolemic shock. Patient was admitted to the intensive care unit, treated with IV fluids and vasopressors to maintain his blood pressure as well as stress dose of IV steroids. This hypovolemic shock attributed to intractable nausea and vomiting that led to severe dehydration. In addition to IV fluids and vasopressors, patient was treated with IV Zofran and Phenergan as needed for nausea and vomiting. His routine blood work was remarkable for chronic anemia and chronic thrombocytopenia and both hemoglobin and platelet count were stable at his baseline and there was no evidence of active bleeding. His BMP was unremarkable. His lactic acid was normal. His initial troponin was normal and then start to climb up which is due to demand ischemia. Troponin was 0.052 and 0.058 respectively. During this hospital stay, patient went into A. fib with RVR and this can explain borderline elevated troponin. Patient was treated with amiodarone, digoxin initially for A. fib with RVR. His heart rate stabilized as well blood pressure. Cardiology consulted and recommended no intervention at this time. After stabilization of blood pressure, metoprolol was reintroduced at lower dose and his heart rate continued to be stable. Patient was on prednisone 5 mg p.o. 3 times daily that was prescribed with Keytruda. This hospital stay, he was given stress dose of IV hydrocortisone which was transitioned down to prednisone 20 mg p.o. daily. With above-mentioned treatment, patient's blood pressure and heart rate stabilized. His nausea and vomiting significantly improved and he was able to tolerate diet with minimal nausea. Patient complains of weakness and instability, evaluated by PT OT and I recommended placement to ch[facility] facility. The patient and his refused to go to chcf facility and patient wanted to be discharged home. Patient discharged home in a stable medical condition, discharged on prednisone 20 mg p.o. twice daily, taper down every 3 days until he reaches 5 mg p.o. twice daily and requested to stay at that dose, metoprolol changed down to 12 mg p.o. twice daily, digoxin discontinued, prescription for Zofran as needed given, continued on amiodarone and Eliquis as well as other chronic home medications without any changes, plan to follow-up with PCP in 1 week and follow-up with Dr. Nassar, his oncologist, according to his recommendations. - Physical Exam General: Alert, Oriented x3, Cooperative, No apparent distress HEENT: Atraumatic, PERRLA, EOMI, Normocephalic Oral: Moist Mucosa, No Gingival or Mucosal Lesions/ Ulcerations Neck: Supple, No JVD, Negative Carotid Bruits, Trachea Midline, Thyroid Normal Size and Texture Lungs: Clear to auscultation, No rhonchi, No wheeze, No rales, Diminished Cardiovascular: Normal S1, Normal S2, No murmurs, PMI Normal, Irregular Rate Abdomen: Bowel Sounds Present, Soft, Non Tender, Non-Distended, Obese Extremities: No clubbing, No cyanosis, Edema Skin: No rashes, No breakdown Lymphatic: No Cervical, Supraclavicular, or Inguinal Adenopathy Neurological: Cranial nerves II-XII grossly intact, Neuro grossly intact Psych/Mental Status: Normal Affect, Appropriate, Alert and oriented to time, place, person, mood and affect Vital Signs Temp Pulse Resp BP Pulse Ox 97 F L 87 18 118/68 98 02/01/18 07:55 02/01/18 09:55 02/01/18 07:55 02/01/18 07:55 02/01/18 07:55 Oxygen Flow Rate (L/min) 2 Oxygen Delivery Method Room Air Weight: 210 lb 8.663 oz Body Mass Index (BMI) 31.0 Intake and Output for Last 24 Hours 01/30/18 01/31/18 02/01/18 23:59 23:59 23:59 Intake Total 3148 / 3148 2122 / 2122 480 / 480 Output Total 950 / 950 1550 / 1550 Balance 2198 / 2198 572 / 572 480 / 480 Laboratory Tests Past 24 Hrs 02/01/18 02/01/18 05:10 05:10 WBC 4.0 L RBC 2.97 L Hgb 9.6 L Hct 31.1 L MCV 104.7 H MCH 32.3 H MCHC 30.9 L RDW 15.5 H RDW Differential 58.6 H Plt Count 84 L MPV 9.4 Immature Gran % (Auto) 0.300 Neut % (Auto) 79.6 H Lymph % (Auto) 12.8 L [place] % (Auto) 6.0 Eos % (Auto) 1.0 Baso % (Auto) 0.3 Absolute Neuts (auto) 3.2 Absolute Lymphs (auto) 0.51 L Total Counted Not Reportable Sodium 137 Potassium 4.0 Chloride 111 H Carbon Dioxide 19.0 L Anion Gap 7 BUN 8 Creatinine 0.77 Estim Creat Clear Calc 57.00 Est GFR (MDRD) Af Amer 125 Est GFR (MDRD) Non-Af 104 BUN/Creatinine Ratio 10.4 Glucose 112 H Calcium 7.6 L Discharge Activity: Return to Normal Activity Weight Bearing Status: Weight bearing as tolerated Call your doctor if you observe: Fever of 101 or Higher, Shortness of breath, Dizziness, Fainting spells, Chest pain, Increased palpitations (irregular heartbeat), Uncontrolled pain Home Medications: Medications to take at Discharge Apixaban [Eliquis] 5 mg PO BID 01/28/18 Hydrocodone/Acetaminophen [Hydrocodone-Acetamin 5-325 mg] 1 - 2 each PO Q6H 01/28/18 Levothyroxine [Synthroid] 112 mcg PO DAILY 01/28/18 Multivitamins,Therapeutic [Multivitamin] 1 tablet PO DAILY 01/28/18 Potassium Chloride [K-Dur] 20 meq PO BIDCM 01/28/18 Tamsulosin HCl [Flomax] 0.4 mg PO DAILY 01/28/18 morphine SR tablet [Ms Contin] 15 mg PO BID 01/28/18 pravastatin 20 mg tablet 20 mg PO QHS #90 tab 01/28/18 Metoprolol Tartrate [Lopressor (beta khang)] 12.5 mg PO BID #90 tablet 02/01/18 Ondansetron [Zofran] 8 mg PO Q8H PRN PRN #30 tablet 02/01/18 Prednisone 20 mg PO BID.TCU #90 tab 02/01/18 amiodarone 200 mg tablet 200 mg PO DAILY #30 tab 02/01/18 Following Prescrptions Were Given to Patient: Ondansetron [Zofran] 8 mg PO Q8H PRN PRN #30 tablet PRN Reason: Nausea/Vomiting Metoprolol Tartrate [Lopressor (beta khang)] 12.5 mg PO BID #90 tablet Prednisone 20 mg PO BID.TCU #90 tab Primary Care Physician: Brodie Weir MD [Primary Care Provider] - Please follow up with your Primary Care Physician in: 1 week. Please Follow Up With: Ramesh Nassar, DO When: please call his office. Disposition: Home Minutes spent on discharge:: 32 Patient Condition:: Stable Medical Necessity - Tobacco Use Smoking Status: Former smoker Tobacco Use: Cigarettes Meaningful Use Info Meaningful Use Diagnoses (Choose all that apply): None applicable Code Visit Inpatient E&M: 05878 Disch Hosp
--- NOTE | 2018-02-02 15:34 | CASEMGMT ---
PHILL RAUSCH NOTE: Call placed to [facility] # [phone]. They confirmed pt is current with them for SN and PT. They were made aware pt was discharged from [facility] yesterday 02/01/18. Resumption of [facility] order and Discharge Instructions and summary faxed to them @ [phone]. Ava PALMA RN, CM
--- NOTE | 2018-02-02 15:52 | CASEMGMT ---
[facility] Discharge Follow-Up Phone Call. ZANA: Mika Strata: 2 Discharge Date: 02-01-18 Adm Dx: Hypovolemic Shock. Call placed to pt to inquire with him about how he has been feeling since he was discharged from the hospital. Pt stated he's doing okay and stated, I'm still trying to get my energy back. Pt stated that he's been having issues with his blood pressure and asked PH[facility] RAUSCH to talk with his about this for more details. Pt's , Lizett, then got on the phone. Lizett states that earlier this morning when he awoke, his BP was 119/97. She stated then at 1330 today it was 76/56 and then 88/61 @ 1345. She stated at 1451 it was back up to 101/58. Lizett states that pt has been feeling tired and does not have much energy. Informed Lizett that this low of BP, where top number is in the 70's and 80's is dangerously low and that if pt continues to have low blood pressures or if it drops down that low again or if he continues to not feel well, that he should return to the ER, again, reinforcing with her that this low of blood pressure is dangerously low. Lizett voiced understanding. Discussed discharge instructions with Lizett. She states she has no questions or concerns about the instructions and stated pt's son was able to picker tender helper the prescriptions. Lizett states pt has a follow-up appt with Dr Nassar in February and that she has not made an appt with Dr Gamez yet. She also states that pt has not seen Dr Weir in a long time and that they did not feel it was necessary to follow-up with him, as the specialists are the ones that see him more often. Advised Lizett to have pt follow up with a PCP, as PCP's manage the over-all care of pt and over-see all of the specialists Informed Lizett if pt is not wanting to continue to see Dr Weir, then PHILL RAUSCH advised that he should get established with another PCP. Lizett voiced understanding. Call placed to [facility] and informed them of pt's low BP's today as reported by and that was advised to have pt return to ER if his blood pressure continues to be low or if he is not feeling well. They stated they will notify the nurse to have pt be seen by them as soon as possible, but that it would most likely not be until tomorrow. Ava BSN RN CM
== END 2018-02-01 11:19 | disposition home or self-care (01) | DRG 391 ==
LOC: ED 14:18 → MS3 16:53 → ICU 17:51 → PCU 01-30 13:35
PROVIDERS: Family Medicine; Internal Medicine; Specialist; Admitting Provider Student in an Organized Health Care Education/Training Program; Emergency Provider Emergency Medicine; Family Provider Family Medicine; PCP Family Medicine; Referring Provider Internal Medicine Cardiovascular Disease; Visit Provider Hospitalist
DX: R11.2 Nausea with vomiting, unspecified (principal); R57.1 Hypovolemic shock; C79.51 Secondary malignant neoplasm of bone; I24.8 Other forms of acute ischemic heart disease; E27.40 Unspecified adrenocortical insufficiency; C61 Malignant neoplasm of prostate; I10 Essential (primary) hypertension; T45.1X5A Adverse effect of antineoplastic and immunosuppressive drugs, initial encounter; E03.9 Hypothyroidism, unspecified; E78.5 Hyperlipidemia, unspecified; I25.10 Atherosclerotic heart disease of native coronary artery without angina pectoris; I48.0 Paroxysmal atrial fibrillation; Z87.891 Personal history of nicotine dependence; Z95.1 Presence of aortocoronary bypass graft; Z95.5 Presence of coronary angioplasty implant and graft; Z79.899 Other long term (current) drug therapy; D69.59 Other secondary thrombocytopenia; D64.9 Anemia, unspecified; Z79.52 Long term (current) use of systemic steroids; I73.9 Peripheral vascular disease, unspecified; Z79.01 Long term (current) use of anticoagulants
CPT/HCPCS: 36415; 71045; 80048; 80053; 82150; 83605; 83690; 83735; 84484; 85025; 93005; 97110; 97162; 97166; 97530; 99284; J7030; A4216; J2405